=== PATIENT | female | born 1980 | race Caucasian/White ===

== ENCOUNTER 2022-03-22 01:00 | Emergency (ER) | payer MEDICARE, MEDICAID, SELFPAY ==
--- NOTE | ~2022-03-22 | CT_ITS ---
EXAMINATION: CT ABDOMEN AND PELVIS WITH CONTRAST CLINICAL INFORMATION: Abdominal pain. History of pancreatitis. COMPARISON: None TECHNIQUE: Multidetector volumetric images were obtained from the superior aspect of the liver through the pubic symphysis following administration 100 mL of Omnipaque 350 intravenous contrast. Sagittal and coronal reformatted images were obtained on the technologist's workstation. Oral contrast: No This CT examination was performed using dose optimization techniques as appropriate, variously including the following: *Automated exposure control *Adjustment of mA and/or kV according to patient size (this includes techniques or standardized protocols for targeted exams where dose is matched to indication/reason for exam; i.e. extremities or head) *Use of iterative reconstruction technique DLP: 959 mGy-cm FINDINGS: LUNG BASES: The visualized lung bases are unremarkable. LIVER, GALLBLADDER, AND BILIARY TREE: The liver is normal in size, shape, and contour. Hepatic steatosis. No focal hepatic lesion or biliary ductal dilatation is present. Gallbladder unremarkable. PANCREAS: Unremarkable. SPLEEN: Unremarkable. ADRENAL GLANDS: Unremarkable. KIDNEYS AND URETERS: The kidneys are normal in size, shape, and attenuation. No hydronephrosis, hydroureter, or calculi seen. No perinephric stranding. BLADDER: Unremarkable. GASTROINTESTINAL TRACT: The small and large bowel are unremarkable. The appendix is unremarkable. ABDOMINAL WALL: No significant hernia is appreciated. LYMPH NODES: Normal. VASCULAR: Unremarkable. PELVIC VISCERA: Uterus and adnexa are unremarkable. OSSEOUS STRUCTURES: Unremarkable. CT/CT abdomen pelvis w IV con IMPRESSION: * Normal CT imaging appearance of the pancreas. * Hepatic steatosis.
[2022-03-22 01:25] VITALS: BP 142/79; PULSE 80; RESP 19; TEMP 36.9; O2SAT 96; BMI 41.1
[2022-03-22 01:38] LABS: Basophils Percent Auto 0.3 % (0-2); Eosinophils Absolute Auto 0.2 X10*3/uL (0.0-0.4); Eosinophils Percent Auto 1.5 % (0-4); Hematocrit 42.5 % (37.0-47.0); Imm Gran Abs Auto 0.06 X10*3/uL (0.00-0.03); Imm Gran Pct Auto 0.4 % (0.0-0.4); Lymphocytes Absolute Auto 2.7 X10*3/uL (1.2-4.9); Lymphocytes Percent Auto 18.8 % (20-40); MANUAL DIFF FLAG NO; Mean Corpuscular HGB Conc 32.9 g/dl (31.0-35.0); Mean Corpuscular Hemoglobin 28.6 pg (27.0-33.0); Mean Corpuscular Volume 86.9 fL (80.0-98.0); Mean Platelet Volume 10.7 fL (9.4-12.3); Monocytes Absolute Auto 0.9 X10*3/uL (0.1-1.2); Monocytes Percent Auto 6.5 % (2-11); Neutrophils Absolute Auto 10.2 x10*3/uL (2.0-8.3); Neutrophils Percent Auto 72.5 % (45-73); Platelet Count 232 X10*3/uL (160-400); Red Blood Count 4.89 X10*6/uL (4.20-5.50); Red Cell Distribution Width 15.2 % (11.0-16.0); White Blood Count 14.1 X10*3/uL (4.8-10.8)
[2022-03-22 01:59] LABS: Alanine Aminotransferase 36 U/L (0-31); Albumin Level 4.2 g/dL (3.5-5.0); Alkaline Phosphatase 38 U/L (39-117); Anion Gap 16 (12-20); Aspartate Amino Transferase 21 U/L (5-31); Bilirubin Total 0.3 mg/dL (0.0-1.0); Blood Urea Nitrogen 12 mg/dL (9-16); Calcium 9.1 mg/dL (8.4-10.2); Carbon Dioxide 24 mmol/L (22-29); Chloride 98 mmol/L (96-108); Creatinine Clr Calc Pharmacy 130.6; Estimated Glomerular Filt Rate > 60; Glucose Random 176 mg/dL (60-115); Lipase 183 U/L (8-78); Sodium 134 mmol/L (135-145); Total Protein 7.1 g/dL (6.5-8.0)
[2022-03-22 02:13] LABS: Appearance Urine Clear; Color Urine Yellow; Glucose Urine UA >=1000 mg/dL (Negative); Leukocyte Esterase Urine Negative (Negative); Nitrite Urine Negative (Negative); Specific Gravity - Urine 1.015 (1.005-1.025); UMIC TRIGGER UACC YES; Urine Blood Negative (Negative); Urine Ketones Negative (Negative); Urine Protein Negative (Neg-Trace)
[2022-03-22 02:18] LABS: Bacteria Urine None Seen (None Seen); Hyaline Casts Urine 0-2 /LPF (0-2); RBC Urine 0-2 /HPF (0-2); WBC Urine 0-5 /HPF (0-5)
[2022-03-22 03:45] VITALS: BP 141/68; PULSE 76; RESP 18; TEMP 36.4; O2SAT 95
--- NOTE | 2022-03-22 03:49 | ED_ITS ---
HPI - Abdominal Pain General Chief Complaint: Abdominal Pain Stated Complaint: pain in side, dr said possible pancreatitis Time Seen by Provider: 03/22/22 03:48 Source: patient Mode of arrival: ambulatory Limitations: no limitations History of Present Illness HPI narrative: Patient's history of hypertriglyceridemia, pancreatitis comes here for diffuse mid abdominal pain for last 2 days associated with nausea pain in her right back got worse prior to arrival no alcohol use no history of gallstones Related Data Previous Rx's Medication Instructions Recorded ondansetron 4 mg disintegrating 4 mg PO Q6-8H PRN nausea and 03/22/22 tablet vomiting #7 tabs tramadol 50 mg tablet 50 mg PO Q6H PRN pain #20 tabs 03/22/22 Allergies Allergy/AdvReac Type Severity Reaction Status Date / Time Sulfa (Sulfonamide Allergy Unknown HIVES Verified 03/22/22 01:28 Antibiotics) [SULFA (SULFONAMIDE ANTIBIOTICS)] Review of Systems Review of Systems Yes all other systems are reviewed and are negative [facility] Social History Social History Alcohol intake: never Patient Tobacco Use Status: Current everyday Tobacco user Use of substances other than those prescribed or required for medical reasons: Yes Substance Use Type: Marijuana Substance Use Frequency: Monthly Advance Directives: No Advance Directives Information Provided: Yes Patient : No Physical Exam ED Vital Signs: Vital Signs - 24 hr 03/22/22 01:25 03/22/22 03:45 Temperature 98.5 F 97.6 F Pulse Rate 80 76 Respiratory Rate 19 18 Blood Pressure 142/79 H 141/68 H Pulse Oximetry 96 95 Oxygen Delivery Method Room Air Room Air BMI result Body Mass Index 41.1 Appearance: Alert. Oriented X3. No acute distress. Eyes: PERRLA, No Nystagmus ENT: Pharynx normal. Oral Mucosa moist Neck: Normal inspection. Neck supple. CVS: Normal heart rate and rhythm. Pulses normal. Respiratory: No respiratory distress. Equal air entry bilateral, no wheezing/rales/rhonchi Abdomen: Soft mid abdominal tenderness. Bowel sounds are present, no mass palpable, R CVA tenderness+ Skin: Skin warm and dry. Normal skin color. Normal skin turgor. Extremities: No lower extremity edema. No calf tenderness Neuro: Oriented X 3. No motor deficit. 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 Lab Data Attestation: I reviewed the patient's lab results. Result diagrams: 03/22/22:03/22/22:31 Labs: Lab Results 03/22/22 03/22/22 03/22/22 Range/Units : 01:31 01:41 WBC 14.1 H (4.8-10.8) X10*3/uL RBC 4.89 (4.20-5.50) X10*6/uL Hgb 14.0 (12.0-16.0) g/dl Hct 42.5 (37.0-47.0) % MCV 86.9 (80.0-98.0) fL MCH 28.6 (27.0-33.0) pg MCHC 32.9 (31.0-35.0) g/dl RDW 15.2 (11.0-16.0) % Plt Count 232 (160-400) X10*3/uL MPV 10.7 (9.4-12.3) fL Immature Gran % (Auto) 0.4 (0.0-0.4) % Neut % (Auto) 72.5 (45-73) % Lymph % (Auto) 18.8 L (20-40) % [place] % (Auto) 6.5 (2-11) % Eos % (Auto) 1.5 (0-4) % Baso % (Auto) 0.3 (0-2) % Lymph # (Auto) 2.7 (1.2-4.9) X10*3/uL [place] # (Auto) 0.9 (0.1-1.2) X10*3/uL Eos # (Auto) 0.2 (0.0-0.4) X10*3/uL Baso # (Auto) 0.0 (0.0-0.2) X10*3/uL Abs Immat Gran (auto) 0.06 H (0.00-0.03) X10*3/uL Absolute Neuts (auto) 10.2 H (2.0-8.3) x10*3/uL Absolute Nucleated RBC 0.000 (0.0-0.012) X10*3/uL Nucleated RBC % (auto) 0.0 (0.0-0.2) /100WBC Sodium 134 L (135-145) mmol/L Potassium 4.0 (3.3-5.1) mmol/L Chloride 98 (96-108) mmol/L Carbon Dioxide 24 (22-29) mmol/L Anion Gap 16 (12-20) BUN 12 (9-16) mg/dL Creatinine 0.69 (0.5-1.4) mg/dL Estim Creat Clear Calc 130.6 Estimated GFR > 60 Random Glucose 176 H (60-115) mg/dL Calcium 9.1 (8.4-10.2) mg/dL Total Bilirubin 0.3 (0.0-1.0) mg/dL AST 21 (5-31) U/L ALT 36 H (0-31) U/L Alkaline Phosphatase 38 L (39-117) U/L Total Protein 7.1 (6.5-8.0) g/dL Albumin 4.2 (3.5-5.0) g/dL Triglycerides 415 mg/dL Cholesterol 168 mg/dL LDL Cholesterol, Calc TNP HDL Cholesterol 35 mg/dL Lipase 183 H (8-78) U/L Urine Color Yellow Urine Appearance Clear Urine pH 6.0 (5.0-9.0) Ur Specific [place] 1.015 (1.005-1.025) Urine Protein Negative (Neg-Trace) mg/dL Urine Glucose (UA) >=1000 H (Negative) mg/dL Urine Ketones Negative (Negative) mg/dL Urine Blood Negative (Negative) Urine Nitrite Negative (Negative) Ur Leukocyte Esterase Negative (Negative) Urine RBC 0-2 (0-2) /HPF Urine WBC 0-5 (0-5) /HPF Ur Squamous Epith Cells 3-5 (0-2) /HPF Urine Bacteria None Seen (None Seen) Hyaline Casts 0-2 (0-2) /LPF Discharge Plan Discharge Clinical Impression: Pancreatitis Patient Disposition: Home, Self-Care Instructions: Pancreatitis (ED) Additional Instructions: You have slightly elevated lipase but CT scan is negative for any acute inflammation of the pancreas Drink plenty of fluids advanced slowly as tolerated Avoid fried foods Report to the ER/PCP if worsening of the pain/vomiting. 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
--- OUTSIDE RECORDS SUMMARY | 2022-03-22 03:55 | XMS_ITS | Encounter Summary ---
:1980 Author Reason for Visit Tooth Pain patient is here for broken tooth and randall n at the site on the bottom left side has been going on since yesterday tooth has been broken for years Assessment and Plan Assessment Note Take ibuprofen and Tylenol as needed an d directed Take penicillin as prescribed Follow-up with your dentist appointment on Monday Salt water rinses as we discussed 1. Infection of tooth ? penicillin V potassium 500 mg tablet Discussion Note: None recorded.Patient educational handouts: No information available. Plan of Care Reminders Provider Appointments None recorded. ? ? Lab None recorded. ? ? Referral None recorded. ? ? Procedures None recorded. ? ? Surgeries None recorded. ? ? Imaging None recorded. ? ? Medications Name Start Date ? ? acyclovir 400 mg tablet ? TAKE 1 TABLET BY MOUTH EVERY 12 HOURS albuterol sulfate HFA 90 mcg/actuation aerosol inhaler ? INHALE 2 PUFFS BY MOUTH EVERY 4 TO 6 HOURS NEEDED amitriptyline 25 mg tablet ? TAKE 1 TABLET BY MOUTH EVERY DAY AT BEDTIME baclofen 10 mg tablet ? TAKE 1 TABLET BY MOUTH TWICE DAILY NEEDED buprenorphine 8 mg-naloxone 2 mg sublingual film ? TAKE 3 FILMS SULINGUALLY EVERY DAY buprenorphine 8 mg-naloxone 2 mg sublingual tablet ? DISSOLVE 3 TABLETS UNDER THE TONGUE EVERY DAY duloxetine 60 mg capsule,delayed release ? TAKE 1 CAPSULE BY MOUTH EVERY DAY FeroSul 325 mg (65 mg iron) tablet ? TAKE 1 TABLET BY MOUTH EVERY OTHER DAY Flovent HFA 110 mcg/actuation aerosol inhaler ? INHALE 2 PUFFS BY MOUTH TWICE DAILY hydroxyzine HCl 25 mg tablet ? TAKE 1 TO 2 TABLETS BY MOUTH THREE TIMES DAILY NEE DED ibuprofen 600 mg tablet ? ipratropium bromide 42 mcg (0.06 %) nasal spray ? USE 2 SPRAYS IN EACH NOSTRIL TWICE DAILY FOR 7 DAYS Januvia 25 mg tablet ? TAKE 1 TABLET BY MOUTH EVERY DAY FOR DIABETES Jardiance 25 mg tablet ? TAKE 1 TABLET BY MOUTH EVERY MORNING lisinopril 20 mg-hydrochlorothiazide 12.5 mg tablet ? TAKE 1 TABLET BY MOUTH EVERY DAY metformin 850 mg tablet ? TAKE 1 TABLET BY MOUTH TWICE DAILY WITH THE MORNING A ND EVENING MEAL nicotine (polacrilex) 4 mg buccal lozenge ? [place] 3 ? omega-3 300 mg-dha 120 mg-epa 180 mg-fish oil 1,000 mg capsule ? TAKE 1 CAPSULE BY MOUTH THREE TIMES DAILY omega-3 fatty acids-fish oil 300 mg-1,000 mg capsule ? TAKE 1 CAPSULE BY MOUTH THREE TIMES DAILY omeprazole 40 mg capsule,delayed release ? TAKE 1 CAPSULE BY MOUTH TWICE DAILY penicillin V potassium 500 mg tablet ? TAKE 1 TABLET BY MOUTH EVERY 8 HOURS FOR 10 DAYS D IRECTED pramipexole 0.5 mg tablet ? TAKE 1 TABLET BY MOUTH EVERY NIGHT AT BEDTIME pravastatin ? pravastatin 20 mg tablet ? TAKE 1 TABLET BY MOUTH EVERY DAY AT BEDTIME prazosin 5 mg capsule ? TAKE 1 CAPSULE BY MOUTH TWICE DAILY pregabalin 200 mg capsule ? TAKE 1 CAPSULE BY MOUTH TWICE DAILY pregabalin 225 mg capsule ? TAKE 1 CAPSULE BY MOUTH TWICE DAILY sumatriptan 100 mg tablet ? TAKE 1 TABLET BY MOUTH AT ONSET OF MIGR NING. MAY REPEAT AFTER 2 HOURS IF HEADACHE RETURNS. NOT TO EXCEED 200 MG IN 24 HOURS Medications Administered None recorded. Vitals Blood Pressure 119/73 mm[Hg] Results Lab Results None recorded. Allergies Code Code System Name Reaction Severity Onset Sulfa (Sulfonamide Antibiotics) ? ? ? Problems None recorded. Procedures None recorded. Vaccine List Notes: no covid vaccine Social History Tobacco Smoking Status Heavy Tobacco Smoker (1/2 pack per da y) What is your level of alcohol consumption? Occasional Do you use any illicit or recreational N drugs? Functional Status Unknown. Past Encounters 02/15/2022 Infection of Tooth Marily Kong HOMA Georges: [address] [place] [address], Ph. History of Present Illness Note: <div>Patient is a 41-year-old female presents to urgent care today with complaints of left-sided lower tooth pain. States that she has a history of fractured teeth from an injury in 2011. Patient states that she has been under a lot of stress lately and with COVID has not seen a dentist in a while. Has a known broken tooth in the area where the pain is. States the pain started yesterday. Has an appointment with her dentist next Monday. Taking Tylenol and 600 mg ibuprofen with relief of the pain. Able to eat and drink otherwise. No other complaints at this time.</div>Review of Systems: ROS as noted in the HPI Review of Systems ? Comprehensive Adult Problem ROS Reported By: Patient Constitutional: Constitutional: fever Eyes: Eyes: eye pain ENMT: ENMT: ear pain, sinus pressu re, facial swelling Respiratory: Respiratory: no cough, no wh eezing, no chest tightness Allergic/Immunologic: Allergy/Immunologic: no snee zing, no runny nose Physical Exam ? Notes: <div>General: Alert and orie nted x3 in no apparent distress

Skin: Mullen warm and dry. No lesions or masses appreciated throughout. Mild edema to the left side of the face

Mouth: Multiple fractured teeth throughout. No abscess seen. No tongue elev ation/cellulitis to floor of mouth.

Lungs: No resp distress

Musc uloskeletal: Full range of motion of upper and lower extremities bilaterall y.

Lymph: No cervical lymphadenopathy appreciated</div>
--- OUTSIDE RECORDS SUMMARY | 2022-03-22 03:55 | XMS_ITS ---
:1980 Author Care Team Providers Name Role Phone Sean Matias Primary Care Provider Unavailable Allergies Code Code System Name Reaction Severity Status Onset Sulfa (Sulfonamide Antibiotics) ? ? Active ? Medications Name Status Start Date Stop Date ? ? acyclovir 400 mg tablet Active ? Not avai lable albuterol sulfate HFA 90 mcg/actuation aerosol inhaler Active ? Not available INHALE 2 PUFFS BY MOUTH EVERY 4 TO 6 HOURS NEEDED Alcohol Prep Pads Completed ? 11/04/2021 USE 1 PAD FOR TESTING amitriptyline 25 mg tablet Active ? Not a vailable TAKE 1 TABLET BY MOUTH EVERY DAY AT BEDTIME amitriptyline 50 mg tablet Completed ? 11/04 TAKE 2 TABLETS BY MOUTH AT BEDTIME amoxicillin 500 mg capsule Completed ? 11/04 baclofen 10 mg tablet Active ? Not availa ble blood pressure test kit-large cuff Completed ? 11/04/2021 USE TO CHECK BLOOD PRESSURE ONCE DAILY AND RECORD READING buprenorphine 8 mg-naloxone 2 mg sublingual film Active ? Not available TAKE 3 FILMS SULINGUALLY EVERY DAY buprenorphine 8 mg-naloxone 2 mg sublingual tablet Active ? Not available DISSOLVE 3 TABLETS UNDER THE TONGUE EVERY DAY chlorhexidine gluconate 0.12 % mouthwash Completed ? 11/04/[address] PL[address] 15ML BY MUCOUS MEMBRANE TWICE ANN LY AFTER MEALS SWISH FOR 30 SECONDS THEN SPIT OUT clotrimazole 10 mg randall Completed ? 2021 DISSOLVE 1 LOZENGE SLOWLY IN THE MOUTH FIVE TIMES DAILY duloxetine 60 mg capsule,delayed release Active ? Not available TAKE 1 CAPSULE BY MOUTH EVERY DAY FeroSul 325 mg (65 mg iron) tablet Active ? Not available TAKE 1 TABLET BY MOUTH EVERY OTHER DAY Flovent HFA 110 mcg/actuation aerosol inhaler Active ? Not available INHALE 2 PUFFS BY MOUTH TWICE DAILY gabapentin 800 mg tablet Completed ? 022 TAKE 1 TABLET BY MOUTH THREE TIMES DAILY FOR FIBROMYALGIA hydrochlorothiazide 25 mg tablet Completed ? 11/04/2021 hydroxyzine HCl 25 mg tablet Active ? Not available TAKE 1 TO 2 TABLETS BY MOUTH THREE TIMES DAILY NEEDED ibuprofen 600 mg tablet Active ? Not avai lable ibuprofen 800 mg tablet Completed ? 11/05/19 22 TAKE 1 TABLET BY MOUTH THREE TIMES DAILY WITH FOOD ipratropium bromide 42 mcg (0.06 %) nasal spray Active ? Not available USE 2 SPRAYS IN EACH NOSTRIL TWICE DAILY FOR 7 DAYS Januvia 25 mg tablet Active ? Not availab le TAKE 1 TABLET BY MOUTH EVERY DAY FOR DIABETES Jardiance 10 mg tablet Completed ? 2 TAKE 1 TABLET BY MOUTH EVERY DAY IN THE MORNING Jardiance 25 mg tablet Active ? Not avail able TAKE 1 TABLET BY MOUTH EVERY MORNING lisinopril 20 mg-hydrochlorothiazide 12.5 mg tablet Active ? Not available TAKE 1 TABLET BY MOUTH EVERY DAY metformin 850 mg tablet Active ? Not avai lable nicotine (polacrilex) 4 mg buccal lozenge Active ? Not available nicotine 21 mg/24 hr daily transdermal patch Completed ? 11/04/2021 APPLY 1 PATCH TO THE SKIN EVERY DAY AND WEAR FOR 16 TO 24 HOURS [place] 3 Active ? Not available omega-3 300 mg-dha 120 mg-epa 180 mg-fish oil 1,000 mg capsule A ctive ? Not available TAKE 1 CAPSULE BY MOUTH THREE TIMES DAILY omega-3 fatty acids-fish oil 300 mg-1,000 mg capsule Active ? Not available TAKE 1 CAPSULE BY MOUTH THREE TIMES DAILY omeprazole 40 mg capsule,delayed release Active ? Not available TAKE 1 CAPSULE BY MOUTH TWICE DAILY penicillin V potassium 500 mg tablet Active ? Not available TAKE 1 TABLET BY MOUTH EVERY 8 HOURS FOR 10 DAYS DIRECTED pramipexole 0.5 mg tablet Active ? Not av ailable TAKE 1 TABLET BY MOUTH EVERY NIGHT AT BEDTIME pravastatin Active ? Not available pravastatin 20 mg tablet Active ? Not romain ilable TAKE 1 TABLET BY MOUTH EVERY DAY AT BEDTIME prazosin 5 mg capsule Active ? Not availa ble TAKE 1 CAPSULE BY MOUTH TWICE DAILY pregabalin 200 mg capsule Active ? Not av ailable TAKE 1 CAPSULE BY MOUTH TWICE DAILY pregabalin 225 mg capsule Active ? Not av ailable TAKE 1 CAPSULE BY MOUTH TWICE DAILY sumatriptan 100 mg tablet Active ? Not av ailable Problems None recorded. Procedures None recorded. Results Lab Results Date Name Specimen Result Interpretation Description Value Range Status Address ? 11/04/2021 SARS CoV 2 RNA ? Result negative ? ? [place] [facility] [place]: [address] operator-PCR, [facility] , Respiratory [facility] ield Specimen 06/21/2020 SARS CoV 2 RNA ? Covid-19, ? (neg) F inal [facility] (COVID-19), , (RT)-PCR Reference b operator-PCR, Tim macario: Respiratory [address] Specimen [place], [place] Past Encounters 02/15/2022 Infection of Tooth Kornelia Moysis [place], PA: [address] [place] [address], Ph. 11/04/2021 Suspected COVID-19; Congestion of Nasal Sinus Emely Presley PA: [address] [place] [address], Ph. Social History Tobacco Smoking Status Heavy Tobacco Smoker (1/2 pack per da y) Vaccine List Notes: no covid vaccine Plan of Care Reminders Provider Appointments None recorded. ? ? Lab None recorded. ? ? Referral None recorded. ? ? Procedures None recorded. ? ? Surgeries None recorded. ? ? Imaging None recorded. ? ? Vitals 02/15/2022 03:21PM Established Patient Blood Pressure 119/73 mm[Hg] 11/04/2021 01:45PM Established Patient Blood Pressure 111/59 mm[Hg]
[2022-03-22 04:11] LABS: Cholesterol 168 mg/dL; HDL Cholesterol 35 mg/dL; Triglycerides 415 mg/dL
[2022-03-22] MEDS: 0.9 % Sodium Chloride 1,000 ML 999 ML IV (04:20)
--- NOTE | 2022-03-22 04:22 | PC.NURSE ---
Pt. declines Morphine at this time d/t hx. of opiate abuse. MD Wenceslao aware. This RN awaiting order for a different pain medication at this time.
[2022-03-22] MEDS: Ketorolac Tromethamine 30 MG/ML VIAL IVPUSH (04:24)
[2022-03-22] MEDS: ondansetron HCL 4 MG/2 ML VIAL IVPUSH (04:24)
[2022-03-22] MEDS: iohexoL 350 MG/ML 100 ML INFUS..BTL IV (04:42)
== END 2022-03-22 05:58 | disposition home or self-care (01) ==
PROVIDERS: Emergency Provider Internal Medicine
DX: K85.90 Acute pancreatitis without necrosis or infection, unspecified (principal); Z79.899 Other long term (current) drug therapy
CPT/HCPCS: 36415; 74177; 80053; 80061; 81001; 83690; 85025; 96374; 96375; 99284; 99285; J1885; J2405; Q9967

== ENCOUNTER 2022-05-03 08:13 | Outpatient (RCR) | payer MEDICARE, MEDICAID, SELFPAY | END 2022-07-05 13:55 | disposition home or self-care (01) | LOC: HO.WCC 08:13 | PROVIDERS: Visit Provider Physician Assistant | DX: Z09 Encounter for follow-up examination after completed treatment for conditions other than malignant neoplasm (principal); E11.40 Type 2 diabetes mellitus with diabetic neuropathy, unspecified; E78.01 Familial hypercholesterolemia; I10 Essential (primary) hypertension; F17.210 Nicotine dependence, cigarettes, uncomplicated; Z86.31 Personal history of diabetic foot ulcer | CPT/HCPCS: 11042; 99213 ==

== ENCOUNTER 2022-08-30 10:39 | Outpatient (RCR) | payer MEDICARE, OTHER, MEDICAID, SELFPAY | END 2023-03-15 14:36 | disposition home or self-care (01) | LOC: HO.WCC 10:39 | PROVIDERS: Visit Provider Physician Assistant | DX: E11.621 Type 2 diabetes mellitus with foot ulcer (principal); L97.512 Non-pressure chronic ulcer of other part of right foot with fat layer exposed; L97.522 Non-pressure chronic ulcer of other part of left foot with fat layer exposed; L03.116 Cellulitis of left lower limb; R78.81 Bacteremia; E11.40 Type 2 diabetes mellitus with diabetic neuropathy, unspecified; I10 Essential (primary) hypertension; F17.210 Nicotine dependence, cigarettes, uncomplicated; Z79.2 Long term (current) use of antibiotics | CPT/HCPCS: 10140; 11042; 97597 ==

== ENCOUNTER 2022-09-25 23:21 | Inpatient (IN) | payer MEDICARE, MEDICAID, SELFPAY ==
--- NOTE | ~2022-09-25 | XR_ITS ---
EXAMINATION: XR FOOT, LEFT CLINICAL INFORMATION: Low suspicion osteomyelitis fourth toe COMPARISON: None available. TECHNIQUE: AP, lateral, and oblique views of the left foot. FINDINGS: Osseous alignment is anatomic. No acute fracture is seen. No convincing changes of osteomyelitis in the fourth digit, though there may be some soft tissue swelling in this region. Mild degenerative changes in the proximal foot. XR/XR foot LT 2V IMPRESSION: No convincing changes of osteomyelitis in the fourth digit, though there may be some soft tissue swelling.
--- NOTE | ~2022-09-25 | XR_ITS ---
EXAMINATION: XR FOOT, RIGHT CLINICAL INFORMATION: Low suspicion osteomyelitis great toe COMPARISON: None available. TECHNIQUE: AP, lateral, and oblique views of the right foot. FINDINGS: Osseous alignment is anatomic. No convincing findings of osteomyelitis in the great toe, though there is suggestion of soft tissue swelling. No acute fracture is seen. Mild degenerative changes in the proximal foot. XR/XR foot RT 2V IMPRESSION: Suggestion of soft tissue swelling of the great toe. No convincing findings of osteomyelitis.
[2022-09-25 23:26] VITALS: BP 143/81; PULSE 97; RESP 20; TEMP 37.1; O2SAT 96; BMI 42.9
[2022-09-25 23:54] LABS: MANUAL DIFF FLAG NO
[2022-09-25 23:56] LABS: Basophils Percent Auto 0.3 % (0-2); Eosinophils Absolute Auto 0.1 X10*3/uL (0.0-0.4); Eosinophils Percent Auto 1.3 % (0-4); Hematocrit 45.1 % (37.0-47.0); Hemoglobin 15.2 g/dl (12.0-16.0); Imm Gran Abs Auto 0.03 X10*3/uL (0.00-0.03); Imm Gran Pct Auto 0.3 % (0.0-0.4); Lymphocytes Absolute Auto 2.1 X10*3/uL (1.2-4.9); Lymphocytes Percent Auto 18.9 % (20-40); Mean Corpuscular HGB Conc 33.7 g/dl (31.0-35.0); Mean Corpuscular Hemoglobin 29.4 pg (27.0-33.0); Mean Corpuscular Volume 87.2 fL (80.0-98.0); Mean Platelet Volume 11.4 fL (9.4-12.3); Monocytes Percent Auto 8.9 % (2-11); Neutrophils Absolute Auto 7.8 x10*3/uL (2.0-8.3); Neutrophils Percent Auto 70.3 % (45-73); Platelet Count 240 X10*3/uL (160-400); Red Blood Count 5.17 X10*6/uL (4.20-5.50); Red Cell Distribution Width 13.6 % (11.0-16.0); White Blood Count 11.1 X10*3/uL (4.8-10.8)
[2022-09-26 00:12] LABS: Alanine Aminotransferase 51 U/L (0-31); Albumin Level 4.5 g/dL (3.5-5.0); Alkaline Phosphatase 33 U/L (39-117); Anion Gap 11 (12-20); Aspartate Amino Transferase 28 U/L (5-31); Bilirubin Total 0.4 mg/dL (0.0-1.0); Blood Urea Nitrogen 12 mg/dL (9-16); Calcium 9.8 mg/dL (8.4-10.2); Carbon Dioxide 32 mmol/L (22-29); Chloride 97 mmol/L (96-108); Estimated Glomerular Filt Rate > 60; Glucose Random 249 mg/dL (60-115); Potassium 4.6 mmol/L (3.3-5.1); Sodium 135 mmol/L (135-145); Total Protein 7.4 g/dL (6.5-8.0)
--- NOTE | 2022-09-26 01:11 | ED.GENADULT ---
HPI - General Adult General Chief complaint: General Medical Stated complaint: possible cellulitis, septic? Time Seen by Provider: 09/26/22 00:56 Source: patient Mode of arrival: ambulatory Limitations: no limitations History of Present Illness HPI narrative: Patient comes to the emergency room complaining of lower extremity cellulitis in the right side. Patient states she noticed her legs getting red yesterday. There was an has found nonhealing wound on the greater toe, which is being taking care of at the wound clinic. Patient also noticed a new ulcer in her left foot on the 4th toe. Patient states that she had a fever of 101 at home. Has been taking Tylenol and ibuprofen. Patient also complaining of a rash on her right breast. Related Data Previous Rx's Medication Instructions Recorded ondansetron 4 mg disintegrating 4 mg PO Q6-8H PRN nausea and 03/22/22 tablet vomiting #7 tabs tramadol 50 mg tablet 50 mg PO Q6H PRN pain #20 tabs 03/22/22 Allergies Allergy/AdvReac Type Severity Reaction Status Date / Time Sulfa (Sulfonamide Allergy Unknown HIVES Verified 09/25/22 23:30 Antibiotics) [SULFA (SULFONAMIDE ANTIBIOTICS)] Review of Systems Review of Systems: Constitutional : No Weight loss, No Fever, No Chills, No Night Sweats, No Fatigue, No Malaise ENT/Mouth : No Hearing loss, No Ear Pain, No Nasal Congestion, No Sinus Pain, No Hoarseness, No sore throat, No Rhinorrhea, No Swallowing Difficulty Eyes: No Eye Pain, No Swelling, No Redness, No Foreign Body, No Discharge, No Vision Changes Cardiovascular : No Chest Pain, No SOB, No Dyspnea on Exertion, No Orthopnea, No Edema, No Palpitations Respiratory : No Cough, No Sputum, No Wheezing, No Smoke Exposure, No Dyspnea Gastrointestinal : No Nausea, No Vomiting, No Diarrhea, No Constipation, No abdominal Pain, No Hematochezia, No Melena Genitourinary : no irregular bleeding, No Dysuria, No Urinary Frequency, No Hematuria, No Urinary Incontinence, No Urgency, No Flank Pain, No Urinary Flow Changes, No Hesitancy Musculoskeletal : No joint pain, No Myalgias, No Joint Swelling Skin : Complaining rash under the right breast. Complaining of cellulitis in her right lower extremity and a new diabetic ulcer on the 4th toe of the left foot Neuro : No Weakness, No Numbness, No Paresthesias, No Loss of Consciousness, No Dizziness, No Headache Psych : No Anxiety/Panic, No Depression, No SI/HI/AH/VH, No Social Issues, Heme/Lymph: No Bruising, No Bleeding,No Lymphadenopathy Endocrine : No Polyuria, No Polydipsia, No Temperature Intolerance [facility] Past Medical History Medical History Diabetes Social History Social History Alcohol intake: never Patient Tobacco Use Status: Current everyday Tobacco user Substance Use Type: Marijuana Advance Directives: No Advance Directives Information Provided: Yes Physical Exam ED Vital Signs: Vital Signs - 24 hr 09/25/22 23:26 09/26/22 01:41 Temperature 98.7 F 100.8 F H Pulse Rate 97 92 Respiratory Rate 20 20 Blood Pressure 143/81 H 123/58 L Pulse Oximetry 96 95 Oxygen Delivery Method Room Air Room Air BMI result Body Mass Index 42.9 Const Other: Appearance: Alert. Oriented X3. No acute distress. Eyes: Pupils equal, round and reactive to light. ENT: Pharynx normal. Neck: Normal inspection. Neck supple. No lymph nodes noted. No crepitus CVS: Normal heart rate and rhythm. Pulses normal. Normal S1 and S2 Respiratory: No respiratory distress. Breath sounds normal. No Wheezing. No rales Abdomen: Soft and nontender. No rigidity. No distention. Skin: Skin warm and dry. Normal skin color. Normal skin turgor. Extremities: No lower extremity edema. There is cellulitis in the frontal aspect of the right lower extremity, a nonhealing laceration at the tip of the great toe, there is a new ulcer on the 4th toe on the left Neuro: Oriented X 3. No motor deficit. No sensory deficit. Moving all extremities. No slurred speech. CN 2 through 12 grossly intact Psych: calm, cooperative, normal affect Medications Administered Discontinued Medications Generic Name Dose Route Start Last Admin Trade Name Freq PRN Reason Stop Dose Admin Acetaminophen 975 mg 09/26/22 02:17 09/26/22 02:21 Acetaminophen 325 Mg Tablet PO 09/26/22 02:18 975 mg ONCE ONE Administration Piperacillin Sod/Tazobactam 50 mls @ 100 mls/hr 09/26/22 01:52 09/26/22 02:20 Sod 3.375 gm/ Sodium Chloride IV 09/26/22 02:21 100 mls/hr ONCE ONE Administration Medical Decision Making Medical Decision Making [facility] Narrative: Patient's white blood cell count is within normal limits. However, patient has been spiking fever. Patient has been medicated with IV vancomycin and Zosyn. -chest x-ray of both feet are not suspicious for osteomyelitis. -patient continues spiking fever this provides antipyretics Differential Diagnosis Differential Diagnoses: The differential diagnosis associated with the presentation includes (Cellulitis, osteomyelitis) Admission/Observation Consideration of admission/observation: Escalation of care including admission/observation considered Consult Healthcare Provider Management of the patient was discussed with: Hospitalist Lab Data [facility] Lab Attestation statement: I reviewed the patient's lab results. 09/25/22 23:50 09/25/22 23:50 Labs: Lab Results 09/25/22 09/25/22 09/25/22 Range/Units 23:50 23:50 23:50 WBC 11.1 H (4.8-10.8) X10*3/uL RBC 5.17 (4.20-5.50) X10*6/uL Hgb 15.2 (12.0-16.0) g/dl Hct 45.1 (37.0-47.0) % MCV 87.2 (80.0-98.0) fL MCH 29.4 (27.0-33.0) pg MCHC 33.7 (31.0-35.0) g/dl RDW 13.6 (11.0-16.0) % Plt Count 240 (160-400) X10*3/uL MPV 11.4 (9.4-12.3) fL Immature Gran % (Auto) 0.3 (0.0-0.4) % Neut % (Auto) 70.3 (45-73) % Lymph % (Auto) 18.9 L (20-40) % [place] % (Auto) 8.9 (2-11) % Eos % (Auto) 1.3 (0-4) % Baso % (Auto) 0.3 (0-2) % Lymph # (Auto) 2.1 (1.2-4.9) X10*3/uL [place] # (Auto) 1.0 (0.1-1.2) X10*3/uL Eos # (Auto) 0.1 (0.0-0.4) X10*3/uL Baso # (Auto) 0.0 (0.0-0.2) X10*3/uL Abs Immat Gran (auto) 0.03 (0.00-0.03) X10*3/uL Absolute Neuts (auto) 7.8 (2.0-8.3) x10*3/uL Absolute Nucleated RBC 0.000 (0.0-0.012) X10*3/uL Nucleated RBC % (auto) 0.0 (0.0-0.2) /100WBC ESR 9 (0-20) MM/HR Sodium 135 (135-145) mmol/L Potassium 4.6 (3.3-5.1) mmol/L Chloride 97 (96-108) mmol/L Carbon Dioxide 32 H (22-29) mmol/L Anion Gap 11 L (12-20) BUN 12 (9-16) mg/dL Creatinine 0.87 (0.5-1.4) mg/dL Estim Creat Clear Calc 105.0 Estimated GFR > 60 Random Glucose 249 H (60-115) mg/dL Lactic Acid (0.5-2.0) mmol/L Calcium 9.8 D (8.4-10.2) mg/dL Total Bilirubin 0.4 (0.0-1.0) mg/dL AST 28 (5-31) U/L ALT 51 H (0-31) U/L Alkaline Phosphatase 33 L (39-117) U/L C-Reactive Protein 5.98 H (< or = 0.50) mg/dL Total Protein 7.4 (6.5-8.0) g/dL Albumin 4.5 (3.5-5.0) g/dL 09/26/22 Range/Units 01:52 WBC (4.8-10.8) X10*3/uL RBC (4.20-5.50) X10*6/uL Hgb (12.0-16.0) g/dl Hct (37.0-47.0) % MCV (80.0-98.0) fL MCH (27.0-33.0) pg MCHC (31.0-35.0) g/dl RDW (11.0-16.0) % Plt Count (160-400) X10*3/uL MPV (9.4-12.3) fL Immature Gran % (Auto) (0.0-0.4) % Neut % (Auto) (45-73) % Lymph % (Auto) (20-40) % [place] % (Auto) (2-11) % Eos % (Auto) (0-4) % Baso % (Auto) (0-2) % Lymph # (Auto) (1.2-4.9) X10*3/uL [place] # (Auto) (0.1-1.2) X10*3/uL Eos # (Auto) (0.0-0.4) X10*3/uL Baso # (Auto) (0.0-0.2) X10*3/uL Abs Immat Gran (auto) (0.00-0.03) X10*3/uL Absolute Neuts (auto) (2.0-8.3) x10*3/uL Absolute Nucleated RBC (0.0-0.012) X10*3/uL Nucleated RBC % (auto) (0.0-0.2) /100WBC ESR (0-20) MM/HR Sodium (135-145) mmol/L Potassium (3.3-5.1) mmol/L Chloride (96-108) mmol/L Carbon Dioxide (22-29) mmol/L Anion Gap (12-20) BUN (9-16) mg/dL Creatinine (0.5-1.4) mg/dL Estim Creat Clear Calc Estimated GFR Random Glucose (60-115) mg/dL Lactic Acid 1.2 (0.5-2.0) mmol/L Calcium (8.4-10.2) mg/dL Total Bilirubin (0.0-1.0) mg/dL AST (5-31) U/L ALT (0-31) U/L Alkaline Phosphatase (39-117) U/L C-Reactive Protein (< or = 0.50) mg/dL Total Protein (6.5-8.0) g/dL Albumin (3.5-5.0) g/dL Radiology Impression Discussion of test interpretation with radiology: I have reviewed the radiologist's reading. Radiologist Impression: Osseous alignment is anatomic. No convincing findings of osteomyelitis in the great toe, though there is suggestion of soft tissue swelling. No acute fracture is seen. Mild degenerative changes in the proximal foot.? XR/XR foot RT 2V IMPRESSION: Suggestion of soft tissue swelling of the great toe. No convincing findings of osteomyelitis. ? Critical Care Time Critical Care Time Critical Care Time: Yes Total Critical Care Time: 45 Attestation: I have personally provided critical care time. Time includes review of lab data, radiology results, discussion with consultants, and monitoring for potential decompensation. Intervention performed as documented. Discharge Plan Discharge Clinical Impression: Cellulitis of anterior lower leg Patient Disposition: Admitted As Inpatient Prescriptions: No Action tramadol 50 mg tablet 50 mg PO Q6H PRN (Reason: pain) Qty: 20 0RF ondansetron 4 mg tablet,disintegrating 4 mg PO Q6-8H PRN (Reason: nausea and vomiting) Qty: 7 0RF
[2022-09-26 01:41] VITALS: BP 123/58; PULSE 92; RESP 20; TEMP 38.2; O2SAT 95
[2022-09-26 01:44] LABS: C Reactive Protein 5.98 mg/dL (< or = 0.50)
[2022-09-26 02:06] LABS: Erythrocyte Sedimentation Rate 9 MM/HR (0-20)
[2022-09-26 02:11] LABS: Lactic Acid 1.2 mmol/L (0.5-2.0)
[2022-09-26] MEDS: Piperacillin Sodium/Tazobactam 3.375 GM in 0.9 % Sodium Chloride 50 ML IV (02:20)
[2022-09-26] MEDS: Acetaminophen 325 MG TABLET 975 MG PO (02:21)
--- NOTE | 2022-09-26 03:11 | P.HPHOSP_ITS ---
History of Present Illness Date of Service: 09/26/22 Chief Complaint: RLE pain and erythema 42F PMH DM, morbid obesity, ?familial hypertriglyceridemia, hepatic steatosis, opiate dependence, depression, fibromyalgia presented with RLE erythema and pain. Patient states that her dog's tooth brushed her right 1st toe about 1 month prior to presentation, she has been [facility]. Appears to be slowly healing. About 2 days prior to presentation patient started to feel ill, fatigued. On day of presentation right lower extremity erythema and pain. Had fever at home. In ED found to have low-grade fever of 100.8. Review of Systems Review of Systems: Yes all other systems are reviewed and are negative [facility] Medical History Diabetes Social History Alcohol intake: never Patient Tobacco Use Status: Current everyday Tobacco user Substance Use Type: Marijuana Advance Directives: No Advance Directives Information Provided: Yes Meds Allergies Allergy/AdvReac Type Severity Reaction Status Date / Time Sulfa (Sulfonamide Allergy Unknown HIVES Verified 09/25/22 23:30 Antibiotics) [SULFA (SULFONAMIDE ANTIBIOTICS)] Active Medications: Current Medications Glucose (Glucose Gel 15 Gm Gel..Gram.) 15 gm PO Q15M PRN; Protocol PRN Reason: per Hypoglycemia Standing Ord. Vancomycin HCl (Vancomycin/Ns) 2,000 mg in 500 mls @ 250 mls/hr IV ONCE ONE Stop: 09/26/22 03:51 Dextrose (D10) 250 mls @ 750 mls/hr IV Q15M PRN; Protocol PRN Reason: per Hypoglycemia Standing Ord. Insulin Glargine (Insulin Glargine,Hum.Rec.Anlog 100 Unit/Ml 10 Ml Vial) 15 unit SUBCUT DAILY [facility] Insulin Human Lispro (Insulin Lispro 100 Unit/Ml 3 Ml Vial) 0 unit SUBCUT QIDACHS [facility]; Protocol Nicotine (Nicotine 21 Mg Patch.Td24) 21 mg TRANSDERMA DAILY [facility] Nystatin (Nystatin Cream 15 Gm Tube) 1 appl TOPICAL ONCE ONE; Protocol Stop: 09/26/22 03:10 Pharmacy Consult (Consult Rx Vancomycin Dosing) 1 each MISCELLANE DAILY PRN PRN Reason: Consult order Physical Exam Vital Signs and Narrative: Vital Signs: Last Vital Signs Temp 100.8 F H 09/26/22 01:41 Pulse 92 09/26/22 01:41 Resp 20 09/26/22 01:41 BP 123/58 L 09/26/22 01:41 Pulse Ox 95 09/26/22 01:41 O2 Del Method Room Air 09/26/22 01:41 BMI result Body Mass Index 42.9 General: AO X 3, in discomfort Resp: CTA bilateral, no accessory muscles used CVS: S1,S2,RRR GI: soft, non tender, non distended Neuro: motor grossly intact, alert Psych: appropriate affect, appropriate insight RLE: erythema, tenderness, warmth, right first toe erythematous with hdry appearing lesion. Results Labs 09/25/22 23:50 09/25/22 23:50 Labs: Laboratory Results - last 24 hr 09/25/22 09/25/22 09/25/22 23:50 23:50 23:50 MCV 87.2 MCH 29.4 MCHC 33.7 RDW 13.6 Plt Count 240 MPV 11.4 Immature Gran % (Auto) 0.3 Neut % (Auto) 70.3 Lymph % (Auto) 18.9 L [place] % (Auto) 8.9 Eos % (Auto) 1.3 Baso % (Auto) 0.3 Lymph # (Auto) 2.1 [place] # (Auto) 1.0 Eos # (Auto) 0.1 Baso # (Auto) 0.0 Abs Immat Gran (auto) 0.03 Absolute Neuts (auto) 7.8 Absolute Nucleated RBC 0.000 Nucleated RBC % (auto) 0.0 ESR 9 Anion Gap 11 L Estim Creat Clear Calc 105.0 Estimated GFR > 60 Random Glucose 249 H Lactic Acid Calcium 9.8 D Total Bilirubin 0.4 AST 28 ALT 51 H Alkaline Phosphatase 33 L C-Reactive Protein 5.98 H Total Protein 7.4 Albumin 4.5 09/26/22 01:52 MCV MCH MCHC RDW Plt Count MPV Immature Gran % (Auto) Neut % (Auto) Lymph % (Auto) [place] % (Auto) Eos % (Auto) Baso % (Auto) Lymph # (Auto) [place] # (Auto) Eos # (Auto) Baso # (Auto) Abs Immat Gran (auto) Absolute Neuts (auto) Absolute Nucleated RBC Nucleated RBC % (auto) ESR Anion Gap Estim Creat Clear Calc Estimated GFR Random Glucose Lactic Acid 1.2 Calcium Total Bilirubin AST ALT Alkaline Phosphatase C-Reactive Protein Total Protein Albumin Imaging Radiologist's Impressions: Impressions Foot X-Ray 09/26/22 01:27 IMPRESSION: No convincing changes of osteomyelitis in the fourth digit, though there may be some soft tissue swelling. Foot X-Ray 09/26/22 01:27 IMPRESSION: Suggestion of soft tissue swelling of the great toe. No convincing findings of osteomyelitis. Assessment and Plan (1) Cellulitis of anterior lower leg: Status: Acute Plan 42F PMH DM, morbid obesity, ?familial hypertriglyceridemia, hepatic steatosis, opiate dependence, depression, fibromyalgia presented with RLE erythema and pain RLE cellulitis due to DM and suspected entry wound of dog tooth scratch lesion vanc cultures DM with hyperglycemia basal bolus insulin morbid obesity weight loss recommended opiate dependence on suboxone hepatic steatosis weight loss breast candidiasis nystatin nicotine dependence nicoderm depression, fibromyalgia, diabetic neuropathy continue amitryptylline, lyrica ?familial hyperTG tricor, check lipids dvt prophylaxis - lovenox full code patient with cellulitis covering 50% of RLE, at risk for decompensation to sepsis due to DM, obesity, therefore expected to require atleast 2 midnights inpatient Time Spent With Patient Time: Total time managing care of this patient today ____ minutes. Quality Stroke Does the patient have a stroke diagnosis?: No VTE Prior VTE?: No VTE Risk Level:: Medical - moderate - high VTE Device Contraindication: Treatment Not Indicated VTE Drug Contraindication: N/A - Med Ordered
[2022-09-26] MEDS: vancomycin/NS 2,000 MG/500 ML PLAST..BAG 250 MG IV (03:12)
--- OUTSIDE RECORDS SUMMARY | 2022-09-26 04:14 | XMS_ITS | Continuity of Care Document ---
Author Name Unknown Organization [facility] Address [address] [place] [id number]- Care Team Providers Care Retort Load Expediter Name Role Phone Not on Staff, PCP Primary Care Physician Unavail able [place]counter [facility] [place] [facility] [place](s): 05/24/22 - 06/23/22 [facility] [address] [place] [id number]- [place] Attending Physician: Tamiko Lambert Admitting Physician: Tamiko Lambert Referring Physician: Tamiko Lambert Allergies, Adverse Reactions, Alerts Substance Reaction Severity Status sulfADIAZINE Active Medications acyclovir 400 mg oral tablet TAKE 1 TABLET BY MOUTH EVERY 12 HOURS Start Date: 03/11/22 Status: Ordered amitriptyline 25 mg oral tablet TAKE 1 TABLET BY MOUTH EVERY DAY AT BEDTIME Start Date: 03/11/22 Status: Ordered baclofen 10 mg oral tablet 10 mg, 1, tablet, By Mouth, 2 times a day, Refills 0, Maintenance, 10/26/18 17:29:44 EDT Start Date: 10/26/18 Status: Ordered Cymbalta 60 mg oral enteric coated capsule 1 capsule = 60 mg, By Mouth, Daily in AM, # 30 capsule, 0 Refills, Maintenance, 08/31/20 0:02:00 EDT, EC Capsule, Partial fill upon patient request if the prescription is for a schedule II opioid drug. Start Date: 08/31/20 Status: Ordered FeroSul 325 mg oral tablet TAKE 1 TABLET BY MOUTH EVERY OTHER DAY Start Date: 03/11/22 Status: Ordered FISH OIL 1000MG CAPSULES TAKE 1 CAPSULE BY MOUTH THREE TIMES DAILY Start Date: 03/11/22 Status: Ordered hydrochlorothiazide-lisinopril 12.5 mg-20 mg oral tablet TAKE 1 TABLET BY MOUTH EVERY DAY Start Date: 03/11/22 Status: Ordered hydrOXYzine hydrochloride 25 mg oral tablet TAKE 1 TO 2 TABLETS BY MOUTH THREE TIMES DAILY NEEDED Start Date: 03/11/22 Status: Ordered ibuprofen 600 mg oral tablet 1 tablet = 600 mg, By Mouth, Every 8 hours, # 20 tablet, 0 Refills, Maintenance, Tablet Start Date: 11/05/11 Status: Ordered Januvia 25 mg oral tablet TAKE 1 TABLET BY MOUTH EVERY DAY FOR DIABETES Start Date: 03/11/22 Status: Ordered metFORMIN 850 mg oral tablet 1 tablet = 850 mg, By Mouth, 2 times a day, # 180 tablet, 0 Refills, Maintenance, 08/31/20 0:03:00 EDT, Tablet, Partial fill upon patient request if the prescription is for a schedule II opioid drug. Start Date: 08/31/20 Status: Ordered Mirapex 0.25 mg oral tablet = 0.5 mg, By Mouth, Daily at bedtime, 0 Refills, Maintenance, 10/26/18 17:32:21 EDT Start Date: 10/26/18 Status: Ordered pravastatin 20 mg oral tablet TAKE 1 TABLET BY MOUTH EVERY DAY AT BEDTIME Start Date: 03/11/22 Status: Ordered pregabalin 225 mg oral capsule TAKE 1 CAPSULE BY MOUTH TWICE DAILY Start Date: 03/11/22 Status: Ordered Suboxone 8 mg-2 mg Sublingual Film TAKE 3 FILMS SUBLINGUALLY EVERY DAY Start Date: 03/11/22 Status: Ordered SUMAtriptan 100 mg oral tablet TAKE 1 TABLET BY MOUTH AT ONSET OF MIGRAINE. MAY REPEAT AFTER 2 HOURS. IF HEADACHE RETURNS. NOT TO EXCEED 200 MG IN 24 HOURS Start Date: 03/11/22 Status: Ordered Problem List Condition Confirmation Course Effective Dates Status [facility] Aseptic meningitis Confirmed Active Asthma Confirmed Active Depression Confirmed Active Diabetes mellitus Confirmed Active Fibromyalgia Confirmed Active Fibromyalgia Confirmed Active HSV - Anogenital herpes simplex virus infection Confirmed Active Migraine Confirmed Active Opioid dependence Confirmed Active Severe obesity Confirmed Active Social History Social History Type Response Smoking Status 5-9 cigarettes (betw een 1/4 to 1/2 pack)/day in last 30 days entered on: 10/26/18 Sex Patient Care team information Care Team Personnel Name: Not on Staff, PCP Position: S Physician (General Medicine) Member Role: PCP Care Team Related Persons Name: DANIELLE YADAV Address: home [address] [address] Name: RAINE BRODERICK Address: [address] [place] [address]
--- OUTSIDE RECORDS SUMMARY | 2022-09-26 04:14 | XMS_ITS | Continuity of Care Document ---
Author Name Unknown Organization [facility] Address [address] [place] [id number]- Care Team Providers Care Makeup Sales Advisor Name Role Phone Not on Staff, PCP Primary Care Physician Unavail able [place] [facility] [place] [facility] [id number] Date(s): 03/29/22 - 06/23/22 [facility] [address] [place] [id number]- Attending Physician: Pablo Uriarte MD Admitting Physician: Pablo Uriarte MD Referring Physician: Not on Staff, Referring MD Allergies, Adverse Reactions, Alerts Substance Reaction Severity [...] List Condition Confirmation Course Effective Dates Status [facility] Aseptic meningitis Confirmed Active Asthma [...] Persons Name: DANIELLE YADAV Address: home [address] [address] Name: RAINE BRODERICK Address: [address] [address]
[2022-09-26] MEDS: Nicotine 21 MG PATCH.TD24 TRANSDERMA (04:51)
[2022-09-26] MEDS: Ibuprofen 600 MG TABLET PO (04:51)
[2022-09-26 04:56] VITALS: BP 112/48; PULSE 79; RESP 20; TEMP 36.8; O2SAT 94
[2022-09-26] MEDS: Omeprazole 40 MG CAPSULE.DR PO ×2 (06:08→16:18)
[2022-09-26 06:44] VITALS: TEMP 36.8
[2022-09-26 06:53] LABS: Cholesterol 152 mg/dL; HDL Cholesterol 31 mg/dL; LDL Cholesterol Calculated 86 mg/dl; Triglycerides 179 mg/dL
[2022-09-26 07:16] LABS: Glucose, Whole Blood 163 mg/dL (60-115)
--- NOTE | 2022-09-26 07:25 | PC.NURSE ---
pt complaining of feeling warm and flushed with joint pain. call placed to pharmacy - pt aware that these sx started after she came to the hospital but unsure an exact time frame. ? adverse reaction to vanco dose. will continue to monitor.
[2022-09-26] MEDS: Insulin Lispro 100 UNIT/ML 3 ML VIAL SUBCUT ×4 (07:36→20:58)
[2022-09-26] MEDS: Baclofen 10 MG TABLET PO ×2 (08:17→20:59)
[2022-09-26] MEDS: Buprenorphine/Naloxone 8/2 mg TAB.SUBL 3 TAB SUBLINGUAL (08:17)
[2022-09-26] MEDS: Pregabalin 150 MG CAPSULE 300 MG PO ×2 (08:18→20:59)
[2022-09-26] MEDS: Acyclovir 200 MG CAPSULE 400 MG PO ×2 (08:18→20:59)
[2022-09-26] MEDS: Pravastatin Sodium 20 MG TABLET PO (08:18)
[2022-09-26] MEDS: lisinopriL 20 MG TABLET PO (08:18)
[2022-09-26] MEDS: Enoxaparin Sodium 40 MG/0.4 ML SYRINGE SUBCUT (08:18)
[2022-09-26] MEDS: Fenofibrate 160 MG TABLET PO (08:18)
[2022-09-26] MEDS: Insulin Glargine,Hum.rec.anlog 100 UNIT/ML 10 ML VIAL 15 UNIT SUBCUT (08:19)
[2022-09-26] MEDS: 0.9 % Sodium Chloride Flush 3 ML SYRINGE IVFLUSH ×2 (08:19→15:25)
--- NOTE | 2022-09-26 08:39 | PHA.MEDREC ---
Pharmacy Consult ? Medication Reconciliation Pharmacy has completed the medication reconciliation.
[2022-09-26 08:53] LABS: Creatinine Clr Calc Pharmacy 103.8; Estimated Glomerular Filt Rate > 60
--- NOTE | 2022-09-26 09:08 | PHA.PROG ---
Admission Date/Time: September 26, 2022 04:08 Indication: Cellulitis Weight in k.398 kg Adjusted body weight in K.1 kg [place] body weight in K.7 kg Obesity Dosing Indication % IBW: 206% Serum Creatinine - Last 168 Hours 09/25/22 09/26/22 23:50 05:54 Creatinine 0.87 0.88 Estimated CrCl and GFR - Last 168 Hours 09/25/22 09/26/22 23:50 05:54 Estim Creat Clear Calc 105.0 103.8 Estimated GFR > 60 > 60 Vancomycin Loading Dose: 2000 mg Current Vancomycin Dosing Regimen: 1000 mg Q12H Date and Time for next Vancomycin Level to be drawn: 09/27 @ 1300 Pharmacist Comments on Vancomycin Plan: patient is morbidly obese, therefore carefuly monitor is required due to vancomycin's high volume of distribution Patient received an adequate load dose in the ER 09/26 @ 0312. Maintenance dose vancomycin 1000 mg Q12H is scheduled to start 09/26 @ 1500. Expected AUC 512 with a trough of 14.9. Level is scheduled for prior to 4th dose Pharmacy will monitor renal function daily Lashae Cunha, Jairo Vancomycin dosing will take advantage of [employer] as a clinical decision support tool that uses Bayesian modeling to calculate individual patient's pharmacokinetic parameters and forecast the patient's drug concentration time course with the target goal AUC 24 range of 400 - 600 mg/L/hr.
--- NOTE | 2022-09-26 12:07 | PM.EVENT ---
Event Note Date of Service: 09/26/22 Event Note: Patient seen and examined earlier for the hospitalist team. Patient still has right leg pain and erythema This patient is seen and examined again. Physical exam and assessment and plan coordinated in APCs note, Agree with the plan in addition: erythema /pain similar to h&p continue current antibiotics regimen,follow up cultures. ID eval Time Spent With Patient Time: Total time managing care of this patient today ____ minutes.
[2022-09-26 12:09] VITALS: BP 107/59; PULSE 64; RESP 16; TEMP 36; O2SAT 94
[2022-09-26 12:09] LABS: Glucose, Whole Blood 177 mg/dL (60-115)
[2022-09-26] MEDS: Ferrous Sulfate 324 MG TABLET.DR PO (12:23)
--- NOTE | 2022-09-26 12:51 | MHC.CM.PN ---
pty is recently , her mom ,22 yrold bruce and 14 yr old son live w/her [place] [facility] 2 [facility] and [facility] dc plan resume [facility] and [facility]
--- NOTE | 2022-09-26 13:26 | P.CDIM_ITS ---
PROVIDER RESPONSE TEXT: To clarify, the appropriate diagnosis supported by the clinical indicators: Unable to determine QUERY TEXT: PHYSICIAN'S DOCUMENTATION REQUEST Date of Query: 09/26/2022 12:54 PM EDT Patient Name: Mague Cruz Admit Date: 09/26/2022 Dear Charli Fernandez, A review of the medical record indicates additional documentation may be needed. Please review below and update the documentation accordingly. Clinical Indicators: H&P 09/26 - Assessment/plan: diabetic neuropathy, continue amitryptylline, lyrica. Please clarify the following regarding the specifics to neuropathy documented: Diabetic neuropathy peripheral, autonomic, polyneuropathy, mononeuropathy or other Unable to determine Other (explain) Clinically unable to determine (explain) Thank you, Margaret Panchal, CCS, CDIS Use of terms such as suspected, likely, concern for, or probable (associated with a specific diagnosi s that is being evaluated, monitored, or treated as if it exists) are acceptable and can be coded in the inpatient se tting, when documented at the time of discharge. Please use your independent medical judgment in providing your response. THIS QUERY IS PART OF THE PERMANENT MEDICAL RECORD
[2022-09-26] MEDS: vancomycin HCL 1,000 MG in 0.9 % Sodium Chloride 250 ML 270 MG IV (15:15)
[2022-09-26 15:29] VITALS: BMI 42.8
[2022-09-26 15:52] VITALS: BP 120/53; PULSE 61; RESP 20; TEMP 36.1; O2SAT 95
[2022-09-26 16:02] LABS: Glucose, Whole Blood 210 mg/dL (60-115)
[2022-09-26] MEDS: Acetaminophen 325 MG TABLET 650 MG PO (17:46)
--- NOTE | 2022-09-26 18:03 | PC.NURSE ---
after vanco pt feels warm but not much like before in ED, provide cold face cloth, feels better. closely monitor.
[2022-09-26 20:00] VITALS: BP 100/60; PULSE 64; RESP 18; TEMP 36.6; O2SAT 95
[2022-09-26 20:43] LABS: Glucose, Whole Blood 177 mg/dL (60-115)
[2022-09-26] MEDS: Nicotine Polacrilex 2 MG GUM BUCCAL (20:59)
[2022-09-26] MEDS: Amitriptyline HCl 25 MG TABLET PO (21:00)
[2022-09-26] MEDS: Pramipexole Di-HCL 0.25 MG TABLET 0.5 MG PO (21:00)
[2022-09-27] MEDS: Acetaminophen 325 MG TABLET 650 MG PO ×3 (02:33→21:59)
[2022-09-27] MEDS: 0.9 % Sodium Chloride Flush 3 ML SYRINGE IVFLUSH ×4 (02:33→22:07)
[2022-09-27] MEDS: Nicotine Polacrilex 2 MG GUM BUCCAL (02:38)
[2022-09-27] MEDS: vancomycin HCL 1,000 MG in 0.9 % Sodium Chloride 250 ML 270 MG IV (03:33)
[2022-09-27 03:59] VITALS: BP 116/56; PULSE 63; RESP 18; TEMP 36.1; O2SAT 95
[2022-09-27] MEDS: Omeprazole 40 MG CAPSULE.DR PO ×2 (05:58→17:27)
[2022-09-27 06:35] LABS: Hematocrit 45.2 % (37.0-47.0); Hemoglobin 14.9 g/dl (12.0-16.0); Mean Corpuscular Hemoglobin 29.5 pg (27.0-33.0); Mean Corpuscular Volume 89.5 fL (80.0-98.0); Mean Platelet Volume 11.9 fL (9.4-12.3); Platelet Count 232 X10*3/uL (160-400); Red Blood Count 5.05 X10*6/uL (4.20-5.50)
[2022-09-27 06:57] LABS: Anion Gap 15 (12-20); Blood Urea Nitrogen 17 mg/dL (9-16); Calcium 9.3 mg/dL (8.4-10.2); Carbon Dioxide 27 mmol/L (22-29); Chloride 105 mmol/L (96-108); Creatinine Clr Calc Pharmacy 104.9; Estimated Glomerular Filt Rate > 60; Glucose Fasting 154 mg/dL (60-99); Potassium 4.7 mmol/L (3.3-5.1); Sodium 142 mmol/L (135-145)
[2022-09-27 07:21] VITALS: BP 109/54; PULSE 50; RESP 18; TEMP 36.1; O2SAT 92
[2022-09-27 07:26] LABS: Glucose, Whole Blood 162 mg/dL (60-115)
[2022-09-27] MEDS: Insulin Glargine,Hum.rec.anlog 100 UNIT/ML 10 ML VIAL 15 UNIT SUBCUT (08:29)
[2022-09-27] MEDS: Insulin Lispro 100 UNIT/ML 3 ML VIAL SUBCUT ×4 (08:29→21:55)
[2022-09-27] MEDS: Baclofen 10 MG TABLET PO ×2 (08:30→21:59)
[2022-09-27] MEDS: Pregabalin 150 MG CAPSULE 300 MG PO ×2 (08:30→21:58)
[2022-09-27] MEDS: lisinopriL 20 MG TABLET PO (08:30)
[2022-09-27] MEDS: Enoxaparin Sodium 40 MG/0.4 ML SYRINGE SUBCUT (08:30)
[2022-09-27] MEDS: Pravastatin Sodium 20 MG TABLET PO (08:30)
[2022-09-27] MEDS: Buprenorphine/Naloxone 8/2 mg TAB.SUBL 3 TAB SUBLINGUAL (08:30)
[2022-09-27] MEDS: Fenofibrate 160 MG TABLET PO (08:30)
[2022-09-27] MEDS: Acyclovir 200 MG CAPSULE 400 MG PO ×2 (08:30→21:58)
[2022-09-27] MEDS: Nicotine 21 MG PATCH.TD24 TRANSDERMA (08:31)
--- NOTE | 2022-09-27 09:54 | P.PNIM_ITS ---
Subjective Subjective Date of Service: 09/27/22 Interval History: f/u cellulitis of the right leg internal history: redness of the leg is better Physical Exam Vital Signs: Vital Signs: Last Vital Signs Temp 96.9 F 09/27/22 07:21 Pulse 50 09/27/22 07:21 Resp 18 09/27/22 07:21 BP 109/54 L 09/27/22 07:21 Pulse Ox 92 09/27/22 07:21 O2 Del Method Room Air 09/27/22 07:21 BMI result Body Mass Index 42.8 Const: Other: General: AO X 3, no acute distress Resp: CTA bilateral CVS: S1,S2,RRR GI: +BS, NT, no distention Skin: Neuro: motor grossly intact Psych: appropriate affect Objective Data Active Medications Acetaminophen (Acetaminophen 325 Mg Tablet) 650 mg PO Q6H PRN PRN Reason: Pain, Mild (Pain Scale 1-3) Last Admin: 09/27/22 02:33 Dose: 650 mg Documented By: SANYA Acyclovir (Acyclovir 200 Mg Capsule) 400 mg PO BID [facility] Last Admin: 09/27/22 08:30 Dose: 400 mg Documented By: MEREDITH Amitriptyline HCl (Amitriptyline Hcl 25 Mg Tablet) 25 mg PO BEDTIME [facility] Last Admin: 09/26/22 21:00 Dose: 25 mg Documented By: GERTRUDIS Baclofen (Baclofen 10 Mg Tablet) 10 mg PO BID [facility] Last Admin: 09/27/22 08:30 Dose: 10 mg Documented By: MEREDITH Buprenorphine/Naloxone (Buprenorphine/Naloxone 8/2 Mg Tab.Subl) 3 tab SUBLINGUAL DAILY [facility] Last Admin: 09/27/22 08:30 Dose: 3 tab Documented By: MEREDITH Enoxaparin Sodium (Enoxaparin Sodium 40 Mg/0.4 Ml Syringe) 40 mg SUBCUT Q24H [facility] Last Admin: 09/27/22 08:30 Dose: 40 mg Documented By: MEREDITH Fenofibrate (Fenofibrate 160 Mg Tablet) 160 mg PO DAILY [facility] Last Admin: 09/27/22 08:30 Dose: 160 mg Documented By: MEREDITH Ferrous Sulfate (Ferrous Sulfate 324 Mg Tablet.) 324 mg PO Q2D [facility] Last Admin: 09/26/22 12:23 Dose: 324 mg Documented By: DUC Glucose (Glucose Gel 15 Gm Gel..Gram.) 15 gm PO Q15M PRN; Protocol PRN Reason: per Hypoglycemia Standing Ord. Hydroxyzine HCl (Hydroxyzine Hcl 25 Mg Tablet) 25 - 50 mg PO TID PRN PRN Reason: ptsd Dextrose (D10) 250 mls @ 750 mls/hr IV Q15M PRN; Protocol PRN Reason: per Hypoglycemia Standing Ord. Vancomycin HCl 1,000 mg/ (Sodium Chloride) 270 mls @ 270 mls/hr IV Q12H [facility] Last Infusion: 09/27/22 04:35 Dose: 0 mls/hr Documented By: SANYA Insulin Glargine (Insulin Glargine,Hum.Rec.Anlog 100 Unit/Ml 10 Ml Vial) 15 unit SUBCUT DAILY [facility] Last Admin: 09/27/22 08:29 Dose: 15 unit Documented By: MEREDITH Insulin Human Lispro (Insulin Lispro 100 Unit/Ml 3 Ml Vial) 0 unit SUBCUT QIDACHS [facility]; Protocol Last Admin: 09/27/22 08:29 Dose: 2 unit Documented By: MEREDITH Lisinopril (Lisinopril 20 Mg Tablet) 20 mg PO DAILY [facility] Last Admin: 09/27/22 08:30 Dose: 20 mg Documented By: MEREDITH Nicotine (Nicotine 21 Mg Patch.Td24) 21 mg TRANSDERMA DAILY [facility] Last Admin: 09/27/22 08:31 Dose: 21 mg Documented By: MEREDITH Nicotine Polacrilex (Nicotine Polacrilex 2 Mg Gum) 2 mg BUCCAL Q2H PRN PRN Reason: Nicotine Cravings Last Admin: 09/27/22 02:38 Dose: 2 mg Documented By: SANYA Omeprazole (Omeprazole 40 Mg Capsule.) 40 mg PO BID@0630,1630 [facility] Last Admin: 09/27/22 05:58 Dose: 40 mg Documented By: SANYA Pharmacy Consult (Consult Rx Vancomycin Dosing) 1 each MISCELLANE DAILY PRN PRN Reason: Consult order Pramipexole Dihydrochloride (Pramipexole Di-Hcl 0.25 Mg Tablet) 0.5 mg PO BEDTIME [facility] Last Admin: 09/26/22 21:00 Dose: 0.5 mg Documented By: GERTRUDIS Pravastatin Sodium (Pravastatin Sodium 20 Mg Tablet) 20 mg PO DAILY [facility] Last Admin: 09/27/22 08:30 Dose: 20 mg Documented By: MEREDITH Pregabalin (Pregabalin 150 Mg Capsule) 300 mg PO BID [facility] Last Admin: 09/27/22 08:30 Dose: 300 mg Documented By: MEREDITH Sodium Chloride (0.9 % Sodium Chloride Flush 3 Ml Syringe) 3 ml IVFLUSH QSHIFT [facility] Last Admin: 09/27/22 08:31 Dose: 3 ml Documented By: MEREDITH Labs 09/27/22 05:52 09/27/22 05:52 Labs: Laboratory Results - last 24 hr 09/26/22 09/26/22 09/26/22 12:02 15:59 20:38 MCV MCH MCHC RDW Plt Count MPV Absolute Nucleated RBC Nucleated RBC % (auto) Anion Gap Estim Creat Clear Calc Estimated GFR POC Glucose 177 H 210 H 177 H Fasting Glucose Calcium 09/27/22 09/27/22 09/27/22 05:52 05:52 07:19 MCV 89.5 MCH 29.5 MCHC 33.0 RDW 14.0 Plt Count 232 MPV 11.9 Absolute Nucleated RBC 0.000 Nucleated RBC % (auto) 0.0 Anion Gap 15 Estim Creat Clear Calc 104.9 Estimated GFR > 60 POC Glucose 162 H Fasting Glucose 154 H Calcium 9.3 Microbiology Microbiology Results: Microbiology 09/26/22 02:25 Blood Culture - Preliminary Blood - Venous No growth after 24 hours. 09/26/22 01:53 Blood Culture - Preliminary Blood - Venous No growth after 24 hours. Assessment and Plan (1) Cellulitis of anterior lower leg: Status: Acute Plan 42F PMH DM, morbid obesity, ?familial hypertriglyceridemia, hepatic steatosis, opiate dependence, depression, fibromyalgia presented with RLE erythema and pain RLE cellulitis due to DM and suspected entry wound of dog tooth scratch lesion vanc for 1 more day and if better, Augmentin or Doxy tomorrow for discharge cultures DM with hyperglycemia basal bolus insulin morbid obesity weight loss recommended opiate dependence on suboxone hepatic steatosis weight loss breast candidiasis nystatin nicotine dependence nicoderm depression, fibromyalgia, diabetic neuropathy continue amitryptylline, lyrica ?familial hyperTG tricor, check lipids dvt prophylaxis - lovenox full code Need for inpatient cellulitis covering 50% of RLE, at risk for decompensation to sepsis due to DM, obesity, therefore needs iv abx Time Spent With Patient Time: Total time managing care of this patient today ____ minutes. Quality Stroke Does the patient have a stroke diagnosis?: No VTE Prior VTE?: No VTE Risk Level:: Medical - moderate - high VTE Device Contraindication: Treatment Not Indicated VTE Drug Contraindication: N/A - Med Ordered
[2022-09-27 11:21] LABS: Glucose, Whole Blood 197 mg/dL (60-115)
[2022-09-27 13:51] LABS: Vancomycin Trough 7.9 mcg/mL (10.0-20.0)
--- NOTE | 2022-09-27 14:12 | HE.PHANOTE ---
Vancomycin Dosing Addendum Patients level came back at 7.9. Patients renal function has remained the same. Changing dose to 1250 mg Q12H. Predicted AUC 421 mg/L/hr. Level due 09/28 @1300
[2022-09-27] MEDS: vancomycin HCL 1,250 MG in 0.9 % Sodium Chloride 250 ML 166.67 MG IV (15:41)
[2022-09-27 16:42] VITALS: BP 114/59; PULSE 50; RESP 18; TEMP 37; O2SAT 94
[2022-09-27 16:43] LABS: Glucose, Whole Blood 189 mg/dL (60-115)
--- NOTE | 2022-09-27 19:20 | PC.NURSE ---
Pt lethargic/somnolent most of the day after morning meds/
[2022-09-27 20:00] VITALS: BP 118/56; PULSE 61; RESP 16; TEMP 36.6; O2SAT 96
[2022-09-27 21:01] LABS: Glucose, Whole Blood 195 mg/dL (60-115)
[2022-09-27] MEDS: hydrOXYzine HCL 25 MG TABLET PO (21:56)
[2022-09-27] MEDS: Pramipexole Di-HCL 0.25 MG TABLET 0.5 MG PO (21:58)
[2022-09-27] MEDS: Amitriptyline HCl 25 MG TABLET PO (21:58)
[2022-09-28] MEDS: vancomycin HCL 1,250 MG in 0.9 % Sodium Chloride 250 ML 166.67 MG IV (02:46)
[2022-09-28 04:00] VITALS: BP 109/58; PULSE 52; RESP 16; TEMP 36.2; O2SAT 95
[2022-09-28] MEDS: Omeprazole 40 MG CAPSULE.DR PO (05:41)
[2022-09-28 07:22] VITALS: BP 113/56; PULSE 55; RESP 20; TEMP 36.1; O2SAT 95
[2022-09-28 07:22] LABS: Creatinine Clr Calc Pharmacy 114.2; Estimated Glomerular Filt Rate > 60
[2022-09-28] MEDS: Nicotine 21 MG PATCH.TD24 TRANSDERMA (07:41)
[2022-09-28] MEDS: Enoxaparin Sodium 40 MG/0.4 ML SYRINGE SUBCUT (07:42)
[2022-09-28] MEDS: Pregabalin 150 MG CAPSULE 300 MG PO (07:43)
[2022-09-28 07:44] LABS: Glucose, Whole Blood 158 mg/dL (60-115)
[2022-09-28] MEDS: Pravastatin Sodium 20 MG TABLET PO (07:44)
[2022-09-28] MEDS: Acyclovir 200 MG CAPSULE 400 MG PO (07:44)
[2022-09-28] MEDS: lisinopriL 20 MG TABLET PO (07:44)
[2022-09-28] MEDS: Baclofen 10 MG TABLET PO (07:44)
[2022-09-28] MEDS: Fenofibrate 160 MG TABLET PO (07:44)
[2022-09-28] MEDS: Buprenorphine/Naloxone 8/2 mg TAB.SUBL 3 TAB SUBLINGUAL (07:45)
[2022-09-28] MEDS: Insulin Glargine,Hum.rec.anlog 100 UNIT/ML 10 ML VIAL 15 UNIT SUBCUT (07:49)
[2022-09-28] MEDS: Insulin Lispro 100 UNIT/ML 3 ML VIAL SUBCUT ×2 (07:50→11:56)
[2022-09-28] MEDS: 0.9 % Sodium Chloride Flush 3 ML SYRINGE IVFLUSH (09:26)
--- NOTE | 2022-09-28 11:21 | PM.DS ---
DS: Providers Provider Date of Service: 09/28/22 Date of admission: 09/26/22 04:08 Primary care physician: [facility] DS: Diagnosis Discharge Diagnosis (1) Cellulitis of anterior lower leg: Status: Acute DS: Summary Hospital Course Hospital Course: Chief Complaint: RLE pain and erythema 42F PMH DM, morbid obesity, ?familial hypertriglyceridemia, hepatic steatosis, opiate dependence, depression, fibromyalgia presented with RLE erythema and pain.? Patient states that her dog's tooth brushed her right 1st toe about 1 month prior to presentation, she [facility].? Appears to be slowly healing.? About 2 days prior to presentation patient started to feel ill, fatigued.? On day of presentation right lower extremity erythema and pain.? Had fever at home.? In ED found to have low-grade fever of 100.8. Hospital course: Patient presented with Celulitis of the right leg related to diabetes and treated with IV Vancomcycin with singifincant improvemen and will now be transitioned to oral Doxycyline for 5 more days. 09/28 09/27 to continue all other prior medications Time Spent with Patient Time attestation: Total time managing care of this patient today ____ minutes. Discharge coordination time: Greater than 30 minutes Quality: Safe Use of Opioids Does Pt have an Active Cancer Diagnosis on the Problem List?: No Quality: Stroke Does the patient have a stroke diagnosis?: No Physical Exam Vital Signs: Vital Signs: Last Vital Signs Temp 96.9 F 09/28/22 07:22 Pulse 55 09/28/22 07:22 Resp 20 09/28/22 07:22 BP 113/56 L 09/28/22 07:22 Pulse Ox 95 09/28/22 07:22 O2 Del Method Room Air 09/28/22 07:22 BMI result Body Mass Index 42.8 DS: Data Data Completed and Pending Labs on day of discharge: Laboratory Results - last 24 hr 09/27/22 09/27/22 09/27/22 11:17 13:18 16:31 Creatinine Estim Creat Clear Calc Estimated GFR POC Glucose 197 H 189 H Vancomycin Trough 7.9 L 09/27/22 09/28/22 09/28/22 20:01 06:30 07:20 Creatinine 0.80 Estim Creat Clear Calc 114.2 Estimated GFR > 60 POC Glucose 195 H 158 H Vancomycin Trough Preliminary micro results at discharge 09/26/22 02:25 Blood Culture - Preliminary Blood - Venous No growth after 48 hours. 09/26/22 01:53 Blood Culture - Preliminary Blood - Venous No growth after 48 hours. Discharge Plan Discharge Anticipated Discharge Date/Time: 09/28/22 11:18 Patient Disposition: Home, Self-Care Discharge Diagnosis: Right leg cellulitis Referrals: [place], [facility] [Primary Care Provider] - 1 Week Discharge Medications: New doxycycline hyclate 100 mg tablet 100 mg PO BID 5 Days Qty: 10 0RF Continued sumatriptan succinate 100 mg tablet PO metformin 850 mg tablet 850 mg PO BID acyclovir 400 mg tablet 400 mg PO BID omeprazole 40 mg capsule,delayed release(DR/EC) 40 mg PO BID prazosin 5 mg capsule 5 mg PO DAILY amitriptyline 25 mg tablet 25 mg PO BEDTIME baclofen 10 mg tablet 10 mg PO BID lisinopril-hydrochlorothiazide 20-25 mg tablet 1 tab PO QAM pravastatin 20 mg tablet 20 mg PO DAILY ibuprofen 600 mg tablet 600 mg PO BID PRN (Reason: Pain) buprenorphine-naloxone 8-2 mg tablet, sublingual 3 tab sublingual DAILY duloxetine 60 mg capsule,delayed release(DR/EC) 60 mg PO DAILY pregabalin 300 mg capsule 300 mg PO BID fenofibrate nanocrystallized 145 mg tablet 145 mg PO DAILY insulin glargine [Basaglar KwikPen U-100 Insulin] 100 unit/mL (3 mL) insulin pen 18 unit subcut QPM pramipexole 0.5 mg tablet 0.5 mg PO BEDTIME ferrous sulfate [FeroSul] 325 mg (65 mg iron) tablet 325 mg PO Q OTHER DAY hydroxyzine HCl 25 mg tablet 25 - 50 mg PO TID PRN (Reason: ptsd) glipizide 2.5 mg tablet extended release 24hr 2.5 mg PO DAILY Discharge Orders: Discharge Order (Routine); Ordered 09/28/22 Ordered By: Wagner Moya Diet: Advance to usual diet Activity on Discharge: As tolerated Stand Alone Forms: Patient Portal Discharge page Care Plan Goals: full recovery from cellulitis Health Concerns: Cellulitis of the right leg Plan of Treatment: Take Doxycycline as recommended and follow up with your Doctor in a week, call for appointment Assessment: as
--- NOTE | 2022-09-28 11:34 | MHC.CM.PN ---
HOME - SELF CARE RN AWARE
[2022-09-28 11:42] LABS: Glucose, Whole Blood 199 mg/dL (60-115)
[2022-09-28] MEDS: Ferrous Sulfate 324 MG TABLET.DR PO (11:56)
== END 2022-09-28 12:15 | disposition home or self-care (01) | DRG 638 ==
LOC: HO.ED 09-26 03:13 → HO.EDOVER 09-26 04:12 → HO.S3 09-26 11:03
PROVIDERS: Internal Medicine; Admitting Provider Internal Medicine; Emergency Provider Emergency Medicine; Visit Provider Internal Medicine
DX: E11.628 Type 2 diabetes mellitus with other skin complications (principal); F11.20 Opioid dependence, uncomplicated; L03.115 Cellulitis of right lower limb; Z68.41 Body mass index [BMI] 40.0-44.9, adult; E11.621 Type 2 diabetes mellitus with foot ulcer; E66.01 Morbid (severe) obesity due to excess calories; L97.529 Non-pressure chronic ulcer of other part of left foot with unspecified severity; E78.1 Pure hyperglyceridemia; M79.7 Fibromyalgia; E11.65 Type 2 diabetes mellitus with hyperglycemia; L97.519 Non-pressure chronic ulcer of other part of right foot with unspecified severity; F32.A Depression, unspecified; E11.40 Type 2 diabetes mellitus with diabetic neuropathy, unspecified; B37.2 Candidiasis of skin and nail; K76.0 Fatty (change of) liver, not elsewhere classified; F17.210 Nicotine dependence, cigarettes, uncomplicated; Z71.6 Tobacco abuse counseling; Z88.2 Allergy status to sulfonamides; Z79.4 Long term (current) use of insulin; Z79.84 Long term (current) use of oral hypoglycemic drugs; Z79.899 Other long term (current) drug therapy
CPT/HCPCS: 36415; 73620; 80048; 80053; 80061; 80202; 82565; 82947; 83605; 85025; 85027; 85652; 86140; 87040; 99285; J1650; J2543; J3370; J3371

== ENCOUNTER 2022-10-25 17:10 | Emergency (ER) | payer MEDICARE, MEDICAID, SELFPAY ==
--- NOTE | ~2022-10-25 | XR_ITS ---
EXAMINATION: XR FOOT, RIGHT CLINICAL INFORMATION: Great toe wound COMPARISON: Previous x-ray September 2022 TECHNIQUE: AP, lateral, and oblique views of the right foot. FINDINGS: No fracture or dislocation. No x-ray evidence of osteomyelitis. Mild degenerative changes of the midfoot. Small calcaneal spur. Soft tissue swelling over the great toe. XR/XR foot RT min 3V IMPRESSION: Soft tissue swelling over the great toe. No x-ray evidence of osteomyelitis.
[2022-10-25 17:10] VITALS: BP 138/66; PULSE 63; RESP 18; TEMP 36.5; O2SAT 97; BMI 42.9
--- NOTE | 2022-10-25 17:11 | ED.LOWEXIN ---
HPI - Extremity Injury (Lower) General Chief Complaint: General Medical Stated Complaint: infection on toe? Time Seen by Provider: 10/25/22 18:37 Source: patient Mode of arrival: ambulatory Limitations: other (poor historian ) History of Present Illness HPI Narrative: 42-year-old female hx obesity, hypertriglyceridemia, hepatic steatosis, opiate dependence, depression, fiibromyalgia presents for evaluation of right great toe pain, swelling and redness the past few days worsening status post jamming her foot into a glass scale. Patient tells me she is worried because she is a diabetic. She reports it is very painful particularly when her foot is in a shoe. Patient reports associated fevers max temp at home 102 degrees F. Also reports that her right lower extremity has redness and warmth again, was hospitalized here due to sepsis and cellulitis about a month ago. Patient is taking ibuprofen Tylenol with little to no relief. Denies numbness, tingling. Patient is followed by wound care Related Data Home Medications Medication Instructions Recorded Confirmed acyclovir 400 mg tablet 400 mg PO BID 09/26/22 09/26/22 amitriptyline 25 mg tablet 25 mg PO BEDTIME 09/26/22 09/26/22 baclofen 10 mg tablet 10 mg PO BID 09/26/22 09/26/22 buprenorphine 8 mg-naloxone 2 mg 3 tab sublingual DAILY 09/26/22 09/26/22 sublingual tablet duloxetine 60 mg capsule,delayed 60 mg PO DAILY 09/26/22 09/26/22 release fenofibrate nanocrystallized 145 145 mg PO DAILY 09/26/22 09/26/22 mg tablet ferrous sulfate 325 mg (65 mg 325 mg PO Q OTHER DAY 09/26/22 09/26/22 iron) tablet (FeroSul) glipizide 2.5 mg tablet, extended 2.5 mg PO DAILY 09/26/22 09/26/22 release 24 hr hydroxyzine HCl 25 mg tablet 25 - 50 mg PO TID PRN ptsd 09/26/22 09/26/22 ibuprofen 600 mg tablet 600 mg PO BID PRN Pain 09/26/22 09/26/22 insulin glargine 100 unit/mL (3 18 unit subcut QPM 09/26/22 09/26/22 mL) subcutaneous pen (Michaelar NyasiaPen U-100 Insulin) lisinopril 20 1 tab PO QAM 09/26/22 09/26/22 mg-hydrochlorothiazide 25 mg tablet metformin 850 mg tablet 850 mg PO BID 09/26/22 09/26/22 omeprazole 40 mg capsule,delayed 40 mg PO BID 09/26/22 09/26/22 release pramipexole 0.5 mg tablet 0.5 mg PO BEDTIME 09/26/22 09/26/22 pravastatin 20 mg tablet 20 mg PO DAILY 09/26/22 09/26/22 prazosin 5 mg capsule 5 mg PO DAILY 09/26/22 09/26/22 pregabalin 300 mg capsule 300 mg PO BID 09/26/22 09/26/22 sumatriptan succinate 100 mg tablet mg PO 09/26/22 Previous Rx's Medication Instructions Recorded doxycycline hyclate 100 mg tablet 100 mg PO BID 5 days #10 tabs 09/28/22 cephalexin 500 mg tablet 500 mg PO Q6H 10 days #40 tabs 10/25/22 doxycycline hyclate 100 mg capsule 100 mg PO BID 10 days #20 caps 10/25/22 Allergies Allergy/AdvReac Type Severity Reaction Status Date / Time Sulfa (Sulfonamide Allergy Unknown HIVES Verified 09/25/22 23:30 Antibiotics) [SULFA (SULFONAMIDE ANTIBIOTICS)] Review of Systems Review of Systems: Constitutional : No Weight loss, + Fever, + Chills, No Fatigue, No Malaise ENT/Mouth : No sore throat, No Rhinorrhea Eyes: No Eye Pain, No Swelling, No Redness Cardiovascular : No Chest Pain, No SOB, No Dyspnea on Exertion, No Orthopnea, No Edema, No Palpitations Respiratory : No Cough, No Sputum, No Wheezing Gastrointestinal : No Nausea, No Vomiting, No Diarrhea, No Constipation, No abdominal Pain, No Hematochezia, No Melena Genitourinary : No Dysuria, No Urinary Frequency, No Hematuria, Musculoskeletal : No joint pain, No Myalgias, + Joint Swelling Skin : No Skin Lesions, + rash Neuro : No Weakness, No Numbness, No Dizziness, No Headache Psych : No Anxiety/Panic, No Depression All other systems reviewed and are negative Yes all other systems are reviewed and are negative [facility] Past Medical History Attestation statement: The following information was validated with the patient. Source: old records reviewed and nursing notes reviewed Medical History Diabetes Social History Social History Household Members: Children Housing: Apartment Do you presently have visiting nurse or other home services: No Alcohol intake: never Patient Tobacco Use Status: Current everyday Tobacco user Tobacco use type: Cigarette Cigarettes Per Day: 20 Substance Use Type: Marijuana Advance Directives: No Advance Directives Information Provided: No service: No Physical Exam Vital Signs: Vital Signs: Last Vital Signs Temp 97.7 F 10/25/22 17:10 Pulse 63 10/25/22 17:10 Resp 18 10/25/22 17:10 BP 138/66 10/25/22 17:10 Pulse Ox 97 10/25/22 17:10 O2 Del Method Room Air 10/25/22 17:10 BMI result Body Mass Index 42.9 vss Appearance: Alert.? Oriented X3.? No acute distress.? Head: Normocephalic, atraumatic, no step-offs or deformities Eyes: Pupils equal, round and reactive to light.? Neck: Normal inspection.? Neck supple.? CVS: Normal heart rate and rhythm.? Pulses normal.? Respiratory: No respiratory distress.? Breath sounds normal.? Abdomen: Soft and nontender.? Skin: Skin warm and dry.? Normal skin color.? Normal skin turgor.?Right lower extremity with mild erythema and warmth.? Right great toe with erythema, open wound without surrounding erythema.? Tender to palpation.? No fluctuance/induration or drainage Extremities: No lower extremity edema.? No calf ttp, negative esther. 5/5 strength to bilateral upper and lower extremities Back: No midline tenderness, no C-spine tenderness, full range of motion, no CVA tenderness bilaterally Neuro: Oriented X 3.? No motor deficit.? No sensory deficit. CN 2-12 intact Course Course Course Narrative: RME: 42 yo F w/PMHx DM c/o fever T-max 102 degrees and persistent right great toe with suspected cellulitis. Reports increasing erythema and pain. Admits to taking Tylenol and ibuprofen [employer]. Right lower extremity with mild erythema and warmth. Right great toe with erythema, open wound without surrounding erythema. Tender to palpation. No fluctuance/induration or drainage Labs including lactic/blood cultures and x-ray ordered Full HPI, ROS and PE to be performed by primary ED provider. Reevaluation(s) Reevaluation #1: CBC unremarkable. Chemistry with no acute findings requiring intervention. Normal BNP. Time: 20:09 Reevaluation #2: This case is not require hospital admission, I did run this case by the hospitalist will look into patient's chart and patient responded well to doxycycline will discharge on Keflex and doxycycline with wound care management. When I went to go discussed plan with patient patient eloped from the department. I did however sent doxy and Keflex our pharmacy hopefully she will pick these up. Time: 20:10 Reevaluation #3: I was just informed patient returned, she is now aware that these antibiotics are at the pharmacy advised return with new or worsening symptoms. Will give 1st dose is here. Educated patient on diagnosis and treatment plan, answered all question, patient verbalizes understanding. At this time patient will be discharged home, advised to return with new or worsening symptoms. Educated on worrisome signs and symptoms and when to return. At this time I feel comfortable discharge home. Time: 20:14 Medical Decision Making Medical Decision Making [facility] Narrative: 1908 42-year-old female presents to the emergency department with right great toe infection progressively worsening over past few weeks. Patient worried that she is a diabetic. Physical exam significant for Skin warm and dry.? Normal skin color.? Normal skin turgor.?Right lower extremity with mild erythema and warmth.? Right great toe with erythema, open wound without surrounding erythema.? Tender to palpation.? No fluctuance/induration or drainage (images in chart) Concerns for possible paronychia vs callus vs cellulitis , no signs of abscess. No signs of osteomyelitis, threatened limb, septic joint. Right lower extremity is noted to have some erythema however patient was recently seen here for right lower extremity cellulitis, negative Esther on exam, no significant risk factors for DVT, PERC negative unlikely PE/DVT. No indication for further imaging. No signs of neurovascular compromise. No signs of necrotizing infection Plan labs, imaging Differential Diagnosis Differential Diagnoses: The differential diagnosis associated with the presentation includes Concerns for possible paronychia vs callus vs cellulitis , no signs of abscess. No signs of osteomyelitis, threatened limb, septic joint. Right lower extremity is noted to have some erythema however patient was recently seen here for right lower extremity cellulitis, negative Esther on exam, no significant risk factors for DVT, PERC negative unlikely PE/DVT. No indication for further imaging. No signs of neurovascular compromise. No signs of necrotizing infection Admission/Observation Consideration of admission/observation: Escalation of care including admission/observation considered Lab Data MDM Lab Attestation statement: I reviewed the patient's lab results. 10/25/22 17:58 10/25/22 17:58 Labs: Lab Results 10/25/22 10/25/22 10/25/22 Range/Units 17:58 17:58 17:58 WBC 10.1 (4.8-10.8) X10*3/uL RBC 4.81 (4.20-5.50) X10*6/uL Hgb 14.1 (12.0-16.0) g/dl Hct 41.7 (37.0-47.0) % MCV 86.7 (80.0-98.0) fL MCH 29.3 (27.0-33.0) pg MCHC 33.8 (31.0-35.0) g/dl RDW 13.8 (11.0-16.0) % Plt Count 227 (160-400) X10*3/uL MPV 11.2 (9.4-12.3) fL Immature Gran % (Auto) 0.4 (0.0-0.4) % Neut % (Auto) 65.6 (45-73) % Lymph % (Auto) 24.1 (20-40) % Rincon % (Auto) 6.8 (2-11) % Eos % (Auto) 2.8 (0-4) % Baso % (Auto) 0.3 (0-2) % Lymph # (Auto) 2.4 (1.2-4.9) X10*3/uL Rincon # (Auto) 0.7 (0.1-1.2) X10*3/uL Eos # (Auto) 0.3 (0.0-0.4) X10*3/uL Baso # (Auto) 0.0 (0.0-0.2) X10*3/uL Abs Immat Gran (auto) 0.04 H (0.00-0.03) X10*3/uL Absolute Neuts (auto) 6.7 (2.0-8.3) x10*3/uL Absolute Nucleated RBC 0.000 (0.0-0.012) X10*3/uL Nucleated RBC % (auto) 0.0 (0.0-0.2) /100WBC PT 10.6 (10.0-13.1) SEC INR 0.9 (0.9-1.1) Sodium 135 (135-145) mmol/L Potassium 4.4 (3.3-5.1) mmol/L Chloride 102 (96-108) mmol/L Carbon Dioxide 25 (22-29) mmol/L Anion Gap 12 (12-20) BUN 13 (9-16) mg/dL Creatinine 0.84 (0.5-1.4) mg/dL Estim Creat Clear Calc 108.7 Estimated GFR > 60 Random Glucose 132 H (60-115) mg/dL Lactic Acid (0.5-2.0) mmol/L Calcium 9.4 (8.4-10.2) mg/dL Total Bilirubin 0.3 (0.0-1.0) mg/dL Direct Bilirubin 0.1 (0.0-0.5) mg/dL AST 35 H (5-31) U/L ALT 43 H (0-31) U/L Alkaline Phosphatase 29 L (39-117) U/L B-Natriuretic Peptide (<100) pg/mL Total Protein 6.7 (6.5-8.0) g/dL Albumin 4.1 (3.5-5.0) g/dL 10/25/22 10/25/22 Range/Units 17:58 17:58 WBC (4.8-10.8) X10*3/uL RBC (4.20-5.50) X10*6/uL Hgb (12.0-16.0) g/dl Hct (37.0-47.0) % MCV (80.0-98.0) fL MCH (27.0-33.0) pg MCHC (31.0-35.0) g/dl RDW (11.0-16.0) % Plt Count (160-400) X10*3/uL MPV (9.4-12.3) fL Immature Gran % (Auto) (0.0-0.4) % Neut % (Auto) (45-73) % Lymph % (Auto) (20-40) % Rincon % (Auto) (2-11) % Eos % (Auto) (0-4) % Baso % (Auto) (0-2) % Lymph # (Auto) (1.2-4.9) X10*3/uL Rincon # (Auto) (0.1-1.2) X10*3/uL Eos # (Auto) (0.0-0.4) X10*3/uL Baso # (Auto) (0.0-0.2) X10*3/uL Abs Immat Gran (auto) (0.00-0.03) X10*3/uL Absolute Neuts (auto) (2.0-8.3) x10*3/uL Absolute Nucleated RBC (0.0-0.012) X10*3/uL Nucleated RBC % (auto) (0.0-0.2) /100WBC PT (10.0-13.1) SEC INR (0.9-1.1) Sodium (135-145) mmol/L Potassium (3.3-5.1) mmol/L Chloride (96-108) mmol/L Carbon Dioxide (22-29) mmol/L Anion Gap (12-20) BUN (9-16) mg/dL Creatinine (0.5-1.4) mg/dL Estim Creat Clear Calc Estimated GFR Random Glucose (60-115) mg/dL Lactic Acid 1.2 (0.5-2.0) mmol/L Calcium (8.4-10.2) mg/dL Total Bilirubin (0.0-1.0) mg/dL Direct Bilirubin (0.0-0.5) mg/dL AST (5-31) U/L ALT (0-31) U/L Alkaline Phosphatase (39-117) U/L B-Natriuretic Peptide 13 (<100) pg/mL Total Protein (6.5-8.0) g/dL Albumin (3.5-5.0) g/dL Independent Interpretation I performed an independent interpretation of an: Plain X-Ray (XR/XR foot RT min 3V IMPRESSION: Soft tissue swelling over the great toe. No x-ray evidence of osteomyelitis.) Radiology Impression Discussion of test interpretation with radiology: I have reviewed the radiologist's reading. Tests considered The following testing was considered but not selected: Negative Esther bilaterally low suspicion for DVT. No need for venous duplex. Core Measures AMI core measures followed: Yes Measure exclusions: not indicated Critical Care Time Critical Care Time Critical Care Time: No Discharge Plan Discharge Clinical Impression: Cellulitis of anterior lower leg, Cellulitis Patient Disposition: Home, Self-Care Instructions: Cellulitis (ED), Warm Compress or Soak (ED) Additional Instructions: Take your medications as prescribed. If you were prescribed antibiotics today, it is important that you take your medication to their entirety, do not skip any doses, do not finish them early. Follow-up with your primary care provider this week. Return to the emergency department with new or worsening symptoms. Such as fevers, chills, chest pain, shortness of breath, nausea, vomiting, dizziness, headache, vision changes, lethargy In case of emergency call 911 Prescriptions: New doxycycline hyclate 100 mg capsule 100 mg PO BID 10 Days Qty: 20 0RF cephalexin 500 mg tablet 500 mg PO Q6H 10 Days Qty: 40 0RF No Action sumatriptan succinate 100 mg tablet PO metformin 850 mg tablet 850 mg PO BID acyclovir 400 mg tablet 400 mg PO BID omeprazole 40 mg capsule,delayed release(DR/EC) 40 mg PO BID prazosin 5 mg capsule 5 mg PO DAILY amitriptyline 25 mg tablet 25 mg PO BEDTIME baclofen 10 mg tablet 10 mg PO BID lisinopril-hydrochlorothiazide 20-25 mg tablet 1 tab PO QAM pravastatin 20 mg tablet 20 mg PO DAILY ibuprofen 600 mg tablet 600 mg PO BID PRN (Reason: Pain) buprenorphine-naloxone 8-2 mg tablet, sublingual 3 tab sublingual DAILY duloxetine 60 mg capsule,delayed release(DR/EC) 60 mg PO DAILY pregabalin 300 mg capsule 300 mg PO BID fenofibrate nanocrystallized 145 mg tablet 145 mg PO DAILY insulin glargine [Basaglar KwikPen U-100 Insulin] 100 unit/mL (3 mL) insulin pen 18 unit subcut QPM pramipexole 0.5 mg tablet 0.5 mg PO BEDTIME ferrous sulfate [FeroSul] 325 mg (65 mg iron) tablet 325 mg PO Q OTHER DAY hydroxyzine HCl 25 mg tablet 25 - 50 mg PO TID PRN (Reason: ptsd) glipizide 2.5 mg tablet extended release 24hr 2.5 mg PO DAILY doxycycline hyclate 100 mg tablet 100 mg PO BID 5 Days Qty: 10 0RF Referrals: [facility] [Primary Care Provider] - 2 days Stand Alone Forms: Work/School Release
[2022-10-25 18:06] LABS: MANUAL DIFF FLAG NO
[2022-10-25 18:12] LABS: INTERNATIONAL NORM RATIO 0.9 (0.9-1.1); Prothrombin Time 10.6 SEC (10.0-13.1)
[2022-10-25 18:15] LABS: Basophils Percent Auto 0.3 % (0-2); Eosinophils Absolute Auto 0.3 X10*3/uL (0.0-0.4); Eosinophils Percent Auto 2.8 % (0-4); Hematocrit 41.7 % (37.0-47.0); Hemoglobin 14.1 g/dl (12.0-16.0); Imm Gran Abs Auto 0.04 X10*3/uL (0.00-0.03); Imm Gran Pct Auto 0.4 % (0.0-0.4); Lymphocytes Absolute Auto 2.4 X10*3/uL (1.2-4.9); Lymphocytes Percent Auto 24.1 % (20-40); Mean Corpuscular HGB Conc 33.8 g/dl (31.0-35.0); Mean Corpuscular Hemoglobin 29.3 pg (27.0-33.0); Mean Corpuscular Volume 86.7 fL (80.0-98.0); Mean Platelet Volume 11.2 fL (9.4-12.3); Monocytes Absolute Auto 0.7 X10*3/uL (0.1-1.2); Monocytes Percent Auto 6.8 % (2-11); Neutrophils Absolute Auto 6.7 x10*3/uL (2.0-8.3); Neutrophils Percent Auto 65.6 % (45-73); Platelet Count 227 X10*3/uL (160-400); Red Blood Count 4.81 X10*6/uL (4.20-5.50); Red Cell Distribution Width 13.8 % (11.0-16.0); White Blood Count 10.1 X10*3/uL (4.8-10.8)
[2022-10-25 18:19] LABS: Lactic Acid 1.2 mmol/L (0.5-2.0)
[2022-10-25 18:24] LABS: Alanine Aminotransferase 43 U/L (0-31); Albumin Level 4.1 g/dL (3.5-5.0); Alkaline Phosphatase 29 U/L (39-117); Anion Gap 12 (12-20); Aspartate Amino Transferase 35 U/L (5-31); Bilirubin Direct 0.1 mg/dL (0.0-0.5); Bilirubin Total 0.3 mg/dL (0.0-1.0); Blood Urea Nitrogen 13 mg/dL (9-16); Calcium 9.4 mg/dL (8.4-10.2); Carbon Dioxide 25 mmol/L (22-29); Chloride 102 mmol/L (96-108); Creatinine Clr Calc Pharmacy 108.7; Estimated Glomerular Filt Rate > 60; Glucose Random 132 mg/dL (60-115); Potassium 4.4 mmol/L (3.3-5.1); Sodium 135 mmol/L (135-145); Total Protein 6.7 g/dL (6.5-8.0)
[2022-10-25 18:30] LABS: B Type Natriuretic Peptide 13 pg/mL (<100)
--- NOTE | 2022-10-25 19:55 | PC.NURSE ---
assumed care of pt aox4 pt c/o pain in great toe of R foot, infected old lac that reopened when she stubbed toe on edge of scale at home, fever/chills/joint pain, was seeing wound clinic for old injury to great toe h/o cellulitis, DMII redness to R ortiz and great toe observed, hot to the touch
[2022-10-25] MEDS: Doxycycline Monohydrate 100 MG CAPSULE PO (20:19)
[2022-10-25] MEDS: cephALEXin 500 MG CAPSULE PO (20:19)
--- NOTE | 2022-10-25 20:25 | PC.NURSE ---
administered cephalexin and doxycycline PO per MAR
[2022-10-25 21:03] VITALS: BP 135/67; PULSE 65; RESP 18; TEMP 36.5; O2SAT 97
--- NOTE | 2022-10-25 21:45 | PC.NURSE ---
Discharge instructions given and explained to patient aox4 no apparent distress ambulates safely and independently
== END 2022-10-25 21:42 | disposition home or self-care (01) ==
PROVIDERS: Physician Assistant; Emergency Provider Internal Medicine
DX: L03.031 Cellulitis of right toe (principal); M79.674 Pain in right toe(s); E78.1 Pure hyperglyceridemia; E66.9 Obesity, unspecified; M79.7 Fibromyalgia; E11.8 Type 2 diabetes mellitus with unspecified complications; R50.9 Fever, unspecified; Z68.41 Body mass index [BMI] 40.0-44.9, adult
CPT/HCPCS: 36415; 73630; 80048; 80076; 83605; 83880; 85025; 85610; 87040; 99283; 99284

== ENCOUNTER 2022-11-21 16:32 | Emergency (ER) | payer MEDICARE, MEDICAID, SELFPAY ==
--- NOTE | ~2022-11-21 | XR_ITS ---
EXAMINATION: XR FOOT, RIGHT CLINICAL INFORMATION: Open wound. Concern for osteomyelitis. COMPARISON: None available. TECHNIQUE: AP, lateral, and oblique views of the right foot. FINDINGS: No focal bone lesion or bone destruction. No radiographic evidence for osteomyelitis. No radiopaque foreign body. Bone and joint are normal. XR/XR foot RT min 3V IMPRESSION: Normal right foot.
[2022-11-21 17:00] VITALS: BP 130/77; PULSE 76; RESP 22; TEMP 36.7; O2SAT 97; BMI 41.2
--- NOTE | 2022-11-21 17:04 | ED_ITS ---
HPI - General Adult General Chief complaint: General Medical Stated complaint: acute cellulitis / pain Time Seen by Provider: 11/21/22 17:52 Source: patient Mode of arrival: ambulatory Limitations: no limitations History of Present Illness HPI narrative: Patient is a 42-year-old female with past medical history of diabetes presents emergency department for persistent right great toe wound and suspected cellulitis with increasing erythema and pain in addition to left 3/4 digit wound. Patient underwent a routine outpatient MRI today for evaluation of osteomyelitis. She states she is being followed by the [facility], has not been on any antibiotics for the past month. She states as of yesterday she noticed worsening of the redness and pain also reporting some mild body aches, T-max 99.8 degrees earlier today. Denies headache, dizziness, generalized weakness, chest pain, shortness of breath, difficulty breathing, unilateral swelling to the lower extremities, history of DVT/PE. Related Data Home Medications Medication Instructions Recorded Confirmed acyclovir 400 mg tablet 400 mg PO BID 09/26/22 09/26/22 amitriptyline 25 mg tablet 25 mg PO BEDTIME 09/26/22 09/26/22 baclofen 10 mg tablet 10 mg PO BID 09/26/22 09/26/22 buprenorphine 8 mg-naloxone 2 mg 3 tab sublingual DAILY 09/26/22 09/26/22 sublingual tablet duloxetine 60 mg capsule,delayed 60 mg PO DAILY 09/26/22 09/26/22 release fenofibrate nanocrystallized 145 145 mg PO DAILY 09/26/22 09/26/22 mg tablet ferrous sulfate 325 mg (65 mg 325 mg PO Q OTHER DAY 09/26/22 09/26/22 iron) tablet (FeroSul) glipizide 2.5 mg tablet, extended 2.5 mg PO DAILY 09/26/22 09/26/22 release 24 hr hydroxyzine HCl 25 mg tablet 25 - 50 mg PO TID PRN ptsd 09/26/22 09/26/22 ibuprofen 600 mg tablet 600 mg PO BID PRN Pain 09/26/22 09/26/22 insulin glargine 100 unit/mL (3 18 unit subcut QPM 09/26/22 09/26/22 mL) subcutaneous pen (Basaglar KwikPen U-100 Insulin) lisinopril 20 1 tab PO QAM 09/26/22 09/26/22 mg-hydrochlorothiazide 25 mg tablet metformin 850 mg tablet 850 mg PO BID 09/26/22 09/26/22 omeprazole 40 mg capsule,delayed 40 mg PO BID 09/26/22 09/26/22 release pramipexole 0.5 mg tablet 0.5 mg PO BEDTIME 09/26/22 09/26/22 pravastatin 20 mg tablet 20 mg PO DAILY 09/26/22 09/26/22 prazosin 5 mg capsule 5 mg PO DAILY 09/26/22 09/26/22 pregabalin 300 mg capsule 300 mg PO BID 09/26/22 09/26/22 sumatriptan succinate 100 mg tablet mg PO 09/26/22 Previous Rx's Medication Instructions Recorded doxycycline hyclate 100 mg tablet 100 mg PO BID 5 days #10 tabs 09/28/22 cephalexin 500 mg tablet 500 mg PO Q6H 10 days #40 tabs 10/25/22 doxycycline hyclate 100 mg capsule 100 mg PO BID 10 days #20 caps 10/25/22 cephalexin 500 mg capsule 500 mg PO QID 10 days #40 caps 11/21/22 doxycycline hyclate 100 mg capsule 100 mg PO BID 10 days #20 caps 11/21/22 Allergies Allergy/AdvReac Type Severity Reaction Status Date / Time Sulfa (Sulfonamide Allergy Unknown HIVES Verified 09/25/22 23:30 Antibiotics) [SULFA (SULFONAMIDE ANTIBIOTICS)] glipizide Allergy Unknown Verified 11/21/22 17:07 Review of Systems Review of Systems: Yes all other systems are reviewed and are negative PMFSH Past Medical History Attestation statement: The following information was validated with the patient. Source: old records reviewed Medical History Diabetes Social History Social History Household Members: Children Housing: Apartment Do you presently have visiting nurse or other home services: No Alcohol intake: never Patient Tobacco Use Status: Current everyday Tobacco user Tobacco use type: Cigarette Cigarettes Per Day: 20 Smoked in Last 30 Days: Yes Use of substances other than those prescribed or required for medical reasons: No Substance Use Type: Marijuana Advance Directives: No Advance Directives Information Provided: Yes Patient : No service: No Physical Exam ED Vital Signs: Vital Signs - 24 hr 11/21/22 17:00 11/21/22 18:02 11/21/22 18:59 Temperature 98.0 F 98 F 98.4 F Pulse Rate 76 62 Respiratory Rate 22 H 18 16 Blood Pressure 130/77 110/54 L 107/41 L Pulse Oximetry 97 94 94 Oxygen Delivery Method Room Air Room Air 11/21/22 20:00 Temperature 98.2 F Pulse Rate 63 Respiratory Rate 16 Blood Pressure 119/65 Pulse Oximetry 95 Oxygen Delivery Method Room Air BMI result Body Mass Index 41.2 Appearance: Alert.?Oriented to person, place and time. No acute distress.?Normal affect. Eyes: Pupils equal, round and reactive to light.? ENT: Pharynx normal.?? Neck: Normal inspection.? Neck supple.?? CVS: Heart sounds normal. Normal heart rate and rhythm.? Pulses normal.?? Respiratory: No respiratory distress.? Lung sounds clear to auscultation bilaterally?? Abdomen: Soft and non-tender. Normoactive bowel sounds. Skin: Skin warm and dry.? Normal skin color.? Normal skin turgor.??Right lower extremity mild erythema and warmth. Right great toe erythema, wound with surrounding erythema, no fluctuance or drainage. Left 3/4 digit with mild erythema, no active drainage. Extremities: No lower extremity edema.? No calf ttp?. 2+ DP/PT pulse bilaterally Neuro: Moves all extremities spontaneously. Sensation intact bilaterally. CN II- XII intact. No focal neuro deficits. Ambulates with normal steady gait. Course Course Course Narrative: 42-year-old man with past medical history significant for diabetes presents for evaluation of ?acute cellulitis. ? Patient was sent here from wound care for wounds to the right foot with redness and swelling extending up the right lower extremity. She also has an open wound on left foot. She had an outpatient MRI of the right lower extremity earlier today in [place]. Plan for labs including blood cultures Reevaluation(s) Reevaluation #1: Mild leukocytosis of 12.9. ESR 6, CRP 0.35; WNL. BMP overall unremarkable, mild hyperglycemia 141. Mildly elevated ALT/alk-phos; 52/31 respectively, consistent with prior levels, lipase 116, no nausea, vomiting, right upper qu adrant tenderness upon palpation or abdominal pain, at this time do not suspect acute hepatic or biliary etiology. XR of the right foot reveals no acute abnormality, no radiographic evidence for osteomyelitis. At this time, I do not feel that this requires hospital admission, will trial course of outpatient antibiotics and follow-up with the wound care/primary care provider pending MRI results. Reviewed worrisome signs and symptoms that would warrant re-evaluation in the emergency department. All questions answered. Stable for discharge. ? Time: 19:58 Medications Administered Discontinued Medications Generic Name Dose Route Start Last Admin Trade Name Freq PRN Reason Stop Dose Admin Piperacillin Sod/Tazobactam 50 mls @ 100 mls/hr 11/21/22 18:36 11/21/22 20:36 Sod 3.375 gm/ Sodium Chloride IV 11/21/22 19:05 Infused ONCE ONE Infusion Medical Decision Making Medical Decision Making [facility] Narrative: Patient is a 42-year-old female with past medical history of diabetes presents emergency department for persistent right great toe wound, and new wound to left foot digits. Right lower extremity with mild erythema on the anterior lower leg and warmth, right great toe with open wound and surrounding erythema consistent with cellulitis, it is tender to palpation. There is however no fluctuance or induration no active drainage. Serum labs to be obtained; CBC, BMP, lactic acid, blood cultures in addition to x-ray. At this time, no evidence of abscess, lower suspicion for osteomyelitis, septic joint, negative Homans sign, no significant risk factors for DVT, Wells score 0, PERC negative, no evidence of neurovascular compromise or necrotizing infection. Differential Diagnosis Differential Diagnoses: The differential diagnosis associated with the presentation includes (Cellulitis, abscess, osteomyelitis, paronychia) Admission/Observation Consideration of admission/observation: Escalation of care including admission/observation considered Admission considered for persistent cellulitis, however no signs of systemic toxicity, do not feel that this requires IV antibiotic treatment at this time, no current evidence of osteomyelitis on x-ray. Lab Data [facility] Lab Attestation statement: I reviewed the patient's lab results. 11/21/22 17:26 11/21/22 17:26 Labs: Lab Results 11/21/22 11/21/22 11/21/22 Range/Units 17:26 17:26 17:26 WBC 12.9 H (4.8-10.8) X10*3/uL RBC 4.88 (4.20-5.50) X10*6/uL Hgb 14.1 (12.0-16.0) g/dl Hct 42.2 (37.0-47.0) % MCV 86.5 (80.0-98.0) fL MCH 28.9 (27.0-33.0) pg MCHC 33.4 (31.0-35.0) g/dl RDW 13.4 (11.0-16.0) % Plt Count 249 (160-400) X10*3/uL MPV 11.3 (9.4-12.3) fL Immature Gran % (Auto) 0.3 (0.0-0.4) % Neut % (Auto) 66.2 (45-73) % Lymph % (Auto) 22.7 (20-40) % Monona % (Auto) 8.0 (2-11) % Eos % (Auto) 2.5 (0-4) % Baso % (Auto) 0.3 (0-2) % Lymph # (Auto) 2.9 (1.2-4.9) X10*3/uL [place] # (Auto) 1.0 (0.1-1.2) X10*3/uL Eos # (Auto) 0.3 (0.0-0.4) X10*3/uL Baso # (Auto) 0.0 (0.0-0.2) X10*3/uL Abs Immat Gran (auto) 0.04 H (0.00-0.03) X10*3/uL Absolute Neuts (auto) 8.5 H (2.0-8.3) x10*3/uL Absolute Nucleated RBC 0.000 (0.0-0.012) X10*3/uL Nucleated RBC % (auto) 0.0 (0.0-0.2) /100WBC ESR 6 (0-20) MM/HR Sodium 135 (135-145) mmol/L Potassium 4.0 (3.3-5.1) mmol/L Chloride 99 (96-108) mmol/L Carbon Dioxide 25 (22-29) mmol/L Anion Gap 15 (12-20) BUN 16 (9-16) mg/dL Creatinine 0.86 (0.5-1.4) mg/dL Estim Creat Clear Calc 103.7 Estimated GFR > 60 Random Glucose 141 H (60-115) mg/dL Lactic Acid (0.5-2.0) mmol/L Calcium 9.8 (8.4-10.2) mg/dL Total Bilirubin 0.3 (0.0-1.0) mg/dL AST 29 (5-31) U/L ALT 52 H (0-31) U/L Alkaline Phosphatase 31 L (39-117) U/L C-Reactive Protein 0.35 (< or = 0.50) mg/dL Total Protein 7.3 (6.5-8.0) g/dL Albumin 4.1 (3.5-5.0) g/dL Lipase 116 H (8-78) U/L 11/21/22 Range/Units 17:26 WBC (4.8-10.8) X10*3/uL RBC (4.20-5.50) X10*6/uL Hgb (12.0-16.0) g/dl Hct (37.0-47.0) % MCV (80.0-98.0) fL MCH (27.0-33.0) pg MCHC (31.0-35.0) g/dl RDW (11.0-16.0) % Plt Count (160-400) X10*3/uL MPV (9.4-12.3) fL Immature Gran % (Auto) (0.0-0.4) % Neut % (Auto) (45-73) % Lymph % (Auto) (20-40) % Monona % (Auto) (2-11) % Eos % (Auto) (0-4) % Baso % (Auto) (0-2) % Lymph # (Auto) (1.2-4.9) X10*3/uL [place] # (Auto) (0.1-1.2) X10*3/uL Eos # (Auto) (0.0-0.4) X10*3/uL Baso # (Auto) (0.0-0.2) X10*3/uL Abs Immat Gran (auto) (0.00-0.03) X10*3/uL Absolute Neuts (auto) (2.0-8.3) x10*3/uL Absolute Nucleated RBC (0.0-0.012) X10*3/uL Nucleated RBC % (auto) (0.0-0.2) /100WBC ESR (0-20) MM/HR Sodium (135-145) mmol/L Potassium (3.3-5.1) mmol/L Chloride (96-108) mmol/L Carbon Dioxide (22-29) mmol/L Anion Gap (12-20) BUN (9-16) mg/dL Creatinine (0.5-1.4) mg/dL Estim Creat Clear Calc Estimated GFR Random Glucose (60-115) mg/dL Lactic Acid 0.8 (0.5-2.0) mmol/L Calcium (8.4-10.2) mg/dL Total Bilirubin (0.0-1.0) mg/dL AST (5-31) U/L ALT (0-31) U/L Alkaline Phosphatase (39-117) U/L C-Reactive Protein (< or = 0.50) mg/dL Total Protein (6.5-8.0) g/dL Albumin (3.5-5.0) g/dL Lipase (8-78) U/L Independent Interpretation I performed an independent interpretation of an: Plain X-Ray (I have personally interpreted x-ray of the right foot and agree with radiologist impression) Radiology Impression Discussion of test interpretation with radiology: I have reviewed the radiologist's reading. Radiologist Impression: FINDINGS: No focal bone lesion or bone destruction. No radiographic evidence for osteomyelitis. No radiopaque foreign body. Bone and joint are normal.? XR/XR foot RT min 3V IMPRESSION: Normal right foot. ? External Record Review External record reviewed: Outpatient record Tests considered The following testing was considered but not selected: Considered CT/MRI imaging for evaluation of osteomyelitis, patient had MRI outpatient obtained today, do not feel that this warrants immediate interpretation or re-evaluation at this time. Prescription Management I considered prescription management with: Antibiotic Discharge Plan Discharge Clinical Impression: Cellulitis of anterior lower leg Patient Disposition: Home, Self-Care Instructions: Cellulitis (ED) Additional Instructions: Please follow-up with the wound clinic/your primary care provider. I have sent a prescription for antibiotics; doxycycline and cephalexin to the pharmacy, please complete the entire course of antibiotics. You should return to the emergency department any new or worsening symptoms or concerns this includes but is not limited to fevers, chills, chest pain, shortness of breath, dizziness, headache, numbness or tingling to the lower leg, worsening redness. Prescriptions: New doxycycline hyclate 100 mg capsule 100 mg PO BID 10 Days Qty: 20 0RF cephalexin 500 mg capsule 500 mg PO QID 10 Days Qty: 40 0RF No Action doxycycline hyclate 100 mg capsule 100 mg PO BID 10 Days Qty: 20 0RF cephalexin 500 mg tablet 500 mg PO Q6H 10 Days Qty: 40 0RF sumatriptan succinate 100 mg tablet PO metformin 850 mg tablet 850 mg PO BID acyclovir 400 mg tablet 400 mg PO BID omeprazole 40 mg capsule,delayed release(DR/EC) 40 mg PO BID prazosin 5 mg capsule 5 mg PO DAILY amitriptyline 25 mg tablet 25 mg PO BEDTIME baclofen 10 mg tablet 10 mg PO BID lisinopril-hydrochlorothiazide 20-25 mg tablet 1 tab PO QAM pravastatin 20 mg tablet 20 mg PO DAILY ibuprofen 600 mg tablet 600 mg PO BID PRN (Reason: Pain) buprenorphine-naloxone 8-2 mg tablet, sublingual 3 tab sublingual DAILY duloxetine 60 mg capsule,delayed release(DR/EC) 60 mg PO DAILY pregabalin 300 mg capsule 300 mg PO BID fenofibrate nanocrystallized 145 mg tablet 145 mg PO DAILY insulin glargine [Basaglar KwikPen U-100 Insulin] 100 unit/mL (3 mL) insulin pen 18 unit subcut QPM pramipexole 0.5 mg tablet 0.5 mg PO BEDTIME ferrous sulfate [FeroSul] 325 mg (65 mg iron) tablet 325 mg PO Q OTHER DAY hydroxyzine HCl 25 mg tablet 25 - 50 mg PO TID PRN (Reason: ptsd) glipizide 2.5 mg tablet extended release 24hr 2.5 mg PO DAILY doxycycline hyclate 100 mg tablet 100 mg PO BID 5 Days Qty: 10 0RF Referrals: [facility] [Primary Care Provider] - Interventions: ED Discharge Assessment Last Done: 11/21/22 20:48 Discharge Date/Time: 11/21/22 20:51
[2022-11-21 17:32] LABS: MANUAL DIFF FLAG NO
[2022-11-21 17:35] LABS: Basophils Percent Auto 0.3 % (0-2); Eosinophils Absolute Auto 0.3 X10*3/uL (0.0-0.4); Eosinophils Percent Auto 2.5 % (0-4); Hematocrit 42.2 % (37.0-47.0); Hemoglobin 14.1 g/dl (12.0-16.0); Imm Gran Abs Auto 0.04 X10*3/uL (0.00-0.03); Imm Gran Pct Auto 0.3 % (0.0-0.4); Lymphocytes Absolute Auto 2.9 X10*3/uL (1.2-4.9); Lymphocytes Percent Auto 22.7 % (20-40); Mean Corpuscular HGB Conc 33.4 g/dl (31.0-35.0); Mean Corpuscular Hemoglobin 28.9 pg (27.0-33.0); Mean Corpuscular Volume 86.5 fL (80.0-98.0); Mean Platelet Volume 11.3 fL (9.4-12.3); Neutrophils Absolute Auto 8.5 x10*3/uL (2.0-8.3); Neutrophils Percent Auto 66.2 % (45-73); Platelet Count 249 X10*3/uL (160-400); Red Blood Count 4.88 X10*6/uL (4.20-5.50); Red Cell Distribution Width 13.4 % (11.0-16.0); White Blood Count 12.9 X10*3/uL (4.8-10.8)
--- NOTE | 2022-11-21 17:41 | PC.NURSE ---
Patient arrived from home for complaints of increased pain, redness, and swelling in her right great toe. States has had wound for months after a dog bite. States would had almost healed and then re opened it. States today feels achy, weak, and tired. States vertebrae and joints hurt. right great toe with open wound,redness, swelling, and pain upon palpation. Left third tow with open area. Area superficial with scant amount of drainage on dressing. Patient sates she changes the dressing every other day. estrella 98.7. but states just took tylenol and ibuprofen within the last few hours.
[2022-11-21 17:45] LABS: Lactic Acid 0.8 mmol/L (0.5-2.0)
[2022-11-21 17:50] LABS: Alanine Aminotransferase 52 U/L (0-31); Albumin Level 4.1 g/dL (3.5-5.0); Alkaline Phosphatase 31 U/L (39-117); Anion Gap 15 (12-20); Aspartate Amino Transferase 29 U/L (5-31); Bilirubin Total 0.3 mg/dL (0.0-1.0); Blood Urea Nitrogen 16 mg/dL (9-16); C Reactive Protein 0.35 mg/dL (< or = 0.50); Calcium 9.8 mg/dL (8.4-10.2); Carbon Dioxide 25 mmol/L (22-29); Chloride 99 mmol/L (96-108); Creatinine Clr Calc Pharmacy 103.7; Estimated Glomerular Filt Rate > 60; Glucose Random 141 mg/dL (60-115); Lipase 116 U/L (8-78); Sodium 135 mmol/L (135-145); Total Protein 7.3 g/dL (6.5-8.0)
[2022-11-21 18:02] VITALS: BP 110/54; RESP 18; TEMP 36.6; O2SAT 94
[2022-11-21 18:29] LABS: Erythrocyte Sedimentation Rate 6 MM/HR (0-20)
[2022-11-21 18:59] VITALS: BP 107/41; PULSE 62; RESP 16; TEMP 36.9; O2SAT 94
[2022-11-21] MEDS: Piperacillin Sodium/Tazobactam 3.375 GM in 0.9 % Sodium Chloride 50 ML IV (19:47)
[2022-11-21 20:00] VITALS: BP 119/65; PULSE 63; RESP 16; TEMP 36.8; O2SAT 95
== END 2022-11-21 20:51 | disposition home or self-care (01) ==
PROVIDERS: Physician Assistant; Emergency Provider Emergency Medicine
DX: L03.115 Cellulitis of right lower limb (principal); Z79.899 Other long term (current) drug therapy; F17.210 Nicotine dependence, cigarettes, uncomplicated; Z71.6 Tobacco abuse counseling
CPT/HCPCS: 36415; 73630; 80053; 83605; 83690; 85025; 85652; 86140; 87040; 96365; 99284; J2543

== ENCOUNTER 2023-01-07 23:57 | Emergency (ER) | payer OTHER, SELFPAY ==
--- NOTE | ~2023-01-07 | US_ITS ---
EXAMINATION: US PELVIS CLINICAL INFORMATION: Irregular vaginal bleeding. LMP 12/18/2022 COMPARISON: None available. TECHNIQUE: Ultrasound of the pelvis is performed using both transabdominal and transvaginal transducers along with Doppler. Transvaginal imaging is performed due to inadequate visualization transabdominally. FINDINGS: Uterus: The uterus is anteverted and measures 12.9 x 5.4 x 6.1 cm. The double wall endometrial thickness is 19 mm. The uterus is smooth in contour and has normal myometrial echogenicity. No visible fibroid. Adnexa: Both ovaries are visualized. There is normal color flow to the adnexa. There is no ovarian torsion. There is no pelvic ascites or fluid collection. Right ovary measures 3.2 x 1.9 x 1.3 cm. Left ovary measures 1.7 x 1.3 x 1.1 cm. US/US pelvic ovarian doppler IMPRESSION: * Endometrial thickness is at the upper limits of normal, measuring up to 19 mm. If the patient has persistent abnormal uterine bleeding, I would recommend a follow-up pelvic ultrasound in 1-2 months, preferably when she is not bleeding and a 5-7 of her cycle. * Exam otherwise unremarkable.
--- NOTE | ~2023-01-07 | US_ITS ---
EXAMINATION: US PELVIS CLINICAL INFORMATION: Irregular vaginal bleeding. LMP 12/18/2022 COMPARISON: None available. TECHNIQUE: Ultrasound of the pelvis is performed using both transabdominal and transvaginal transducers along with Doppler. Transvaginal imaging is performed due to inadequate visualization transabdominally. FINDINGS: Uterus: The uterus is anteverted and measures 12.9 x 5.4 x 6.1 cm. The double wall endometrial thickness is 19 mm. The uterus is smooth in contour and has normal myometrial echogenicity. No visible fibroid. Adnexa: Both ovaries are visualized. There is normal color flow to the adnexa. There is no ovarian torsion. There is no pelvic ascites or fluid collection. Right ovary measures 3.2 x 1.9 x 1.3 cm. Left ovary measures 1.7 x 1.3 x 1.1 cm. US/US pelvic and transvaginal IMPRESSION: * Endometrial thickness is at the upper limits of normal, measuring up to 19 mm. If the patient has persistent abnormal uterine bleeding, I would recommend a follow-up pelvic ultrasound in 1-2 months, preferably when she is not bleeding and a 5-7 of her cycle. * Exam otherwise unremarkable.
[2023-01-08 00:24] VITALS: BP 185/96; PULSE 94; RESP 18; TEMP 36.9; O2SAT 99; BMI 35.7
--- NOTE | 2023-01-08 00:25 | ECG_ITS ---
Test Reason : VAG BLEEDING Blood Pressure : / mmHG Vent. Rate : 071 BPM Atrial Rate : 071 BPM P-R Int : 182 ms QRS Dur : 094 ms QT Int : 412 ms P-R-T Axes : 044 008 040 degrees QTc Int : 447 ms Artifact in tracing Normal sinus rhythm Normal ECG No previous ECGs available Referred By: Joycelyn Rojas Electronically Signed By:TIFF TORRE
[2023-01-08 00:49] LABS: MANUAL DIFF FLAG NO
[2023-01-08 00:50] LABS: Basophils Percent Auto 0.3 % (0-2); Eosinophils Absolute Auto 0.4 X10*3/uL (0.0-0.4); Eosinophils Percent Auto 3.5 % (0-4); Hematocrit 40.8 % (37.0-47.0); Hemoglobin 13.4 g/dl (12.0-16.0); Imm Gran Abs Auto 0.07 X10*3/uL (0.00-0.03); Imm Gran Pct Auto 0.6 % (0.0-0.4); Lymphocytes Absolute Auto 2.9 X10*3/uL (1.2-4.9); Lymphocytes Percent Auto 26.3 % (20-40); Mean Corpuscular HGB Conc 32.8 g/dl (31.0-35.0); Mean Corpuscular Hemoglobin 28.5 pg (27.0-33.0); Mean Corpuscular Volume 86.6 fL (80.0-98.0); Mean Platelet Volume 11.5 fL (9.4-12.3); Monocytes Absolute Auto 0.9 X10*3/uL (0.1-1.2); Monocytes Percent Auto 7.7 % (2-11); Neutrophils Absolute Auto 6.9 x10*3/uL (2.0-8.3); Neutrophils Percent Auto 61.6 % (45-73); Platelet Count 263 X10*3/uL (160-400); Red Blood Count 4.71 X10*6/uL (4.20-5.50); Red Cell Distribution Width 13.9 % (11.0-16.0); White Blood Count 11.1 X10*3/uL (4.8-10.8)
[2023-01-08] MEDS: fentaNYL citrate/PF 100 MCG/2 ML VIAL IVPUSH (00:54)
[2023-01-08 00:56] LABS: INTERNATIONAL NORM RATIO 0.9 (0.9-1.1)
[2023-01-08] MEDS: 0.9 % Sodium Chloride 1,000 ML 999 ML IVCONT ×2 (00:56→00:57)
[2023-01-08 00:58] LABS: Partial Thromboplastin Time 28.7 SEC (26.0-36.4)
[2023-01-08 01:31] LABS: Alanine Aminotransferase 50 U/L (0-31); Albumin Level 4.1 g/dL (3.5-5.0); Alkaline Phosphatase 35 U/L (39-117); Anion Gap 15 (12-20); Aspartate Amino Transferase 32 U/L (5-31); Bilirubin Direct < 0.2 mg/dL (0.0-0.5); Bilirubin Total 0.2 mg/dL (0.0-1.0); Blood Urea Nitrogen 17 mg/dL (9-16); Calcium 9.1 mg/dL (8.4-10.2); Carbon Dioxide 26 mmol/L (22-29); Chloride 99 mmol/L (96-108); Creatinine Clr Calc Pharmacy 108.7; Estimated Glomerular Filt Rate > 60; Glucose Random 196 mg/dL (60-115); HCG Quantitative < 2 mIU/mL; Magnesium 1.9 mg/dL (1.6-2.6); Potassium 3.6 mmol/L (3.3-5.1); Sodium 136 mmol/L (135-145); Total Protein 7.2 g/dL (6.5-8.0)
--- NOTE | 2023-01-08 01:42 | ED.FEMALEGU ---
HPI - Female Genitourinary General Chief complaint: Vaginal Bleeding Stated complaint: vag bleeding/back pain Time Seen by Provider: 01/08/23 00:25 Source: patient Mode of arrival: wheelchair Limitations: no limitations History of Present Illness HPI Narrative: 42yoF with a PMHx of Diabetes, morbid, familial hypertriglyceridemia, hepatic steatosis, opiate dependence, depression, fibromyalgia who has had 2 prior C-sections in the past who is presenting to the ER with complaints of abnormal vaginal bleeding with clots that started at 09:00 this morning. Reports that she is 2 weeks early for her menstrual period. She reports that this is not normal for her she never bleeds this heavily. She has used a 24 pack of the super absorbent /large pads and she completely soaks them with clots. She reports she did fall 2-3 days ago and injured her back although she was not having back pain up until today. She reports she fell due to she sleeps walks. she admits to nausea, dizziness, headaches, generalized fatigue and malaise. she reports she has not been sexually active in 11 months. She denies being on any control at this time. She denies any fevers, chills, thoughts of , STD , chest pain or shortness of breath, abdominal pain, flank pain, dysuria, hematuria, diarrhea constipation, black or bloody stools, lower extremity edema or calf tenderness, rashes or any other symptoms complaints or concerns at this time. MD elicited complaint: vaginal bleeding Onset (ago): hour(s) (started at 9am) Location of symptoms: low back Severity: severe Quality of pain: aching Consistency: constant Vaginal discharge: none Vaginal bleeding: heavy, bright red and clots (24 pads since 9am today) Exacerbating factors: none Relieving factors: none Associated symptoms: headaches, weakness, nausea and back pain Treatment prior to arrival: none Sexual activity: No Patient : No Related Data Home Medications Medication Instructions Recorded Confirmed acyclovir 400 mg tablet 400 mg PO BID 09/26/22 09/26/22 amitriptyline 25 mg tablet 25 mg PO BEDTIME 09/26/22 09/26/22 baclofen 10 mg tablet 10 mg PO BID 09/26/22 09/26/22 buprenorphine 8 mg-naloxone 2 mg 3 tab sublingual DAILY 09/26/22 09/26/22 sublingual tablet duloxetine 60 mg capsule,delayed 60 mg PO DAILY 09/26/22 09/26/22 release fenofibrate nanocrystallized 145 145 mg PO DAILY 09/26/22 09/26/22 mg tablet ferrous sulfate 325 mg (65 mg 325 mg PO Q OTHER DAY 09/26/22 09/26/22 iron) tablet (FeroSul) glipizide 2.5 mg tablet, extended 2.5 mg PO DAILY 09/26/22 09/26/22 release 24 hr hydroxyzine HCl 25 mg tablet 25 - 50 mg PO TID PRN ptsd 09/26/22 09/26/22 ibuprofen 600 mg tablet 600 mg PO BID PRN Pain 09/26/22 09/26/22 insulin glargine 100 unit/mL (3 18 unit subcut QPM 09/26/22 09/26/22 mL) subcutaneous pen (Basaglar KwalfonzoPen U-100 Insulin) lisinopril 20 1 tab PO QAM 09/26/22 09/26/22 mg-hydrochlorothiazide 25 mg tablet metformin 850 mg tablet 850 mg PO BID 09/26/22 09/26/22 omeprazole 40 mg capsule,delayed 40 mg PO BID 09/26/22 09/26/22 release pramipexole 0.5 mg tablet 0.5 mg PO BEDTIME 09/26/22 09/26/22 pravastatin 20 mg tablet 20 mg PO DAILY 09/26/22 09/26/22 prazosin 5 mg capsule 5 mg PO DAILY 09/26/22 09/26/22 pregabalin 300 mg capsule 300 mg PO BID 09/26/22 09/26/22 sumatriptan succinate 100 mg tablet mg PO 09/26/22 Previous Rx's Medication Instructions Recorded doxycycline hyclate 100 mg tablet 100 mg PO BID 5 days #10 tabs 09/28/22 cephalexin 500 mg tablet 500 mg PO Q6H 10 days #40 tabs 10/25/22 doxycycline hyclate 100 mg capsule 100 mg PO BID 10 days #20 caps 10/25/22 cephalexin 500 mg capsule 500 mg PO QID 10 days #40 caps 11/21/22 doxycycline hyclate 100 mg capsule 100 mg PO BID 10 days #20 caps 11/21/22 medroxyprogesterone 10 mg tablet 10 mg PO DAILY Abnormal uterine 01/08/23 (Provera) bleeding 10 days #10 tabs Allergies Allergy/AdvReac Type Severity Reaction Status Date / Time Sulfa (Sulfonamide Allergy Unknown HIVES Verified 09/25/22 23:30 Antibiotics) [SULFA (SULFONAMIDE ANTIBIOTICS)] glipizide Allergy Unknown Verified 11/21/22 17:07 Review of Systems Review of Systems: Constitutional : No Fever, No Chills ENT/Mouth : No sore throat, No Rhinorrhea Eyes: No Eye Pain, No Redness Cardiovascular : No Chest Pain, No SOB Respiratory : No Cough, No Sputum, No Wheezing Gastrointestinal : No Nausea, No Vomiting, No Diarrhea, No abdominal pain, Genitourinary : + irregular bleeding, No Dysuria, No Urinary Frequency, + pelvic pain, No vaginal discharge, no hematuria Musculoskeletal : + back pain, No Myalgias Skin : No rash Neuro : + Weakness, + Headache, + Dizziness Psych : No Anxiety/Panic, No Depression Heme/Lymph: No bruising, No Lymphadenopathy Endocrine : No Polyuria, No Polydipsia Yes all other systems are reviewed and are negative [facility] Past Medical History Attestation statement: The following information was validated with the patient. Medical History Diabetes Social History Social History Household Members: Children Housing: Apartment Do you presently have visiting nurse or other home services: No Alcohol intake: never Patient Tobacco Use Status: Current everyday Tobacco user Tobacco use type: Cigarette Cigarettes Per Day: 20 Smoked in Last 30 Days: No Use of substances other than those prescribed or required for medical reasons: No Substance Use Type: Marijuana Advance Directives: No Advance Directives Information Provided: Yes Patient : No service: No Physical Exam Vital Signs: Vital Signs: Last Vital Signs Temp 98.4 F 01/08/23 00:24 Pulse 94 01/08/23 00:24 Resp 18 01/08/23 00:24 BP 185/96 H 01/08/23 00:24 Pulse Ox 99 01/08/23 00:24 O2 Del Method Room Air 01/08/23 00:24 BMI result Body Mass Index 35.7 vital signs have been reviewed as normal and appeared to be correct. Blood pressure 185/96. Heart rate normal. Respiration rate normal. Temperature normal. Oxygen saturation normal. Appearance: Alert. Oriented X3. No acute distress. Head: Normal external exam. Normocephalic. Atraumatic. No Loyd signs noted. No raccoon eyes noted Eyes: PERRLA. EOMI. Conjunctiva and sclera normal. Eyelids normal. ENT: EAC normal. TM's Normal. Pharynx normal. Uvula midline. Moist mucous membranes. No trismus noted. No drooling noted. No muffled voice noted. Neck: Normal inspection. Neck supple. FROM. No adenopathy. Thyroid Normal. No meningeal signs. No neck mass noted. CVS: Normal heart rate and rhythm. Heart sound normal. No murmurs noted. Pulses normal throughout. Respiratory: No respiratory distress. Painless inspiration. Breath sounds normal. No wheezes/rales/rhonchi noted. Chest nontender. No accessory muscle usage noted or decreased air movement noted. Abdomen: Soft and nontender. Bowel sounds normal in all 4 quadrants. No distention noted. No organomegaly noted. No visible injury noted. : Supervised by Dr. Ortiz and Mary PATHAK, Patient noted to have vaginal bleeding on external exam she even has blood that is dried on her legs and her feet. The rest of the external exam exam of the urethra is normal. No lesions/lacerations noted. Speculum exam normal appearance/palpation of vagina normal. No abnormal vaginal discharge noted. Otherwise no vaginal erythema. No foreign bodies noted. No vaginal laceration/lesions noted. Although she is noted to have some active bleeding no hemorrhaging at this time. It is coming from the cervical os. Cervical os is closed. No tissue present in vagina. No vaginal mass noted. No vaginal swelling noted. No vaginal tenderness noted. Normal appearance of cervix. Normal palpation of cervix. No cervical lesion/mass. No Bartholin cyst noted. No cervical motion tenderness noted. Negative chandelier sign. Normal bimanual exam. Uterine size normal. Bladder normal to palpation. Uterine consistency normal. Normal cervical palpation. Uterine mobility normal. Uterine shape normal. Normal adnexa. Normal rectovaginal exam. Back: No CVA tenderness. Full range of motion noted. Skin: Skin warm and dry. Normal skin color. Normal skin turgor. No rashes/lesions/lacerations noted. Extremities: No lower extremity edema. Extremities exhibit normal range of motion. Extremities nontender. Neuro: Oriented X 3. No motor deficit. No sensory deficit. Reflexes normal. Course Course Course Narrative: 00:25pm - Patient was brought directly from triage to the ER room due to she was noted to have blood going down her legs while in the wheelchair. This is a 42-year-old female presenting with abnormal vaginal bleeding where she has used approximately 24 pads since 09:00 where she is completely soaking them with clots. her last menstrual period was approximately 2 weeks ago. she has had 2 prior C-sections in the past otherwise no complications. She does not believe she is as she has not been sexually active in 11 months. She denies any thoughts of STDs. She denies any bleeding or clotting disorder that she is aware of or any family history of bleeding or clotting disorder. She denies any recent trauma other than a fall 2-3 days ago where she injured her back. She is not on any control. Based on History, Exam, and ED Workup patient?s presentation not consistent with ectopic , molar , life-threatening coagulopathy, trauma, serious bacterial infection, central process or other emergency. Most likely, patient?s bleeding is secondary to fibroids or other non-emergent cause of abnormal uterine bleeding. Plan: Labs, serum , UA, ovarian/transvaginal/ Doppler ultrasound ordered along with a type and screen will also consult with Dr. Shanice ORNELAS and re-evaluate. Reevaluation(s) Reevaluation #1: Labs reviewed patient leukocytosis of 11,000 it appears that patient has a chronic leukocytosis. Her BUN is 17. Random glucose 196. AST/ ALT / alkaline phosphate 32/50/35 which is similar in chronic when compared to prior. Serum quant less than 2 therefore patient negative for . Time: 01:55 Reevaluation #2: patient is a daily smoker I discussed this with Dr. Shanice Perera along with her labs her ultrasound is still pending although Dr. Shanice Perera reported that patient can be started on Provera 10 mg p.o. daily she can follow-up in the office for endometrial biopsy. Along with precautions to return for worsening vaginal bleeding. Plan: Sign out to Dr. Billy pending ultrasound if negative patient can be discharged with Provera 10 mg daily with outpatient follow-up for endometrial biopsy with return precautions of worsening vaginal bleeding or symptoms to return. Patient was noted to have elevated blood pressure although she is asymptomatic regarding her blood pressure therefore will refer this to her primary will not start on any anti hypertensive medications. Patient understands agrees with this plan. Time: 02:12 Medications Administered Discontinued Medications Generic Name Dose Route Start Last Admin Trade Name Taz PRN Reason Stop Dose Admin Fentanyl 100 mcg 01/08/23 00:36 01/08/23 00:54 Fentanyl Citrate/Pf 100 Mcg/2 Ml Vial IVPUSH 01/08/23 00:37 100 mcg ONCE ONE Administration Protocol Sodium Chloride 1,000 mls @ 999 mls/hr 01/08/23 00:30 01/08/23 02:01 Ns IVCONT 01/08/23 01:30 Infused .Q1H1M ISHAN Infusion Sodium Chloride 1,000 mls @ 999 mls/hr 01/08/23 00:45 01/08/23 02:01 Ns IVCONT 01/08/23 01:45 Infused .Q1H1M ISHAN Infusion Medical Decision Making Medical Decision Making MDM Narrative: see course Differential Diagnosis Differential Diagnoses: The differential diagnosis associated with the presentation includes see course Admission/Observation Consideration of admission/observation: Escalation of care including admission/observation considered Consult Healthcare Provider Management of the patient was discussed with: [employer] Cook (Dr Prasad) Lab Data MDM Lab Attestation statement: I reviewed the patient's lab results. 01/08/23 00:42 01/08/23 00:42 Labs: Lab Results 01/08/23 01/08/23 01/08/23 Range/Units 00:42 00:42 00:42 WBC 11.1 H (4.8-10.8) X10*3/uL RBC 4.71 (4.20-5.50) X10*6/uL Hgb 13.4 (12.0-16.0) g/dl Hct 40.8 (37.0-47.0) % MCV 86.6 (80.0-98.0) fL MCH 28.5 (27.0-33.0) pg MCHC 32.8 (31.0-35.0) g/dl RDW 13.9 (11.0-16.0) % Plt Count 263 (160-400) X10*3/uL MPV 11.5 (9.4-12.3) fL Immature Gran % (Auto) 0.6 H (0.0-0.4) % Neut % (Auto) 61.6 (45-73) % Lymph % (Auto) 26.3 (20-40) % [place] % (Auto) 7.7 (2-11) % Eos % (Auto) 3.5 (0-4) % Baso % (Auto) 0.3 (0-2) % Lymph # (Auto) 2.9 (1.2-4.9) X10*3/uL [place] # (Auto) 0.9 (0.1-1.2) X10*3/uL Eos # (Auto) 0.4 (0.0-0.4) X10*3/uL Baso # (Auto) 0.0 (0.0-0.2) X10*3/uL Abs Immat Gran (auto) 0.07 H (0.00-0.03) X10*3/uL Absolute Neuts (auto) 6.9 (2.0-8.3) x10*3/uL Absolute Nucleated RBC 0.000 (0.0-0.012) X10*3/uL Nucleated RBC % (auto) 0.0 (0.0-0.2) /100WBC PT 11.0 L (11.1-13.3) SEC INR 0.9 (0.9-1.1) APTT 28.7 (26.0-36.4) SEC Sodium 136 (135-145) mmol/L Potassium 3.6 (3.3-5.1) mmol/L Chloride 99 (96-108) mmol/L Carbon Dioxide 26 (22-29) mmol/L Anion Gap 15 (12-20) BUN 17 H (9-16) mg/dL Creatinine 0.87 (0.5-1.4) mg/dL Estim Creat Clear Calc 108.7 Estimated GFR > 60 Random Glucose 196 H (60-115) mg/dL Calcium 9.1 D (8.4-10.2) mg/dL Magnesium 1.9 (1.6-2.6) mg/dL Total Bilirubin 0.2 (0.0-1.0) mg/dL Direct Bilirubin < 0.2 (0.0-0.5) mg/dL AST 32 H (5-31) U/L ALT 50 H (0-31) U/L Alkaline Phosphatase 35 L (39-117) U/L Total Protein 7.2 (6.5-8.0) g/dL Albumin 4.1 (3.5-5.0) g/dL Beta HCG, Quant < 2 mIU/mL Blood Type Antibody Screen 01/08/23 Range/Units 00:47 WBC (4.8-10.8) X10*3/uL RBC (4.20-5.50) X10*6/uL Hgb (12.0-16.0) g/dl Hct (37.0-47.0) % MCV (80.0-98.0) fL MCH (27.0-33.0) pg MCHC (31.0-35.0) g/dl RDW (11.0-16.0) % Plt Count (160-400) X10*3/uL MPV (9.4-12.3) fL Immature Gran % (Auto) (0.0-0.4) % Neut % (Auto) (45-73) % Lymph % (Auto) (20-40) % [place] % (Auto) (2-11) % Eos % (Auto) (0-4) % Baso % (Auto) (0-2) % Lymph # (Auto) (1.2-4.9) X10*3/uL [place] # (Auto) (0.1-1.2) X10*3/uL Eos # (Auto) (0.0-0.4) X10*3/uL Baso # (Auto) (0.0-0.2) X10*3/uL Abs Immat Gran (auto) (0.00-0.03) X10*3/uL Absolute Neuts (auto) (2.0-8.3) x10*3/uL Absolute Nucleated RBC (0.0-0.012) X10*3/uL Nucleated RBC % (auto) (0.0-0.2) /100WBC PT (11.1-13.3) SEC INR (0.9-1.1) APTT (26.0-36.4) SEC Sodium (135-145) mmol/L Potassium (3.3-5.1) mmol/L Chloride (96-108) mmol/L Carbon Dioxide (22-29) mmol/L Anion Gap (12-20) BUN (9-16) mg/dL Creatinine (0.5-1.4) mg/dL Estim Creat Clear Calc Estimated GFR Random Glucose (60-115) mg/dL Calcium (8.4-10.2) mg/dL Magnesium (1.6-2.6) mg/dL Total Bilirubin (0.0-1.0) mg/dL Direct Bilirubin (0.0-0.5) mg/dL AST (5-31) U/L ALT (0-31) U/L Alkaline Phosphatase (39-117) U/L Total Protein (6.5-8.0) g/dL Albumin (3.5-5.0) g/dL Beta HCG, Quant mIU/mL Blood Type A Positive Antibody Screen NEGATIVE Independent Interpretation I performed an independent interpretation of an: Ultrasound Radiology Impression Discussion of test interpretation with radiology: I have reviewed the radiologist's reading. External Record Review External record reviewed: Inpatient record, Office record, Outpatient record, Prior outpatient labs, Prior outpatient radiology, Primary care record and Outside ED record all prior labs/imaging /EKG and notes that are accessible in our system reviewed by myself Prescription Management I considered prescription management with: Pain Medication Chronic Conditions Patient?s care impacted by: Diabetes Social Determinants Patient?s care significantly limited by Social Determinants of Health including: Low income, Unemployment and Other Social Determinant of Health Critical Care Time Critical Care Time Critical Care Time: Yes Total Critical Care Time: 60 Attestation: I personally attest to this time spent taking care of the patient Discharge Plan Discharge Clinical Impression: Vaginal bleeding, High blood pressure Patient Disposition: Home, Self-Care Instructions: Dysfunctional Uterine Bleeding (ED) Prescriptions: New medroxyprogesterone [Provera] 10 mg tablet 10 mg PO DAILY 10 Days Qty: 10 0RF No Action doxycycline hyclate 100 mg capsule 100 mg PO BID 10 Days Qty: 20 0RF cephalexin 500 mg tablet 500 mg PO Q6H 10 Days Qty: 40 0RF doxycycline hyclate 100 mg capsule 100 mg PO BID 10 Days Qty: 20 0RF cephalexin 500 mg capsule 500 mg PO QID 10 Days Qty: 40 0RF sumatriptan succinate 100 mg tablet PO metformin 850 mg tablet 850 mg PO BID acyclovir 400 mg tablet 400 mg PO BID omeprazole 40 mg capsule,delayed release(DR/EC) 40 mg PO BID prazosin 5 mg capsule 5 mg PO DAILY amitriptyline 25 mg tablet 25 mg PO BEDTIME baclofen 10 mg tablet 10 mg PO BID lisinopril-hydrochlorothiazide 20-25 mg tablet 1 tab PO QAM pravastatin 20 mg tablet 20 mg PO DAILY ibuprofen 600 mg tablet 600 mg PO BID PRN (Reason: Pain) buprenorphine-naloxone 8-2 mg tablet, sublingual 3 tab sublingual DAILY duloxetine 60 mg capsule,delayed release(DR/EC) 60 mg PO DAILY pregabalin 300 mg capsule 300 mg PO BID fenofibrate nanocrystallized 145 mg tablet 145 mg PO DAILY insulin glargine [Basaglar KwikPen U-100 Insulin] 100 unit/mL (3 mL) insulin pen 18 unit subcut QPM pramipexole 0.5 mg tablet 0.5 mg PO BEDTIME ferrous sulfate [FeroSul] 325 mg (65 mg iron) tablet 325 mg PO Q OTHER DAY hydroxyzine HCl 25 mg tablet 25 - 50 mg PO TID PRN (Reason: ptsd) glipizide 2.5 mg tablet extended release 24hr 2.5 mg PO DAILY doxycycline hyclate 100 mg tablet 100 mg PO BID 5 Days Qty: 10 0RF Referrals: [facility] [Primary Care Provider] - Srinivasa Prasad MD [Physician] - 01/09/23
--- NOTE | 2023-01-08 02:02 | P.CONOB_ITS ---
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 associated passage of blood clots and pelvic cramping cc:: CC: OB PMFSH Past Medical History Medical History Diabetes Social History Social History Household Members: Children Housing: Apartment Do you presently have visiting nurse or other home services: No Alcohol intake: never Patient Tobacco Use Status: Current everyday Tobacco user Tobacco use type: Cigarette Cigarettes Per Day: 20 Substance Use Type: Marijuana service: No Meds Allergies Allergy/AdvReac Type Severity Reaction Status Date / Time Sulfa (Sulfonamide Allergy Unknown HIVES Verified 09/25/22 23:30 Antibiotics) [SULFA (SULFONAMIDE ANTIBIOTICS)] glipizide Allergy Unknown Verified 11/21/22 17:07 Home Medications Medication Instructions Recorded Confirmed Last Taken Type acyclovir 400 mg tablet 400 mg PO BID 09/26/22 09/26/22 Unknown History amitriptyline 25 mg tablet 25 mg PO BEDTIME 09/26/22 09/26/22 Unknown History baclofen 10 mg tablet 10 mg PO BID 09/26/22 09/26/22 Unknown History buprenorphine 8 mg-naloxone 2 mg 3 tab sublingual DAILY 09/26/22 09/26/22 Unknown History sublingual tablet duloxetine 60 mg capsule,delayed 60 mg PO DAILY 09/26/22 09/26/22 Unknown History release fenofibrate nanocrystallized 145 145 mg PO DAILY 09/26/22 09/26/22 Unknown History mg tablet ferrous sulfate 325 mg (65 mg 325 mg PO Q OTHER DAY 09/26/22 09/26/22 Unknown History iron) tablet (FeroSul) glipizide 2.5 mg tablet, extended 2.5 mg PO DAILY 09/26/22 09/26/22 Unknown History release 24 hr hydroxyzine HCl 25 mg tablet 25 - 50 mg PO TID PRN ptsd 09/26/22 09/26/22 Unknown History ibuprofen 600 mg tablet 600 mg PO BID PRN Pain 09/26/22 09/26/22 Unknown History insulin glargine 100 unit/mL (3 18 unit subcut QPM 09/26/22 09/26/22 Unknown History mL) subcutaneous pen (Kvngaglar NyasiaPen U-100 Insulin) lisinopril 20 1 tab PO QAM 09/26/22 09/26/22 Unknown History mg-hydrochlorothiazide 25 mg tablet metformin 850 mg tablet 850 mg PO BID 09/26/22 09/26/22 Unknown History omeprazole 40 mg capsule,delayed 40 mg PO BID 09/26/22 09/26/22 Unknown History release pramipexole 0.5 mg tablet 0.5 mg PO BEDTIME 09/26/22 09/26/22 Unknown History pravastatin 20 mg tablet 20 mg PO DAILY 09/26/22 09/26/22 Unknown History prazosin 5 mg capsule 5 mg PO DAILY 09/26/22 09/26/22 Unknown History pregabalin 300 mg capsule 300 mg PO BID 09/26/22 09/26/22 Unknown History sumatriptan succinate 100 mg tablet mg PO 09/26/22 Unknown History 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 Physical Exam Vitals Vital signs: Temp Pulse Resp BP Pulse Ox O2 Del Method 98.4 F 94 18 185/96 H 99 Room Air 01/08/23 00:24 01/08/23 00:24 01/08/23 00:24 01/08/23 00:24 01/08/23 00:24 01/08/23 00:24 BMI result Body Mass Index 35.7 Additional Comments: Reported by HOMA Genao as the following: Abdomen soft nontender Pelvic exam blood per vagina, no cervical motion tenderness, uterine adnexal tenderness 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 - Results Labs 01/08/23 00:42 01/08/23 00:42 Labs: Short CBC 01/08/23 Range/Units 00:42 WBC 11.1 H (4.8-10.8) X10*3/uL Hgb 13.4 (12.0-16.0) g/dl Hct 40.8 (37.0-47.0) % Plt Count 263 (160-400) X10*3/uL BMP 01/08/23 00:42 Sodium 136 Potassium 3.6 Chloride 99 Carbon Dioxide 26 BUN 17 H Creatinine 0.87 Calcium 9.1 D Liver Function 01/08/23 Range/Units 00:42 Total Bilirubin 0.2 (0.0-1.0) mg/dL Direct Bilirubin < 0.2 (0.0-0.5) mg/dL AST 32 H (5-31) U/L ALT 50 H (0-31) U/L Alkaline Phosphatase 35 L (39-117) U/L Albumin 4.1 (3.5-5.0) g/dL Antibody Screen Antibody Screen NEGATIVE 01/08/23 00:47 Assessment and Plan (1) Abnormal uterine bleeding (AUB): Status: Acute Plan Recommended the following to HOMA Genao: -AUB: Provera 10 mg p.o. q.d. Close Follow-up in the office for endometrial biopsy to rule out endometrial pathology including endometrial hyperplasia and/or malignancy and consult regarding different options of treatment. Instructions to be given to patient to come back to emergency room because of persistent heavy vaginal bleeding. -Elevated blood pressure: Defer management of elevated blood pressure prior to discharge to the ER team. -Elevated liver function: Recommend referral to PCP as outpatient follow-up for further management I spent a total of 20 minutes reviewing the chart, communicating to the emergency room provider and documenting in the medical record Time Spent With Patient Time: Total time managing care of this patient today ____ minutes.
[2023-01-08 02:47] VITALS: BP 105/48; PULSE 75; RESP 16; O2SAT 90
--- NOTE | 2023-01-08 05:22 | PC.NURSE ---
pt reported no pain and moderate vaginal bleeding at d/c
== END 2023-01-08 05:23 | disposition home or self-care (01) ==
PROVIDERS: Physician Assistant Medical; Emergency Provider Emergency Medicine
DX: N93.9 Abnormal uterine and vaginal bleeding, unspecified (principal); M54.50 Low back pain, unspecified; R51.9 Headache, unspecified; I10 Essential (primary) hypertension; Z79.899 Other long term (current) drug therapy; F17.210 Nicotine dependence, cigarettes, uncomplicated; Z71.6 Tobacco abuse counseling
CPT/HCPCS: 36415; 76830; 76856; 80053; 82248; 83735; 84702; 85025; 85610; 85730; 86850; 86900; 86901; 93005; 93975; 96361; 96374; 96375; 99283; 99285; J3010

== ENCOUNTER → 2023-01-08 00:25 | Outpatient (BNV) | payer OTHER, SELFPAY | PROVIDERS: Emergency Provider Emergency Medicine; Visit Provider Internal Medicine | DX: N93.9 Abnormal uterine and vaginal bleeding, unspecified (principal) | CPT/HCPCS: 93010 ==

== ENCOUNTER → 2023-01-08 01:15 | Outpatient (BNV) | payer OTHER, SELFPAY | PROVIDERS: Emergency Provider Emergency Medicine; Visit Provider Obstetrics & Gynecology | DX: N93.9 Abnormal uterine and vaginal bleeding, unspecified (principal) | CPT/HCPCS: 99283 ==

== ENCOUNTER 2023-01-12 14:57 | Outpatient (REF) | payer OTHER, SELFPAY ==
[2023-01-13 05:21] LABS: CT PCR NOT DETECTED (Not Detect.); NG PCR NOT DETECTED (Not Detect.)
[2023-01-17 05:09] LABS: HPV mRNA E6/E7 rflx Not Detected (Not Detected)
== END 2023-01-12 14:58 | disposition home or self-care (01) ==
LOC: HO.LNP 14:57
PROVIDERS: Visit Provider Obstetrics & Gynecology
DX: Z12.4 Encounter for screening for malignant neoplasm of cervix (principal); Z11.51 Encounter for screening for human papillomavirus (HPV); N93.9 Abnormal uterine and vaginal bleeding, unspecified
CPT/HCPCS: 0353U; 87624; 88142; 99212

== ENCOUNTER 2023-01-12 14:57 | Outpatient (AMB) | payer OTHER, SELFPAY ==
--- NOTE | 2023-01-12 15:01 | A.OFFVIS_ITS ---
Intake Vital Signs 01/12/23 15:05 Height 5 ft 4 in Weight 255 lb BMI 43.8 BP 114/50 L Intake Visit Reasons: er follow up Strategic Account Director Required: No Information Interpreted: non-clinical & clinical Cloth Measurer Machine: Cloth Measurer Machine Present ([place]) Allergies Sulfa (Sulfonamide Antibiotics) [SULFA (SULFONAMIDE ANTIBIOTICS)] Allergy (Unknown, Verified 01/12/23 15:07) HIVES glipizide Allergy (Verified 01/12/23 15:07) Unknown Is last menstrual period known: Yes Last menstrual period: 12/12/22 Post menopausal: No HPI HPI Comments History of Present Illness Details Presenting for follow-up from the emergency room regarding abnormal uterine bleeding. The patient has been having heavy vaginal bleeding for the last few months associated passage of blood clots and pelvic cramping. In the emergency room the following workup was done H&H was 13.4/40.8, hCG was negative. Pelvic ultrasound was done and showed the following: Uterus: The uterus is anteverted and measures 12.9 x 5.4 x 6.1 cm. The double wall endometrial thickness is 19 mm.? The uterus is smooth in contour and has normal myometrial echogenicity. ? No visible fibroid. Adnexa: Both ovaries are visualized. There is normal color flow to the adnexa. There is no ovarian torsion.? There is no pelvic ascites or fluid collection. Right ovary measures 3.2 x 1.9 x 1.3 cm. Left ovary measures 1.7 x 1.3 x 1.1 cm. [facility] Medical History Diabetes Social History Household Members: Children Housing: Apartment Do you presently have visiting nurse or other home services: No Alcohol intake: never Patient Tobacco Use Status: Current everyday Tobacco user Tobacco use type: Cigarette Cigarettes Per Day: 8 Substance Use Type: Marijuana service: No Female Reproductive History Menstrual Age of Menarche: 14 Duration of menses: 6-7 days Date of last menstrual period: 12/12/22 control method: none Total pregnancies: 2 Full term: 2 Number of Living Children: 2 Review of Systems Const All systems reviewed & are unremarkable except as noted in HPI and below Card Reports as per HPI Resp Reports as per HPI GI Reports as per HPI and Reports no additional complaints Reports as per HPI Physical Exam Const General: cooperative, healthy appearing and comfortable Chest Chest palpation & inspection: normal inspection of the chest and normal palpation of entire chest wall Breast/axilla inspection: normal inspection of the breasts and normal inspection of the axillae Breast/axilla palpation: normal palpation of the breasts, normal palpation of the axillae and no axillary lymphadenopathy Resp Effort & Inspection: normal respiratory effort Auscultation: clear to auscultation bilaterally Percussion: percussion normal Cardio Palpation: normal PMI Rate: regular rate Rhythm: regular rhythm Heart sounds: no murmurs and no rubs Peripheral pulses: Peripheral pulses 2+ throughout GI Inspection: Yes normal to inspection Palpation (GI): Soft to palpation, nontender, no guarding, not rigid and No hepatosplenomegaly present Percussion: Yes normal to percussion Auscultation: normal bowel sounds Rectal Exam - Female: deferred General: Yes bladder normal to palpation External Female Exam: No lesion Speculum Exam - Vagina: normal appearance of the vagina, normal palpation, normal vaginal discharge and not erythematous Speculum Exam - Cervix: normal appearance of the cervix and normal palpation Bimanual exam- vagina & uterus: normal bimanual exam, normal palpation, uterine size normal, bladder normal to palpation, consistency normal and normal palpation Bimanual Exam- Adnexa, other: normal adnexae, no masses and no tenderness Assessment & Plan Assessment & Plan (1) Abnormal uterine bleeding (AUB): Code(s): N93.9 - Abnormal uterine and vaginal bleeding, unspecified Plan: Co testing done, GC and chlamydia taken CBC, TSH, HCG and mammogram ordered Discussed with the patient the different causes of abnormal bleeding including thyroid disorders, uterine and ovarian pathology, endometrial hyperplasia, carcinoma and other potential causes. Discussed with the patient the work up including CBC (to r/o anemia), TSH, pelvic Ultrasound, endometrial biopsy to r/o endometrial pathology. All questions answered and the patient verbalized understanding. Instructed the patient to schedule an appointment for an endometrial biopsy in 2 weeks. Orders: Orders HCG Quantitative Today N93.9 - Abnormal uterine and vaginal bleeding, unspecified Prolactin Today N93.9 - Abnormal uterine and vaginal bleeding, unspecified TSH reflex Free T4 Today N93.9 - Abnormal uterine and vaginal bleeding, unspecified Complete Blood Count no Diff Today N93.9 - Abnormal uterine and vaginal bl eeding, unspecified MM screening mammo BI Today Z12.31 - Encounter for screening mammogram for malignant neoplasm of breast Coding Level of Care Code New Pt Level 3 (90670) Diagnoses Abnormal uterine bleeding (AUB) N93.9
[2023-01-12 15:05] VITALS: BP 114/50; BMI 43.8
== END 2023-01-12 15:33 | disposition home or self-care (01) ==
LOC: HO.HWS 14:57
PROVIDERS: Visit Provider Obstetrics & Gynecology
DX: N93.9 Abnormal uterine and vaginal bleeding, unspecified (principal)
CPT/HCPCS: 99213

== ENCOUNTER 2023-01-13 20:42 | Inpatient (IN) | payer OTHER, SELFPAY ==
[2023-01-13] VITALS (8 sets, daily range): BP systolic 93–111; BP diastolic 37–49; PULSE 85–99; RESP 16–30; TEMP 36.1–37.1; O2SAT 88–98; BMI 42.9
--- NOTE | ~2023-01-13 | XR_ITS ---
EXAMINATION: XR SHOULDER, RIGHT CLINICAL INFORMATION: Pain COMPARISON: None available. TECHNIQUE: Three views of the right shoulder. FINDINGS: Bone alignment is normal. No fracture or dislocation. Joint spaces are normal. There is question of small sclerotic nonspecific densities in the humeral head and proximal shaft largest measuring 5 mm. On the Y view there is question of soft tissue calcification or ossification adjacent to the humeral head posteriorly. It is possible some of the densities seen on the other 2 views projecting over the humeral head are in the soft tissues. XR/XR shoulder RT min 2V IMPRESSION: No fracture or dislocation. Question soft tissue calcification or ossification posterior to the humeral head on the Y view. Question small sclerotic densities in the proximal humerus
--- NOTE | ~2023-01-13 | XR_ITS ---
EXAMINATION: XR CHEST CLINICAL INFORMATION: Dyspnea. COMPARISON: Chest radiograph 10/19/2018. TECHNIQUE: Frontal view of the chest was obtained. FINDINGS: Normal appearance of the cardiomediastinal silhouette. Diffuse interstitial thickening. More focal airspace opacities in the medial right lower lung. No pleural effusion or pneumothorax. No acute osseous findings. The visualized upper abdomen is within normal limits. XR/XR chest 1V IMPRESSION: Findings are most suggestive of an atypical/viral infection with early infiltrates in the right lower lung. Follow-up imaging after treatment is recommended to ensure appropriate resolution.
[2023-01-13 20:57] LABS: Glucose, Whole Blood 271 mg/dL (60-115)
--- NOTE | 2023-01-13 21:05 | ECG_ITS ---
Test Reason : chest pain Blood Pressure : / mmHG Vent. Rate : 095 BPM Atrial Rate : 095 BPM P-R Int : 156 ms QRS Dur : 090 ms QT Int : 376 ms P-R-T Axes : 058 004 047 degrees QTc Int : 472 ms Normal sinus rhythm Normal ECG When compared with ECG of 08-JAN-2023 02:21, No significant change was found Referred By: Generic ED Physician Electronically Signed By:Chente Pope
--- NOTE | 2023-01-13 21:18 | PC.NURSE ---
THIS RN ASSUMED CARE OF PT @ 2109. PT PLACED ON MANAGER SERVICING . FAMILY AT BEDSIDE. THIS RN MADE DR ABEL AWARE OF LOW BP AND MAP
[2023-01-13] MEDS: 0.9 % Sodium Chloride 1,000 ML 999 ML IV ×3 (21:42→23:43)
[2023-01-13] MEDS: cefTRIAXone sodium 2 GM in 0.9 % Sodium Chloride 50 ML IV (21:43)
[2023-01-13 21:47] LABS: MANUAL DIFF FLAG NO
[2023-01-13 21:49] LABS: Basophils Percent Auto 0.3 % (0-2); Eosinophils Absolute Auto 0.2 X10*3/uL (0.0-0.4); Eosinophils Percent Auto 1.6 % (0-4); Hemoglobin 12.4 g/dl (12.0-16.0); Imm Gran Abs Auto 0.11 X10*3/uL (0.00-0.03); Imm Gran Pct Auto 0.7 % (0.0-0.4); Lymphocytes Percent Auto 19.4 % (20-40); Mean Corpuscular HGB Conc 33.5 g/dl (31.0-35.0); Mean Corpuscular Hemoglobin 28.7 pg (27.0-33.0); Mean Corpuscular Volume 85.6 fL (80.0-98.0); Mean Platelet Volume 11.3 fL (9.4-12.3); Monocytes Absolute Auto 1.2 X10*3/uL (0.1-1.2); Monocytes Percent Auto 7.5 % (2-11); Neutrophils Absolute Auto 10.9 x10*3/uL (2.0-8.3); Neutrophils Percent Auto 70.5 % (45-73); Platelet Count 289 X10*3/uL (160-400); Red Blood Count 4.32 X10*6/uL (4.20-5.50); Red Cell Distribution Width 14.3 % (11.0-16.0); White Blood Count 15.4 X10*3/uL (4.8-10.8)
--- NOTE | 2023-01-13 21:59 | ED_ITS ---
HPI - Dizziness General Chief Complaint: Dizziness Stated Complaint: low blood pressure Time Seen by Provider: 01/13/23 21:18 Source: patient, family and old records reviewed Mode of arrival: ambulatory Limitations: no limitations History of Present Illness HPI Narrative: 42 yo female with hx of DUB, opiate use disorder, DM, smoker who notes recent start of Provera for vaginal bleeding though just having spotting now exposed to viral illness and having cough, chest pain that goes into back chills, sputum production, feeling dizzy and off that she thought was due to running out of her lyrica though she was able to take some - no travel or procedures, no known priot blood clots. MD elicited complaint: dizziness and other (cough, chest pain, trouble breathing) Onset (ago): day(s) (Monday ) Timing: gradual onset Severity: moderate Description: lightheadedness Context: recent illness History of similar symptoms: No Exacerbating factors: movement/ambulation and change in body position Relieving factors: nothing Associated symptoms: nausea, chest pain, shortness of breath, weakness and chills Related Data Home Medications Medication Instructions Recorded Confirmed acyclovir 400 mg tablet 400 mg PO BID 09/26/22 09/26/22 amitriptyline 25 mg tablet 25 mg PO BEDTIME 09/26/22 09/26/22 baclofen 10 mg tablet 10 mg PO BID 09/26/22 09/26/22 buprenorphine 8 mg-naloxone 2 mg 3 tab sublingual DAILY 09/26/22 09/26/22 sublingual tablet duloxetine 60 mg capsule,delayed 60 mg PO DAILY 09/26/22 09/26/22 release fenofibrate nanocrystallized 145 145 mg PO DAILY 09/26/22 09/26/22 mg tablet ferrous sulfate 325 mg (65 mg 325 mg PO Q OTHER DAY 09/26/22 09/26/22 iron) tablet (FeroSul) hydroxyzine HCl 25 mg tablet 25 - 50 mg PO TID PRN ptsd 09/26/22 09/26/22 ibuprofen 600 mg tablet 600 mg PO BID PRN Pain 09/26/22 09/26/22 insulin glargine 100 unit/mL (3 18 unit subcut QPM 09/26/22 09/26/22 mL) subcutaneous pen ([employer] U-100 Insulin) lisinopril 20 1 tab PO QAM 09/26/22 09/26/22 mg-hydrochlorothiazide 25 mg tablet metformin 850 mg tablet 850 mg PO BID 09/26/22 09/26/22 omeprazole 40 mg capsule,delayed 40 mg PO BID 09/26/22 09/26/22 release pramipexole 0.5 mg tablet 0.5 mg PO BEDTIME 09/26/22 09/26/22 pravastatin 20 mg tablet 20 mg PO DAILY 09/26/22 09/26/22 prazosin 5 mg capsule 5 mg PO DAILY 09/26/22 09/26/22 pregabalin 300 mg capsule 300 mg PO BID 09/26/22 09/26/22 sumatriptan succinate 100 mg tablet mg PO 09/26/22 albuterol sulfate 90 mcg/actuation inhalation 01/12/23 aerosol inhaler (Ventolin HFA) ziprasidone HCl 20 mg capsule 20 mg PO BID 01/12/23 ziprasidone HCl 40 mg capsule 40 mg PO BID 01/12/23 Previous Rx's Medication Instructions Recorded medroxyprogesterone 10 mg tablet 10 mg PO DAILY 10 days #10 tabs 01/08/23 medroxyprogesterone 10 mg tablet 10 mg PO DAILY Abnormal uterine 01/08/23 (Provera) bleeding 10 days #10 tabs Allergies Allergy/AdvReac Type Severity Reaction Status Date / Time Sulfa (Sulfonamide Allergy Unknown HIVES Verified 01/12/23 15:07 Antibiotics) [SULFA (SULFONAMIDE ANTIBIOTICS)] glipizide Allergy Unknown Verified 01/12/23 15:07 Review of Systems Review of Systems: Constitutional : No Fever, pos Chills, pos Fatigue ENT/Mouth : No sore throat, No Rhinorrhea Eyes: No Eye Pain, No Swelling, No Redness Cardiovascular : pos Chest Pain, pos SOB, No Dyspnea on Exertion Respiratory : pos Cough, pos Sputum Gastrointestinal : pos Nausea, No Vomiting, No Diarrhea, No abdominal Pain Genitourinary : No Dysuria, No Urinary Frequency, No Hematuria, Musculoskeletal : No joint pain, No Myalgias, No Joint Swelling Skin : No Skin Lesions, No rash Neuro : No Weakness, No Numbness, No Dizziness, positive Headache Psych : pos Anxiety/Panic, No Depression Heme/Lymph: No Bruising, No Bleeding,No Lymphadenopathy Endocrine : No Polyuria, No Polydipsia All other systems reviewed and are negative PMFSH Past Medical History Attestation statement: The following information was validated with the patient. Medical History Diabetes Social History Social History Household Members: Children Housing: Apartment Do you presently have visiting nurse or other home services: No Alcohol intake: never Patient Tobacco Use Status: Current everyday Tobacco user Tobacco use type: Cigarette Cigarettes Per Day: 8 Substance Use Type: Marijuana Advance Directives: No Advance Directives Information Provided: No service: No Physical Exam Vital Signs: Vital Signs: Last Vital Signs Temp 98.1 F 01/13/23 23:25 Pulse 91 01/13/23 23:25 Resp 16 01/13/23 23:25 BP 108/40 L 01/13/23 23:25 Pulse Ox 96 01/13/23 23:25 O2 Del Method Room Air 01/13/23 23:25 O2 Flow Rate 2 01/13/23 23:25 BMI result Body Mass Index 42.9 Appearance: Alert. Oriented X3. appears unwell mild acute distress. Eyes: Pupils equal, round and reactive to light. ENT: Pharynx dry MM Neck: Normal inspection. Neck supple. CVS: tachycardic heart rate and rhythm. Pulses normal. Respiratory: No respiratory distress. Breath sounds diminished in both bases initial O2 sat upper 80s Abdomen: Soft and nontender. Skin: Skin warm and dry. Normal skin color. Normal skin turgor. Extremities: No lower extremity edema. No calf ttp dry calloused feet Neuro: Oriented X 3. No motor deficit. No sensory deficit. Course Course Course Narrative: ddimer negative will hold off CTA Reevaluation(s) Reevaluation #1: BP is improving Reevaluation #2: focused exam for sepsis performed 0030 01/14/23 Medications Administered Generic Name Dose Route Start Last Admin Trade Name Freq PRN Reason Stop Dose Admin Azithromycin 500 mg/ Sodium 250 mls @ 125 mls/hr 01/13/23 22:28 01/13/23 22:43 Chloride IV 01/14/23 00:27 125 mls/hr ONCE ONE Administration Sodium Chloride 1,000 mls @ 999 mls/hr 01/13/23 23:30 01/13/23 23:43 Ns IV 01/14/23 00:30 999 mls/hr .Q1H1M ISHAN Administration Discontinued Medications Generic Name Dose Route Start Last Admin Trade Name Taz PRN Reason Stop Dose Admin Acetaminophen 650 mg 01/13/23 23:26 01/13/23 23:41 Acetaminophen 325 Mg Tablet PO 01/13/23 23:27 650 mg ONCE ONE Administration Sodium Chloride 1,000 mls @ 999 mls/hr 01/13/23 21:30 01/13/23 23:40 Ns IV 01/13/23 22:30 Infused .Q1H1M ISHAN Infusion Sodium Chloride 1,000 mls @ 999 mls/hr 01/13/23 21:30 01/13/23 23:41 Ns IV 01/13/23 22:30 Infused .Q1H1M ISHAN Infusion Ceftriaxone Sodium 2 gm/ 50 mls @ 100 mls/hr 01/13/23 21:28 01/13/23 22:23 Sodium Chloride IV 01/13/23 21:57 Infused ONCE ONE Infusion Medical Decision Making Medical Decision Making MDM Narrative: 42 yo female hx of diabetes with chronic foot wounds - sees wound care center, opiate use disorder on suboxone, just seen here on Monday for abnormal uterine bleeding - sent home on Provera which she has been taking. After that noted issues after withdrawal from not taking her cymbalta felt dizzy and weak but then she notes her daughter gave her a cold and she feels short of breath with cough and mucous production feels weak and having chest pain that goes into her back. She has never had a blood clot before and is not vaccinated against COVID. at this time labs, cultures lactic acid and empiric antibiotics. I have ordered fluids according to IBW. I have ordered type and screen given recent vaginal bleeding though she states it has stopped and I have ordered ddimer as well for possible PE. PATIENT IS OBESE IBW IS 55kg x 30cc = 1650 given 2,000mL Differential Diagnosis Differential Diagnoses: The differential diagnosis associated with the presentation includes pneumonia, COVID, PE, atypical AC though less likely, distal pulses intact doubt dissection Admission/Observation Consideration of admission/observation: Escalation of care including admission/observation considered admission given hypoxia Consult Healthcare Provider Management of the patient was discussed with: Hospitalist will admit for pneumonia Lab Data MDM Lab Attestation statement: I reviewed the patient's lab results. 01/13/23 21:31 01/13/23 21:31 Labs: Lab Results 01/13/23 01/13/23 01/13/23 Range/Units 20:52 21:31 21:31 WBC 15.4 H (4.8-10.8) X10*3/uL RBC 4.32 (4.20-5.50) X10*6/uL Hgb 12.4 (12.0-16.0) g/dl Hct 37.0 (37.0-47.0) % MCV 85.6 (80.0-98.0) fL MCH 28.7 (27.0-33.0) pg MCHC 33.5 (31.0-35.0) g/dl RDW 14.3 (11.0-16.0) % Plt Count 289 (160-400) X10*3/uL MPV 11.3 (9.4-12.3) fL Immature Gran % (Auto) 0.7 H (0.0-0.4) % Neut % (Auto) 70.5 (45-73) % Lymph % (Auto) 19.4 L (20-40) % [place] % (Auto) 7.5 (2-11) % Eos % (Auto) 1.6 (0-4) % Baso % (Auto) 0.3 (0-2) % Lymph # (Auto) 3.0 (1.2-4.9) X10*3/uL [place] # (Auto) 1.2 (0.1-1.2) X10*3/uL Eos # (Auto) 0.2 (0.0-0.4) X10*3/uL Baso # (Auto) 0.0 (0.0-0.2) X10*3/uL Abs Immat Gran (auto) 0.11 H (0.00-0.03) X10*3/uL Absolute Neuts (auto) 10.9 H (2.0-8.3) x10*3/uL Absolute Nucleated RBC 0.000 (0.0-0.012) X10*3/uL Nucleated RBC % (auto) 0.0 (0.0-0.2) /100WBC D-Dimer High Sensitivty NG/ML Hold Blue Top Sodium 135 (135-145) mmol/L Potassium 3.5 (3.3-5.1) mmol/L Chloride 98 (96-108) mmol/L Carbon Dioxide 25 (22-29) mmol/L Anion Gap 16 (12-20) BUN 20 H (9-16) mg/dL Creatinine 1.68 H (0.5-1.4) mg/dL Estim Creat Clear Calc 54.3 Estimated GFR 34 POC Glucose 271 H (60-115) mg/dL Random Glucose 261 H (60-115) mg/dL Lactic Acid (0.5-2.0) mmol/L Calcium 9.9 D (8.4-10.2) mg/dL Troponin I High Sens (<3.5-17.0) ng/L B-Natriuretic Peptide (<100) pg/mL COVID-19 ([facility]) (Negative) COVID-19 Clin Com Blood Type Antibody Screen 01/13/23 01/13/23 01/13/23 Range/Units 21:31 21:31 21:32 WBC (4.8-10.8) X10*3/uL RBC (4.20-5.50) X10*6/uL Hgb (12.0-16.0) g/dl Hct (37.0-47.0) % MCV (80.0-98.0) fL MCH (27.0-33.0) pg MCHC (31.0-35.0) g/dl RDW (11.0-16.0) % Plt Count (160-400) X10*3/uL MPV (9.4-12.3) fL Immature Gran % (Auto) (0.0-0.4) % Neut % (Auto) (45-73) % Lymph % (Auto) (20-40) % [place] % (Auto) (2-11) % Eos % (Auto) (0-4) % Baso % (Auto) (0-2) % Lymph # (Auto) (1.2-4.9) X10*3/uL [place] # (Auto) (0.1-1.2) X10*3/uL Eos # (Auto) (0.0-0.4) X10*3/uL Baso # (Auto) (0.0-0.2) X10*3/uL Abs Immat Gran (auto) (0.00-0.03) X10*3/uL Absolute Neuts (auto) (2.0-8.3) x10*3/uL Absolute Nucleated RBC (0.0-0.012) X10*3/uL Nucleated RBC % (auto) (0.0-0.2) /100WBC D-Dimer High Sensitivty NG/ML Hold Blue Top Sodium (135-145) mmol/L Potassium (3.3-5.1) mmol/L Chloride (96-108) mmol/L Carbon Dioxide (22-29) mmol/L Anion Gap (12-20) BUN (9-16) mg/dL Creatinine (0.5-1.4) mg/dL Estim Creat Clear Calc Estimated GFR POC Glucose (60-115) mg/dL Random Glucose (60-115) mg/dL Lactic Acid (0.5-2.0) mmol/L Calcium (8.4-10.2) mg/dL Troponin I High Sens 3.5 (<3.5-17.0) ng/L B-Natriuretic Peptide < 10 (<100) pg/mL COVID-19 ([facility]) (Negative) COVID-19 Clin Com Blood Type A Positive Antibody Screen NEGATIVE 01/13/23 01/13/23 01/13/23 Range/Units 21:39 21:40 21:44 WBC (4.8-10.8) X10*3/uL RBC (4.20-5.50) X10*6/uL Hgb (12.0-16.0) g/dl Hct (37.0-47.0) % MCV (80.0-98.0) fL MCH (27.0-33.0) pg MCHC (31.0-35.0) g/dl RDW (11.0-16.0) % Plt Count (160-400) X10*3/uL MPV (9.4-12.3) fL Immature Gran % (Auto) (0.0-0.4) % Neut % (Auto) (45-73) % Lymph % (Auto) (20-40) % [place] % (Auto) (2-11) % Eos % (Auto) (0-4) % Baso % (Auto) (0-2) % Lymph # (Auto) (1.2-4.9) X10*3/uL [place] # (Auto) (0.1-1.2) X10*3/uL Eos # (Auto) (0.0-0.4) X10*3/uL Baso # (Auto) (0.0-0.2) X10*3/uL Abs Immat Gran (auto) (0.00-0.03) X10*3/uL Absolute Neuts (auto) (2.0-8.3) x10*3/uL Absolute Nucleated RBC (0.0-0.012) X10*3/uL Nucleated RBC % (auto) (0.0-0.2) /100WBC D-Dimer High Sensitivty NG/ML Hold Blue Top SEE NOTE Sodium (135-145) mmol/L Potassium (3.3-5.1) mmol/L Chloride (96-108) mmol/L Carbon Dioxide (22-29) mmol/L Anion Gap (12-20) BUN (9-16) mg/dL Creatinine (0.5-1.4) mg/dL Estim Creat Clear Calc Estimated GFR POC Glucose (60-115) mg/dL Random Glucose (60-115) mg/dL Lactic Acid 3.5 H* (0.5-2.0) mmol/L Calcium (8.4-10.2) mg/dL Troponin I High Sens (<3.5-17.0) ng/L B-Natriuretic Peptide (<100) pg/mL COVID-19 ([facility]) Negative (Negative) COVID-19 Clin Com See Note Blood Type Antibody Screen 01/13/23 Range/Units 22:44 WBC (4.8-10.8) X10*3/uL RBC (4.20-5.50) X10*6/uL Hgb (12.0-16.0) g/dl Hct (37.0-47.0) % MCV (80.0-98.0) fL MCH (27.0-33.0) pg MCHC (31.0-35.0) g/dl RDW (11.0-16.0) % Plt Count (160-400) X10*3/uL MPV (9.4-12.3) fL Immature Gran % (Auto) (0.0-0.4) % Neut % (Auto) (45-73) % Lymph % (Auto) (20-40) % [place] % (Auto) (2-11) % Eos % (Auto) (0-4) % Baso % (Auto) (0-2) % Lymph # (Auto) (1.2-4.9) X10*3/uL [place] # (Auto) (0.1-1.2) X10*3/uL Eos # (Auto) (0.0-0.4) X10*3/uL Baso # (Auto) (0.0-0.2) X10*3/uL Abs Immat Gran (auto) (0.00-0.03) X10*3/uL Absolute Neuts (auto) (2.0-8.3) x10*3/uL Absolute Nucleated RBC (0.0-0.012) X10*3/uL Nucleated RBC % (auto) (0.0-0.2) /100WBC D-Dimer High Sensitivty < 150 NG/ML Hold Blue Top Sodium (135-145) mmol/L Potassium (3.3-5.1) mmol/L Chloride (96-108) mmol/L Carbon Dioxide (22-29) mmol/L Anion Gap (12-20) BUN (9-16) mg/dL Creatinine (0.5-1.4) mg/dL Estim Creat Clear Calc Estimated GFR POC Glucose (60-115) mg/dL Random Glucose (60-115) mg/dL Lactic Acid (0.5-2.0) mmol/L Calcium (8.4-10.2) mg/dL Troponin I High Sens (<3.5-17.0) ng/L B-Natriuretic Peptide (<100) pg/mL COVID-19 ([facility]) (Negative) COVID-19 Clin Com Blood Type Antibody Screen Independent Interpretation I performed an independent interpretation of an: Plain X-Ray (pneumonia noted) Radiology Impression Discussion of test interpretation with radiology: I have reviewed the radiologist's reading. Independent Historian Clinical information obtained from an independent historian. History obtained from or confirmed by: Other (daughter) External Record Review External record reviewed: Inpatient record Critical Care Time Critical Care Time Critical Care Time: Yes Total Critical Care Time: 60 Attestation: IVF 30cc/kg bolus, sepsis protocol resuscitation Discharge Plan Discharge Clinical Impression: Acidosis, lactic, TESSY (acute kidney injury) Pneumonia Qualifiers: Pneumonia type: due to unspecified organism Laterality: bilateral Lung location: unspecified part of lung Qualified Code(s): J18.9 - Pneumonia, unspecified organism Leukocytosis Qualifiers: Leukocytosis type: unspecified Qualified Code(s): D72.829 - Elevated white blood cell count, unspecified Patient Disposition: Admitted As Inpatient
[2023-01-13 22:05] LABS: Anion Gap 16 (12-20); Blood Urea Nitrogen 20 mg/dL (9-16); Calcium 9.9 mg/dL (8.4-10.2); Carbon Dioxide 25 mmol/L (22-29); Chloride 98 mmol/L (96-108); Creatinine Clr Calc Pharmacy 54.3; Estimated Glomerular Filt Rate 34; Glucose Random 261 mg/dL (60-115); Potassium 3.5 mmol/L (3.3-5.1); Sodium 135 mmol/L (135-145)
[2023-01-13 22:09] LABS: B Type Natriuretic Peptide < 10 pg/mL (<100)
[2023-01-13 22:10] LABS: Lactic Acid 3.5 mmol/L (0.5-2.0)
--- NOTE | 2023-01-13 22:10 | PC.NURSE ---
2127 SEPSIS ALERT CALLED. PT MEDICATED ACCORDING TO MAR BLOOD WORK OBTAINED AND SENT DOWN TO LAB
[2023-01-13 22:14] LABS: Troponin-I High Sensitivity 3.5 ng/L (<3.5-17.0)
[2023-01-13] MEDS: Azithromycin 500 MG in 0.9 % Sodium Chloride 250 ML 125 MG IV (22:43)
[2023-01-13 23:10] LABS: D Dimer High Sensitivity < 150 NG/ML
[2023-01-13 23:24] LABS: COVID-19 Test Negative (Negative); IDNOW Serial# 08D9AD1C
--- NOTE | 2023-01-13 23:27 | MHC.EDTECH ---
THIS PCT JUST ASSUMED CARE OF PT ,VITALS SIGN TAKEN ,PT RESTING QUIETLY IN BED.
[2023-01-13] MEDS: Acetaminophen 325 MG TABLET 650 MG PO (23:41)
[2023-01-13 23:44] LABS: Reflex Lactate? Lactic Acid Added
[2023-01-14] VITALS (13 sets, daily range): BP systolic 101–127; BP diastolic 43–65; PULSE 65–90; RESP 16–21; TEMP 36.2–37.2; O2SAT 92–97; BMI 45.3
--- NOTE | 2023-01-14 00:08 | MHC.EDTECH ---
PATIENT LACTIC ACID DRAWN AND SENT TO LAB,AND BELONGINGS LIST DONE ,VITALS SIGN TAKEN .
[2023-01-14 00:09] LABS: ~Lactic Acid-LAB USE ONLY 1.9 mmol/L (0.5-2.0)
--- NOTE | 2023-01-14 00:21 | P.HPHOSP_ITS ---
History of Present Illness Date of Service: 01/14/23 Chief Complaint: sob, cough 42-year-old female with past medical history of diabetes, depression anxiety, hyperlipidemia, migraine headaches, comes into the hospital with complaints of shortness of breath, cough, and feeling lousy for the past 1 week. Her symptoms started on Monday, and have progressively worsened, she is not short of breath, has a productive cough, fever chills, no chest pain, no palpitations, no abdominal pain nausea vomiting, no diarrhea constipation, no urinary symptoms and no lower extremity edema, Reports that her daughter was recently ill with a viral illness that pass it to her. On arrival to the ED patient was found to be hypoxic satting 88% on room air Labs are significant for WBC count of 15, creatinine of 1.68 with a baseline of around 0.8, lactic acid of 3.5, Chest x-ray showed pneumonia COVID-19 negative patient started on IV antibiotics and will be admitted for further management Review of Systems Review of Systems: Yes all other systems are reviewed and are negative [facility] Medical History Depression with anxiety Diabetes History of migraine headaches Hyperlipidemia Social History Household Members: Children Housing: Apartment Do you presently have visiting nurse or other home services: No Alcohol intake: never Patient Tobacco Use Status: Current everyday Tobacco user Tobacco use type: Cigarette Cigarettes Per Day: 8 Substance Use Type: Marijuana Advance Directives: No Advance Directives Information Provided: No service: No Meds Allergies Allergy/AdvReac Type Severity Reaction Status Date / Time Sulfa (Sulfonamide Allergy Unknown HIVES Verified 01/12/23 15:07 Antibiotics) [SULFA (SULFONAMIDE ANTIBIOTICS)] glipizide Allergy Unknown Verified 01/12/23 15:07 Active Medications: Current Medications Azithromycin 500 mg/ Sodium (Chloride) 250 mls @ 125 mls/hr IV ONCE ONE Stop: 01/14/23 00:27 Last Admin: 01/13/23 22:43 Dose: 125 mls/hr Sodium Chloride (Ns) 1,000 mls @ 999 mls/hr IV .Q1H1M ISHAN Stop: 01/14/23 00:30 Last Admin: 01/13/23 23:43 Dose: 999 mls/hr Home Medications Medication Instructions Recorded Confirmed Last Taken Type acyclovir 400 mg tablet 400 mg PO BID 09/26/22 09/26/22 Unknown History amitriptyline 25 mg tablet 25 mg PO BEDTIME 09/26/22 09/26/22 Unknown History baclofen 10 mg tablet 10 mg PO BID 09/26/22 09/26/22 Unknown History buprenorphine 8 mg-naloxone 2 mg 3 tab sublingual DAILY 09/26/22 09/26/22 Unknown History sublingual tablet duloxetine 60 mg capsule,delayed 60 mg PO DAILY 09/26/22 09/26/22 Unknown History release fenofibrate nanocrystallized 145 145 mg PO DAILY 09/26/22 09/26/22 Unknown History mg tablet ferrous sulfate 325 mg (65 mg 325 mg PO Q OTHER DAY 09/26/22 09/26/22 Unknown History iron) tablet (FeroSul) hydroxyzine HCl 25 mg tablet 25 - 50 mg PO TID PRN ptsd 09/26/22 09/26/22 Unknown History ibuprofen 600 mg tablet 600 mg PO BID PRN Pain 09/26/22 09/26/22 Unknown History insulin glargine 100 unit/mL (3 18 unit subcut QPM 09/26/22 09/26/22 Unknown History mL) subcutaneous pen ([employer] U-100 Insulin) lisinopril 20 1 tab PO QAM 09/26/22 09/26/22 Unknown History mg-hydrochlorothiazide 25 mg tablet metformin 850 mg tablet 850 mg PO BID 09/26/22 09/26/22 Unknown History omeprazole 40 mg capsule,delayed 40 mg PO BID 09/26/22 09/26/22 Unknown History release pramipexole 0.5 mg tablet 0.5 mg PO BEDTIME 09/26/22 09/26/22 Unknown History pravastatin 20 mg tablet 20 mg PO DAILY 09/26/22 09/26/22 Unknown History prazosin 5 mg capsule 5 mg PO DAILY 09/26/22 09/26/22 Unknown History pregabalin 300 mg capsule 300 mg PO BID 09/26/22 09/26/22 Unknown History sumatriptan succinate 100 mg tablet mg PO 09/26/22 Unknown History albuterol sulfate 90 mcg/actuation inhalation 01/12/23 Unknown History aerosol inhaler (Ventolin HFA) ziprasidone HCl 20 mg capsule 20 mg PO BID 01/12/23 Unknown History ziprasidone HCl 40 mg capsule 40 mg PO BID 01/12/23 Unknown History Physical Exam Vital Signs and Narrative: Vital Signs: Last Vital Signs Temp 98.6 F 01/13/23 23:53 Pulse 92 01/13/23 23:53 Resp 16 01/13/23 23:53 BP 109/41 L 01/13/23 23:53 Pulse Ox 97 01/13/23 23:53 O2 Del Method Nasal Cannula 01/13/23 23:53 O2 Flow Rate 2 01/13/23 23:53 BMI result Body Mass Index 42.9 Const: General: cooperative and no acute distress Orientation/consciousne ss: patient oriented x3 Eyes: General: appearance normal, both eyes and all related structures Resp: Other: Right lower lung crackles Effort & Inspection: normal respiratory effort Cardio: Rate: regular rate Rhythm: regular rhythm GI: Palpation (GI): Soft to palpation Auscultation: normal bowel sounds Skin: General skin exam: no rashes or lesions noted Neuro: General: patient oriented x3 Cognition (Neuro): normal cognition Extrem: General: Yes normal to inspection and Yes no pedal edema Results Labs 01/13/23 21:31 01/13/23 21:31 Labs: Laboratory Results - last 24 hr 01/13/23 01/13/23 01/13/23 20:52 21:31 21:31 MCV 85.6 MCH 28.7 MCHC 33.5 RDW 14.3 Plt Count 289 MPV 11.3 Immature Gran % (Auto) 0.7 H Neut % (Auto) 70.5 Lymph % (Auto) 19.4 L [place] % (Auto) 7.5 Eos % (Auto) 1.6 Baso % (Auto) 0.3 Lymph # (Auto) 3.0 [place] # (Auto) 1.2 Eos # (Auto) 0.2 Baso # (Auto) 0.0 Abs Immat Gran (auto) 0.11 H Absolute Neuts (auto) 10.9 H Absolute Nucleated RBC 0.000 Nucleated RBC % (auto) 0.0 D-Dimer High Sensitivty Hold Blue Top Anion Gap 16 Estim Creat Clear Calc 54.3 Estimated GFR 34 POC Glucose 271 H Random Glucose 261 H Lactic Acid Lactic Acid F/U @ 2Hr Calcium 9.9 D B-Natriuretic Peptide COVID-19 ([place]) COVID-[place] Com Blood Type Antibody Screen 01/13/23 01/13/23 01/13/23 21:31 21:32 21:39 MCV MCH MCHC RDW Plt Count MPV Immature Gran % (Auto) Neut % (Auto) Lymph % (Auto) [place] % (Auto) Eos % (Auto) Baso % (Auto) Lymph # (Auto) [place] # (Auto) Eos # (Auto) Baso # (Auto) Abs Immat Gran (auto) Absolute Neuts (auto) Absolute Nucleated RBC Nucleated RBC % (auto) D-Dimer High Sensitivty Hold Blue Top Anion Gap Estim Creat Clear Calc Estimated GFR POC Glucose Random Glucose Lactic Acid Lactic Acid F/U @ 2Hr Calcium B-Natriuretic Peptide < 10 COVID-19 ([place]) Negative [employer] See Note Blood Type A Positive Antibody Screen NEGATIVE 01/13/23 01/13/23 01/13/23 21:40 21:44 22:44 MCV MCH MCHC RDW Plt Count MPV Immature Gran % (Auto) Neut % (Auto) Lymph % (Auto) [place] % (Auto) Eos % (Auto) Baso % (Auto) Lymph # (Auto) [place] # (Auto) Eos # (Auto) Baso # (Auto) Abs Immat Gran (auto) Absolute Neuts (auto) Absolute Nucleated RBC Nucleated RBC % (auto) D-Dimer High Sensitivty < 150 Hold Blue Top SEE NOTE Anion Gap Estim Creat Clear Calc Estimated GFR POC Glucose Random Glucose Lactic Acid 3.5 H* Lactic Acid F/U @ 2Hr Calcium B-Natriuretic Peptide COVID-19 ([place]) COVID-[place] Com Blood Type Antibody Screen 01/13/23 23:52 MCV MCH MCHC RDW Plt Count MPV Immature Gran % (Auto) Neut % (Auto) Lymph % (Auto) [place] % (Auto) Eos % (Auto) Baso % (Auto) Lymph # (Auto) [place] # (Auto) Eos # (Auto) Baso # (Auto) Abs Immat Gran (auto) Absolute Neuts (auto) Absolute Nucleated RBC Nucleated RBC % (auto) D-Dimer High Sensitivty Hold Blue Top Anion Gap Estim Creat Clear Calc Estimated GFR POC Glucose Random Glucose Lactic Acid Lactic Acid F/U @ 2Hr 1.9 Calcium B-Natriuretic Peptide COVID-19 ([place]) COVID-19 Clin Com Blood Type Antibody Screen Imaging Radiologist's Impressions: Impressions Chest X-Ray 01/13/23 22:15 IMPRESSION: Findings are most suggestive of an atypical/viral infection with early infiltrates in the right lower lung. Follow-up imaging after treatment is recommended to ensure appropriate resolution. Assessment and Plan (1) Community acquired bacterial pneumonia: Status: Acute (2) Acidosis, lactic: Status: Acute (3) TESSY (acute kidney injury): Status: Acute (4) Leukocytosis: Qualifiers: Leukocytosis type: unspecified Qualified Code(s): D72.829 - Elevated white blood cell count, unspecified Status: Acute (5) Acute respiratory failure with hypoxia: Status: Acute Plan 42-year-old female with past medical history of diabetes comes into the hospital with complaints of cough, shortness of breath found to have acute pneumonia # acute hypoxic respiratory failure - secondary to pneumonia - will treat with IV antibiotics - oxygen oxygen as required - titrate oxygen of as tolerated # acute community-acquired pneumonia - x-ray showing infiltrate - treat with IV antibiotics - follow cultures # TESSY - likely secondary to dehydration - IV fluid - follow BMP # leukocytosis - secondary to pneumonia - follow CBC # tobacco use disorder - would like nicotine patch # diabetes - continue home insulin - add low-dose sliding scale insulin - diabetic diet # anxiety and depression - continue mood stabilizers DVT prophylaxis: Lovenox Given patient's hypoxia, need for IV antibiotics patient require minimum 2 nights inpatient hospital stay for further management and monitoring Time Spent With Patient Time: Total time managing care of this patient today ____ minutes. Quality Stroke Does the patient have a stroke diagnosis?: No VTE Prior VTE?: No VTE Risk Level:: Medical - low VTE Device Contraindication: N/A - Device Ordered VTE Drug Contraindication: Treatment Not Indicated
--- NOTE | 2023-01-14 04:05 | MHC.EDTECH ---
0400 ROUNDING DONE ,VITALS SIGN TAKEN ,PT IS SLEEPING COMFORTABLE IN BED .
--- NOTE | 2023-01-14 04:43 | MHC.EDTECH ---
PATIENT RANG ICE CHIP GIVEN .
[2023-01-14 06:36] LABS: MANUAL DIFF FLAG NO
[2023-01-14 06:40] LABS: Basophils Percent Auto 0.3 % (0-2); Eosinophils Absolute Auto 0.3 X10*3/uL (0.0-0.4); Eosinophils Percent Auto 2.1 % (0-4); Hematocrit 36.6 % (37.0-47.0); Imm Gran Abs Auto 0.06 X10*3/uL (0.00-0.03); Imm Gran Pct Auto 0.5 % (0.0-0.4); Lymphocytes Absolute Auto 2.6 X10*3/uL (1.2-4.9); Lymphocytes Percent Auto 21.7 % (20-40); Mean Corpuscular HGB Conc 32.8 g/dl (31.0-35.0); Mean Corpuscular Hemoglobin 28.6 pg (27.0-33.0); Mean Corpuscular Volume 87.1 fL (80.0-98.0); Monocytes Absolute Auto 1.1 X10*3/uL (0.1-1.2); Monocytes Percent Auto 9.5 % (2-11); Neutrophils Absolute Auto 7.9 x10*3/uL (2.0-8.3); Neutrophils Percent Auto 65.9 % (45-73); Platelet Count 249 X10*3/uL (160-400); Red Cell Distribution Width 14.6 % (11.0-16.0); White Blood Count 11.9 X10*3/uL (4.8-10.8)
[2023-01-14 06:50] LABS: Anion Gap 11 (12-20); Blood Urea Nitrogen 17 mg/dL (9-16); Calcium 9.2 mg/dL (8.4-10.2); Carbon Dioxide 25 mmol/L (22-29); Chloride 107 mmol/L (96-108); Creatinine Clr Calc Pharmacy 91.3; Estimated Glomerular Filt Rate > 60; Glucose Random 167 mg/dL (60-115); Potassium 4.3 mmol/L (3.3-5.1); Sodium 139 mmol/L (135-145)
--- NOTE | 2023-01-14 06:53 | MHC.EDTECH ---
PATIENT BLOOD SUGAR CHECK ,ZO JACKSON AWARE OF RESULT .
[2023-01-14 06:59] LABS: Glucose, Whole Blood 177 mg/dL (60-115)
[2023-01-14] MEDS: Insulin Lispro 100 UNIT/ML 3 ML VIAL SUBCUT ×3 (07:01→21:27)
[2023-01-14] MEDS: Acetaminophen 325 MG TABLET 650 MG PO ×2 (07:07→18:56)
--- NOTE | 2023-01-14 07:10 | PC.NURSE ---
pt a&ox3. respirations even and unlabored. pt up eating breakfast, reports a 5/10 headache. pt medicated per AUG.
[2023-01-14] MEDS: Enoxaparin Sodium 40 MG/0.4 ML SYRINGE SUBCUT (07:21)
[2023-01-14] MEDS: 0.9 % Sodium Chloride Flush 3 ML SYRINGE IVFLUSH ×2 (07:22→21:37)
--- NOTE | 2023-01-14 08:18 | PHA.MEDREC ---
Pharmacy Consult ? Medication Reconciliation Pharmacy has completed the medication reconciliation. Spoke to patient to confirm meds.
[2023-01-14] MEDS: Nicotine 21 MG PATCH.TD24 TRANSDERMA (08:52)
[2023-01-14 10:46] LABS: Adenovirus PCR Not Detected (Not Detect.); Bordetella parapertussis PCR Not Detected (Not Detect.); Bordetella pertussis PCR Not Detected (Not Detect.); Chlamydia pneumoniae PCR Not Detected (Not Detect.); Coronavirus 229E PCR Not Detected (Not Detect.); Coronavirus HKU1 PCR Not Detected (Not Detect.); Coronavirus NL63 PCR Not Detected (Not Detect.); Coronavirus OC43 PCR Not Detected (Not Detect.); Human metapneumovirus PCR Not Detected (Not Detect.); Influenza A PCR Not Detected (Not Detect.); Influenza B PCR Not Detected (Not Detect.); Mycoplasma pneumoniae PCR Not Detected (Not Detect.); Parainfluenza 1 PCR Not Detected (Not Detect.); Parainfluenza 2 PCR Not Detected (Not Detect.); Parainfluenza 3 PCR Not Detected (Not Detect.); Parainfluenza 4 PCR Not Detected (Not Detect.); RSV PCR Not Detected (Not Detect.); Rhino/Enterovirus PCR Not Detected (Not Detect.); SARS-CoV-2 PCR Not Detected (Not Detect.)
[2023-01-14 11:38] LABS: Glucose, Whole Blood 159 mg/dL (60-115)
[2023-01-14 13:13] LABS: Glucose, Whole Blood 174 mg/dL (60-115)
--- NOTE | 2023-01-14 13:28 | PM.EVENT ---
Event Note Date of Service: 01/14/23 Event Note: This patient is seen and examined already by hospitalist team this morning, seen and examined again. patient came ''sob, cough, generally weak no nausea/vomitin Physical exam and assessment and plan coordinated in H&P note Agree with the plan in addition: acute hypoxic respiratory failure sec to pneumonia continue iv ceftriaxone/azithro day2. philipp -s/p ivf bmp pending morbid obesity weight loss recommended opiate dependence on suboxone Time Spent With Patient Time: Total time managing care of this patient today ____ minutes.
[2023-01-14] MEDS: Loratadine 10 MG TABLET PO (14:28)
[2023-01-14] MEDS: Buprenorphine/Naloxone 8/2 mg TAB.SUBL 3 TAB SUBLINGUAL (14:28)
[2023-01-14] MEDS: Acyclovir 200 MG CAPSULE 400 MG PO ×2 (14:28→21:28)
--- NOTE | 2023-01-14 14:56 | PC.NURSE ---
report given to [facility] nurse.
[2023-01-14 16:37] LABS: Glucose, Whole Blood 133 mg/dL (60-115)
[2023-01-14] MEDS: Ziprasidone 40 MG CAPSULE PO (17:51)
[2023-01-14] MEDS: Omeprazole 40 MG CAPSULE.DR PO (17:51)
[2023-01-14 20:35] LABS: Glucose, Whole Blood 155 mg/dL (60-115)
[2023-01-14] MEDS: Pramipexole Di-HCL 0.25 MG TABLET 0.5 MG PO (21:27)
[2023-01-14] MEDS: cefTRIAXone sodium 1 GM in 0.9 % Sodium Chloride 50 ML IV (21:27)
[2023-01-14] MEDS: Insulin Glargine,Hum.rec.anlog 100 UNIT/ML 10 ML VIAL 26 UNIT SUBCUT (21:27)
[2023-01-14] MEDS: Prazosin HCL 5 MG CAPSULE PO (21:27)
[2023-01-14] MEDS: DULoxetine HCl 60 MG CAPSULE.DR PO (21:28)
[2023-01-14] MEDS: Amitriptyline HCl 25 MG TABLET PO (21:28)
[2023-01-14] MEDS: Pravastatin Sodium 20 MG TABLET PO (21:28)
[2023-01-14] MEDS: Baclofen 10 MG TABLET PO (21:28)
[2023-01-14] MEDS: Pregabalin 150 MG CAPSULE 300 MG PO (21:28)
[2023-01-14] MEDS: Azithromycin 500 MG in 0.9 % Sodium Chloride 250 ML 125 MG IV (22:28)
[2023-01-15 03:42] VITALS: BP 109/53; PULSE 67; RESP 18; TEMP 36.4; O2SAT 93
[2023-01-15] MEDS: Omeprazole 40 MG CAPSULE.DR PO ×2 (05:26→16:51)
[2023-01-15 07:36] VITALS: BP 122/59; PULSE 70; RESP 20; TEMP 36.6; O2SAT 94
[2023-01-15 07:44] LABS: Glucose, Whole Blood 173 mg/dL (60-115)
--- NOTE | 2023-01-15 08:44 | MHC.CM.PN ---
CM met with Patient at bedside. Patient lives in a 2 family house with her 23 year old Daughter and her 15 year old Son and she is functionally independent. Home/resume Suboxone from [facility] in [place] is the goal and CM has initiated and will follow for dc planning. PCP is from [facility].
[2023-01-15] MEDS: DULoxetine HCl 60 MG CAPSULE.DR PO ×2 (08:56→21:46)
[2023-01-15] MEDS: Acetaminophen 325 MG TABLET 650 MG PO ×2 (08:56→21:46)
[2023-01-15] MEDS: Ferrous Sulfate 324 MG TABLET.DR PO (08:56)
[2023-01-15] MEDS: medroxyPROGESTERone Acetate 5 MG TABLET 10 MG PO (08:56)
[2023-01-15] MEDS: Fenofibrate 160 MG TABLET PO (08:57)
[2023-01-15] MEDS: Prazosin HCL 5 MG CAPSULE PO ×2 (08:57→21:42)
[2023-01-15] MEDS: Loratadine 10 MG TABLET PO (08:57)
[2023-01-15] MEDS: Ziprasidone 40 MG CAPSULE PO ×2 (08:57→16:50)
[2023-01-15] MEDS: Pregabalin 150 MG CAPSULE 300 MG PO ×2 (08:57→21:43)
[2023-01-15] MEDS: Baclofen 10 MG TABLET PO ×2 (08:57→21:46)
[2023-01-15] MEDS: Acyclovir 200 MG CAPSULE 400 MG PO ×2 (08:57→21:42)
[2023-01-15] MEDS: Buprenorphine/Naloxone 8/2 mg TAB.SUBL 3 TAB SUBLINGUAL (08:57)
[2023-01-15] MEDS: 0.9 % Sodium Chloride Flush 3 ML SYRINGE IVFLUSH ×3 (08:58→21:48)
[2023-01-15] MEDS: Insulin Lispro 100 UNIT/ML 3 ML VIAL SUBCUT ×4 (08:58→21:44)
[2023-01-15] MEDS: Enoxaparin Sodium 40 MG/0.4 ML SYRINGE SUBCUT (08:59)
[2023-01-15] MEDS: Nicotine 21 MG PATCH.TD24 TRANSDERMA (08:59)
[2023-01-15 11:31] VITALS: BP 114/63; PULSE 82; RESP 20; TEMP 36.5; O2SAT 96
[2023-01-15 11:44] LABS: Glucose, Whole Blood 176 mg/dL (60-115)
[2023-01-15] MEDS: Lidocaine 4 % Patch ADH..PATCH 1 PATCH TRANSDERMA (12:10)
[2023-01-15] MEDS: Celecoxib 200 MG CAPSULE PO ×2 (12:10→21:45)
--- NOTE | 2023-01-15 12:49 | HO.PM.IMPN ---
Subjective Subjective Date of Service: 01/15/23 Interval History: pneumonia ,right shoulder pain Review of Systems sob seems improving has right shoulder pain -she says it starting after she woke up . Physical Exam Vital Signs: Vital Signs: Last Vital Signs Temp 97.7 F 01/15/23 11:31 Pulse 82 01/15/23 11:31 Resp 20 01/15/23 11:31 BP 114/63 01/15/23 11:31 Pulse Ox 96 01/15/23 11:31 O2 Del Method Room Air 01/15/23 11:31 O2 Flow Rate 3 01/14/23 23:46 BMI result Body Mass Index 45.3 Appearance: Alert.? Oriented X3.? not in distress.? cvs: rrr, [id number]. res: clear to auscultation ,no rhonchii or wheezing abd: no rebound or guarding ,nt, bs present. ext pulses present , no cyanosis . neuro: axo3 , nonfocal. Objective Data Active Medications Acetaminophen (Acetaminophen 325 Mg Tablet) 650 mg PO Q6H PRN PRN Reason: Pain, Mild (Pain Scale 1-3) Last Admin: 01/15/23 08:56 Dose: 650 mg Documented By: EUGENE Acyclovir (Acyclovir 200 Mg Capsule) 400 mg PO BID [facility] Last Admin: 01/15/23 08:57 Dose: 400 mg Documented By: EUGENE Albuterol Sulfate (Albuterol Sulfate 90 Mcg 8 Gm Inhaler) 2 puff INHALE Q6H PRN PRN Reason: Shortness Of Breath Or Wheezing Amitriptyline HCl (Amitriptyline Hcl 25 Mg Tablet) 25 mg PO BEDTIME [facility] Last Admin: 01/14/23 21:28 Dose: 25 mg Documented By: ONIEL Baclofen (Baclofen 10 Mg Tablet) 10 mg PO BID [facility] Last Admin: 01/15/23 08:57 Dose: 10 mg Documented By: EUGENE Buprenorphine/Naloxone (Buprenorphine/Naloxone 8/2 Mg Tab.Subl) 3 tab SUBLINGUAL DAILY [facility] Last Admin: 01/15/23 08:57 Dose: 3 tab Documented By: EUGENE Celecoxib (Celecoxib 200 Mg Capsule) 200 mg PO BID [facility] Last Admin: 01/15/23 12:10 Dose: 200 mg Documented By: EUGENE Dextrose (Dextrose 50 % 25 Gm/50 Ml Syringe) 25 gm IVPUSH Q15M PRN; Protocol PRN Reason: per Hypoglycemia Standing Ord. Docusate Sodium (Docusate Sodium 100 Mg Capsule) 100 mg PO DAILY PRN PRN Reason: Constipation Duloxetine HCl (Duloxetine Hcl 60 Mg Capsule.) 60 mg PO BID [facility] Last Admin: 01/15/23 08:56 Dose: 60 mg Documented By: EUGENE Enoxaparin Sodium (Enoxaparin Sodium 40 Mg/0.4 Ml Syringe) 40 mg SUBCUT Q24H [facility] Last Admin: 01/15/23 08:59 Dose: 40 mg Documented By: EUGENE Fenofibrate (Fenofibrate 160 Mg Tablet) 160 mg PO DAILY [facility] Last Admin: 01/15/23 08:57 Dose: 160 mg Documented By: EUGENE Ferrous Sulfate (Ferrous Sulfate 324 Mg Tablet.) 324 mg PO Q48H [facility] Last Admin: 01/15/23 08:56 Dose: 324 mg Documented By: EUGENE Glucose (Glucose Gel 15 Gm Gel..Gram.) 15 gm PO Q15M PRN; Protocol PRN Reason: per Hypoglycemia Standing Ord. Hydroxyzine HCl (Hydroxyzine Hcl 25 Mg Tablet) 25 mg PO TID PRN PRN Reason: ptsd Ceftriaxone Sodium 1 gm/ (Sodium Chloride) 50 mls @ 100 mls/hr IV Q24H [facility] Last Infusion: 01/14/23 22:23 Dose: 0 mls/hr Documented By: ONIEL Azithromycin 500 mg/ Sodium (Chloride) 250 mls @ 125 mls/hr IV Q24H [facility] Last Infusion: 01/15/23 00:57 Dose: 0 mls/hr Documented By: ONIEL Insulin Glargine (Insulin Glargine,Hum.Rec.Anlog 100 Unit/Ml 10 Ml Vial) 26 unit SUBCUT BEDTIME [facility] Last Admin: 01/14/23 21:27 Dose: 26 unit Documented By: ONIEL Insulin Human Lispro (Insulin Lispro 100 Unit/Ml 3 Ml Vial) 0 unit SUBCUT QIDACHS [facility]; Protocol Last Admin: 01/15/23 12:09 Dose: 2 unit Documented By: EUGENE Lidocaine (Lidocaine 4 % Patch Adh..Patch) 1 patch TRANSDERMA DAILY [facility]; Protocol Last Admin: 01/15/23 12:10 Dose: 1 patch Documented By: EUGENE Lidocaine HCl (Lidocaine Hcl Viscous 2 % 15 Ml Solution) 15 ml MUCOUS MEM Q3H PRN PRN Reason: tooth ache Loratadine (Loratadine 10 Mg Tablet) 10 mg PO DAILY [facility] Last Admin: 01/15/23 08:57 Dose: 10 mg Documented By: EUGENE Medroxyprogesterone Acetate (Medroxyprogesterone Acetate 5 Mg Tablet) 10 mg PO DAILY [facility] Last Admin: 01/15/23 08:56 Dose: 10 mg Documented By: EUGENE Nicotine (Nicotine 21 Mg Patch.Td24) 21 mg TRANSDERMA DAILY [facility] Last Admin: 01/15/23 08:59 Dose: 21 mg Documented By: EUGENE Omeprazole (Omeprazole 40 Mg Capsule.Dr) 40 mg PO BID@0630,1630 [facility] Last Admin: 01/15/23 05:26 Dose: 40 mg Documented By: ONIEL Ondansetron HCl (Ondansetron Hcl 4 Mg/2 Ml Vial) 4 mg IVPUSH Q8H PRN PRN Reason: Nausea and Vomiting Pharmacy Consult (Consult Rx Perform Med Rec) 1 each MISCELLANE ONCE PRN PRN Reason: Consult order Pramipexole Dihydrochloride (Pramipexole Di-Hcl 0.25 Mg Tablet) 0.5 mg PO BEDTIME [facility] Last Admin: 01/14/23 21:27 Dose: 0.5 mg Documented By: ONIEL Pravastatin Sodium (Pravastatin Sodium 20 Mg Tablet) 20 mg PO BEDTIME [facility] Last Admin: 01/14/23 21:28 Dose: 20 mg Documented By: ONIEL Prazosin HCl (Prazosin Hcl 5 Mg Capsule) 5 mg PO BID [facility]; Protocol Last Admin: 01/15/23 08:57 Dose: 5 mg Documented By: EUGENE Pregabalin (Pregabalin 150 Mg Capsule) 300 mg PO BID [facility] Last Admin: 01/15/23 08:57 Dose: 300 mg Documented By: EUGENE Sodium Chloride (0.9 % Sodium Chloride Flush 3 Ml Syringe) 3 ml IVFLUSH QSHIFT [facility] Last Admin: 01/15/23 08:58 Dose: 3 ml Documented By: EUGENE Sumatriptan Succinate (Sumatriptan Succinate 100 Mg Tablet) 100 mg PO Q2H PRN PRN Reason: Migraine Headache Ziprasidone (Ziprasidone 40 Mg Capsule) 40 mg PO BIDWM ISHAN Last Admin: 01/15/23 08:57 Dose: 40 mg Documented By: EUGENE Labs 01/14/23 06:28 01/14/23 06:28 Labs: Laboratory Results - last 24 hr 01/14/23 01/14/23 01/14/23 13:09 16:31 20:30 POC Glucose 174 H 133 H 155 H 01/15/23 01/15/23 07:37 11:30 POC Glucose 173 H 176 H Microbiology Microbiology Results: Microbiology 01/13/23 21:34 Blood Culture - Preliminary Blood - Venous No growth after 24 hours. 01/13/23 21:39 Blood Culture - Preliminary Blood - Venous No growth after 24 hours. Assessment and Plan (1) Acute respiratory failure with hypoxia: Status: Acute (2) Pneumonia: Status: Acute Plan 42-year-old female with past medical history of diabetes comes into the hospital with complaints of cough, shortness of breath found to have acute pneumonia acute hypoxic respiratory failure- secondary to pneumonia - will treat with IV antibiotics,blood cultures neg@24hrs - oxygen taper TESSY - likely secondary to dehydration - IV fluid - follow BMP leukocytosis - secondary to pneumonia - follow CBC tobacco use disorder - would like nicotine patch diabetes - continue home insulin - add low-dose sliding scale insulin - diabetic diet anxiety and depression - continue mood stabilizers DVT prophylaxis:? Lovenox inpatient need : hypoxia, need for IV antibiotics for pneumonia ,blood cultures pending(need to be neg @48hrs) Time Spent With Patient Time: Total time managing care of this patient today ____ minutes. Quality Stroke Does the patient have a stroke diagnosis?: No VTE Prior VTE?: No VTE Risk Level:: Medical - low VTE Device Contraindication: N/A - Device Ordered VTE Drug Contraindication: Treatment Not Indicated
[2023-01-15 16:00] VITALS: BP 107/51; PULSE 65; RESP 20; TEMP 36.5; O2SAT 93
[2023-01-15 16:31] LABS: Glucose, Whole Blood 170 mg/dL (60-115)
[2023-01-15] MEDS: predniSONE 20 MG TABLET 40 MG PO (16:50)
[2023-01-15 19:21] VITALS: BP 133/65; PULSE 75; RESP 18; TEMP 36.1; O2SAT 98
[2023-01-15 19:40] LABS: Glucose, Whole Blood 231 mg/dL (60-115)
[2023-01-15] MEDS: cefTRIAXone sodium 1 GM in 0.9 % Sodium Chloride 50 ML IV (21:28)
[2023-01-15] MEDS: Pramipexole Di-HCL 0.25 MG TABLET 0.5 MG PO (21:41)
[2023-01-15] MEDS: hydrOXYzine HCL 25 MG TABLET PO (21:42)
[2023-01-15] MEDS: Insulin Glargine,Hum.rec.anlog 100 UNIT/ML 10 ML VIAL 26 UNIT SUBCUT (21:43)
[2023-01-15] MEDS: Amitriptyline HCl 25 MG TABLET PO (21:45)
[2023-01-15] MEDS: Pravastatin Sodium 20 MG TABLET PO (21:46)
[2023-01-15] MEDS: Docusate Sodium 100 MG CAPSULE PO (22:04)
[2023-01-15] MEDS: Azithromycin 500 MG in 0.9 % Sodium Chloride 250 ML 125 MG IV (22:30)
[2023-01-15 23:40] VITALS: BP 122/60; PULSE 66; RESP 20; TEMP 36.1; O2SAT 94
[2023-01-16 03:01] VITALS: BP 120/59; PULSE 58; RESP 20; TEMP 36.1; O2SAT 93
[2023-01-16] MEDS: Omeprazole 40 MG CAPSULE.DR PO (07:00)
[2023-01-16 07:23] VITALS: BP 117/62; PULSE 67; RESP 20; TEMP 36.4; O2SAT 94
[2023-01-16 07:25] LABS: Glucose, Whole Blood 145 mg/dL (60-115)
[2023-01-16] MEDS: Ziprasidone 40 MG CAPSULE PO (09:15)
[2023-01-16] MEDS: DULoxetine HCl 60 MG CAPSULE.DR PO (09:15)
[2023-01-16] MEDS: Prazosin HCL 5 MG CAPSULE PO (09:15)
[2023-01-16] MEDS: medroxyPROGESTERone Acetate 5 MG TABLET 10 MG PO (09:15)
[2023-01-16] MEDS: Baclofen 10 MG TABLET PO (09:15)
[2023-01-16] MEDS: Buprenorphine/Naloxone 8/2 mg TAB.SUBL 3 TAB SUBLINGUAL (09:16)
[2023-01-16] MEDS: Celecoxib 200 MG CAPSULE PO (09:16)
[2023-01-16] MEDS: Nicotine Polacrilex 2 MG GUM BUCCAL (09:16)
[2023-01-16] MEDS: Pregabalin 150 MG CAPSULE 300 MG PO (09:16)
[2023-01-16] MEDS: Nicotine 21 MG PATCH.TD24 TRANSDERMA (09:17)
[2023-01-16] MEDS: Acyclovir 200 MG CAPSULE 400 MG PO (09:17)
[2023-01-16] MEDS: Loratadine 10 MG TABLET PO (09:17)
[2023-01-16] MEDS: Fenofibrate 160 MG TABLET PO (09:17)
[2023-01-16] MEDS: 0.9 % Sodium Chloride Flush 3 ML SYRINGE IVFLUSH (09:17)
[2023-01-16] MEDS: Lidocaine 4 % Patch ADH..PATCH 1 PATCH TRANSDERMA (09:18)
--- NOTE | 2023-01-16 10:26 | MHC.CM.PN ---
Pt medically cleared for D/C home self-care and resumption of [facility] outpatient services for suboxone. Pts car is in the lot and will transport her self home.
--- NOTE | 2023-01-18 13:24 | P.DS_ITS ---
DS: Providers Provider Date of Service: 01/16/23 Date of admission: 01/14/23 00:19 Date of discharge: 01/16/23 Primary care physician: AYO Duncan Attending physician on discharge: Charli Fernandez Discharging clinician: Charli Fernandez DS: Diagnosis Discharge Diagnosis (1) Acute respiratory failure with hypoxia: Status: Acute (2) Pneumonia: Status: Acute DS: Summary Hospital Course Hospital Course: Date of service and discharge: 01/16/23. 42-year-old female with past medical history of diabetes, depression anxiety, hyperlipidemia, migraine headaches, comes into the hospital with complaints of shortness of breath, cough, and feeling lousy for the past 1 week.? Her symptoms started on Monday, and have progressively worsened, she is not short of breath, has a productive cough, fever chills, no chest pain, no palpitations, no abdominal pain nausea vomiting, no diarrhea constipation, no urinary symptoms and no lower extremity edema, Reports that her daughter was recently ill with a viral illness that pass it to her. On arrival to the ED patient was found to be hypoxic satting 88% on room air Labs are significant for WBC count of 15, creatinine of 1.68 with a baseline of around 0.8, lactic acid of 3.5, Chest x-ray showed pneumonia COVID-19 negative patient started on IV antibiotics and will be admitted for further management. Hospital course: Patient was admitted due to acute hypoxemic respiratory failure secondary to pneumonia: Started on IV antibiotics, oxygen support, blood cultures sent. With above supportive care patient improved significantly currently not on oxygen and her symptoms are improved. Blood culture negative at 48 hours. Patient will be going home with p.o. antibiotics-please complete the course for antibiotics for 7 days. Repeat chest imaging in 3-4 weeks time to see resolution of pneumonia outpatient. Patient was strongly advised to quit smoking: She is willing to do that. Also ordered nicotine gum for her. Patient has shoulder pain-x-ray shows some calcific changes-? Question possible calcific tendinitis-given p.o. prednisone, patient will get evaluated with PCP and further management out patiently consider outpatient PT. plan: complete the course for antibiotics for 7 days. Repeat chest imaging in 3-4 weeks time to see resolution of pneumonia outpatient. shoulder pain-x-ray shows some calcific changes-? Question possible calcific tendinitis-given p.o. prednisone, patient will get evaluated with PCP and further management out patiently consider outpatient PT. Above management discussed with the patient in detail length she understand and in agreement with the above plan, time spent 50 minutes and 50% time spent on counseling. Time Spent with Patient Time attestation: Total time managing care of this patient today ____ minutes. Discharge coordination time: Greater than 30 minutes Quality: Safe Use of Opioids Does Pt have an Active Cancer Diagnosis on the Problem List?: No Quality: Stroke Does the patient have a stroke diagnosis?: No Physical Exam Vital Signs: Vital Signs: Last Vital Signs Temp 97.6 F 01/16/23 07:23 Pulse 67 01/16/23 07:23 Resp 20 01/16/23 07:23 BP 117/62 01/16/23 07:23 Pulse Ox 94 01/16/23 07:23 O2 Del Method Nasal Cannula 01/16/23 07:23 O2 Flow Rate 2 01/16/23 07:23 BMI result Body Mass Index 45.3 Appearance: Alert.? Oriented X3.? not in distress.? cvs: rrr, [id number]. res: clear to auscultation ,no rhonchii or wheezing abd: no rebound or guarding ,nt, bs present. ext pulses present , no cyanosis . MS: rght shoulder mild pain, rom -intact. neuro: axo3 , nonfocal. DS: Data Data Completed and Pending Labs on day of discharge: Preliminary micro results at discharge 01/13/23 21:34 Blood Culture - Preliminary Blood - Venous No growth after 48 hours. 01/13/23 21:39 Blood Culture - Preliminary Blood - Venous No growth after 48 hours. Imaging Chest x-ray: Radiologist's impression: ITS Impressions Chest X-Ray 01/13/23 22:15 IMPRESSION: Findings are most suggestive of an atypical/viral infection with early infiltrates in the right lower lung. Follow-up imaging after treatment is recommended to ensure appropriate resolution. Shoulder X-Ray 01/15/23 11:57 IMPRESSION: No fracture or dislocation. Question soft tissue calcification or ossification posterior to the humeral head on the Y view. Question small sclerotic densities in the proximal humerus Discharge Plan Discharge Anticipated Discharge Date/Time: 01/16/23 09:29 Patient Disposition: Home, Self-Care Discharge Diagnosis: Pneumonia Referrals: Center,[facility] [Physician] - 1 Week Discharge Medications: New cefuroxime axetil 500 mg tablet 500 mg PO BID Qty: 14 0RF azithromycin 500 mg tablet 500 mg PO DAILY 6 Days Qty: 6 0RF lidocaine 4 % adhesive patch,medicated 1 patch topical DAILY PRN (Reason: pain) Qty: 7 0RF prednisone 20 mg tablet 20 mg PO DAILY Qty: 4 0RF nicotine (polacrilex) 2 mg Gum 2 mg buccal Q2H PRN (Reason: smoker) Qty: 20 0RF Continued medroxyprogesterone [Provera] 10 mg tablet 10 mg PO DAILY 10 Days Qty: 10 0RF Rx Instructions: END DATE: 01/18/23 insulin glargine [Lantus Solostar U-100 Insulin] 100 unit/mL (3 mL) insulin pen 26 unit subcut BEDTIME sumatriptan succinate 100 mg tablet 100 mg PO Q2H PRN (Reason: Migraine Headache) Rx Instructions: NO MORE THAN 2 TABS IN 24 HOURS metformin 850 mg tablet 850 mg PO BID acyclovir 400 mg tablet 400 mg PO BID omeprazole 40 mg capsule,delayed release(DR/EC) 40 mg PO BID prazosin 5 mg capsule 5 mg PO BID amitriptyline 25 mg tablet 25 mg PO BEDTIME baclofen 10 mg tablet 10 mg PO BID pravastatin 20 mg tablet 20 mg PO BEDTIME buprenorphine-naloxone 8-2 mg tablet, sublingual 3 tab sublingual DAILY duloxetine 60 mg capsule,delayed release(DR/EC) 60 mg PO BID pregabalin 300 mg capsule 300 mg PO BID fenofibrate nanocrystallized 145 mg tablet 145 mg PO DAILY pramipexole 0.5 mg tablet 0.5 mg PO BEDTIME ferrous sulfate [FeroSul] 325 mg (65 mg iron) tablet 325 mg PO Q OTHER DAY hydroxyzine HCl 25 mg tablet 25 mg PO TID PRN (Reason: ptsd) albuterol sulfate [Ventolin HFA] 90 mcg/actuation HFA aerosol inhaler 2 puff inhalation Q6H PRN (Reason: Shortness Of Breath Or Wheezing) ziprasidone HCl 40 mg capsule 40 mg PO BIDWM Held lisinopril-hydrochlorothiazide 20-25 mg tablet 1 tab PO DAILY Hold Instructions: Resume on 01/23/23. Discontinued ibuprofen 600 mg tablet 600 mg PO BID PRN (Reason: Pain) Discharge Orders: Discharge Order (Routine); Ordered 01/16/23 Ordered By: Charli Fernandez Diet: Advance to usual diet Activity on Discharge: As tolerated Stand Alone Forms: Patient Portal Discharge page Care Plan Goals: Patient was admitted due to acute hypoxemic respiratory failure secondary to pneumonia: Started on IV antibiotics, oxygen support, blood cultures sent. With above supportive care patient improved significantly currently not on oxygen and her symptoms are improved. Blood culture negative at 48 hours. Patient will be going home with p.o. antibiotics-please complete the course for antibiotics for 7 days. Repeat chest imaging in 3-4 weeks time to see resolution of pneumonia outpatient. Patient was strongly advised to quit smoking: She is willing to do that. Also ordered nicotine gum for her. Patient has shoulder pain-x-ray shows some calcific changes-? Question possible calcific tendinitis-given p.o. prednisone, patient will get evaluated with PCP and further management out patiently consider outpatient PT. Health Concerns: As above. Plan of Treatment: As above. Assessment: As above. Discharge Date/Time: 01/16/23 10:30
== END 2023-01-16 10:30 | disposition home or self-care (01) | DRG 139 ==
LOC: HO.ED 23:32 → HO.EDOVER 01-14 00:29 → HO.IMC 01-14 13:58
PROVIDERS: Admitting Provider Internal Medicine; Emergency Provider Emergency Medicine; PCP Registered Nurse; Visit Provider Internal Medicine
DX: J18.9 Pneumonia, unspecified organism (principal); J96.01 Acute respiratory failure with hypoxia; N17.9 Acute kidney failure, unspecified; E87.20 Acidosis, unspecified; E11.9 Type 2 diabetes mellitus without complications; F41.8 Other specified anxiety disorders; E78.5 Hyperlipidemia, unspecified; F17.210 Nicotine dependence, cigarettes, uncomplicated; F11.20 Opioid dependence, uncomplicated; E66.01 Morbid (severe) obesity due to excess calories; Z68.42 Body mass index [BMI] 45.0-49.9, adult; Z20.822 Contact with and (suspected) exposure to COVID-19; Z71.6 Tobacco abuse counseling; Z79.4 Long term (current) use of insulin; Z79.84 Long term (current) use of oral hypoglycemic drugs; Z79.899 Other long term (current) drug therapy
CPT/HCPCS: 36415; 71045; 73030; 80048; 82947; 83605; 83880; 84484; 85025; 85379; 86850; 86900; 86901; 87040; 87633; 87635; 93005; 99285; J0456; J0696; J1650

== ENCOUNTER → 2023-01-13 21:05 | Outpatient (BNV) | payer OTHER, SELFPAY | PROVIDERS: Admitting Provider Internal Medicine; Emergency Provider Emergency Medicine; Visit Provider Internal Medicine Cardiovascular Disease | DX: R07.9 Chest pain, unspecified (principal) | CPT/HCPCS: 93010 ==

== ENCOUNTER → 2023-01-14 00:19 | Outpatient (BNV) | payer OTHER, SELFPAY | PROVIDERS: Admitting Provider Internal Medicine; Emergency Provider Emergency Medicine; Visit Provider Internal Medicine | DX: J96.01 Acute respiratory failure with hypoxia (principal); J18.9 Pneumonia, unspecified organism | CPT/HCPCS: 99223; 99231; 99239; 99499 ==

== ENCOUNTER 2023-02-06 12:10 | Inpatient (IN) | payer OTHER, SELFPAY ==
[2023-02-06] VITALS (7 sets, daily range): BP systolic 110–132; BP diastolic 51–70; PULSE 88–200; RESP 18; TEMP 37.1–37.9; O2SAT 94–97; BMI 46.5; BMI 49.6
--- NOTE | ~2023-02-06 | CT_ITS ---
EXAMINATION: CT CHEST WITHOUT CONTRAST CLINICAL INFORMATION: Rule out pneumonia COMPARISON: Chest x-ray from the same day TECHNIQUE: Multidetector volumetric CT imaging of the chest was done. Axial MIP volume rendering provided. Sagittal and coronal reformatted images were obtained. This CT examination was performed using dose optimization techniques as appropriate, variously including the following: *Automated exposure control *Adjustment of mA and/or kV according to patient size (this includes techniques or standardized protocols for targeted exams where dose is matched to indication/reason for exam; i.e. extremities or head) *Use of iterative reconstruction technique DLP: 451 mGy-cm FINDINGS: LUNGS: There are extensive, mid to upper lung zone predominant predominantly groundglass opacity nodules which mostly measure less than 1 cm in size. Several nodules demonstrate more solid components. Overall, many of these are favored to be centrilobular in location, though some also adjacent to pleural surfaces. There is suboptimal assessment of the lung bases due to respiratory motion artifact. MEDIASTINUM: The visualized thyroid gland is unremarkable. There are subcentimeter mediastinal lymph nodes within the range of normal variation. Cardiac size is within normal limits; no pericardial effusion. CORONARY ARTERY CALCIFICATION: None visualized on this study. PLEURA: No pneumothorax or pleural effusion. AXILLA: No lymphadenopathy. UPPER ABDOMEN: There is hypoattenuation of the visualized liver suspicious for steatosis. OSSEOUS STRUCTURES: Degenerative changes are noted in the spine. CT/CT chest wo IV con IMPRESSION: 1. Extensive, mid to upper lung zone predominantly groundglass opacity nodules, mostly measuring less than 1 cm in size. Many of these are favored to be centrilobular in location. In the proper clinical setting, this appearance can be seen with respiratory bronchiolitis/respiratory bronchiolitis interstitial lung disease, hypersensitivity pneumonitis, infection with endobronchial spread (including tuberculous or nontuberculous mycobacterial infection), or follicular bronchiolitis. Malignancy is considered less likely with this appearance. In the absence of prior studies for comparison, follow-up CT in 3 months is advised. 2. Hepatic steatosis.
--- NOTE | ~2023-02-06 | XR_ITS ---
EXAMINATION: XR CHEST CLINICAL INFORMATION: Fever COMPARISON: Previous chest x-ray 01/13/2023 TECHNIQUE: Frontal view of the chest was obtained. FINDINGS: The cardiac and mediastinal contours are stable. There is central bronchial wall thickening. There are more peripheral nodular opacities, particularly in the right upper lobe questionable for bronchial wall thickening as well. No lobar consolidation. No pleural effusion or pneumothorax. Bony structures are unremarkable. XR/XR chest 1V IMPRESSION: Central bronchial wall thickening. More peripheral nodular opacities, question related to bronchial thickening as well. Bronchitis and atypical viral infection should be considered.
--- NOTE | 2023-02-06 12:21 | PC.NURSE ---
Zahira reports wakig up this morning with sudden on set headache, neck pain, back and hip pain. States fever and chills and sob. Top of right great top with healing ulcer, wound and bilat feet dirty. Patient reports hx of cellulitis and meningitis. States was here a few weeks ago with sepsis caused by pn.
[2023-02-06] MEDS: Acetaminophen 325 MG TABLET 650 MG PO ×2 (12:58→22:32)
--- NOTE | 2023-02-06 13:17 | ED_ITS ---
HPI - General Adult General Chief complaint: General Medical Stated complaint: FEVERS CHILLS CHOPRA NECK PAIN NAUSEA FEVER Time Seen by Provider: 02/06/23 13:03 Source: patient Mode of arrival: ambulatory Limitations: no limitations History of Present Illness HPI narrative: Patient comes to the emergency room complaining of fever, headache, hip pain, back pain that started a few hours ago this morning. Patient states she took ibuprofen approximately 3 hours ago. Patient denies nausea vomiting diarrhea. No UTI symptoms. Patient was discharged from this hospital 2 and half weeks ago for pneumonia. Related Data Home Medications Medication Instructions Recorded Confirmed acyclovir 400 mg tablet 400 mg PO BID 09/26/22 01/14/23 amitriptyline 25 mg tablet 25 mg PO BEDTIME 09/26/22 01/14/23 baclofen 10 mg tablet 10 mg PO BID 09/26/22 01/14/23 buprenorphine 8 mg-naloxone 2 mg 3 tab sublingual DAILY 09/26/22 01/14/23 sublingual tablet duloxetine 60 mg capsule,delayed 60 mg PO BID 09/26/22 01/14/23 release fenofibrate nanocrystallized 145 145 mg PO DAILY 09/26/22 01/14/23 mg tablet ferrous sulfate 325 mg (65 mg 325 mg PO Q OTHER DAY 09/26/22 01/14/23 iron) tablet (FeroSul) hydroxyzine HCl 25 mg tablet 25 mg PO TID PRN ptsd 09/26/22 01/14/23 lisinopril 20 1 tab PO DAILY 09/26/22 01/14/23 mg-hydrochlorothiazide 25 mg tablet metformin 850 mg tablet 850 mg PO BID 09/26/22 01/14/23 omeprazole 40 mg capsule,delayed 40 mg PO BID 09/26/22 01/14/23 release pramipexole 0.5 mg tablet 0.5 mg PO BEDTIME 09/26/22 01/14/23 pravastatin 20 mg tablet 20 mg PO BEDTIME 09/26/22 01/14/23 prazosin 5 mg capsule 5 mg PO BID 09/26/22 01/14/23 pregabalin 300 mg capsule 300 mg PO BID 09/26/22 01/14/23 sumatriptan succinate 100 mg tablet 100 mg PO Q2H PRN Migraine Headache 09/26/22 01/14/23 albuterol sulfate 90 mcg/actuation 2 puff inhalation Q6H PRN 01/12/23 01/14/23 aerosol inhaler (Ventolin HFA) Shortness Of Breath Or Wheezing ziprasidone HCl 40 mg capsule 40 mg PO BIDWM 01/12/23 01/14/23 insulin glargine 100 unit/mL (3 26 unit subcut BEDTIME 01/14/23 01/14/23 mL) subcutaneous pen (Lantus Solostar U-100 Insulin) Previous Rx's Medication Instructions Recorded medroxyprogesterone 10 mg tablet 10 mg PO DAILY Abnormal uterine 01/08/23 (Provera) bleeding 10 days #10 tabs azithromycin 500 mg tablet 500 mg PO DAILY 6 days #6 tabs 01/16/23 cefuroxime axetil 500 mg tablet 500 mg PO BID #14 tabs 01/16/23 lidocaine 4 % topical patch 1 patch topical DAILY PRN pain #7 01/16/23 ea nicotine (polacrilex) 2 mg gum 2 mg buccal Q2H PRN smoker #20 ea 01/16/23 prednisone 20 mg tablet 20 mg PO DAILY #4 tabs 01/16/23 Allergies Allergy/AdvReac Type Severity Reaction Status Date / Time Sulfa (Sulfonamide Allergy Unknown HIVES Verified 01/12/23 15:07 Antibiotics) [SULFA (SULFONAMIDE ANTIBIOTICS)] glipizide Allergy Unknown Verified 01/12/23 15:07 Review of Systems Review of Systems: Constitutional : No Weight loss, bleeding of fever chills, fatigue and generalized malaise ENT/Mouth : No Hearing loss, No Ear Pain, No Nasal Congestion, No Sinus Pain, No Hoarseness, No sore throat, No Rhinorrhea, No Swallowing Difficulty Eyes: No Eye Pain, No Swelling, No Redness, No Foreign Body, No Discharge, No Vision Changes Cardiovascular : No Chest Pain, No SOB, No Dyspnea on Exertion, No Orthopnea, No Edema, No Palpitations Respiratory : No Cough, No Sputum, No Wheezing, No Smoke Exposure, No Dyspnea Gastrointestinal : No Nausea, No Vomiting, No Diarrhea, No Constipation, No abdominal Pain, No Hematochezia, No Melena Genitourinary : no irregular bleeding, No Dysuria, No Urinary Frequency, No Hematuria, No Urinary Incontinence, No Urgency, No Flank Pain, No Urinary Flow Changes, No Hesitancy Musculoskeletal : Complaining of diffuse body aches Skin : No Skin Lesions, No rash Neuro : No Weakness, No Numbness, No Paresthesias, No Loss of Consciousness, No Dizziness, No Headache Psych : No Anxiety/Panic, No Depression, No SI/HI/AH/VH, No Social Issues, Heme/Lymph: No Bruising, No Bleeding,No Lymphadenopathy Endocrine : No Polyuria, No Polydipsia, No Temperature Intolerance PMF Past Medical History Medical History Depression with anxiety Diabetes History of migraine headaches Hyperlipidemia Social History Social History Household Members: Children Housing: House Do you presently have visiting nurse or other home services: No Alcohol intake: never Patient Tobacco Use Status: Current everyday Tobacco user Tobacco use type: Cigarette Cigarettes Per Day: 6 Smoked in Last 30 Days: Yes e-Cigarette/Vaping Use: Former Use Use of substances other than those prescribed or required for medical reasons: Yes Substance Use Type: Marijuana Advance Directives: No Advance Directives Information Provided: Yes service: No Physical Exam ED Vital Signs: Vital Signs - 24 hr 02/06/23 12:28 02/06/23 13:41 02/06/23 15:54 Temperature 100.3 F 99.2 F 98.7 F Pulse Rate 98 90 Respiratory Rate 18 18 Blood Pressure 131/51 L 110/56 L Pulse Oximetry 94 97 Oxygen Delivery Method Room Air Room Air BMI result Body Mass Index 46.5 Const Other: Appearance: Alert. Oriented X3. No acute distress. Eyes: Pupils equal, round and reactive to light. ENT: Pharynx normal. Neck: Normal inspection. Neck supple. No lymph nodes noted. No crepitus CVS: Normal heart rate and rhythm. Pulses normal. Normal S1 and S2 Respiratory: No respiratory distress. Breath sounds normal. No Wheezing. No rales Abdomen: Soft and nontender. No rigidity. No distention. Skin: Skin warm and dry. Normal skin color. Normal skin turgor. Extremities: No lower extremity edema. No Lacerations. No Rash Neuro: Oriented X 3. No motor deficit. No sensory deficit. Moving all extremities. No slurred speech. CN 2 through 12 grossly intact Psych: calm, cooperative, anxious Course Course Course Narrative: -all of patient's labs and imaging pending -patient receiving IV fluids based on ideal weight of 50 kg, patient is significantly overweight. At this time, 13:21, patient's vitals are stable, blood pressure 131/51, sepsis is not suspected Medications Administered Discontinued Medications Generic Name Dose Route Start Last Admin Trade Name Taz PRN Reason Stop Dose Admin Acetaminophen 650 mg 02/06/23 12:54 02/06/23 12:58 Acetaminophen 325 Mg Tablet PO 02/06/23 12:55 650 mg ONCE ONE Administration Acetaminophen 975 mg 02/06/23 13:16 02/06/23 13:52 Acetaminophen 325 Mg Tablet PO 02/06/23 13:17 325 mg ONCE ONE Administration Sodium Chloride 2,000 mls @ 999 mls/hr 02/06/23 13:14 02/06/23 15:28 Ns IVCONT 02/06/23 15:14 Infused .Q2H1M ONE Infusion Ceftriaxone Sodium 1 gm/ 50 mls @ 100 mls/hr 02/06/23 14:49 02/06/23 16:13 Sodium Chloride IV 02/06/23 15:18 Infused ONCE ONE Infusion Azithromycin 500 mg/ Sodium 250 mls @ 125 mls/hr 02/06/23 14:49 02/06/23 16:09 Chloride IV 02/06/23 16:48 125 mls/hr ONCE ONE Administration Metoclopramide HCl 10 mg 02/06/23 14:43 02/06/23 15:30 Metoclopramide Hcl 10 Mg/2 Ml Vial IVPUSH 02/06/23 14:44 10 mg ONCE ONE Administration Morphine Sulfate 2 mg 02/06/23 14:43 02/06/23 15:25 Morphine Sulfate 2 Mg/Ml Cartridge IVPUSH 02/06/23 14:44 2 mg ONCE ONE Administration Protocol Medical Decision Making Medical Decision Making [facility] Narrative: --my interpretation of CT scan: Suspicious for interstitial disease, fungal infection -patient was given a dose of azithromycin ceftriaxone, fluids based on ideal weight of 50 kg -respiratory panel and T spot test pending -discussed the patient with Dr. Alvarez, pt being admitted Differential Diagnosis Differential Diagnoses: The differential diagnosis associated with the presentation includes (Pneumonia, influenza, COVID, interstitial lung disease, bronchiolitis) Admission/Observation Consideration of admission/observation: Escalation of care including admission/observation considered Consult Healthcare Provider Management of the patient was discussed with: Hospitalist Lab Data MDM Lab Attestation statement: I reviewed the patient's lab results. 02/06/23 13:39 02/06/23 13:40 Labs: Lab Results 02/06/23 02/06/23 02/06/23 Range/Units 13:39 13:39 13:40 WBC 20.9 H (4.8-10.8) X10*3/uL RBC 4.33 (4.20-5.50) X10*6/uL Hgb 12.3 (12.0-16.0) g/dl Hct 37.4 (37.0-47.0) % MCV 86.4 (80.0-98.0) fL MCH 28.4 (27.0-33.0) pg MCHC 32.9 (31.0-35.0) g/dl RDW 13.8 (11.0-16.0) % Plt Count 241 (160-400) X10*3/uL MPV 11.1 (9.4-12.3) fL Immature Gran % (Auto) 0.6 H (0.0-0.4) % Neut % (Auto) 89.5 H (45-73) % Lymph % (Auto) 4.5 L (20-40) % [place] % (Auto) 4.7 (2-11) % Eos % (Auto) 0.5 (0-4) % Baso % (Auto) 0.2 (0-2) % Lymph # (Auto) 0.9 L (1.2-4.9) X10*3/uL [place] # (Auto) 1.0 (0.1-1.2) X10*3/uL Eos # (Auto) 0.1 (0.0-0.4) X10*3/uL Baso # (Auto) 0.0 (0.0-0.2) X10*3/uL Abs Immat Gran (auto) 0.13 H (0.00-0.03) X10*3/uL Absolute Neuts (auto) 18.7 H (2.0-8.3) x10*3/uL Absolute Nucleated RBC 0.000 (0.0-0.012) X10*3/uL Nucleated RBC % (auto) 0.0 (0.0-0.2) /100WBC PT 12.4 (11.1-13.3) SEC INR 1.0 (0.9-1.1) Sodium 135 (135-145) mmol/L Potassium 4.7 (3.3-5.1) mmol/L Chloride 100 (96-108) mmol/L Carbon Dioxide 28 (22-29) mmol/L Anion Gap 12 (12-20) BUN 21 H (9-16) mg/dL Creatinine 0.93 (0.5-1.4) mg/dL Estim Creat Clear Calc 103.0 Estimated GFR > 60 Random Glucose 170 H (60-115) mg/dL Lactic Acid (0.5-2.0) mmol/L Calcium 8.7 (8.4-10.2) mg/dL Total Bilirubin 0.4 (0.0-1.0) mg/dL Direct Bilirubin 0.1 (0.0-0.5) mg/dL AST 20 (5-31) U/L ALT 35 H (0-31) U/L Alkaline Phosphatase 32 L (39-117) U/L Total Protein 7.1 (6.5-8.0) g/dL Albumin 4.1 (3.5-5.0) g/dL Urine Color Urine Appearance Urine pH (5.0-9.0) Ur Specific [place] (1.005-1.025) Urine Protein (Neg-Trace) mg/dL Urine Glucose (UA) (Negative) mg/dL Urine Ketones (Negative) mg/dL Urine Blood (Negative) Urine Nitrite (Negative) Ur Leukocyte Esterase (Negative) COVID-19 ([facility]ENIA) (Negative) COVID-19 Clin Com Influenza Type A (STACIA) (Negative) Influenza Type B (STACIA) (Negative) Influenza A & B Note 02/06/23 02/06/23 02/06/23 Range/Units 13:40 13:40 13:40 WBC (4.8-10.8) X10*3/uL RBC (4.20-5.50) X10*6/uL Hgb (12.0-16.0) g/dl Hct (37.0-47.0) % MCV (80.0-98.0) fL MCH (27.0-33.0) pg MCHC (31.0-35.0) g/dl RDW (11.0-16.0) % Plt Count (160-400) X10*3/uL MPV (9.4-12.3) fL Immature Gran % (Auto) (0.0-0.4) % Neut % (Auto) (45-73) % Lymph % (Auto) (20-40) % [place] % (Auto) (2-11) % Eos % (Auto) (0-4) % Baso % (Auto) (0-2) % Lymph # (Auto) (1.2-4.9) X10*3/uL [place] # (Auto) (0.1-1.2) X10*3/uL Eos # (Auto) (0.0-0.4) X10*3/uL Baso # (Auto) (0.0-0.2) X10*3/uL Abs Immat Gran (auto) (0.00-0.03) X10*3/uL Absolute Neuts (auto) (2.0-8.3) x10*3/uL Absolute Nucleated RBC (0.0-0.012) X10*3/uL Nucleated RBC % (auto) (0.0-0.2) /100WBC PT (11.1-13.3) SEC INR (0.9-1.1) Sodium (135-145) mmol/L Potassium (3.3-5.1) mmol/L Chloride (96-108) mmol/L Carbon Dioxide (22-29) mmol/L Anion Gap (12-20) BUN (9-16) mg/dL Creatinine (0.5-1.4) mg/dL Estim Creat Clear Calc Estimated GFR Random Glucose (60-115) mg/dL Lactic Acid 1.6 (0.5-2.0) mmol/L Calcium (8.4-10.2) mg/dL Total Bilirubin (0.0-1.0) mg/dL Direct Bilirubin (0.0-0.5) mg/dL AST (5-31) U/L ALT (0-31) U/L Alkaline Phosphatase (39-117) U/L Total Protein (6.5-8.0) g/dL Albumin (3.5-5.0) g/dL Urine Color Urine Appearance Urine pH (5.0-9.0) Ur Specific [place] (1.005-1.025) Urine Protein (Neg-Trace) mg/dL Urine Glucose (UA) (Negative) mg/dL Urine Ketones (Negative) mg/dL Urine Blood (Negative) Urine Nitrite (Negative) Ur Leukocyte Esterase (Negative) COVID-19 ([facility]ENIA) Negative (Negative) COVID-19 Clin Com See Note Influenza Type A (STACIA) Negative (Negative) Influenza Type B (STACIA) Negative (Negative) Influenza A & B Note See Note 02/06/23 Range/Units 15:54 WBC (4.8-10.8) X10*3/uL RBC (4.20-5.50) X10*6/uL Hgb (12.0-16.0) g/dl Hct (37.0-47.0) % MCV (80.0-98.0) fL MCH (27.0-33.0) pg MCHC (31.0-35.0) g/dl RDW (11.0-16.0) % Plt Count (160-400) X10*3/uL MPV (9.4-12.3) fL Immature Gran % (Auto) (0.0-0.4) % Neut % (Auto) (45-73) % Lymph % (Auto) (20-40) % [place] % (Auto) (2-11) % Eos % (Auto) (0-4) % Baso % (Auto) (0-2) % Lymph # (Auto) (1.2-4.9) X10*3/uL [place] # (Auto) (0.1-1.2) X10*3/uL Eos # (Auto) (0.0-0.4) X10*3/uL Baso # (Auto) (0.0-0.2) X10*3/uL Abs Immat Gran (auto) (0.00-0.03) X10*3/uL Absolute Neuts (auto) (2.0-8.3) x10*3/uL Absolute Nucleated RBC (0.0-0.012) X10*3/uL Nucleated RBC % (auto) (0.0-0.2) /100WBC PT (11.1-13.3) SEC INR (0.9-1.1) Sodium (135-145) mmol/L Potassium (3.3-5.1) mmol/L Chloride (96-108) mmol/L Carbon Dioxide (22-29) mmol/L Anion Gap (12-20) BUN (9-16) mg/dL Creatinine (0.5-1.4) mg/dL Estim Creat Clear Calc Estimated GFR Random Glucose (60-115) mg/dL Lactic Acid (0.5-2.0) mmol/L Calcium (8.4-10.2) mg/dL Total Bilirubin (0.0-1.0) mg/dL Direct Bilirubin (0.0-0.5) mg/dL AST (5-31) U/L ALT (0-31) U/L Alkaline Phosphatase (39-117) U/L Total Protein (6.5-8.0) g/dL Albumin (3.5-5.0) g/dL Urine Color Dark Yellow Urine Appearance Clear Urine pH 6.5 (5.0-9.0) Ur Specific [place] 1.025 (1.005-1.025) Urine Protein Negative (Neg-Trace) mg/dL Urine Glucose (UA) 500 H (Negative) mg/dL Urine Ketones Trace (Negative) mg/dL Urine Blood Negative (Negative) Urine Nitrite Negative (Negative) Ur Leukocyte Esterase Negative (Negative) COVID-19 ([facility]) (Negative) COVID-19 Clin Com Influenza Type A (STACIA) (Negative) Influenza Type B (STACIA) (Negative) Influenza A & B Note Independent Interpretation I performed an independent interpretation of an: CT Scan Radiology Impression Discussion of test interpretation with radiology: I have reviewed the radiologist's reading. Radiologist Impression: FINDINGS: LUNGS: There are extensive, mid to upper lung zone predominant predominantly groundglass opacity nodules which mostly measure less than 1 cm in size. Several nodules demonstrate more solid components. Overall, many of these are favored to be centrilobular in location, though some also adjacent to pleural surfaces. There is suboptimal assessment of the lung bases due to respiratory motion artifact. MEDIASTINUM: The visualized thyroid gland is unremarkable. There are subcentimeter mediastinal lymph nodes within the range of normal variation. Cardiac size is within normal limits; no pericardial effusion.? CORONARY ARTERY CALCIFICATION: None visualized on this study. PLEURA: No pneumothorax or pleural effusion.? AXILLA: No lymphadenopathy.? UPPER ABDOMEN: There is hypoattenuation of the visualized liver suspicious for steatosis.? OSSEOUS STRUCTURES: Degenerative changes are noted in the spine.? CT/CT chest wo IV con IMPRESSION: 1.? Extensive, mid to upper lung zone predominantly groundglass opacity nodules, mostly measuring less than 1 cm in size. Many of these are favored to be centrilobular in location. In the proper clinical setting, this appearance can be seen with respiratory bronchiolitis/respiratory bronchiolitis interstitial lung disease, hypersensitivity pneumonitis, infection with endobronchial spread (including tuberculous or nontuberculous mycobacterial infection), or follicular bronchiolitis. Malignancy is considered less likely with this appearance. In the absence of prior studies for comparison, follow-up CT in 3 months is advised. 2.? Hepatic steatosis. ? Critical Care Time Critical Care Time Critical Care Time: Yes Total Critical Care Time: 60 Attestation: I have personally provided critical care time. Time includes review of lab data, radiology results, discussion with consultants, and monitoring for potential decompensation. Intervention performed as documented. Discharge Plan Discharge Clinical Impression: Pulmonary infection Patient Disposition: Admitted As Inpatient Prescriptions: No Action medroxyprogesterone [Provera] 10 mg tablet 10 mg PO DAILY 10 Days Qty: 10 0RF Rx Instructions: END DATE: 01/18/23 insulin glargine [Lantus Solostar U-100 Insulin] 100 unit/mL (3 mL) insulin pen 26 unit subcut BEDTIME cefuroxime axetil 500 mg tablet 500 mg PO BID Qty: 14 0RF azithromycin 500 mg tablet 500 mg PO DAILY 6 Days Qty: 6 0RF lidocaine 4 % adhesive patch,medicated 1 patch topical DAILY PRN (Reason: pain) Qty: 7 0RF prednisone 20 mg tablet 20 mg PO DAILY Qty: 4 0RF nicotine (polacrilex) 2 mg Gum 2 mg buccal Q2H PRN (Reason: smoker) Qty: 20 0RF sumatriptan succinate 100 mg tablet 100 mg PO Q2H PRN (Reason: Migraine Headache) Rx Instructions: NO MORE THAN 2 TABS IN 24 HOURS metformin 850 mg tablet 850 mg PO BID acyclovir 400 mg tablet 400 mg PO BID omeprazole 40 mg capsule,delayed release(DR/EC) 40 mg PO BID prazosin 5 mg capsule 5 mg PO BID amitriptyline 25 mg tablet 25 mg PO BEDTIME baclofen 10 mg tablet 10 mg PO BID lisinopril-hydrochlorothiazide 20-25 mg tablet 1 tab PO DAILY Hold Instructions: Resume on 01/23/23. pravastatin 20 mg tablet 20 mg PO BEDTIME buprenorphine-naloxone 8-2 mg tablet, sublingual 3 tab sublingual DAILY duloxetine 60 mg capsule,delayed release(DR/EC) 60 mg PO BID pregabalin 300 mg capsule 300 mg PO BID fenofibrate nanocrystallized 145 mg tablet 145 mg PO DAILY pramipexole 0.5 mg tablet 0.5 mg PO BEDTIME ferrous sulfate [FeroSul] 325 mg (65 mg iron) tablet 325 mg PO Q OTHER DAY hydroxyzine HCl 25 mg tablet 25 mg PO TID PRN (Reason: ptsd) albuterol sulfate [Ventolin HFA] 90 mcg/actuation HFA aerosol inhaler 2 puff inhalation Q6H PRN (Reason: Shortness Of Breath Or Wheezing) ziprasidone HCl 40 mg capsule 40 mg PO BIDWM
[2023-02-06] MEDS: 0.9 % Sodium Chloride 2,000 ML 999 ML IVCONT (13:41)
[2023-02-06 13:46] LABS: MANUAL DIFF FLAG NO
[2023-02-06 13:47] LABS: Basophils Percent Auto 0.2 % (0-2); Eosinophils Absolute Auto 0.1 X10*3/uL (0.0-0.4); Eosinophils Percent Auto 0.5 % (0-4); Hematocrit 37.4 % (37.0-47.0); Hemoglobin 12.3 g/dl (12.0-16.0); Imm Gran Abs Auto 0.13 X10*3/uL (0.00-0.03); Imm Gran Pct Auto 0.6 % (0.0-0.4); Lymphocytes Absolute Auto 0.9 X10*3/uL (1.2-4.9); Lymphocytes Percent Auto 4.5 % (20-40); Mean Corpuscular HGB Conc 32.9 g/dl (31.0-35.0); Mean Corpuscular Hemoglobin 28.4 pg (27.0-33.0); Mean Corpuscular Volume 86.4 fL (80.0-98.0); Mean Platelet Volume 11.1 fL (9.4-12.3); Monocytes Percent Auto 4.7 % (2-11); Neutrophils Absolute Auto 18.7 x10*3/uL (2.0-8.3); Neutrophils Percent Auto 89.5 % (45-73); Platelet Count 241 X10*3/uL (160-400); Red Blood Count 4.33 X10*6/uL (4.20-5.50); Red Cell Distribution Width 13.8 % (11.0-16.0); White Blood Count 20.9 X10*3/uL (4.8-10.8)
[2023-02-06 13:52] LABS: Prothrombin Time 12.4 SEC (11.1-13.3)
[2023-02-06] MEDS: Acetaminophen 325 MG TABLET 975 MG PO (13:52)
[2023-02-06 14:09] LABS: COVID-19 Test Negative (Negative); IDNOW Serial# 08D9AD1C; IDNOW Serial# 55D5AD1C; Influenza A Negative (Negative); Influenza B2 Negative (Negative)
[2023-02-06 14:34] LABS: Lactic Acid 1.6 mmol/L (0.5-2.0)
[2023-02-06 14:38] LABS: Alanine Aminotransferase 35 U/L (0-31); Albumin Level 4.1 g/dL (3.5-5.0); Alkaline Phosphatase 32 U/L (39-117); Anion Gap 12 (12-20); Aspartate Amino Transferase 20 U/L (5-31); Bilirubin Direct 0.1 mg/dL (0.0-0.5); Bilirubin Total 0.4 mg/dL (0.0-1.0); Blood Urea Nitrogen 21 mg/dL (9-16); Calcium 8.7 mg/dL (8.4-10.2); Carbon Dioxide 28 mmol/L (22-29); Chloride 100 mmol/L (96-108); Estimated Glomerular Filt Rate > 60; Glucose Random 170 mg/dL (60-115); Potassium 4.7 mmol/L (3.3-5.1); Sodium 135 mmol/L (135-145); Total Protein 7.1 g/dL (6.5-8.0)
[2023-02-06] MEDS: Morphine Sulfate 2 MG/ML CARTRIDGE IVPUSH ×2 (15:25→22:30)
[2023-02-06] MEDS: Metoclopramide HCl 10 MG/2 ML VIAL IVPUSH (15:30)
[2023-02-06] MEDS: cefTRIAXone sodium 1 GM in 0.9 % Sodium Chloride 50 ML IV (15:53)
[2023-02-06] MEDS: Azithromycin 500 MG in 0.9 % Sodium Chloride 250 ML 125 MG IV (16:09)
[2023-02-06 16:21] LABS: Appearance Urine Clear; Color Urine Dark Yellow; Glucose Urine UA 500 mg/dL (Negative); Leukocyte Esterase Urine Negative (Negative); Nitrite Urine Negative (Negative); PH 6.5 (5.0-9.0); Specific Gravity - Urine 1.025 (1.005-1.025); Urine Blood Negative (Negative); Urine Ketones Trace mg/dL (Negative); Urine Protein Negative (Neg-Trace)
--- NOTE | 2023-02-06 17:57 | P.HPHOSP_ITS ---
History of Present Illness Date of Service: 02/06/23 Chief Complaint: fever, arthralgias 42F PMH DM, morbid obesity, ?familial hypertriglyceridemia, hepatic steatosis, opiate dependence, depression, fibromyalgia, genital herpes, PTSD presented with fevers, arthralgias. Patient was admitted 01/14/2023 with atypical pneumonia. Patient completed course of antibiotics. Reports never really improving all that much. Was then put on a course of prednisone with minimal improvement. On day of presentation started to feel much worse, subjective fevers, diffuse arthralgia. Denies shortness of breath or cough. In ED CT chest showed extensive bilateral ground-glass opacity less than 1 cm in size. Differential broad including hypersensitivity pneumonitis, atypical infection, interstitial lung disease, TB. Patient denies weight loss or night sweats. Denies IV drug use or sexual activity. FOR[facility]LY [facility], [facility] Medical History Depression with anxiety Diabetes History of migraine headaches Hyperlipidemia Social History Household Members: Children Housing: House Do you presently have visiting nurse or other home services: No Alcohol intake: never Patient Tobacco Use Status: Current everyday Tobacco user Tobacco use type: Cigarette Cigarettes Per Day: 6 Smoked in Last 30 Days: Yes e-Cigarette/Vaping Use: Former Use Use of substances other than those prescribed or required for medical reasons: Yes Substance Use Type: Marijuana Advance Directives: No Advance Directives Information Provided: Yes service: No Meds Allergies Allergy/AdvReac Type Severity Reaction Status Date / Time Sulfa (Sulfonamide Allergy Unknown HIVES Verified 01/12/23 15:07 Antibiotics) [SULFA (SULFONAMIDE ANTIBIOTICS)] glipizide Allergy Unknown Verified 01/12/23 15:07 Home Medications Medication Instructions Recorded Confirmed Last Taken Type acyclovir 400 mg tablet 400 mg PO BID 09/26/22 02/06/23 01/13/23 History amitriptyline 25 mg tablet 25 mg PO BEDTIME 09/26/22 02/06/23 01/13/23 History baclofen 10 mg tablet 10 mg PO BID 09/26/22 02/06/23 01/13/23 History buprenorphine 8 mg-naloxone 2 mg 3 tab sublingual DAILY 09/26/22 02/06/23 01/13/23 History sublingual tablet duloxetine 60 mg capsule,delayed 60 mg PO BID 09/26/22 02/06/23 01/13/23 History release fenofibrate nanocrystallized 145 145 mg PO DAILY 09/26/22 02/06/23 01/13/23 History mg tablet hydroxyzine HCl 25 mg tablet 25 mg PO TID PRN ptsd 09/26/22 02/06/23 Unknown History lisinopril 20 1 tab PO DAILY 09/26/22 02/06/23 01/13/23 History mg-hydrochlorothiazide 25 mg tablet metformin 850 mg tablet 850 mg PO BID 09/26/22 02/06/23 01/13/23 History omeprazole 40 mg capsule,delayed 40 mg PO BID 09/26/22 02/06/23 01/13/23 History release pramipexole 0.5 mg tablet 0.5 mg PO BEDTIME 09/26/22 02/06/23 01/13/23 History pravastatin 20 mg tablet 20 mg PO BEDTIME 09/26/22 02/06/23 01/13/23 History prazosin 5 mg capsule 5 mg PO BID 09/26/22 02/06/23 01/13/23 History pregabalin 300 mg capsule 300 mg PO BID 09/26/22 02/06/23 01/13/23 History sumatriptan succinate 100 mg tablet 100 mg PO Q2H PRN Migraine Headache 09/26/22 02/06/23 Unknown History albuterol sulfate 90 mcg/actuation 2 puff inhalation Q6H PRN 01/12/23 02/06/23 Unknown History aerosol inhaler (Ventolin HFA) Shortness Of Breath Or Wheezing ziprasidone HCl 40 mg capsule 40 mg PO BIDWM 01/12/23 02/06/23 01/13/23 History insulin glargine 100 unit/mL (3 26 unit subcut BEDTIME 01/14/23 02/06/23 3 History mL) subcutaneous pen (Lantus Solostar U-100 Insulin) Physical Exam Vital Signs and Narrative: Vital Signs: Last Vital Signs Temp 98.7 F 02/06/23 15:54 Pulse 90 02/06/23 15:54 Resp 18 02/06/23 15:54 BP 110/56 L 02/06/23 15:54 Pulse Ox 97 02/06/23 15:54 O2 Del Method Room Air 02/06/23 15:54 BMI result Body Mass Index 46.5 General: AO X 3 Resp: CTA bilateral, no accessory muscles used CVS: S1,S2,RRR GI: soft, non tender, non distended Neuro: motor grossly intact, alert Psych: appropriate affect, appropriate insight Results Labs 02/06/23 13:39 02/06/23 13:40 Labs: Laboratory Results - last 24 hr 02/06/23 02/06/23 02/06/23 13:39 13:39 13:40 MCV 86.4 MCH 28.4 MCHC 32.9 RDW 13.8 Plt Count 241 MPV 11.1 Immature Gran % (Auto) 0.6 H Neut % (Auto) 89.5 H Lymph % (Auto) 4.5 L [place] % (Auto) 4.7 Eos % (Auto) 0.5 Baso % (Auto) 0.2 Lymph # (Auto) 0.9 L [place] # (Auto) 1.0 Eos # (Auto) 0.1 Baso # (Auto) 0.0 Abs Immat Gran (auto) 0.13 H Absolute Neuts (auto) 18.7 H Absolute Nucleated RBC 0.000 Nucleated RBC % (auto) 0.0 PT 12.4 INR 1.0 Anion Gap 12 Estim Creat Clear Calc 103.0 Estimated GFR > 60 Random Glucose 170 H Lactic Acid Calcium 8.7 Total Bilirubin 0.4 Direct Bilirubin 0.1 AST 20 ALT 35 H Alkaline Phosphatase 32 L Total Protein 7.1 Albumin 4.1 Urine Color Urine Appearance Urine pH Ur Specific [place] Urine Protein Urine Glucose (UA) Urine Ketones Urine Blood Urine Nitrite Ur Leukocyte Esterase COVID-19 ([facility]) COVID-19 Clin Com Influenza Type A ([facility]) Influenza Type B ([facility]) Influenza A & B Note 02/06/23 02/06/23 02/06/23 13:40 13:40 13:40 MCV MCH MCHC RDW Plt Count MPV Immature Gran % (Auto) Neut % (Auto) Lymph % (Auto) Swift % (Auto) Eos % (Auto) Baso % (Auto) Lymph # (Auto) Swift # (Auto) Eos # (Auto) Baso # (Auto) Abs Immat Gran (auto) Absolute Neuts (auto) Absolute Nucleated RBC Nucleated RBC % (auto) PT INR Anion Gap Estim Creat Clear Calc Estimated GFR Random Glucose Lactic Acid 1.6 Calcium Total Bilirubin Direct Bilirubin AST ALT Alkaline Phosphatase Total Protein Albumin Urine Color Urine Appearance Urine pH Ur Specific [place] Urine Protein Urine Glucose (UA) Urine Ketones Urine Blood Urine Nitrite Ur Leukocyte Esterase COVID-19 ([facility]) Negative COVID-19 Clin Com See Note Influenza Type A ([facility]) Negative Influenza Type B ([facility]) Negative Influenza A & B Note See Note 02/06/23 15:54 MCV MCH MCHC RDW Plt Count MPV Immature Gran % (Auto) Neut % (Auto) Lymph % (Auto) Swift % (Auto) Eos % (Auto) Baso % (Auto) Lymph # (Auto) Swift # (Auto) Eos # (Auto) Baso # (Auto) Abs Immat Gran (auto) Absolute Neuts (auto) Absolute Nucleated RBC Nucleated RBC % (auto) PT INR Anion Gap Estim Creat Clear Calc Estimated GFR Random Glucose Lactic Acid Calcium Total Bilirubin Direct Bilirubin AST ALT Alkaline Phosphatase Total Protein Albumin Urine Color Dark Yellow Urine Appearance Clear Urine pH 6.5 Ur Specific [place] 1.025 Urine Protein Negative Urine Glucose (UA) 500 H Urine Ketones Trace Urine Blood Negative Urine Nitrite Negative Ur Leukocyte Esterase Negative COVID-19 ([facility]) COVID-19 Clin Com Influenza Type A ([facility]) Influenza Type B ([facility]) Influenza A & B Note Imaging Radiologist's Impressions: Impressions Chest X-Ray 02/06/23 13:59 IMPRESSION: Central bronchial wall thickening. More peripheral nodular opacities, question related to bronchial thickening as well. Bronchitis and atypical viral infection should be considered. Chest CT 02/06/23 15:42 IMPRESSION: 1. Extensive, mid to upper lung zone predominantly groundglass opacity nodules, mostly measuring less than 1 cm in size. Many of these are favored to be centrilobular in location. In the proper clinical setting, this appearance can be seen with respiratory bronchiolitis/respiratory bronchiolitis interstitial lung disease, hypersensitivity pneumonitis, infection with endobronchial spread (including tuberculous or nontuberculous mycobacterial infection), or follicular bronchiolitis. Malignancy is considered less likely with this appearance. In the absence of prior studies for comparison, follow-up CT in 3 months is advised. 2. Hepatic steatosis. Assessment and Plan (1) Pulmonary infection: Status: Acute Plan 42F PMH DM, morbid obesity, ?familial hypertriglyceridemia, hepatic steatosis, opiate dependence, depression, fibromyalgia, ptsd, genital herpes presented with arthralgias Sepsis vs sirs due to possible pneumonia Empiric ceftriaxone azithromycin Follow-up respiratory viral panel cultures Differential diagnosis is broad including TB Id eval, airborne precautions for now Morbid obesity Weight loss recommended Diabetes Basal bolus insulin Opiate dependence Opiate replacement therapy DVT prophylaxis with Lovenox Full code Patient with fevers unclear etiology and significant CT scan findings that will require intensive inpatient workup likely to require at least 2 midnights inpatient Time Spent With Patient Time: Total time managing care of this patient today ____ minutes. Quality Stroke Does the patient have a stroke diagnosis?: No VTE Prior VTE?: No VTE Risk Level:: Medical - moderate - high VTE Device Contraindication: Treatment Not Indicated VTE Drug Contraindication: N/A - Med Ordered
[2023-02-06] MEDS: Morphine Sulfate 2 MG/ML CARTRIDGE 4 MG IVPUSH (18:26)
[2023-02-06] MEDS: Enoxaparin Sodium 40 MG/0.4 ML SYRINGE SUBCUT (18:27)
--- NOTE | 2023-02-06 18:36 | PHA.MEDREC ---
Pharmacy Consult ? Medication Reconciliation Pharmacy has completed the medication reconciliation. Patient recently discharged on 01/16/23. utilize discharge summary and claim history to complete med rec. Patricio LaresD
[2023-02-06] MEDS: Amitriptyline HCl 25 MG TABLET PO (21:04)
[2023-02-06] MEDS: Pregabalin 150 MG CAPSULE 300 MG PO (21:04)
[2023-02-06] MEDS: DULoxetine HCl 60 MG CAPSULE.DR PO (21:04)
[2023-02-06] MEDS: Baclofen 10 MG TABLET PO (21:04)
[2023-02-06] MEDS: Pravastatin Sodium 20 MG TABLET PO (21:04)
--- NOTE | 2023-02-06 21:22 | PC.NURSE ---
Nurse to Nurse report given to accepting unit.
[2023-02-06 21:56] LABS: Glucose, Whole Blood 158 mg/dL (60-115)
[2023-02-06] MEDS: Acyclovir 200 MG CAPSULE 400 MG PO (22:31)
[2023-02-06] MEDS: Prazosin HCL 5 MG CAPSULE PO (22:31)
[2023-02-06] MEDS: Insulin Glargine,Hum.rec.anlog 100 UNIT/ML 10 ML VIAL 25 UNIT SUBCUT (22:32)
[2023-02-06] MEDS: hydrOXYzine HCL 25 MG TABLET PO (22:32)
[2023-02-06] MEDS: Insulin Lispro 100 UNIT/ML 3 ML VIAL SUBCUT (22:32)
[2023-02-06] MEDS: Pramipexole Di-HCL 0.25 MG TABLET 0.5 MG PO (22:36)
[2023-02-07] VITALS (7 sets, daily range): BP systolic 88–131; BP diastolic 52–69; PULSE 68–87; RESP 16–20; TEMP 36.1–39.2; O2SAT 91–96
--- NOTE | 2023-02-07 01:10 | PM.EVENT ---
Event Note Date of Service: 02/07/23 Event Note: +ve blood cultures, start Vancomycin. To repeat blood cultures tomorrow Time Spent With Patient Time: Total time managing care of this patient today ____ minutes.
[2023-02-07] MEDS: SUMAtriptan succinate 100 MG TABLET PO ×2 (01:12→08:50)
[2023-02-07] MEDS: Morphine Sulfate 2 MG/ML CARTRIDGE IVPUSH ×3 (01:12→12:12)
--- NOTE | 2023-02-07 01:28 | MHC.PIE ---
p; pt c/o pain 12/12. note; prn morphine q64 given at 2230. critical lab blood cx + gram + cocci in chains i; dr weeks notified; give morphine early dose now. vanco 2g now e; vanco dose only available in ed, nursing sup notified, early dose morphine given. will cont to monitor
[2023-02-07] MEDS: vancomycin/NS 2,000 MG/500 ML PLAST..BAG 250 MG IV (01:44)
[2023-02-07] MEDS: Acetaminophen 325 MG TABLET 650 MG PO ×2 (04:11→15:56)
--- NOTE | 2023-02-07 04:19 | MHC.PIE ---
p; blood cx #2 + gpc in chain. pt fever 102.6 oral i; dr weeks notified. prn tylenol and ice packs given e; will cont to monitor
[2023-02-07] MEDS: Omeprazole 40 MG CAPSULE.DR PO ×2 (05:37→15:56)
--- NOTE | 2023-02-07 05:48 | MHC.PIE ---
p; pt asking for nicotine patch i; dr weeks notified;new order nicoitne patch 7mg now e; will cont to monitor
[2023-02-07 05:58] LABS: Hematocrit 37.8 % (37.0-47.0); Hemoglobin 12.2 g/dl (12.0-16.0); Mean Corpuscular HGB Conc 32.3 g/dl (31.0-35.0); Mean Corpuscular Hemoglobin 28.1 pg (27.0-33.0); Mean Corpuscular Volume 87.1 fL (80.0-98.0); Mean Platelet Volume 11.6 fL (9.4-12.3); Platelet Count 240 X10*3/uL (160-400); Red Blood Count 4.34 X10*6/uL (4.20-5.50); Red Cell Distribution Width 14.1 % (11.0-16.0); White Blood Count 20.8 X10*3/uL (4.8-10.8)
[2023-02-07 06:19] LABS: Anion Gap 13 (12-20); Blood Urea Nitrogen 13 mg/dL (9-16); C Reactive Protein 19.83 mg/dL (< or = 0.50); Calcium 9.1 mg/dL (8.4-10.2); Carbon Dioxide 23 mmol/L (22-29); Chloride 102 mmol/L (96-108); Creatinine Clr Calc Pharmacy 102.7; Estimated Glomerular Filt Rate > 60; Glucose Fasting 152 mg/dL (60-99); Potassium 3.7 mmol/L (3.3-5.1); Sodium 134 mmol/L (135-145)
[2023-02-07] MEDS: Nicotine 7 MG PATCH.TD24 TRANSDERMA (06:26)
[2023-02-07 06:32] LABS: HIV AB/AG Nonreactive (Nonreactive); HIV Num 1 0.05 S/CO (0.00-0.99)
[2023-02-07 07:47] LABS: Glucose, Whole Blood 160 mg/dL (60-115)
--- NOTE | 2023-02-07 07:58 | PHA.PROG ---
Admission Date/Time: February 06, 2023 17:56 Indication: Bacteremia Weight in k kg Adjusted body weight in K.22 [place] body weight in K.7 Obesity Dosing Indication % IBW: OBESE Serum Creatinine - Last 168 Hours 02/06/23 02/07/23 13:40 05:33 Creatinine 0.93 0.97 Estimated CrCl and GFR - Last 168 Hours 02/06/23 02/07/23 13:40 05:33 Estim Creat Clear Calc 103.0 102.7 Estimated GFR > 60 > 60 Vancomycin Loading Dose: 2000 mg Current Vancomycin Dosing Regimen: 1250 mg Q12H Vancomycin Monitoring using AUC goal of 400 - 600 range with trough as surrogate marker: 457 Date and Time for next Vancomycin Level to be drawn: 02/08 @1200 Pharmacist Comments on Vancomycin Plan: Vancomycin dosing will take advantage of [employer] as a clinical decision support tool that uses Bayesian modeling to calculate individual patient's pharmacokinetic parameters and forecast the patient's drug concentration time course with the target goal AUC 24 range of 400 - 600 mg/L/hr.
[2023-02-07] MEDS: lisinopriL 20 MG TABLET PO (08:49)
[2023-02-07] MEDS: Ziprasidone 40 MG CAPSULE PO ×2 (08:49→15:56)
[2023-02-07] MEDS: Buprenorphine/Naloxone 8/2 mg TAB.SUBL 3 TAB SUBLINGUAL (08:49)
[2023-02-07] MEDS: DULoxetine HCl 60 MG CAPSULE.DR PO ×2 (08:49→21:12)
[2023-02-07] MEDS: Baclofen 10 MG TABLET PO ×2 (08:49→21:08)
[2023-02-07] MEDS: hydrOXYzine HCL 25 MG TABLET PO (08:49)
[2023-02-07] MEDS: Prazosin HCL 5 MG CAPSULE PO ×2 (08:49→21:08)
[2023-02-07] MEDS: Acyclovir 200 MG CAPSULE 400 MG PO ×2 (08:50→21:09)
[2023-02-07] MEDS: Pregabalin 150 MG CAPSULE 300 MG PO ×2 (08:50→21:09)
[2023-02-07] MEDS: Insulin Lispro 100 UNIT/ML 3 ML VIAL SUBCUT ×4 (08:50→21:06)
[2023-02-07] MEDS: Fenofibrate 160 MG TABLET PO (08:50)
[2023-02-07] MEDS: hydroCHLOROthiazide 25 MG TABLET PO (08:50)
--- NOTE | 2023-02-07 08:55 | P.PNIM_ITS ---
Subjective Subjective Date of Service: 02/07/23 Interval History: fever and lle ertyhema developing overnight Physical Exam Vital Signs: Vital Signs: Last Vital Signs Temp 98.8 F 02/07/23 07:38 Pulse 71 02/07/23 07:38 Resp 20 02/07/23 07:38 BP 105/52 L 02/07/23 07:38 Pulse Ox 94 02/07/23 07:38 O2 Del Method Nasal Cannula 02/07/23 07:38 O2 Flow Rate 2 02/07/23 07:38 BMI result Body Mass Index 49.6 General: AO X 3, no acute distress Resp: CTA bilateral, no accessory muscles used CVS: S1,S2,RRR GI: soft, non tender, non distended Neuro: motor grossly intact, alert Psych: appropriate affect, appropriate insight Objective Data Active Medications Acetaminophen (Acetaminophen 325 Mg Tablet) 650 mg PO Q6H PRN PRN Reason: Fever Last Admin: 02/07/23 04:11 Dose: 650 mg Documented By: ELSY Acyclovir (Acyclovir 200 Mg Capsule) 400 mg PO BID COUNT INCLUDES THE [facility] Last Admin: 02/07/23 08:50 Dose: 400 mg Documented By: LUPIS Albuterol Sulfate (Albuterol Sulfate 90 Mcg 8 Gm Inhaler) 2 puff INHALE Q6H PRN PRN Reason: Shortness Of Breath Or Wheezing Amitriptyline HCl (Amitriptyline Hcl 25 Mg Tablet) 25 mg PO BEDTIME COUNT INCLUDES THE [facility] Last Admin: 02/06/23 21:04 Dose: 25 mg Documented By: BLESSING Azithromycin (Azithromycin 500 Mg Tablet) 500 mg PO Q24H COUNT INCLUDES THE [facility] Baclofen (Baclofen 10 Mg Tablet) 10 mg PO BID COUNT INCLUDES THE [facility] Last Admin: 02/07/23 08:49 Dose: 10 mg Documented By: LUPIS Buprenorphine/Naloxone (Buprenorphine/Naloxone 8/2 Mg Tab.Subl) 3 tab SUBLINGUAL DAILY COUNT INCLUDES THE [facility] Last Admin: 02/07/23 08:49 Dose: 3 tab Documented By: GABYEMA Dextrose (Dextrose 50 % 25 Gm/50 Ml Syringe) 25 gm IVPUSH Q15M PRN; Protocol PRN Reason: per Hypoglycemia Standing Ord. Duloxetine HCl (Duloxetine Hcl 60 Mg Capsule.Dr) 60 mg PO BID COUNT INCLUDES THE [facility] Last Admin: 02/07/23 08:49 Dose: 60 mg Documented By: LUPIS Enoxaparin Sodium (Enoxaparin Sodium 40 Mg/0.4 Ml Syringe) 40 mg SUBCUT Q24H COUNT INCLUDES THE [facility] Last Admin: 02/06/23 18:27 Dose: 40 mg Documented By: MICHELLE Fenofibrate (Fenofibrate 160 Mg Tablet) 160 mg PO DAILY COUNT INCLUDES THE [facility] Last Admin: 02/07/23 08:50 Dose: 160 mg Documented By: LPUIS Glucose (Glucose Gel 15 Gm Gel..Gram.) 15 gm PO Q15M PRN; Protocol PRN Reason: per Hypoglycemia Standing Ord. Hydrochlorothiazide (Hydrochlorothiazide 25 Mg Tablet) 25 mg PO DAILY COUNT INCLUDES [facility] Last Admin: 02/07/23 08:50 Dose: 25 mg Documented By: LUPIS Hydroxyzine HCl (Hydroxyzine Hcl 25 Mg Tablet) 25 mg PO TID PRN PRN Reason: ptsd Last Admin: 02/07/23 08:49 Dose: 25 mg Documented By: LUPIS Ceftriaxone Sodium 1 gm/ (Sodium Chloride) 50 mls @ 100 mls/hr IV Q24H COUNT INCLUDES THE [facility] Vancomycin HCl 1,250 mg/ (Sodium Chloride) 250 mls @ 166.667 mls/hr IV Q12H COUNT INCLUDES THE [facility] Insulin Glargine (Insulin Glargine,Hum.Rec.Anlog 100 Unit/Ml 10 Ml Vial) 25 unit SUBCUT BEDTIME COUNT INCLUDES THE [facility] Last Admin: 02/06/23 22:32 Dose: 25 unit Documented By: ELSY Insulin Human Lispro (Insulin Lispro 100 Unit/Ml 3 Ml Vial) 0 unit SUBCUT QIDACHS COUNT INCLUDES THE [facility]; Protocol Last Admin: 02/07/23 08:50 Dose: 2 unit Documented By: LUPIS Lisinopril (Lisinopril 20 Mg Tablet) 20 mg PO DAILY COUNT INCLUDES THE [facility] Last Admin: 02/07/23 08:49 Dose: 20 mg Documented By: LUPIS Morphine Sulfate (Morphine Sulfate 2 Mg/Ml Cartridge) 2 mg IVPUSH Q4H PRN; Protocol PRN Reason: Pain, Severe (Pain Scale 7-10) Last Admin: 02/07/23 05:38 Dose: 2 mg Documented By: ELSY Omeprazole (Omeprazole 40 Mg Yeimy.) 40 mg PO BID@0630,1630 COUNT INCLUDES THE [facility] Last Admin: 02/07/23 05:37 Dose: 40 mg Documented By: ELSY Pharmacy Consult (Consult Rx Vancomycin Dosing) 1 each MISCELLANE DAILY PRN PRN Reason: Consult order Pramipexole Dihydrochloride (Pramipexole Di-Hcl 0.25 Mg Tablet) 0.5 mg PO BEDTIME COUNT INCLUDES [facility] Last Admin: 02/06/23 22:36 Dose: 0.5 mg Documented By: ELSY Pravastatin Sodium (Pravastatin Sodium 20 Mg Tablet) 20 mg PO BEDTIME COUNT INCLUDES THE [facility] Last Admin: 02/06/23 21:04 Dose: 20 mg Documented By: BLESSING Prazosin HCl (Prazosin Hcl 5 Mg Capsule) 5 mg PO BID COUNT INCLUDES THE [facility]; Protocol Last Admin: 02/07/23 08:49 Dose: 5 mg Documented By: LUPIS Pregabalin (Pregabalin 150 Mg Capsule) 300 mg PO BID COUNT INCLUDES THE [facility] Last Admin: 02/07/23 08:50 Dose: 300 mg Documented By: LUPIS Sumatriptan Succinate (Sumatriptan Succinate 100 Mg Tablet) 100 mg PO Q2H PRN PRN Reason: Migraine Headache Last Admin: 02/07/23 08:50 Dose: 100 mg Documented By: LUPIS Ziprasidone (Ziprasidone 40 Mg Capsule) 40 mg PO BIDWM COUNT INCLUDES THE [facility] Last Admin: 02/07/23 08:49 Dose: 40 mg Documented By: LUPIS Labs 02/07/23 05:33 02/07/23 05:33 Labs: Laboratory Results - last 24 hr 02/06/23 02/06/23 02/06/23 13:39 13:39 13:40 MCV 86.4 MCH 28.4 MCHC 32.9 RDW 13.8 Plt Count 241 MPV 11.1 Immature Gran % (Auto) 0.6 H Neut % (Auto) 89.5 H Lymph % (Auto) 4.5 L Trigg % (Auto) 4.7 Eos % (Auto) 0.5 Baso % (Auto) 0.2 Lymph # (Auto) 0.9 L Trigg # (Auto) 1.0 Eos # (Auto) 0.1 Baso # (Auto) 0.0 Abs Immat Gran (auto) 0.13 H Absolute Neuts (auto) 18.7 H Absolute Nucleated RBC 0.000 Nucleated RBC % (auto) 0.0 PT 12.4 INR 1.0 Anion Gap 12 Estim Creat Clear Calc 103.0 Estimated GFR > 60 POC Glucose Random Glucose 170 H Fasting Glucose Lactic Acid Calcium 8.7 Total Bilirubin 0.4 Direct Bilirubin 0.1 AST 20 ALT 35 H Alkaline Phosphatase 32 L C-Reactive Protein Total Protein 7.1 Albumin 4.1 Urine Color Urine Appearance Urine pH Ur Specific [place] Urine Protein Urine Glucose (UA) Urine Ketones Urine Blood Urine Nitrite Ur Leukocyte Esterase COVID-19 ([facility]) COVID-19 Clin Com HIV 1&2 Ab/P24 Ag 4thGn Influenza Type A ([facility]) Influenza Type B ([facility]) Influenza A & B Note 02/06/23 02/06/23 02/06/23 13:40 13:40 13:40 MCV MCH MCHC RDW Plt Count MPV Immature Gran % (Auto) Neut % (Auto) Lymph % (Auto) Trigg % (Auto) Eos % (Auto) Baso % (Auto) Lymph # (Auto) Trigg # (Auto) Eos # (Auto) Baso # (Auto) Abs Immat Gran (auto) Absolute Neuts (auto) Absolute Nucleated RBC Nucleated RBC % (auto) PT INR Anion Gap Estim Creat Clear Calc Estimated GFR POC Glucose Random Glucose Fasting Glucose Lactic Acid 1.6 Calcium Total Bilirubin Direct Bilirubin AST ALT Alkaline Phosphatase C-Reactive Protein Total Protein Albumin Urine Color Urine Appearance Urine pH Ur Specific [place] Urine Protein Urine Glucose (UA) Urine Ketones Urine Blood Urine Nitrite Ur Leukocyte Esterase COVID-19 ([facility]) Negative COVID-19 Clin Com See Note HIV 1&2 Ab/P24 Ag 4thGn Influenza Type A ([facility]) Negative Influenza Type B ([facility]) Negative Influenza A & B Note See Note 02/06/23 02/06/23 02/07/23 15:54 21:50 05:33 MCV 87.1 MCH 28.1 MCHC 32.3 RDW 14.1 Plt Count 240 MPV 11.6 Immature Gran % (Auto) Neut % (Auto) Lymph % (Auto) Trigg % (Auto) Eos % (Auto) Baso % (Auto) Lymph # (Auto) Trigg # (Auto) Eos # (Auto) Baso # (Auto) Abs Immat Gran (auto) Absolute Neuts (auto) Absolute Nucleated RBC 0.000 Nucleated RBC % (auto) 0.0 PT INR Anion Gap Estim Creat Clear Calc Estimated GFR POC Glucose 158 H Random Glucose Fasting Glucose Lactic Acid Calcium Total Bilirubin Direct Bilirubin AST ALT Alkaline Phosphatase C-Reactive Protein Total Protein Albumin Urine Color Dark Yellow Urine Appearance Clear Urine pH 6.5 Ur Specific [place] 1.025 Urine Protein Negative Urine Glucose (UA) 500 H Urine Ketones Trace Urine Blood Negative Urine Nitrite Negative Ur Leukocyte Esterase Negative COVID-19 ([facility]) COVID-19 Clin Com HIV 1&2 Ab/P24 Ag 4thGn Influenza Type A ([facility]) Influenza Type B ([facility]) Influenza A & B Note 02/07/23 02/07/23 02/07/23 05:33 05:33 07:33 MCV MCH MCHC RDW Plt Count MPV Immature Gran % (Auto) Neut % (Auto) Lymph % (Auto) Trigg % (Auto) Eos % (Auto) Baso % (Auto) Lymph # (Auto) Trigg # (Auto) Eos # (Auto) Baso # (Auto) Abs Immat Gran (auto) Absolute Neuts (auto) Absolute Nucleated RBC Nucleated RBC % (auto) PT INR Anion Gap 13 Estim Creat Clear Calc 102.7 Estimated GFR > 60 POC Glucose 160 H Random Glucose Fasting Glucose 152 H Lactic Acid Calcium 9.1 Total Bilirubin Direct Bilirubin AST ALT Alkaline Phosphatase C-Reactive Protein 19.83 H Total Protein Albumin Urine Color Urine Appearance Urine pH Ur Specific [place] Urine Protein Urine Glucose (UA) Urine Ketones Urine Blood Urine Nitrite Ur Leukocyte Esterase COVID-19 ([facility]) COVID-19 Clin Com HIV 1&2 Ab/P24 Ag 4thGn Nonreactive Influenza Type A ([facility]) Influenza Type B ([facility]) Influenza A & B Note Microbiology Microbiology Results: Microbiology 02/06/23 15:54 Blood Culture - Preliminary Blood - Arterial Prelim: GPC Gram Stain only 02/06/23 13:39 Blood Culture - Preliminary Blood - Arterial Prelim: GPC Gram Stain only Assessment and Plan (1) Cellulitis of anterior lower leg: Status: Acute Plan 42F PMH DM, morbid obesity, ?familial hypertriglyceridemia, hepatic steatosis, opiate dependence, depression, fibromyalgia, ptsd, genital herpes presented with arthralgias Sepsis due to LLE cellulitis copmlicated by GPC bacteremia added vancomycin, follow up repeat cultures, echo, ID bilateral ground glass opacities on CT Differential diagnosis is broad including, hypersensitivity pneumonitis, atypical pna, TB Empiric ceftriaxone azithromycin Follow-up respiratory viral panel cultures Id eval, airborne precautions for now Morbid obesity Weight loss recommended Diabetes Basal bolus insulin Opiate dependence Opiate replacement therapy DVT prophylaxis with Lovenox Full code reason for continued hospitalization:awaiting cultures, still septic Time Spent With Patient Time: Total time managing care of this patient today ____ minutes. Quality Stroke Does the patient have a stroke diagnosis?: No VTE Prior VTE?: No VTE Risk Level:: Medical - moderate - high VTE Device Contraindication: Treatment Not Indicated VTE Drug Contraindication: N/A - Med Ordered
[2023-02-07 10:12] LABS: Adenovirus PCR Not Detected (Not Detect.); Bordetella parapertussis PCR Not Detected (Not Detect.); Bordetella pertussis PCR Not Detected (Not Detect.); Chlamydia pneumoniae PCR Not Detected (Not Detect.); Coronavirus 229E PCR Not Detected (Not Detect.); Coronavirus HKU1 PCR Not Detected (Not Detect.); Coronavirus NL63 PCR Not Detected (Not Detect.); Coronavirus OC43 PCR Not Detected (Not Detect.); Human metapneumovirus PCR Not Detected (Not Detect.); Influenza A PCR Not Detected (Not Detect.); Influenza B PCR Not Detected (Not Detect.); Mycoplasma pneumoniae PCR Not Detected (Not Detect.); Parainfluenza 1 PCR Not Detected (Not Detect.); Parainfluenza 2 PCR Not Detected (Not Detect.); Parainfluenza 3 PCR Not Detected (Not Detect.); Parainfluenza 4 PCR Not Detected (Not Detect.); RSV PCR Not Detected (Not Detect.); Rhino/Enterovirus PCR Not Detected (Not Detect.); SARS-CoV-2 PCR Not Detected (Not Detect.)
[2023-02-07 11:10] LABS: Glucose, Whole Blood 181 mg/dL (60-115)
--- NOTE | 2023-02-07 14:15 | P.CDIM_ITS ---
PROVIDER RESPONSE TEXT: To clarify, the appropriate diagnosis supported by the clinical indicators: Yes, Cellulitis is related to / associated with / due to Diabetes Mellitus QUERY TEXT: PHYSICIAN'S DOCUMENTATION REQUEST Date of Query: 02/07/2023 02:06 PM EDT Patient Name: Mague Cruz Admit Date: 02/06/2023 Dear Florentino Verde, A review of the medical record indicates additional documentation may be needed. Please review below and update the documentation accordingly. Documentation includes the conditions of LLE Cellulitis and DM . Clinical Indicators: Please clarify the relationship between these conditions: Yes, Cellulitis is related to / associated with / due to Diabetes Mellitus No, Cellulitis is not related to / associated with / due to Diabetes Mellitus Other (explain)Clinically unable to determine (explain)Thank you, Sharon Dolan RN Use of terms such as suspected, likely, concern for, or probable (associated with a specific diagnosi s that is being evaluated, monitored, or treated as if it exists) are acceptable and can be coded in the inpatient se tting, when documented at the time of discharge. Please use your independent medical judgment in providing your response. THIS QUERY IS PART OF THE PERMANENT MEDICAL RECORD
[2023-02-07] MEDS: Nystatin Powder 15 GM BOTTLE 1 APPL TOPICAL ×2 (14:45→21:12)
[2023-02-07] MEDS: vancomycin HCL 1,250 MG in 0.9 % Sodium Chloride 250 ML 166.67 MG IV (14:46)
[2023-02-07] MEDS: Azithromycin 500 MG TABLET PO (15:56)
[2023-02-07] MEDS: 0.9 % Sodium Chloride 1,000 ML 999 ML IV (16:05)
[2023-02-07 16:19] LABS: Glucose, Whole Blood 170 mg/dL (60-115)
[2023-02-07] MEDS: cefTRIAXone sodium 1 GM in 0.9 % Sodium Chloride 50 ML IV (16:31)
[2023-02-07] MEDS: Enoxaparin Sodium 40 MG/0.4 ML SYRINGE SUBCUT (16:33)
[2023-02-07 20:42] LABS: Glucose, Whole Blood 164 mg/dL (60-115)
[2023-02-07] MEDS: Insulin Glargine,Hum.rec.anlog 100 UNIT/ML 10 ML VIAL 25 UNIT SUBCUT (21:07)
[2023-02-07] MEDS: Pravastatin Sodium 20 MG TABLET PO (21:09)
[2023-02-07] MEDS: Pramipexole Di-HCL 0.25 MG TABLET 0.5 MG PO (21:09)
[2023-02-07] MEDS: Amitriptyline HCl 25 MG TABLET PO (21:10)
--- NOTE | 2023-02-07 23:39 | P.CNID_ITS ---
History of Present Illness Data of Consult Service Date: 02/07/23 Requesting physician: Florentino Verde Primary Care Provider: AYO Duncan HPI Reason for consult: bacteremia,interstitial lung disease She presents with headache,temperature and felt ill last two days. She has some nodular pattern in CT scan. She has bacteremia. She is HIV negative. She was in hospital and treated for pneumonia 01/14-01/18 and discharged on Cefuroxime and Zithromax. She denies any heart valves or port lines Review of Systems Review of Systems: Yes unobtainable due to endotracheal tube PMFSH Past Medical History Medical History (Updated 02/07/23 @ 23:45 by Kimberly Jimenez MD) Bacteremia Depression with anxiety Diabetes History of migraine headaches Hyperlipidemia Family History Family history: reviewed and not pertinent Social History Social History Household Members: Family Household Members Other:: CHILDREN Housing: House Do you presently have visiting nurse or other home services: No Alcohol intake: never Patient Tobacco Use Status: Current everyday Tobacco user Tobacco use type: Cigarette Cigarettes Per Day: 2 e-Cigarette/Vaping Use: Former Use Second Hand Smoke Exposure: No Substance Use Type: Marijuana service: No Meds Allergies Allergy/AdvReac Type Severity Reaction Status Date / Time Sulfa (Sulfonamide Allergy Unknown HIVES Verified 02/06/23 22:31 Antibiotics) [SULFA (SULFONAMIDE ANTIBIOTICS)] glipizide Allergy Unknown Verified 02/06/23 22:31 Active Medications: Current Medications Acetaminophen (Acetaminophen 325 Mg Tablet) 650 mg PO Q6H PRN PRN Reason: Fever Last Admin: 02/07/23 15:56 Dose: 650 mg Acyclovir (Acyclovir 200 Mg Capsule) 400 mg PO BID [facility] Last Admin: 02/07/23 21:09 Dose: 400 mg Albuterol Sulfate (Albuterol Sulfate 90 Mcg 8 Gm Inhaler) 2 puff INHALE Q6H PRN PRN Reason: Shortness Of Breath Or Wheezing Amitriptyline HCl (Amitriptyline Hcl 25 Mg Tablet) 25 mg PO BEDTIME [facility] Last Admin: 02/07/23 21:10 Dose: 25 mg Baclofen (Baclofen 10 Mg Tablet) 10 mg PO BID [facility] Last Admin: 02/07/23 21:08 Dose: 10 mg Buprenorphine/Naloxone (Buprenorphine/Naloxone 8/2 Mg Tab.Subl) 3 tab SUBLINGUAL DAILY [facility] Last Admin: 02/07/23 08:49 Dose: 3 tab Dextrose (Dextrose 50 % 25 Gm/50 Ml Syringe) 25 gm IVPUSH Q15M PRN; Protocol PRN Reason: per Hypoglycemia Standing Ord. Duloxetine HCl (Duloxetine Hcl 60 Mg Capsule.) 60 mg PO BID [facility] Last Admin: 02/07/23 21:12 Dose: 60 mg Enoxaparin Sodium (Enoxaparin Sodium 40 Mg/0.4 Ml Syringe) 40 mg SUBCUT Q24H [facility] Last Admin: 02/07/23 16:33 Dose: 40 mg Fenofibrate (Fenofibrate 160 Mg Tablet) 160 mg PO DAILY [facility] Last Admin: 02/07/23 08:50 Dose: 160 mg Glucose (Glucose Gel 15 Gm Gel..Gram.) 15 gm PO Q15M PRN; Protocol PRN Reason: per Hypoglycemia Standing Ord. Hydrochlorothiazide (Hydrochlorothiazide 25 Mg Tablet) 25 mg PO DAILY [facility] Last Admin: 02/07/23 08:50 Dose: 25 mg Hydroxyzine HCl (Hydroxyzine Hcl 25 Mg Tablet) 25 mg PO TID PRN PRN Reason: ptsd Last Admin: 02/07/23 08:49 Dose: 25 mg Vancomycin HCl 1,250 mg/ (Sodium Chloride) 250 mls @ 166.667 mls/hr IV Q12H [facility] Last Infusion: 02/07/23 16:35 Dose: Infused Insulin Glargine (Insulin Glargine,Hum.Rec.Anlog 100 Unit/Ml 10 Ml Vial) 25 unit SUBCUT BEDTIME [facility] Last Admin: 02/07/23 21:07 Dose: 25 unit Insulin Human Lispro (Insulin Lispro 100 Unit/Ml 3 Ml Vial) 0 unit SUBCUT QIDACHS [facility]; Protocol Last Admin: 02/07/23 21:06 Dose: 2 unit Lisinopril (Lisinopril 20 Mg Tablet) 20 mg PO DAILY [facility] Last Admin: 02/07/23 08:49 Dose: 20 mg Nystatin (Nystatin Powder 15 Gm Bottle) 1 appl TOPICAL TID [facility]; Protocol Last Admin: 02/07/23 21:12 Dose: 1 appl Omeprazole (Omeprazole 40 Mg Capsule.) 40 mg PO BID@0630,1630 [facility] Last Admin: 02/07/23 15:56 Dose: 40 mg Pharmacy Consult (Consult Rx Vancomycin Dosing) 1 each MISCELLANE DAILY PRN PRN Reason: Consult order Pramipexole Dihydrochloride (Pramipexole Di-Hcl 0.25 Mg Tablet) 0.5 mg PO BEDTIME [facility] Last Admin: 02/07/23 21:09 Dose: 0.5 mg Pravastatin Sodium (Pravastatin Sodium 20 Mg Tablet) 20 mg PO BEDTIME [facility] Last Admin: 02/07/23 21:09 Dose: 20 mg Prazosin HCl (Prazosin Hcl 5 Mg Capsule) 5 mg PO BID [facility]; Protocol Last Admin: 02/07/23 21:08 Dose: 5 mg Pregabalin (Pregabalin 150 Mg Capsule) 300 mg PO BID [facility] Last Admin: 02/07/23 21:09 Dose: 300 mg Sumatriptan Succinate (Sumatriptan Succinate 100 Mg Tablet) 100 mg PO Q2H PRN PRN Reason: Migraine Headache Last Admin: 02/07/23 08:50 Dose: 100 mg Ziprasidone (Ziprasidone 40 Mg Capsule) 40 mg PO BIDWM [facility] Last Admin: 02/07/23 15:56 Dose: 40 mg Home Medications Medication Instructions Recorded Confirmed Last Taken Type acyclovir 400 mg tablet 400 mg PO BID 09/26/22 02/06/23 01/13/23 History amitriptyline 25 mg tablet 25 mg PO BEDTIME 09/26/22 02/06/23 01/13/23 History baclofen 10 mg tablet 10 mg PO BID 09/26/22 02/06/23 01/13/23 History buprenorphine 8 mg-naloxone 2 mg 3 tab sublingual DAILY 09/26/22 02/06/23 01/13/23 History sublingual tablet duloxetine 60 mg capsule,delayed 60 mg PO BID 09/26/22 02/06/23 01/13/23 History release fenofibrate nanocrystallized 145 145 mg PO DAILY 09/26/22 02/06/23 01/13/23 History mg tablet hydroxyzine HCl 25 mg tablet 25 mg PO TID PRN ptsd 09/26/22 02/06/23 Unknown History lisinopril 20 1 tab PO DAILY 09/26/22 02/06/23 01/13/23 History mg-hydrochlorothiazide 25 mg tablet metformin 850 mg tablet 850 mg PO BID 09/26/22 02/06/23 01/13/23 History omeprazole 40 mg capsule,delayed 40 mg PO BID 09/26/22 02/06/23 01/13/23 History release pramipexole 0.5 mg tablet 0.5 mg PO BEDTIME 09/26/22 02/06/23 01/13/23 History pravastatin 20 mg tablet 20 mg PO BEDTIME 09/26/22 02/06/23 01/13/23 History prazosin 5 mg capsule 5 mg PO BID 09/26/22 02/06/23 01/13/23 History pregabalin 300 mg capsule 300 mg PO BID 09/26/22 02/06/23 01/13/23 History sumatriptan succinate 100 mg tablet 100 mg PO Q2H PRN Migraine Headache 09/26/22 02/06/23 Unknown History albuterol sulfate 90 mcg/actuation 2 puff inhalation Q6H PRN 01/12/23 02/06/23 Unknown History aerosol inhaler (Ventolin HFA) Shortness Of Breath Or Wheezing ziprasidone HCl 40 mg capsule 40 mg PO BIDWM 01/12/23 02/06/23 01/13/23 History insulin glargine 100 unit/mL (3 26 unit subcut BEDTIME 01/14/23 02/06/23 01/13/23 History mL) subcutaneous pen (Lantus Solostar U-100 Insulin) Physical Exam Vital Signs: Vital Signs: Last Vital Signs Temp 97.0 F 02/07/23 20:00 Pulse 68 02/07/23 20:00 Resp 16 02/07/23 20:00 BP 131/69 02/07/23 20:00 Pulse Ox 96 02/07/23 20:00 O2 Del Method Room Air 02/07/23 20:00 O2 Flow Rate 2 02/07/23 17:13 BMI result Body Mass Index 49.6 Const: General: cooperative HEENT: Head: Yes normal to inspection Face and sinus: Yes normal facial ex am Mouth: Normal oral and palatal mucosa present Teeth and gingiva: dentition normal Eyes: General: appearance normal, both eyes and all related structures Pupils: Equal, round and reactive pupils present Resp: Effort & Inspection: normal respiratory effort Cardio: Rate: regular rate Rhythm: regular rhythm GI: Palpation (GI): Soft to palpation and nontender : General: Yes no CVA tenderness Back/Spine/Pelvis: Back: no CVA tenderness Skin: General skin exam: no rashes or lesions noted Neuro: General: moves all extremities Cranial nerves: Yes Equal, round and reactive pupils present Extrem: General: Yes normal to inspection Psych: Appearance: grossly normal Results Labs 02/07/23 05:33 02/07/23 05:33 Labs: Short CBC 02/07/23 Range/Units 05:33 WBC 20.8 H (4.8-10.8) X10*3/uL Hgb 12.2 (12.0-16.0) g/dl Hct 37.8 (37.0-47.0) % Plt Count 240 (160-400) X10*3/uL BMP 02/07/23 05:33 Sodium 134 L Potassium 3.7 D Chloride 102 Carbon Dioxide 23 BUN 13 Creatinine 0.97 Calcium 9.1 Microbiology Microbiology Results: Microbiology 02/06/23 15:54 Blood - Arterial Blood Culture - Preliminary Prelim: GPC Gram Stain only 02/06/23 13:39 Blood - Arterial Blood Culture - Preliminary Prelim: GPC Gram Stain only Assessment and Plan (1) Bacteremia: Status: Acute She has bacteremia and there is concern over gram positive cocci such as staph. She has possible septic pulmonary emboli. I dont think this represents tuberculosis. Plan Would continue Vancomycin only cover gram positive bacteremia. Check echo evaluate endocarditis as no other other source. Would not use respiratory precautions for tuberculosis as doubtful. Time Spent With Patient Time: Total time managing care of this patient today ____ minutes.
[2023-02-08] MEDS: vancomycin HCL 1,250 MG in 0.9 % Sodium Chloride 250 ML 166.67 MG IV (02:05)
[2023-02-08] MEDS: Acetaminophen 325 MG TABLET 650 MG PO ×3 (02:09→16:55)
[2023-02-08 04:00] VITALS: BP 102/60; PULSE 68; RESP 16; TEMP 37.4; O2SAT 92
[2023-02-08] MEDS: Ketorolac Tromethamine 15 MG/ML VIAL IVPUSH ×2 (04:27→18:05)
--- NOTE | 2023-02-08 04:49 | PC.NURSE ---
pt in room 383 has taken her PRN tylenol med at 02:09. Pt asked for stronger pain med stating that tylenol was not effective.Dr Olivo was notified, Dr Blankenship ordered tralodol
[2023-02-08] MEDS: Omeprazole 40 MG CAPSULE.DR PO ×2 (05:53→16:51)
[2023-02-08 06:31] LABS: Hematocrit 32.4 % (37.0-47.0); Hemoglobin 10.4 g/dl (12.0-16.0); Mean Corpuscular HGB Conc 32.1 g/dl (31.0-35.0); Mean Corpuscular Hemoglobin 27.8 pg (27.0-33.0); Mean Corpuscular Volume 86.6 fL (80.0-98.0); Mean Platelet Volume 11.4 fL (9.4-12.3); Platelet Count 225 X10*3/uL (160-400); Red Blood Count 3.74 X10*6/uL (4.20-5.50); Red Cell Distribution Width 14.2 % (11.0-16.0); White Blood Count 10.8 X10*3/uL (4.8-10.8)
[2023-02-08 06:41] LABS: Anion Gap 13 (12-20); Blood Urea Nitrogen 16 mg/dL (9-16); Calcium 8.7 mg/dL (8.4-10.2); Carbon Dioxide 22 mmol/L (22-29); Chloride 104 mmol/L (96-108); Creatinine Clr Calc Pharmacy 109.4; Estimated Glomerular Filt Rate > 60; Glucose Fasting 137 mg/dL (60-99); Potassium 3.5 mmol/L (3.3-5.1); Sodium 135 mmol/L (135-145)
[2023-02-08 07:30] VITALS: BP 113/59; PULSE 69; RESP 18; TEMP 36.7; O2SAT 93
[2023-02-08 07:39] LABS: Glucose, Whole Blood 131 mg/dL (60-115)
[2023-02-08] MEDS: Pregabalin 150 MG CAPSULE 300 MG PO ×2 (09:13→20:52)
[2023-02-08] MEDS: hydroCHLOROthiazide 25 MG TABLET PO (09:13)
[2023-02-08] MEDS: Buprenorphine/Naloxone 8/2 mg TAB.SUBL 3 TAB SUBLINGUAL (09:13)
[2023-02-08] MEDS: Acyclovir 200 MG CAPSULE 400 MG PO ×2 (09:13→20:52)
[2023-02-08] MEDS: Baclofen 10 MG TABLET PO ×2 (09:13→20:52)
[2023-02-08] MEDS: Prazosin HCL 5 MG CAPSULE PO ×2 (09:14→20:52)
[2023-02-08] MEDS: DULoxetine HCl 60 MG CAPSULE.DR PO ×2 (09:14→20:52)
[2023-02-08] MEDS: Fenofibrate 160 MG TABLET PO (09:14)
[2023-02-08] MEDS: Ziprasidone 40 MG CAPSULE PO ×2 (09:14→16:51)
[2023-02-08] MEDS: lisinopriL 20 MG TABLET PO (09:14)
[2023-02-08] MEDS: Nystatin Powder 15 GM BOTTLE 1 APPL TOPICAL ×3 (09:17→20:54)
[2023-02-08 11:07] LABS: Glucose, Whole Blood 186 mg/dL (60-115)
[2023-02-08] MEDS: Insulin Lispro 100 UNIT/ML 3 ML VIAL SUBCUT ×3 (11:54→20:53)
[2023-02-08] MEDS: Nicotine 7 MG PATCH.TD24 TRANSDERMA (12:08)
--- NOTE | 2023-02-08 12:32 | HO.PM.IMPN ---
Subjective Subjective Date of Service: 02/08/23 Interval History: Seen and evaluated this morning Feels better overall Erythema improving Off O2 Pending final cultures amd Echo Review of Systems Review of Systems: Yes all other systems are reviewed and are negative Physical Exam Vital Signs: Vital Signs: Last Vital Signs Temp 98.1 F 02/08/23 07:30 Pulse 69 02/08/23 07:30 Resp 18 02/08/23 07:30 BP 113/59 L 02/08/23 07:30 Pulse Ox 93 02/08/23 07:30 O2 Del Method Room Air 02/08/23 07:30 O2 Flow Rate 2 02/07/23 17:13 BMI result Body Mass Index 49.6 Const: Other: Constitutional : Awake, interactive, not in distress Neck : Normal inspection, Supple Cardiovascular : RRR, no JVP, no lower extremity edema Respiratory : good bilateral air entry, basal fine crackles, No wheezes Gastrointestinal: soft, lax, Normal bowel sounds, Non tender Skin : Warm, Dry, LLE shaft erythema and tenderness Neurological : Alert & oriented x3, No focal deficit Objective Data Active Medications Acetaminophen (Acetaminophen 325 Mg Tablet) 650 mg PO Q6H PRN PRN Reason: Fever Last Admin: 02/08/23 11:05 Dose: 650 mg Documented By: DYAN Acyclovir (Acyclovir 200 Mg Capsule) 400 mg PO BID [facility] Last Admin: 02/08/23 09:13 Dose: 400 mg Documented By: DYAN Albuterol Sulfate (Albuterol Sulfate 90 Mcg 8 Gm Inhaler) 2 puff INHALE Q6H PRN PRN Reason: Shortness Of Breath Or Wheezing Amitriptyline HCl (Amitriptyline Hcl 25 Mg Tablet) 25 mg PO BEDTIME [facility] Last Admin: 02/07/23 21:10 Dose: 25 mg Documented By: PEPE Baclofen (Baclofen 10 Mg Tablet) 10 mg PO BID [facility] Last Admin: 02/08/23 09:13 Dose: 10 mg Documented By: DYAN Buprenorphine/Naloxone (Buprenorphine/Naloxone 8/2 Mg Tab.Subl) 3 tab SUBLINGUAL DAILY [facility] Last Admin: 02/08/23 09:13 Dose: 3 tab Documented By: DYAN Dextrose (Dextrose 50 % 25 Gm/50 Ml Syringe) 25 gm IVPUSH Q15M PRN; Protocol PRN Reason: per Hypoglycemia Standing Ord. Duloxetine HCl (Duloxetine Hcl 60 Mg Capsule.Dr) 60 mg PO BID [facility] Last Admin: 02/08/23 09:14 Dose: 60 mg Documented By: DYAN Enoxaparin Sodium (Enoxaparin Sodium 40 Mg/0.4 Ml Syringe) 40 mg SUBCUT Q24H [facility] Last Admin: 02/07/23 16:33 Dose: 40 mg Documented By: LUPIS Fenofibrate (Fenofibrate 160 Mg Tablet) 160 mg PO DAILY [facility] Last Admin: 02/08/23 09:14 Dose: 160 mg Documented By: DYAN Glucose (Glucose Gel 15 Gm Gel..Gram.) 15 gm PO Q15M PRN; Protocol PRN Reason: per Hypoglycemia Standing Ord. Hydrochlorothiazide (Hydrochlorothiazide 25 Mg Tablet) 25 mg PO DAILY [facility] Last Admin: 02/08/23 09:13 Dose: 25 mg Documented By: DYAN Hydroxyzine HCl (Hydroxyzine Hcl 25 Mg Tablet) 25 mg PO TID PRN PRN Reason: ptsd Last Admin: 02/07/23 08:49 Dose: 25 mg Documented By: LUPIS Vancomycin HCl 1,250 mg/ (Sodium Chloride) 250 mls @ 166.667 mls/hr IV Q12H [facility] Last Infusion: 02/08/23 03:59 Dose: 0 mls/hr Documented By: PEPE Insulin Glargine (Insulin Glargine,Hum.Rec.Anlog 100 Unit/Ml 10 Ml Vial) 25 unit SUBCUT BEDTIME [facility] Last Admin: 02/07/23 21:07 Dose: 25 unit Documented By: PEPE Insulin Human Lispro (Insulin Lispro 100 Unit/Ml 3 Ml Vial) 0 unit SUBCUT QIDACHS [facility]; Protocol Last Admin: 02/08/23 11:54 Dose: 2 unit Documented By: DYAN Ketorolac Tromethamine (Ketorolac Tromethamine 15 Mg/Ml Vial) 15 mg IVPUSH Q6H PRN PRN Reason: Pain, Severe (Pain Scale 7-10) Last Admin: 02/08/23 04:27 Dose: 15 mg Documented By: PEPE Lisinopril (Lisinopril 20 Mg Tablet) 20 mg PO DAILY [facility] Last Admin: 02/08/23 09:14 Dose: 20 mg Documented By: DYAN Nicotine (Nicotine 7 Mg Patch.Td24) 7 mg TRANSDERMA DAILY [facility] Nystatin (Nystatin Powder 15 Gm Bottle) 1 appl TOPICAL TID [facility]; Protocol Last Admin: 02/08/23 09:17 Dose: 1 appl Documented By: DYAN Omeprazole (Omeprazole 40 Mg Capsule.Dr) 40 mg PO BID@0630,1630 [facility] Last Admin: 02/08/23 05:53 Dose: 40 mg Documented By: PEPE Pharmacy Consult (Consult Rx Vancomycin Dosing) 1 each MISCELLANE DAILY PRN PRN Reason: Consult order Pramipexole Dihydrochloride (Pramipexole Di-Hcl 0.25 Mg Tablet) 0.5 mg PO BEDTIME [facility] Last Admin: 02/07/23 21:09 Dose: 0.5 mg Documented By: PEPE Pravastatin Sodium (Pravastatin Sodium 20 Mg Tablet) 20 mg PO BEDTIME [facility] Last Admin: 02/07/23 21:09 Dose: 20 mg Documented By: PEPE Prazosin HCl (Prazosin Hcl 5 Mg Capsule) 5 mg PO BID [facility]; Protocol Last Admin: 02/08/23 09:14 Dose: 5 mg Documented By: DYAN Pregabalin (Pregabalin 150 Mg Capsule) 300 mg PO BID [facility] Last Admin: 02/08/23 09:13 Dose: 300 mg Documented By: DYAN Sumatriptan Succinate (Sumatriptan Succinate 100 Mg Tablet) 100 mg PO Q2H PRN PRN Reason: Migraine Headache Last Admin: 02/07/23 08:50 Dose: 100 mg Documented By: COTEMA Ziprasidone (Ziprasidone 40 Mg Capsule) 40 mg PO BIDWM [facility] Last Admin: 02/08/23 09:14 Dose: 40 mg Documented By: DYAN Labs 02/08/23 06:14 02/08/23 06:14 Labs: Laboratory Results - last 24 hr 02/07/23 02/07/23 02/08/23 16:12 20:36 06:14 MCV MCH MCHC RDW Plt Count MPV Absolute Nucleated RBC Nucleated RBC % (auto) Anion Gap 13 Estim Creat Clear Calc 109.4 Estimated GFR > 60 POC Glucose 170 H 164 H Fasting Glucose 137 H Calcium 8.7 02/08/23 02/08/23 02/08/23 06:14 07:33 10:59 MCV 86.6 MCH 27.8 MCHC 32.1 RDW 14.2 Plt Count 225 MPV 11.4 Absolute Nucleated RBC 0.000 Nucleated RBC % (auto) 0.0 Anion Gap Estim Creat Clear Calc Estimated GFR POC Glucose 131 H 186 H Fasting Glucose Calcium Microbiology Microbiology Results: Microbiology 02/06/23 13:39 Blood Culture - Preliminary Blood - Arterial Prelim: GPC Gram Stain only Assessment and Plan (1) Bacteremia: Status: Acute (2) Pulmonary infection: Status: Acute (3) Cellulitis of anterior lower leg: Status: Acute Plan 42F PMH DM, morbid obesity, ?familial hypertriglyceridemia, hepatic steatosis, opiate dependence, depression, fibromyalgia, ptsd, genital herpes presented with arthralgias Sepsis due to LLE cellulitis complicated by GPC bacteremia Continue vancomycin follow up repeat cultures Pending echo Follow Vanco trough bilateral ground glass opacities on CT broad differential ; hypersensitivity pneumonitis, atypical pna, TB on Vancomycin -ve respiratory viral panel Id eval,no need for resp precautions Morbid obesity Weight loss recommended Diabetes Basal bolus insulin Opiate dependence Opiate replacement therapy DVT prophylaxis with Lovenox Full code reason for continued hospitalization:awaiting cultures, still septic Time Spent With Patient Time: Total time managing care of this patient today ____ minutes. Quality Stroke Does the patient have a stroke diagnosis?: No VTE Prior VTE?: No VTE Risk Level:: Medical - moderate - high VTE Device Contraindication: Treatment Not Indicated VTE Drug Contraindication: N/A - Med Ordered
[2023-02-08 12:51] LABS: Vancomycin Random 12.1 mcg/mL (15-20)
--- NOTE | 2023-02-08 13:00 | HE.PHANOTE ---
RE: vanco Trough on 02/08 came back at 12.1 mg/L. Increased dose to 1000mg Q8H with predicted AUC of 590 mg/L, trough of 17 mg/L. Getting another level on 02/09 @1200. Will adjust accordingly
--- NOTE | 2023-02-08 13:27 | MHC.CM.PN ---
EMR REVIEWED, PT READMITTED W/PNA, CM MET W/PT WHO REPORTS SHE LIVES W/HER 2 DTRS, PT IS INDEP W/ALL CARE AND HAS DIABETIC SUPPLIES FOR DME, PT REPORTS SHE USED TO HAVE A NEBULIZER BUT NO LONGER DOES. 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 PT VERIFIES PCP ON FILE IS CORRECT, DENIES RECEIVING ANY VACCINES FOR COVID19 AND HAS BEEN EDUCATED ON AND DECLINES TO COMPLETE A HCP AT THIS TIME. THRIVE ASSESSMENT NEGATIVE, PT DOES REPORTS SHE DOES RECEIVE FOOD STAMPS AND A TRIPP BENEFIT HOWEVER PT DID REQUEST [employer]ES/RESOURCE GUIDE WHICH HAVE BEEN DELIVERED TO BEDSIDE.
--- NOTE | 2023-02-08 13:34 | MHC.CM.PN ---
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
[2023-02-08] MEDS: vancomycin HCL 1,000 MG in 0.9 % Sodium Chloride 250 ML 270 MG IV ×2 (13:36→22:33)
[2023-02-08 15:18] VITALS: BP 112/63; PULSE 55; RESP 17; TEMP 37; O2SAT 92
[2023-02-08 16:36] LABS: Glucose, Whole Blood 196 mg/dL (60-115)
[2023-02-08] MEDS: Enoxaparin Sodium 40 MG/0.4 ML SYRINGE SUBCUT (16:51)
[2023-02-08 19:35] VITALS: BP 117/57; PULSE 57; RESP 18; TEMP 37.1; O2SAT 93
[2023-02-08 20:47] LABS: Glucose, Whole Blood 166 mg/dL (60-115)
[2023-02-08] MEDS: Pravastatin Sodium 20 MG TABLET PO (20:52)
[2023-02-08] MEDS: hydrOXYzine HCL 25 MG TABLET PO (20:52)
[2023-02-08] MEDS: Amitriptyline HCl 25 MG TABLET PO (20:52)
[2023-02-08] MEDS: Pramipexole Di-HCL 0.25 MG TABLET 0.5 MG PO (20:52)
[2023-02-08] MEDS: Insulin Glargine,Hum.rec.anlog 100 UNIT/ML 10 ML VIAL 25 UNIT SUBCUT (20:53)
--- NOTE | 2023-02-08 23:40 | PM.IDPN ---
Subjective Subjective Date of Service: 02/08/23 Critical Care Time (minutes): 15 Comment: She has Group B strep bacteremia Objective Data Labs 02/08/23 06:14 02/08/23 06:14 Labs: Laboratory Results - last 24 hr 02/08/23 02/08/23 02/08/23 06:14 06:14 07:33 WBC 10.8 RBC 3.74 L Hgb 10.4 L Hct 32.4 L MCV 86.6 MCH 27.8 MCHC 32.1 RDW 14.2 Plt Count 225 MPV 11.4 Absolute Nucleated RBC 0.000 Nucleated RBC % (auto) 0.0 Sodium 135 Potassium 3.5 Chloride 104 Carbon Dioxide 22 Anion Gap 13 BUN 16 Creatinine 0.91 Estim Creat Clear Calc 109.4 Estimated GFR > 60 POC Glucose 131 H Fasting Glucose 137 H Calcium 8.7 Random Vancomycin 02/08/23 02/08/23 02/08/23 10:59 11:48 16:15 WBC RBC Hgb Hct MCV MCH MCHC RDW Plt Count MPV Absolute Nucleated RBC Nucleated RBC % (auto) Sodium Potassium Chloride Carbon Dioxide Anion Gap BUN Creatinine Estim Creat Clear Calc Estimated GFR POC Glucose 186 H 196 H Fasting Glucose Calcium Random Vancomycin 12.1 L 02/08/23 20:22 WBC RBC Hgb Hct MCV MCH MCHC RDW Plt Count MPV Absolute Nucleated RBC Nucleated RBC % (auto) Sodium Potassium Chloride Carbon Dioxide Anion Gap BUN Creatinine Estim Creat Clear Calc Estimated GFR POC Glucose 166 H Fasting Glucose Calcium Random Vancomycin Microbiology Microbiology Results: Microbiology 02/07/23 13:25 Blood - Venous Blood Culture - Preliminary No growth after 24 hours. 02/07/23 13:25 Blood - Venous Blood Culture - Preliminary No growth after 24 hours. 02/06/23 15:54 Blood - Arterial Blood Culture - Final Strep agalactiae (Grp B) 02/06/23 13:39 Blood - Arterial Blood Culture - Final Strep agalactiae (Grp B) Physical Exam Vital Signs: Vital Signs: Last Vital Signs Temp 98.7 F 02/08/23 19:35 Pulse 57 02/08/23 19:35 Resp 18 02/08/23 19:35 BP 117/57 L 02/08/23 19:35 Pulse Ox 93 02/08/23 19:35 O2 Del Method Room Air 02/08/23 19:35 O2 Flow Rate 2 02/07/23 17:13 BMI result Body Mass Index 49.6 Const: General: cooperative Eyes: General: appearance normal, both eyes and all related structures Pupils: Equal, round and reactive pupils present Resp: Effort & Inspection: normal respiratory effort Cardio: Rate: regular rate Rhythm: regular rhythm GI: Inspection: Yes normal to inspection Neuro: Cranial nerves: Yes Equal, round and reactive pupils present Extrem: Other: improved LLE redness Assessment and Plan Assessment and plan (1) Bacteremia: Status: Acute Plan Group B strep bacteremia She is feeling better Switch from Vancomycin to Ceftriaxone. Make sure echo negative and then po cephalosporin on discharge when better for total 14 days. Time Spent With Patient Time: Total time managing care of this patient today ____ minutes.
[2023-02-09] MEDS: cefTRIAXone sodium 2 GM in 0.9 % Sodium Chloride 50 ML IV (00:28)
[2023-02-09 03:38] VITALS: BP 109/58; PULSE 52; RESP 18; TEMP 36.2; O2SAT 96
[2023-02-09] MEDS: Omeprazole 40 MG CAPSULE.DR PO ×2 (05:49→15:49)
--- NOTE | 2023-02-09 07:00 | CA_ITS ---
Transthoracic Echocardiogram Patient (Last, First, Middle): Mague Cruz L Gender: Female Date of : 1980 Age: 42 Procedure Date: 02/09/2023 Procedure Type: Transthoracic Echocardiogram Location: S3E Height: 162.56 cm Weight: 130.64 kg BSA: 2.28 m2 Heart Rate: 65 bpm BP: 105 / 52 mmHg Stock Checker: SB Referring MD: Florentino Verde MD Cafeteria Helper: Enrico Gallego MD Symptoms: bacteremia Study Quality: Fair ECG Rhythm: Sinus Conclusions: - 1. This study is not diagnostic to rule out vegetations, clinical correlation suggested 2. Normal LV ejection fraction 55-60% 3. Normal cardiac valvular Dopplers 4. Normal RV systolic pressure Findings Procedure Information Contrast agent, definity, is being given per protocol without apparent complications. Left Ventricle Normal left ventricular size, thickness, and systolic function. The visually estimated ejection fraction is between 55-60%. Spectral Doppler is indicative of a normal filling pattern. Right Ventricle Normal right ventricular cavity size. Atria The left atrium is normal in size. Interatrial shunt cannot be excluded. The right atrium was not well visualized. Aortic Valve The aortic valve was not well visualized. There is no aortic valve stenosis. There is no aortic valve regurgitation. Mitral Valve Normal mitral valve structure and function. There is trace mitral valve regurgitation. There is no mitral valve stenosis. Pulmonic Valve The pulmonic valve was not well visualized. Tricuspid Valve Likely normal tricuspid valve structure and function. There is trace tricuspid valve regurgitation. The right ventricular systolic pressure is normal. The right ventricular systolic pressure is 26 mmHg. Normal right atrial pressure. There is no evidence of pulmonary hypertension. Great Vessels The aorta was not well visualized. The pulmonary artery was not well visualized. Venous The inferior vena cava is normal in size and collapses greater than 50% with inspiration. Pericardium/Pleural The pericardium was not well visualized. Prior Study Comparison No prior study available for comparison. Recommendations, Care & Conclusions Consider a JEANE if clinically appropriate. Measurements 2D Linear Measurements IVSd: 1.14 0.6-0.9/0.6-1.0 cm LVIDd: 5.31 3.9-5.3/4.2-5.9 cm LVIDd Index: 2.33 2.4-3.2/2.2-3.1 cm/m2 LVIDs: 3.48 2.0-3.6 cm LVPWd: 0.93 0.7-1.1 cm LA Diam: 3.60 2.7-3.8/3.0-4.0 cm LAIDs Index: 1.58 1.5-2.3 cm/m2 LV Mass: 261.64 67-162/88-224 g LV Mass Index: 114.75 43-95/49-115 g/m2 LVOT Diam: 2.20 3.0+(-)1.3 cm 2D Systolic Function EF 4C: 56.50 >55% EF 2C: 53.10 >55% EF BiP: 55.80 >55% Mitral Valve MV Pk E: 1.14 MV PK A: 0.63 MV Decel Time: 172.00 E/A: 1.80 E'Lateral: 14.70 E'Medial: 10.60 E/E' Med: 10.80 E/E' Lat: 7.80 PHT: 50.00 MVA PHT: 4.40 Decel [place]: 6.64 Aortic Valve AoV Pk Phillip: 1.45 AoV Pk Grad: 8.00 SILAS: 3.10 LVOT LVOT Pk Phillip: 1.15 LVOT Mn Phillip: 0.78 LVOT VTI: 0.25 LVOT Pk Grad: 5.00 LVOT Mn Grad: 3.00 LVOT Diam: 2.20 LVOT Area: 3.80 Diastolic Function MV Pk E: 1.14 MV Pk A: 0.63 E/A: 1.80 E'Medial: 10.60 E/E' Med: 10.80 E' Laterial: 14.70 E/E' Lat: 7.80 Right Ventricle TAPSE (mm): 29.30 TVS' Phillip: 13.60 Tricuspid Valve TR Pk Phillip: 2.41 TR Pk Grad: 23.00 RA Press: 3.00 RVSP: 26.00 Great Vessels Aorta Sinus of Valsalva: 2.50 2.0-3.5 cm Ao Asc: 3.00 2.1-3.4 cm Pulmonary Valve PV Pk Phillip: 1.01 Peak PV Grad: 4.00 Updated in Other Vendor System with Status of Final Enrico Gallego MD electronically signed on 02/09/2023 12:41:55 PM with status of Final
[2023-02-09 07:27] VITALS: BP 138/68; PULSE 59; RESP 18; TEMP 36.6; O2SAT 95
[2023-02-09 07:43] LABS: Creatinine Clr Calc Pharmacy 118.5; Estimated Glomerular Filt Rate > 60
[2023-02-09 07:55] LABS: Glucose, Whole Blood 146 mg/dL (60-115)
[2023-02-09] MEDS: Buprenorphine/Naloxone 8/2 mg TAB.SUBL 3 TAB SUBLINGUAL (08:54)
[2023-02-09] MEDS: Acyclovir 200 MG CAPSULE 400 MG PO (08:55)
[2023-02-09] MEDS: Prazosin HCL 5 MG CAPSULE PO (08:55)
[2023-02-09] MEDS: Baclofen 10 MG TABLET PO (08:55)
[2023-02-09] MEDS: hydroCHLOROthiazide 25 MG TABLET PO (08:55)
[2023-02-09] MEDS: Pregabalin 150 MG CAPSULE 300 MG PO (08:55)
[2023-02-09] MEDS: lisinopriL 20 MG TABLET PO (08:55)
[2023-02-09] MEDS: Fenofibrate 160 MG TABLET PO (08:56)
[2023-02-09] MEDS: Nicotine 7 MG PATCH.TD24 TRANSDERMA (08:56)
[2023-02-09] MEDS: Ziprasidone 40 MG CAPSULE PO (08:56)
[2023-02-09] MEDS: DULoxetine HCl 60 MG CAPSULE.DR PO (08:56)
[2023-02-09] MEDS: Nystatin Powder 15 GM BOTTLE 1 APPL TOPICAL ×2 (08:57→15:49)
--- NOTE | 2023-02-09 11:24 | MHC.CM.PN ---
EMR REVIEWED, PER HOSPITALIST PT TO HAVE ECCHO, IF NEGATIVE PT WILL BE ABLE TO D/C ON ORAL ABX, CM WILL CONT TO FOLLOW D/C NEEDS.
[2023-02-09 11:38] LABS: Glucose, Whole Blood 145 mg/dL (60-115)
[2023-02-09] MEDS: Acetaminophen 325 MG TABLET 650 MG PO (15:48)
[2023-02-09 15:49] VITALS: BP 111/56; PULSE 70; RESP 18; TEMP 36.2; O2SAT 96
--- NOTE | 2023-02-09 16:04 | PM.DS ---
DS: Providers Provider Date of Service: 02/09/23 Date of admission: 02/06/23 17:56 Primary care physician: AYO Duncan Consults: 02/06/23 17:53 Consult to Infectious Diseases Routine Consulting Provider[place] [facility] Reason for consultation: fever, abnormal CT DS: Diagnosis Discharge Diagnosis (1) Bacteremia: Status: Acute (2) Acute respiratory failure with hypoxia: Status: Acute (3) Community acquired bacterial pneumonia: Status: Acute (4) Cellulitis of anterior lower leg: Status: Acute DS: Summary Hospital Course Hospital Course: Admission note HPI 42F PMH DM, morbid obesity, ?familial hypertriglyceridemia, hepatic steatosis, opiate dependence, depression, fibromyalgia, genital herpes, PTSD presented with fevers, arthralgias. Patient was admitted 01/14/2023 with atypical pneumonia. Patient completed course of antibiotics. Reports never really improving all that much. Was then put on a course of prednisone with minimal improvement. On day of presentation started to feel much worse, subjective fevers, diffuse arthralgia. Denies shortness of breath or cough. In ED CT chest showed extensive bilateral ground-glass opacity less than 1 cm in size. Differential broad including hypersensitivity pneumonitis, atypical infection, interstitial lung disease, TB. Patient denies weight loss or night sweats. Denies IV drug use or sexual activity. Hospital course Admitted for Sepsis due to LLE cellulitis and CAP complicated by Streptococcus bacteremia that was treated with IV Vancomycin then changed to Ceftriaxone. Repeated cultures negative after 48 hours. Echo negative for vegetations. Evaluated by ID who recommended 2 weeks of cephalosporins. Noted to have bilateral ground glass opacities on CT with broad differential ; hypersensitivity pneumonitis, atypical pna, TB. she was placed on droplet precautions which were taken off by ID. Spot test still pending. negative respiratory viral panel . Will need outpatient follow up w PCP for reimaging of chest CT in 3 months. Continue Ceftin for 2 weeks Come back to the hospital for recurrent fever, worsening erythema or fatigue To follow up with PCP to repeat Chest images in few weeks to check for resolution of findings Time Spent with Patient Time attestation: Total time managing care of this patient today ____ minutes. Discharge coordination time: Greater than 30 minutes Quality: Safe Use of Opioids Does Pt have an Active Cancer Diagnosis on the Problem List?: No Quality: Stroke Does the patient have a stroke diagnosis?: No Physical Exam Vital Signs: Vital Signs: Last Vital Signs Temp 97.2 F 02/09/23 15:49 Pulse 70 02/09/23 15:49 Resp 18 02/09/23 15:49 BP 111/56 L 02/09/23 15:49 Pulse Ox 96 02/09/23 15:49 O2 Del Method Room Air 02/09/23 15:49 O2 Flow Rate 2 02/07/23 17:13 BMI result Body Mass Index 49.6 Const: Other: Constitutional : Awake, interactive, not in distress Neck : Normal inspection, Supple Cardiovascular : RRR, no JVP, no lower extremity edema Respiratory : good bilateral air entry, basal fine crackles, No wheezes Gastrointestinal: soft, lax, Normal bowel sounds, Non tender Skin : Warm, Dry, LLE shaft resolving erythema with no significant Neurological : Alert & oriented x3, No focal deficit DS: Data Data Completed and Pending Labs on day of discharge: Laboratory Results - last 24 hr 02/08/23 02/08/23 02/09/23 16:15 20:22 07:05 Creatinine 0.84 Estim Creat Clear Calc 118.5 Estimated GFR > 60 POC Glucose 196 H 166 H Vancomycin Trough 02/09/23 02/09/23 02/09/23 07:49 11:33 12:07 Creatinine Estim Creat Clear Calc Estimated GFR POC Glucose 146 H 145 H Vancomycin Trough 11.0 Preliminary micro results at discharge 02/07/23 13:25 Blood Culture - Preliminary Blood - Venous No growth after 48 hours. 02/07/23 13:25 Blood Culture - Preliminary Blood - Venous No growth after 48 hours. 02/08/23 06:14 Blood Culture - Preliminary Blood - Venous No growth after 24 hours. 02/08/23 06:14 Blood Culture - Preliminary Blood - Venous No growth after 24 hours. Imaging Chest x-ray: Radiologist's impression: ITS Impressions Chest X-Ray 02/06/23 13:59 IMPRESSION: Central bronchial wall thickening. More peripheral nodular opacities, question related to bronchial thickening as well. Bronchitis and atypical viral infection should be considered. Chest CT 02/06/23 15:42 IMPRESSION: 1. Extensive, mid to upper lung zone predominantly groundglass opacity nodules, mostly measuring less than 1 cm in size. Many of these are favored to be centrilobular in location. In the proper clinical setting, this appearance can be seen with respiratory bronchiolitis/respiratory bronchiolitis interstitial lung disease, hypersensitivity pneumonitis, infection with endobronchial spread (including tuberculous or nontuberculous mycobacterial infection), or follicular bronchiolitis. Malignancy is considered less likely with this appearance. In the absence of prior studies for comparison, follow-up CT in 3 months is advised. 2. Hepatic steatosis. Discharge Plan Discharge Anticipated Discharge Date/Time: 02/09/23 15:50 Patient Disposition: Home, Self-Care Discharge Diagnosis: Streptococcus bacteremia Cellulitis Referrals: Margarita Doty, AYO [Primary Care Provider] - 1 Week Discharge Medications: New nystatin 100,000 unit/gram Powder 1 appl topical TID 7 Days Qty: 30 0RF Protocol: Apply to: Apply to: fungal rash cefuroxime axetil 500 mg tablet 500 mg PO BID Qty: 28 0RF Continued insulin glargine [Lantus Solostar U-100 Insulin] 100 unit/mL (3 mL) insulin pen 26 unit subcut BEDTIME lidocaine 4 % adhesive patch,medicated 1 patch topical DAILY PRN (Reason: pain) Qty: 7 0RF nicotine (polacrilex) 2 mg Gum 2 mg buccal Q2H PRN (Reason: smoker) Qty: 20 0RF sumatriptan succinate 100 mg tablet 100 mg PO Q2H PRN (Reason: Migraine Headache) Rx Instructions: NO MORE THAN 2 TABS IN 24 HOURS metformin 850 mg tablet 850 mg PO BID acyclovir 400 mg tablet 400 mg PO BID omeprazole 40 mg capsule,delayed release(DR/EC) 40 mg PO BID prazosin 5 mg capsule 5 mg PO BID amitriptyline 25 mg tablet 25 mg PO BEDTIME baclofen 10 mg tablet 10 mg PO BID lisinopril-hydrochlorothiazide 20-25 mg tablet 1 tab PO DAILY Hold Instructions: Resume on 01/23/23. pravastatin 20 mg tablet 20 mg PO BEDTIME buprenorphine-naloxone 8-2 mg tablet, sublingual 3 tab sublingual DAILY duloxetine 60 mg capsule,delayed release(DR/EC) 60 mg PO BID pregabalin 300 mg capsule 300 mg PO BID fenofibrate nanocrystallized 145 mg tablet 145 mg PO DAILY pramipexole 0.5 mg tablet 0.5 mg PO BEDTIME hydroxyzine HCl 25 mg tablet 25 mg PO TID PRN (Reason: ptsd) albuterol sulfate [Ventolin HFA] 90 mcg/actuation HFA aerosol inhaler 2 puff inhalation Q6H PRN (Reason: Shortness Of Breath Or Wheezing) ziprasidone HCl 40 mg capsule 40 mg PO BIDWM Discharge Orders: Discharge Order (Routine); Ordered 02/09/23 Ordered By: Emilie Robledo Diet: Advance to usual diet Activity on Discharge: As tolerated Stand Alone Forms: Patient Portal Discharge page Care Plan Goals: Read below Health Concerns: Read below Plan of Treatment: Read below Assessment: You were admitted for treatment of left leg skin infection which was treated with IV antibiotics. blood cultures grew a bacteria called Streptococcus treated with IV antibiotics as you were evaluated by infectious disease specialist who recommended 2 weeks of oral antibiotics. Continue Ceftin for 2 weeks Come back to the hospital for recurrent fever, worsening erythema or fatigue To follow up with PCP to repeat Chest images in few weeks to check for resolution of findings
--- NOTE | 2023-02-09 16:08 | MHC.CM.PN ---
pt medically cleared for d/c home self care, pt will call family for transport
[2023-02-09 16:24] LABS: Glucose, Whole Blood 203 mg/dL (60-115)
[2023-02-10 09:08] LABS: TS Negative Control Passed; TS Panel A 0; TS Panel B 0; TS Positive Control Passed; TSpotTB Negative (Negative)
== END 2023-02-09 17:38 | disposition home or self-care (01) | DRG 720 ==
LOC: HO.ED 17:25 → HO.EDOVER 18:05 → HO.S3 18:41
PROVIDERS: Admitting Provider Internal Medicine; Emergency Provider Emergency Medicine; PCP Registered Nurse; Visit Provider Student in an Organized Health Care Education/Training Program
DX: A41.9 Sepsis, unspecified organism (principal); J15.9 Unspecified bacterial pneumonia; E11.628 Type 2 diabetes mellitus with other skin complications; E66.01 Morbid (severe) obesity due to excess calories; Z68.42 Body mass index [BMI] 45.0-49.9, adult; L03.116 Cellulitis of left lower limb; F11.20 Opioid dependence, uncomplicated; F41.8 Other specified anxiety disorders; F17.210 Nicotine dependence, cigarettes, uncomplicated; B95.5 Unspecified streptococcus as the cause of diseases classified elsewhere; E78.1 Pure hyperglyceridemia; F43.10 Post-traumatic stress disorder, unspecified; M79.7 Fibromyalgia; Z20.822 Contact with and (suspected) exposure to COVID-19; Z71.6 Tobacco abuse counseling; Z79.4 Long term (current) use of insulin; Z79.84 Long term (current) use of oral hypoglycemic drugs; Z79.899 Other long term (current) drug therapy
CPT/HCPCS: 36415; 71045; 71250; 80048; 80076; 80202; 81003; 82565; 82947; 83605; 85025; 85027; 85610; 86140; 86481; 87040; 87147; 87205; 87389; 87502; 87633; 87635; 93306; 99285; J0456; J0696; J1650; J1885; J2270; J2765; J3370; J3371; Q9957

== ENCOUNTER 2023-02-06 17:56 | Outpatient (BNV) | payer OTHER, SELFPAY | END 2023-02-09 07:00 | PROVIDERS: Admitting Provider Internal Medicine; Emergency Provider Emergency Medicine; PCP Registered Nurse; Visit Provider Internal Medicine Cardiovascular Disease | DX: R78.81 Bacteremia (principal) | CPT/HCPCS: 93306 ==

== ENCOUNTER → 2023-02-06 17:56 | Outpatient (BNV) | payer OTHER, SELFPAY | PROVIDERS: Admitting Provider Internal Medicine; Emergency Provider Emergency Medicine; PCP Registered Nurse; Visit Provider Internal Medicine | DX: R78.81 Bacteremia (principal) | CPT/HCPCS: 99222; 99232 ==

== ENCOUNTER → 2023-02-06 17:56 | Outpatient (BNV) | payer OTHER, SELFPAY | PROVIDERS: Admitting Provider Internal Medicine; Emergency Provider Emergency Medicine; PCP Registered Nurse; Visit Provider Internal Medicine | DX: R78.81 Bacteremia (principal); J96.01 Acute respiratory failure with hypoxia; J15.9 Unspecified bacterial pneumonia; L03.116 Cellulitis of left lower limb | CPT/HCPCS: 99223; 99233; 99239; 99499 ==

== ENCOUNTER 2023-02-10 14:45 | Outpatient (REF) | payer OTHER, SELFPAY ==
--- NOTE | ~2023-02-10 | MM_ITS ---
EXAMINATION: MM SCREENING DIGITAL BREAST TOMOSYNTHESIS, BILATERAL CLINICAL INFORMATION: Screening. Asymptomatic. COMPARISON: Mammography: This is a baseline mammogram. TECHNIQUE: Digital breast tomosynthesis is performed in both the craniocaudal and mediolateral oblique views along with computer-aided detection (CAD). Synthesized 2D images are generated from the tomosynthesis. FINDINGS: The breasts are almost entirely fatty (ACR BI-RADS breast composition Category a). There are no significant masses, abnormal calcifications, or other abnormalities. MM/MM tomosynthesis screening BI IMPRESSION: No mammographic evidence of malignancy. ASSESSMENT: BI-RADS BI-RADS 1 - Negative RECOMMENDATION: Routine annual mammography screening. 1 year F/U This examination should not preclude the clinical evaluation of a suspicious palpable abnormality. This patient's information was entered into a reminder system with a target due date for their next mammogram.
== END 2023-02-10 14:46 | disposition home or self-care (01) ==
LOC: HO.MAMMO 14:45
PROVIDERS: PCP Registered Nurse; Visit Provider Obstetrics & Gynecology
DX: Z12.31 Encounter for screening mammogram for malignant neoplasm of breast (principal)
CPT/HCPCS: 77063; 77067

== ENCOUNTER → 2023-02-10 14:45 | Outpatient (BNV) | payer OTHER, SELFPAY | PROVIDERS: PCP Registered Nurse; Visit Provider Radiology Diagnostic Radiology | DX: Z12.31 Encounter for screening mammogram for malignant neoplasm of breast (principal) | CPT/HCPCS: 77063; 77067 ==

== ENCOUNTER 2023-02-15 13:06 | Outpatient (AMB) | payer MEDICARE, MEDICAID, SELFPAY ==
[2023-02-15 13:08] VITALS: BP 130/70; PULSE 83; O2SAT 95; BMI 44.0
--- NOTE | 2023-02-15 13:08 | MHC.OFFVIS ---
Intake Vital Signs 02/15/23 13:08 Height 5 ft 4 in Weight 256 lb 6 oz BMI 44.0 BP 130/70 Blood Pressure Location Lt brachial Position Sitting Pulse 83 Pulse Source Pulse Oximeter Pulse Oximetry (%) 95 Oxygen Delivery Method Room Air Intake Visit Reasons: NPV- Sleep Walking disorder-LVM Intake Note: Pt presents as a NPV for sleep walking disorder. Platform Supervisor Required: No Allergies Sulfa (Sulfonamide Antibiotics) [SULFA (SULFONAMIDE ANTIBIOTICS)] Allergy (Unknown, Verified 03/02/23 10:29) HIVES glipizide Allergy (Verified 03/02/23 10:29) Unknown HPI HPI Comments History of Present Illness Details 42 y/o female patient with T2DM and asthma presents for new in-person visit for sleep consultation. Pt reports she was hospitalized two weeks ago due to recurrent pneumonia and cellulitis. She was told that she has apnea and hypoxemia and used supplement O2 during the hospitalization and recommended to have sleep study. Pt reports snoring and REM behavior. Pt reports sleep walking and sleep eating, it started in 2011 after she had a traumatic event. She states that nightmare triggers sleep walking and eating. She can remember sometimes wondering her bathroom, kitchen and porch, painting her table with green pain. She had multiple injury related to REM behavior. She hit her head few times. Pt reports she vapes and also smokes 10 cigarets a day. She also reports that she uses nicotine patch at night, and help feel not to urge to smoking. 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 She gained about 70-80 lb over the last couple of years. She eats ice cream, dog food and candle in her sleep. Sleep questionnaire: Have you ever been diagnosed with a sleep disorder? REM behavior, restless legs syndrome. Have you ever had a sleep study in the past? Once many years ago, Have you ever been treated for a sleep disorder? Do you take medications for a sleep disorder? Prazosin, promipexole Do you snore? Yes. Do you wake up gasping at night? No. Do you have episodes of apneas? Yes. If yes, are they witnessed? Yes, while she was hospitalized. Do you have episodes of nocturnal chest pain or dyspnea? No. Do you have difficulty initiating sleep? Yes. Do you have difficulty maintaining sleep? Yes, very restless. Do you wake up tired? Yes. Do you have headaches upon awakening? Yes, sometimes. Do you wake up with dry mouth or throat? Yes/ Do you have GERD? Yes. Do you have nocturia? Do you have nocturnal leg cramps? Yes, occaionally. Do you have symptoms of restless legs? Yes. Do you act out your dreams? Yes. Sleep hygiene questionnaire: What is your usual sleep routine? Usual bedtime is at 9 pm; Usual wake up time is at 5 am. Do you take naps? No. Is your sleep environment cool, dark, and quiet? Yes/ Do you exercise? Walk dog every day. Do you take caffeine or other stimulants? GingerAle but no caffeine, and one cup of coffee in the morning. Do you use electronics in bed? No. What is your work schedule? N/A. Hypersomnolence questionnaire: Do you have daytime tiredness or fatigue? Yes. Do you easily fall asleep when inactive? Yes. Have you ever had episodes of sudden weakness? No. Have you ever had episodes of sudden weakness associated with strong emotions? No. PFSH Medical History Pulmonary nodules Tobacco dependence Pneumonitis Bacteremia History of migraine headaches Hyperlipidemia Depression with anxiety Diabetes Family History Father Depression Bipolar disorder Social History Household Members: Family Household Members Other:: CHILDREN Housing: House Do you presently have visiting nurse or other home services: No Alcohol intake: never Patient Tobacco Use Status: Former Tobacco user Tobacco use type: Cigarette Cigarette Packs Per Day: 0.5 Cigarettes Per Day: 10.0 Smoked in Last 30 Days: Yes e-Cigarette/Vaping Use: Former Use Second Hand Smoke Exposure: No Use of substances other than those prescribed or required for medical reasons: No Substance Use Type: Marijuana Advance Directives: No service: No Female Reproductive History Menstrual Age of Menarche: 14 Review of Systems Const All systems reviewed & are unremarkable except as noted in HPI and below ENT Reports Normal hearing present Neuro Reports Normal hearing present Physical Exam Vital Signs: Last Vital Signs Pulse 83 02/15/23 13:08 BP 130/70 02/15/23 13:08 Pulse Ox 95 02/15/23 13:08 Oxygen Delivery Method Room Air 02/15/23 13:08 BMI result Body Mass Index 44.0 Const General: cooperative and tired appearing Nutritional Appearance: obese Orientation/consciousness: patient oriented x3 Neck Neck: Yes full ROM and Yes supple Resp Effort & Inspection: normal respiratory effort and able to speak in complete sentences Neuro General: patient oriented x3, gait normal and moves all extremities Cranial nerves: Yes Bilaterally intact EOM present, Yes Midline tongue present, Yes Symmetric palate elevation present, Yes Normal hearing present, Yes Ability to bilaterally rotate head present and Yes Ability to bilaterally elevate shoulders present Cognition (Neuro): normal cognition Gait exam (Neuro): Normal gait present Psych Appearance: grossly normal Mental Status: mental status grossly normal Speech and movement: Normal speech and movement present Affect: Sad affect present Attitude: cooperative Assessment & Plan Assessment & Plan (1) REM behavioral disorder: Code(s): G47.52 - REM sleep behavior disorder (2) Obesity, Class III, BMI 40-49.9 (morbid obesity): Code(s): E66.01 - Morbid (severe) obesity due to excess calories (3) Daytime sleepiness: Code(s): R40.0 - Somnolence (4) Tobacco dependence: Code(s): F17.200 - Nicotine dependence, unspecified, uncomplicated Plan Pt is advised to undergo in lab sleep study to assess for sleep apnea, and REM behavior. Will f/u with pt after study to discuss results and appropriate treatment options. Advised patient to reduce vaping and smoking. Increase physical activities during daytime and wt reduction advised. Pt to call with any worsening concerns or questions. Coding Level of Care Code New Pt Level 4 (77132) Diagnoses REM behavioral disorder G47.52 Obesity, Class III, BMI 40-49.9 (morbid obesity) E66.01 Daytime sleepiness R40.0 Tobacco dependence F17.200
== END 2023-02-15 13:57 | disposition home or self-care (01) ==
PROVIDERS: Visit Provider Nurse Practitioner Family
DX: G47.52 REM sleep behavior disorder (principal); E66.01 Morbid (severe) obesity due to excess calories; R40.0 Somnolence; F17.200 Nicotine dependence, unspecified, uncomplicated
CPT/HCPCS: 99204

== ENCOUNTER → 2023-02-15 13:06 | Outpatient (BNVA) | payer MEDICARE, MEDICAID, SELFPAY | PROVIDERS: Visit Provider Nurse Practitioner Family ==

== ENCOUNTER 2023-02-22 15:48 | Observation (INO) | payer OTHER, SELFPAY ==
--- NOTE | ~2023-02-22 | CT_ITS ---
EXAMINATION: CT CHEST WITH CONTRAST CLINICAL INFORMATION: COVID-19 positive with increased chest pain SOB COMPARISON: 02/06/2023 TECHNIQUE: Multidetector volumetric CT imaging of the chest was obtained after the administration of 85 mL of Omnipaque 350 intravenous contrast without immediate adverse reactions. Axial MIP volume rendering provided. Sagittal and coronal reformatted images were obtained. This CT examination was performed using dose optimization techniques as appropriate, variously including the following: *Automated exposure control *Adjustment of mA and/or kV according to patient size (this includes techniques or standardized protocols for targeted exams where dose is matched to indication/reason for exam; i.e. extremities or head) *Use of iterative reconstruction technique DLP: 519 mGy-cm FINDINGS: LUNGS: There is redemonstration of extensive, mid to upper lung zone predominance of groundglass opacity nodules, most of which measure less than 1 cm in diameter. Overall appearance is similar to 02/06/2023. No new region of consolidation is seen. MEDIASTINUM: The visualized thyroid gland is unremarkable. There are subcentimeter mediastinal lymph nodes within the range of normal variation. Cardiac size is within normal limits; no pericardial effusion. The aorta is unremarkable. PLEURA: No pneumothorax or pleural effusion. AXILLA: No lymphadenopathy. UPPER ABDOMEN: Unremarkable OSSEOUS STRUCTURES: Multilevel endplate osteophytes in the spine. CT/CT chest w IV con IMPRESSION: Redemonstrated extensive mid to upper lung zone predominant groundglass opacity nodules, similar to 02/06/2023.. As previously noted, this could be due to respiratory bronchiolitis/respiratory bronchiolitis interstitial lung disease, hypersensitivity pneumonitis, follicular bronchiolitis, or endobronchial spread of infection. Follow-up CT in 3 months is advised. No new region of consolidation.
--- NOTE | ~2023-02-22 | XR_ITS ---
EXAMINATION: XR CHEST CLINICAL INFORMATION: Positive Covid, shortness of breath COMPARISON: 02/06/2023 TECHNIQUE: 2 views of the chest were obtained. FINDINGS: Once again there is abnormality in the lungs. Abnormality felt to be present in the mid to upper lung zone on the right appears similar to previous and may be some mild coalescence. Abnormal parenchymal opacities also felt to be present on the left which may be mildly worsening. Cannot exclude some developing densities in the lower lung zones on this study The cardiac silhouette is within normal limits. The hilar regions are felt to be comparable There is no effusion XR/XR chest 2V IMPRESSION: Once again opacities are seen in the lungs here right greater than left and I feel there may well be some mild worsening here.
[2023-02-22 16:11] VITALS: BP 111/52; PULSE 72; RESP 18; TEMP 36.8; O2SAT 93; BMI 43.9
--- NOTE | 2023-02-22 16:11 | ED.GENADULT ---
HPI - General Adult General Chief complaint: General Medical Stated complaint: referred by PCP COVID +, diff breathing Time Seen by Provider: 02/22/23 23:31 Source: patient Mode of arrival: ambulatory Limitations: no limitations History of Present Illness HPI narrative: 42-year-old female who recently was hospitalized from 09/2022 until 02/09/2023 for sepsis/bacteremia( Streptococcus agalactiae) secondary to left lower extremity cellulitis and community acquired pneumonia was discharged on a 2 week course of cephalexin for her cellulitis completed 2 days prior who presents emergency department for evaluation COVID positive for 5 days, nonproductive cough, shortness of breath requiring use of her inhalers, fever, chills, pleuritic chest pain and increased redness of her left lower extremity with increased pain in the area of the redness. Related Data Home Medications Medication Instructions Recorded Confirmed acyclovir 400 mg tablet 400 mg PO BID 09/26/22 02/06/23 amitriptyline 25 mg tablet 25 mg PO BEDTIME 09/26/22 02/06/23 baclofen 10 mg tablet 10 mg PO BID 09/26/22 02/06/23 buprenorphine 8 mg-naloxone 2 mg 3 tab sublingual DAILY 09/26/22 02/06/23 sublingual tablet duloxetine 60 mg capsule,delayed 60 mg PO BID 09/26/22 02/06/23 release fenofibrate nanocrystallized 145 145 mg PO DAILY 09/26/22 02/06/23 mg tablet hydroxyzine HCl 25 mg tablet 25 mg PO TID PRN ptsd 09/26/22 02/06/23 lisinopril 20 1 tab PO DAILY 09/26/22 02/06/23 mg-hydrochlorothiazide 25 mg tablet metformin 850 mg tablet 850 mg PO BID 09/26/22 02/06/23 omeprazole 40 mg capsule,delayed 40 mg PO BID 09/26/22 02/06/23 release pramipexole 0.5 mg tablet 0.5 mg PO BEDTIME 09/26/22 02/06/23 pravastatin 20 mg tablet 20 mg PO BEDTIME 09/26/22 02/06/23 prazosin 5 mg capsule 5 mg PO BID 09/26/22 02/06/23 pregabalin 300 mg capsule 300 mg PO BID 09/26/22 02/06/23 sumatriptan succinate 100 mg tablet 100 mg PO Q2H PRN Migraine Headache 09/26/22 02/06/23 albuterol sulfate 90 mcg/actuation 2 puff inhalation Q6H PRN 01/12/23 02/06/23 aerosol inhaler (Ventolin HFA) Shortness Of Breath Or Wheezing ziprasidone HCl 40 mg capsule 40 mg PO BIDWM 01/12/23 02/06/23 insulin glargine 100 unit/mL (3 26 unit subcut BEDTIME 01/14/23 02/06/23 mL) subcutaneous pen (Lantus Solostar U-100 Insulin) Previous Rx's Medication Instructions Recorded lidocaine 4 % topical patch 1 patch topical DAILY PRN pain #7 01/16/23 ea nicotine (polacrilex) 2 mg gum 2 mg buccal Q2H PRN smoker #20 ea 01/16/23 cefuroxime axetil 500 mg tablet 500 mg PO BID #28 tabs 02/09/23 nystatin 100,000 unit/gram topical 1 appl topical TID 7 days #30 grams 02/09/23 powder Allergies Allergy/AdvReac Type Severity Reaction Status Date / Time Sulfa (Sulfonamide Allergy Unknown HIVES Verified 02/15/23 13:13 Antibiotics) [SULFA (SULFONAMIDE ANTIBIOTICS)] glipizide Allergy Unknown Verified 02/15/23 13:13 Review of Systems Review of Systems: Yes all other systems are reviewed and are negative [facility] Past Medical History [facility] Narrative: social history: She does smoke cigarettes, she denies drugs, alcohol use Medical History Bacteremia History of migraine headaches Hyperlipidemia Depression with anxiety Diabetes Family History Family History Father Depression Bipolar disorder Social History Social History (Updated 02/15/23 @ 13:24 by Angela Posey CMA) Household Members: Family Household Members Other:: CHILDREN Housing: House Do you presently have visiting nurse or other home services: No Alcohol intake: never Patient Tobacco Use Status: Current everyday Tobacco user Tobacco use type: Cigarette Cigarettes Per Day: 2 e-Cigarette/Vaping Use: Former Use Second Hand Smoke Exposure: No Substance Use Type: Marijuana Advance Directives: No Advance Directives Information Provided: No service: No Physical Exam ED Vital Signs: Vital Signs - 24 hr 02/22/23 16:11 02/22/23 22:19 Temperature 98.3 F 100.7 F H Pulse Rate 72 68 Respiratory Rate 18 20 Blood Pressure 111/52 L 131/64 Pulse Oximetry 93 94 Oxygen Delivery Method Room Air Room Air BMI result Body Mass Index 43.9 vital signs were normal. Exam: General: Awake, alert in no distress Head: Normocephalic, atraumatic EENT: PERRL, Lids normal, sclera normal, conjunctiva normal, nose normal , ears normal, throat without erythema or exudates Neck: Supple, no adenopathy, trachea midline and nontender Lung: breath sounds symmetric, Diffuse rales , no rhonchi Chest: symmetric movement, nontender Heart: regular rate and rhythm, normal S1, S2 no murmurs or rubs Abdomen: soft, non-tender, nondistended, normal bowel sounds Back: no vertebral tenderness, no CVAT Extremities: no deformities, moves all extremities symmetrically, left lower extremity erythema with increased warmth to the pretibial area between the ankle and knee Skin: rash left lower extremity no lesion, normal color and warmth Neuro: Awake, alert, oriented, normal speech, cranial nerves intact, moves all extremities symmetrically Psych: Pleasant, cooperative Course Course Course Narrative: This is a rapid medical exam: Additional HPI, ROS, PE not included below will be deferred to primary provider. Patient is a 42-year-old female presenting to the emergency department from PCP, known Covid, this is 5th day since positive test, was recently inpatient for pneumonia, bacteremia, complaining of lower lung pain. Reports sweats and chills today, lightheaded. Stopped antibiotics 2 days ago. O2 sats 94% on room air. Complains of chest heaviness. Plan: EKG, CXR, blood cultures, lactic, labs Medications Administered Generic Name Dose Route Start Last Admin Trade Name Freq PRN Reason Stop Dose Admin Sodium Chloride 1,000 mls @ 999 mls/hr 02/23/23 00:07 02/23/23 00:22 Ns IV 02/23/23 01:07 999 mls/hr .Q1H1M STA Administration Discontinued Medications Generic Name Dose Route Start Last Admin Trade Name Freq PRN Reason Stop Dose Admin Ketorolac Tromethamine 15 mg 02/23/23 00:07 02/23/23 00:22 Ketorolac Tromethamine 15 Mg/Ml Vial IVPUSH 02/23/23 00:08 15 mg ONCE STA Administration Medical Decision Making Medical Decision Making [facility] Narrative: 42-year-old female who recently was hospitalized from 09/2022 until 02/09/2023 for sepsis/bacteremia( Streptococcus agalactiae) secondary to left lower extremity cellulitis and community acquired pneumonia was discharged on a 2 week course of cephalexin for her cellulitis completed 2 days prior who presents emergency department for evaluation COVID positive for 5 days, nonproductive cough, shortness of breath requiring use of her inhalers, fever, chills, pleuritic chest pain and increased redness of her left lower extremity with increased pain in the area of the redness. 0009: Patient's laboratory evaluation revealed a normal CBC, patient elevated BUN of 17 with normal creatinine, elevated glucose 134, elevated AST and ALT 41 and 45, lactic acid was normal . Chest x-ray concerning for bilateral interstitial infiltrates which have increased compared to her previous x-ray patient's left lower extremity is concerning for recurrence of her cellulitis. I will discuss antibiotic choice and admission with the covering hospitalist. 0029 : I did discuss antibiotic choice with the hospitalist, patient will be treated with vancomycin 2 g IV for possible MRSA and cefepime 2 g IV to give Pseudomonas coverage as well as atypical coverage. patient also get a CT scan of the chest with IV contrast to further evaluate her pneumonia. Patient will be admitted to the hospital service Differential Diagnosis differential diagnosis includes was not limited to bacterial pneumonia, atypical pneumonia, COVID-19 pneumonia, cellulitis, electrolyte abnormalities, anemia, Admission/Observation Consideration of admission/observation: Escalation of care including admission/observation considered Consult Healthcare Provider Management of the patient was discussed with: Hospitalist (Dr. Raphael) Lab Data [facility] Lab Attestation statement: I reviewed the patient's lab results. my interpretation patient's laboratory evaluation is as follows: CBC was normal. AST and ALT elevated 41 and 45. Troponin was below detectable limits. Lactic acid was normal 1.3. Influenza was negative. BNP was below detectable limits. Quantitative beta hCG was negative 02/22/23 16:35 02/22/23 16:35 Labs: Lab Results 02/22/23 Range/Units 16:35 WBC 7.1 (4.8-10.8) X10*3/uL RBC 4.66 D (4.20-5.50) X10*6/uL Hgb 12.4 (12.0-16.0) g/dl Hct 39.4 D (37.0-47.0) % MCV 84.5 (80.0-98.0) fL MCH 26.6 L (27.0-33.0) pg MCHC 31.5 (31.0-35.0) g/dl RDW 14.0 (11.0-16.0) % Plt Count 250 (160-400) X10*3/uL MPV 11.5 (9.4-12.3) fL Immature Gran % (Auto) 0.3 (0.0-0.4) % Neut % (Auto) 53.7 (45-73) % Lymph % (Auto) 34.8 (20-40) % [place] % (Auto) 8.1 (2-11) % Eos % (Auto) 2.8 (0-4) % Baso % (Auto) 0.3 (0-2) % Lymph # (Auto) 2.5 (1.2-4.9) X10*3/uL [place] # (Auto) 0.6 (0.1-1.2) X10*3/uL Eos # (Auto) 0.2 (0.0-0.4) X10*3/uL Baso # (Auto) 0.0 (0.0-0.2) X10*3/uL Abs Immat Gran (auto) 0.02 (0.00-0.03) X10*3/uL Absolute Neuts (auto) 3.8 (2.0-8.3) x10*3/uL Absolute Nucleated RBC 0.000 (0.0-0.012) X10*3/uL Nucleated RBC % (auto) 0.0 (0.0-0.2) /100WBC Sodium 136 (135-145) mmol/L Potassium 4.6 D (3.3-5.1) mmol/L Chloride 105 (96-108) mmol/L Carbon Dioxide 23 (22-29) mmol/L Anion Gap 13 (12-20) BUN 17 H (9-16) mg/dL Creatinine 0.78 (0.5-1.4) mg/dL Estim Creat Clear Calc 118.7 Estimated GFR > 60 Random Glucose 134 H (60-115) mg/dL Lactic Acid 1.3 (0.5-2.0) mmol/L Calcium 9.6 D (8.4-10.2) mg/dL Total Bilirubin 0.2 (0.0-1.0) mg/dL AST 41 H (5-31) U/L ALT 45 H (0-31) U/L Alkaline Phosphatase 30 L (39-117) U/L Troponin I High Sens < 2.7 (<3.5-17.0) ng/L B-Natriuretic Peptide < 10 (<100) pg/mL Total Protein 7.5 (6.5-8.0) g/dL Albumin 3.9 (3.5-5.0) g/dL Beta HCG, Quant < 2 mIU/mL Influenza Type A (STACIA) Negative (Negative) Influenza Type B (STACIA) Negative (Negative) Influenza A & B Note See Note Independent Interpretation I performed an independent interpretation of an: EKG and Plain X-Ray Interpretation: my interpretation patient's 12 EKG done at 16:23 hours is as follows: Sinus rhythm was 64, normal [place] interval, QRS duration QTC interval, no ST segment elevation, no ST segment depression, no significant T-wave abnormalities, no PACs, no PVCs my interpretation patient's two view chest x-ray is as follows: Increased interstitial markings consistent with an atypical /viral pneumonia Radiology Impression Discussion of test interpretation with radiology: I have reviewed the radiologist's reading. Radiologist Impression: XR chest 2V IMPRESSION: Once again opacities are seen in the lungs here right greater than left and I feel there may well be some mild worsening here. Dictated By: Chandra Be MD External Record Review External record reviewed: Inpatient record Critical Care Time Critical Care Time Critical Care Time: Yes Total Critical Care Time: 45 Attestation: Critical Care: The patient was critically ill with a high probability of imminent or life threatening deterioration. I spent greater than 30 minutes of discontinuous time evaluating the patient,delivering critical care at the bedside, discussing and evaluating pertinent data with consultants. Critical care time does not include time spent performing separately billable procedures or teaching. Total time spent performing critical care was 45 minutes. Discharge Plan Discharge Clinical Impression: COVID-19 virus infection Pneumonia Qualifiers: Laterality: bilateral Lung location: unspecified part of lung Cellulitis Qualifiers: Site of cellulitis of extremity: lower extremity Laterality: left Patient Disposition: Admitted As Inpatient
--- NOTE | 2023-02-22 16:15 | ECG_ITS ---
Test Reason : CHEST PAIN Blood Pressure : / mmHG Vent. Rate : 064 BPM Atrial Rate : 064 BPM P-R Int : 182 ms QRS Dur : 094 ms QT Int : 404 ms P-R-T Axes : 029 004 030 degrees QTc Int : 416 ms Normal sinus rhythm Normal ECG When compared with ECG of 13-JAN-2023 21:06, Vent. rate has decreased BY 31 BPM QT has shortened Referred By: Albertina Ibanez Electronically Signed By:ASHLEIGH WEATHERS
[2023-02-22 16:43] LABS: MANUAL DIFF FLAG NO
[2023-02-22 16:53] LABS: Basophils Percent Auto 0.3 % (0-2); Eosinophils Absolute Auto 0.2 X10*3/uL (0.0-0.4); Eosinophils Percent Auto 2.8 % (0-4); Hematocrit 39.4 % (37.0-47.0); Hemoglobin 12.4 g/dl (12.0-16.0); Imm Gran Abs Auto 0.02 X10*3/uL (0.00-0.03); Imm Gran Pct Auto 0.3 % (0.0-0.4); Lymphocytes Absolute Auto 2.5 X10*3/uL (1.2-4.9); Lymphocytes Percent Auto 34.8 % (20-40); Mean Corpuscular HGB Conc 31.5 g/dl (31.0-35.0); Mean Corpuscular Hemoglobin 26.6 pg (27.0-33.0); Mean Corpuscular Volume 84.5 fL (80.0-98.0); Mean Platelet Volume 11.5 fL (9.4-12.3); Monocytes Absolute Auto 0.6 X10*3/uL (0.1-1.2); Monocytes Percent Auto 8.1 % (2-11); Neutrophils Absolute Auto 3.8 x10*3/uL (2.0-8.3); Neutrophils Percent Auto 53.7 % (45-73); Platelet Count 250 X10*3/uL (160-400); Red Blood Count 4.66 X10*6/uL (4.20-5.50); White Blood Count 7.1 X10*3/uL (4.8-10.8)
[2023-02-22 17:08] LABS: Alanine Aminotransferase 45 U/L (0-31); Albumin Level 3.9 g/dL (3.5-5.0); Alkaline Phosphatase 30 U/L (39-117); Anion Gap 13 (12-20); Aspartate Amino Transferase 41 U/L (5-31); Bilirubin Total 0.2 mg/dL (0.0-1.0); Blood Urea Nitrogen 17 mg/dL (9-16); Calcium 9.6 mg/dL (8.4-10.2); Carbon Dioxide 23 mmol/L (22-29); Chloride 105 mmol/L (96-108); Creatinine Clr Calc Pharmacy 118.7; Estimated Glomerular Filt Rate > 60; Glucose Random 134 mg/dL (60-115); Potassium 4.6 mmol/L (3.3-5.1); Sodium 136 mmol/L (135-145); Total Protein 7.5 g/dL (6.5-8.0)
[2023-02-22 17:11] LABS: Lactic Acid 1.3 mmol/L (0.5-2.0)
[2023-02-22 17:12] LABS: B Type Natriuretic Peptide < 10 pg/mL (<100)
[2023-02-22 17:14] LABS: HCG Quantitative < 2 mIU/mL; Troponin-I High Sensitivity < 2.7 ng/L (<3.5-17.0)
[2023-02-22 17:18] LABS: IDNOW Serial# BCCEAD1C; Influenza A Negative (Negative); Influenza B2 Negative (Negative)
[2023-02-22 22:19] VITALS: BP 131/64; PULSE 68; RESP 20; TEMP 38.2; O2SAT 94
--- NOTE | 2023-02-22 22:22 | PC.NURSE ---
Patient states has cellulitis in left lower leg finished antibiotics 2 days ago feels like its coming back. has been hospitalized recently for the same thing.
[2023-02-23] MEDS: 0.9 % Sodium Chloride 1,000 ML 999 ML IV (00:22)
[2023-02-23] MEDS: Ketorolac Tromethamine 15 MG/ML VIAL IVPUSH ×2 (00:22→20:16)
[2023-02-23 00:44] LABS: COVID-19 Test Positive (Negative); IDNOW Serial# 08D9AD1C
[2023-02-23] MEDS: cefEPime HCl 2 GM in 0.9 % Sodium Chloride 50 ML IV (00:55)
[2023-02-23 01:24] VITALS: BP 164/84; PULSE 76; RESP 16; O2SAT 98
[2023-02-23] MEDS: iohexoL 350 MG/ML 100 ML INFUS..BTL 85 ML IV (01:37)
--- NOTE | 2023-02-23 01:39 | PM.IMHP ---
History of Present Illness Date of Service: 02/23/23 Chief Complaint: Fever This is a 42-year-old female with pertinent history of insulin-dependent diabetes mellitus, morbid obesity, fibromyalgia, genital herpes, mood disorder who presents to the emergency department for evaluation of fevers and redness of her left lower extremity. Of note, patient was recently admitted on 02/06 and discharged on 02/09 with sepsis due to left lower extremity cellulitis and community-acquired pneumonia complicated by Streptococcus bacteremia. Patient was discharged on 2 week course of Ceftin. Patient states that her left lower extremity erythema, warmth was improving on p.o. antibiotics which she completed 2 days prior to presentation. It recurred and is associated with erythema, warmth and pain. Patient also tested positive for COVID-19 about 4 days prior to presentation and has been having fever, chills and nonproductive cough. Also has associated fatigue and poor p.o. intake. Patient has been having pleuritic chest discomfort worsened with deep inspiration. No palpitations, abdominal pain, changes in urinary or bowel habits. Review of Systems Constitutional: Constitutional: Reports chills, Reports fatigue, Reports fever(s), Reports lethargy and Reports malaise Cardiovascular: Cardiovascular: Reports no additional cardiovascular complaints Respiratory: Respiratory: Reports pain on inspiration Gastrointestinal: Gastrointestinal: Reports no additional gastrointestinal complaints Genitourinary: Genitourinary: Reports no additional female genitourinary complaints Endocrine: Endocrine: Reports fatigue [facility] Medical History Bacteremia History of migraine headaches Hyperlipidemia Depression with anxiety Diabetes Family History Father Depression Bipolar disorder Social History Household Members: Family Household Members Other:: CHILDREN Housing: House Do you presently have visiting nurse or other home services: No Alcohol intake: never Patient Tobacco Use Status: Never used Tobacco Tobacco use type: Cigarette Cigarettes Per Day: 2 e-Cigarette/Vaping Use: Former Use Second Hand Smoke Exposure: No Use of substances other than those prescribed or required for medical reasons: No Substance Use Type: Marijuana Advance Directives: No Advance Directives Information Provided: No Nutrition Risks: No Nutritional Risk service: No Meds Allergies Allergy/AdvReac Type Severity Reaction Status Date / Time Sulfa (Sulfonamide Allergy Unknown HIVES Verified 02/15/23 13:13 Antibiotics) [SULFA (SULFONAMIDE ANTIBIOTICS)] glipizide Allergy Unknown Verified 02/15/23 13:13 Active Medications: Current Medications Vancomycin HCl (Vancomycin/Ns) 2,000 mg in 500 mls @ 250 mls/hr IV ONCE ONE Stop: 02/23/23 02:22 Pharmacy Consult (Consult Rx Vancomycin Dosing) 1 each MISCELLANE DAILY PRN PRN Reason: Consult order Home Medications Medication Instructions Recorded Confirmed Last Taken Type acyclovir 400 mg tablet 400 mg PO BID 09/26/22 02/06/23 01/13/23 History amitriptyline 25 mg tablet 25 mg PO BEDTIME 09/26/22 02/06/23 01/13/23 History baclofen 10 mg tablet 10 mg PO BID 09/26/22 02/06/23 01/13/23 History buprenorphine 8 mg-naloxone 2 mg 3 tab sublingual DAILY 09/26/22 02/06/23 01/13/23 History sublingual tablet duloxetine 60 mg capsule,delayed 60 mg PO BID 09/26/22 02/06/23 01/13/23 History release fenofibrate nanocrystallized 145 145 mg PO DAILY 09/26/22 02/06/23 01/13/23 History mg tablet hydroxyzine HCl 25 mg tablet 25 mg PO TID PRN ptsd 09/26/22 02/06/23 Unknown History lisinopril 20 1 tab PO DAILY 09/26/22 02/06/23 01/13/23 History mg-hydrochlorothiazide 25 mg tablet metformin 850 mg tablet 850 mg PO BID 09/26/22 02/06/23 01/13/23 History omeprazole 40 mg capsule,delayed 40 mg PO BID 09/26/22 02/06/23 01/13/23 History release pramipexole 0.5 mg tablet 0.5 mg PO BEDTIME 09/26/22 02/06/23 01/13/23 History pravastatin 20 mg tablet 20 mg PO BEDTIME 09/26/22 02/06/23 01/13/23 History prazosin 5 mg capsule 5 mg PO BID 09/26/22 02/06/23 01/13/23 History pregabalin 300 mg capsule 300 mg PO BID 09/26/22 02/06/23 01/13/23 History sumatriptan succinate 100 mg tablet 100 mg PO Q2H PRN Migraine Headache 09/26/22 02/06/23 Unknown History albuterol sulfate 90 mcg/actuation 2 puff inhalation Q6H PRN 01/12/23 02/06/23 Unknown History aerosol inhaler (Ventolin HFA) Shortness Of Breath Or Wheezing ziprasidone HCl 40 mg capsule 40 mg PO BIDWM 01/12/23 02/06/23 01/13/23 History insulin glargine 100 unit/mL (3 26 unit subcut BEDTIME 01/14/23 02/06/23 01/13/23 History mL) subcutaneous pen (Lantus Solostar U-100 Insulin) Physical Exam Vital Signs and Narrative: Vital Signs: Last Vital Signs Temp 100.7 F H 02/22/23 22:19 Pulse 76 02/23/23 01:24 Resp 16 02/23/23 01:24 BP 164/84 H 02/23/23 01:24 Pulse Ox 98 02/23/23 01:24 O2 Del Method Room Air 02/23/23 01:24 BMI result Body Mass Index 43.9 Middle-aged female lying in bed in no distress Neck supple, no JVD Regular rate and rhythm, S1-S2 heard Bilateral crackles without wheezing Abdomen soft nontender, no guarding, no rigidity Patient is awake, alert and oriented to self, place, time and person ; no focal motor deficit Extremity: Left lower extremity with erythema, warmth and tenderness Psych: Normal mood No pedal edema Results Labs 02/22/23 16:35 02/22/23 16:35 Labs: Laboratory Results - last 24 hr 02/22/23 02/23/23 16:35 00:10 MCV 84.5 MCH 26.6 L MCHC 31.5 RDW 14.0 Plt Count 250 MPV 11.5 Immature Gran % (Auto) 0.3 Neut % (Auto) 53.7 Lymph % (Auto) 34.8 Wheeler % (Auto) 8.1 Eos % (Auto) 2.8 Baso % (Auto) 0.3 Lymph # (Auto) 2.5 Wheeler # (Auto) 0.6 Eos # (Auto) 0.2 Baso # (Auto) 0.0 Abs Immat Gran (auto) 0.02 Absolute Neuts (auto) 3.8 Absolute Nucleated RBC 0.000 Nucleated RBC % (auto) 0.0 Anion Gap 13 Estim Creat Clear Calc 118.7 Estimated GFR > 60 Random Glucose 134 H Lactic Acid 1.3 Calcium 9.6 D Total Bilirubin 0.2 AST 41 H ALT 45 H Alkaline Phosphatase 30 L B-Natriuretic Peptide < 10 Total Protein 7.5 Albumin 3.9 Beta HCG, Quant < 2 COVID-19 ([facility]) Positive A COVID-19 Clin Com See Note Influenza Type A ([facility]) Negative Influenza Type B ([facility]ACIA) Negative Influenza A & B Note See Note Imaging Radiologist's Impressions: Impressions Chest X-Ray 02/22/23 16:40 IMPRESSION: Once again opacities are seen in the lungs here right greater than left and I feel there may well be some mild worsening here. Assessment and Plan (1) Cellulitis: Qualifiers: Laterality: left Site of cellulitis of extremity: lower extremity Status: Acute (2) COVID-19 virus infection: Status: Acute Plan This is a 42-year-old female with pertinent history of insulin-dependent diabetes mellitus, morbid obesity, fibromyalgia, genital herpes, mood disorder who presents to the emergency department for evaluation of fevers and redness of her left lower extremity. #. Left lower extremity cellulitis, recurrent: Recently finished course of p.o. antibiotics. Will admit with IV vancomycin. Consulting Infectious Disease, appreciate assistance. No sepsis. #. COVID-19 infection. Continue isolation precautions. Patient without hypoxemia, defer Decadron. No concerns for secondary bacterial superinfection, no new consolidation on CT scan. #. Bilateral ground-glass opacities on CT scan. Broad differential including hypersensitivity pneumonitis, atypical pneumonia. Noted previous negative respiratory viral panel. TB spot test negative. Will need outpatient follow-up CT scan and pulmonology. #. Morbid obesity. Counseled regarding diet and exercise #. Insulin-dependent diabetes mellitus. Reduce home basal insulin. Initiating Accu-Cheks with sliding scale insulin #. Mood disorder. Continue home mood stabilizers Med rec pending DVT prophylaxis: Lovenox Full code Time Spent With Patient Time: Total time managing care of this patient today ____ minutes. Quality Stroke Does the patient have a stroke diagnosis?: No VTE Prior VTE?: No VTE Risk Level:: Medical - moderate - high VTE Device Contraindication: Treatment Not Indicated VTE Drug Contraindication: N/A - Med Ordered
[2023-02-23] MEDS: vancomycin/NS 2,000 MG/500 ML PLAST..BAG 250 MG IV (01:47)
--- NOTE | 2023-02-23 03:17 | PC.NURSE ---
Took over care from ZO Joyner, Pt resting in bed with no sign of distress. Will continue tomonitor.
[2023-02-23 03:19] VITALS: BP 109/56; PULSE 65; RESP 17; TEMP 36.4; O2SAT 95
[2023-02-23 03:37] LABS: Appearance Urine Clear; Color Urine Yellow; Glucose Urine UA 100 mg/dL (Negative); Leukocyte Esterase Urine Negative (Negative); Nitrite Urine Negative (Negative); Urine Blood Negative (Negative); Urine Ketones Negative (Negative); Urine Protein Negative (Neg-Trace)
[2023-02-23 03:39] LABS: Bacteria Urine None Seen (None Seen); Hyaline Casts Urine 0-2 /LPF (0-2); RBC Urine 0-2 /HPF (0-2); WBC Urine 0-5 /HPF (0-5)
[2023-02-23] MEDS: Acetaminophen 325 MG TABLET 650 MG PO ×3 (03:40→16:06)
--- NOTE | 2023-02-23 03:42 | PC.NURSE ---
Pt medicated per Mar for pain management. Will continue to monitor.
--- NOTE | 2023-02-23 04:37 | PC.NURSE ---
pt given a sandwich and a drink. pt assisted to bedside commode, pt resting at this time.
[2023-02-23 06:21] LABS: Alanine Aminotransferase 38 U/L (0-31); Albumin Level 3.6 g/dL (3.5-5.0); Alkaline Phosphatase 27 U/L (39-117); Anion Gap 10 (12-20); Aspartate Amino Transferase 27 U/L (5-31); Bilirubin Total 0.2 mg/dL (0.0-1.0); Blood Urea Nitrogen 17 mg/dL (9-16); Calcium 8.6 mg/dL (8.4-10.2); Carbon Dioxide 26 mmol/L (22-29); Chloride 102 mmol/L (96-108); Estimated Glomerular Filt Rate > 60; Glucose Random 209 mg/dL (60-115); Potassium 4.1 mmol/L (3.3-5.1); Sodium 134 mmol/L (135-145); Total Protein 6.4 g/dL (6.5-8.0)
--- NOTE | 2023-02-23 07:00 | PHA.PROG ---
Admission Date/Time: February 23, 2023 01:40 Indication: SKIN/SKIN STRUCTURE Weight in k.12 kg Adjusted body weight in K.268 [place] body weight in Kg: Obesity Dosing Indication % IBW: Serum Creatinine - Last 168 Hours 02/22/23 02/23/23 16:35 05:44 Creatinine 0.78 0.85 Estimated CrCl and GFR - Last 168 Hours 02/22/23 02/23/23 16:35 05:44 Estim Creat Clear Calc 118.7 109.0 Estimated GFR > 60 > 60 Vancomycin Loading Dose: 2000 MG Current Vancomycin Dosing Regimen: 1000MG Q12H Vancomycin Monitoring using AUC goal of 400 - 600 range with trough as surrogate marker: AUC 498, TROUGH 14.6 Date and Time for next Vancomycin Level to be drawn: 02/24 @1200 Pharmacist Comments on Vancomycin Plan: Vancomycin dosing will take advantage of [employer] as a clinical decision support tool that uses Bayesian modeling to calculate individual patient's pharmacokinetic parameters and forecast the patient's drug concentration time course with the target goal AUC 24 range of 400 - 600 mg/L/hr.
[2023-02-23 07:05] LABS: Glucose, Whole Blood 202 mg/dL (60-115)
[2023-02-23] MEDS: Insulin Lispro 100 UNIT/ML 3 ML VIAL SUBCUT (07:09)
[2023-02-23 07:10] VITALS: BP 113/57; PULSE 56; RESP 12; TEMP 36.7; O2SAT 94
[2023-02-23] MEDS: 0.9 % Sodium Chloride Flush 3 ML SYRINGE IVFLUSH ×2 (07:13→20:14)
--- NOTE | 2023-02-23 08:23 | PHA.MEDREC ---
Pharmacy Consult ? Medication Reconciliation Pharmacy has completed the medication reconciliation.Verified medication list with patient and pharmacy
[2023-02-23] MEDS: DULoxetine HCl 60 MG CAPSULE.DR PO ×2 (10:25→20:14)
[2023-02-23] MEDS: Buprenorphine/Naloxone 8/2 mg FILM 3 FILM BUCCAL (10:25)
[2023-02-23] MEDS: Baclofen 10 MG TABLET PO ×2 (10:25→20:13)
[2023-02-23] MEDS: Pregabalin 150 MG CAPSULE 300 MG PO ×2 (10:35→20:14)
[2023-02-23] MEDS: Nicotine Polacrilex 2 MG GUM BUCCAL ×2 (10:36→16:18)
--- NOTE | 2023-02-23 10:52 | PC.NURSE ---
patient resting in bed, VSS, cellulitis on leg smaller then marker outline, patient tearful, states she is uncomfortable, medications and prns given per MAR.
[2023-02-23 11:39] LABS: Glucose, Whole Blood 127 mg/dL (60-115)
[2023-02-23] MEDS: Acyclovir 200 MG CAPSULE 400 MG PO ×2 (11:43→20:13)
[2023-02-23] MEDS: Prazosin HCL 5 MG CAPSULE PO ×2 (11:43→20:13)
[2023-02-23] MEDS: vancomycin HCL 1,000 MG in 0.9 % Sodium Chloride 250 ML 270 MG IV (14:55)
--- NOTE | 2023-02-23 15:47 | PM.EVENT ---
Event Note Date of Service: 02/23/23 Event Note: Patient admitted for cellulitis recurrent. Says had mild erythema of the leg surrounding area of cellulitis marked earlier seems to be improving. Denies any chest pain or shortness of breath but seems anxious Physical exam: unchnaged from h&p. assessment andplan-as per h&p. Cellulitis-continue IV antibiotics, Vanco trough monitoring as per pharmacy. Id evaluation. Time Spent With Patient Time: Total time managing care of this patient today ____ minutes.
[2023-02-23] MEDS: Omeprazole 40 MG CAPSULE.DR PO (16:06)
--- NOTE | 2023-02-23 16:09 | PC.NURSE ---
patient resting in bed, medicated with tylenol per MAR for pain and bodyaches.
[2023-02-23 16:51] VITALS: BP 139/72; PULSE 63; RESP 12; TEMP 36.7; O2SAT 95
--- NOTE | 2023-02-23 17:01 | PC.NURSE ---
patient resting in bed, utilized prn tylenol and nicotine gum per AUG. patient appears to be in no distress
[2023-02-23] MEDS: Ziprasidone 40 MG CAPSULE PO (17:23)
[2023-02-23 18:09] LABS: Glucose, Whole Blood 128 mg/dL (60-115)
[2023-02-23 18:34] VITALS: BMI 47.3
[2023-02-23 19:52] VITALS: BP 152/70; PULSE 52; RESP 18; TEMP 37; O2SAT 96
[2023-02-23] MEDS: Amitriptyline HCl 25 MG TABLET PO (20:13)
[2023-02-23] MEDS: Pramipexole Di-HCL 0.25 MG TABLET 0.5 MG PO (20:14)
[2023-02-23] MEDS: Pravastatin Sodium 20 MG TABLET PO (20:14)
[2023-02-23 20:38] LABS: Glucose, Whole Blood 153 mg/dL (60-115)
[2023-02-23] MEDS: Insulin Glargine,Hum.rec.anlog 100 UNIT/ML 10 ML VIAL 26 UNIT SUBCUT (21:31)
--- NOTE | 2023-02-23 23:17 | P.CNID_ITS ---
History of Present Illness Data of Consult Service Date: 02/23/23 Requesting physician: Charli Fernandez Primary Care Provider: AYO Duncan HPI Reason for consult: recurrent cellulitis concerns,COVID She presents with shortness of breath. She still complains redness leg,Left leg. Complaints are present for five days. I saw her 02/08 for cellulitis concern leg Review of Systems 2 Review of Systems: Yes all other systems are reviewed and are negative PMFSH Past Medical History Medical History Bacteremia History of migraine headaches Hyperlipidemia Depression with anxiety Diabetes Family History Family History Father Depression Bipolar disorder Family history: reviewed and not pertinent Social History Social History Household Members: Family Household Members Other:: CHILDREN Housing: House Do you presently have visiting nurse or other home services: No Alcohol intake: never Patient Tobacco Use Status: Former Tobacco user Tobacco use type: Cigarette Cigarette Packs Per Day: 0.5 Cigarettes Per Day: 10.0 e-Cigarette/Vaping Use: Former Use Second Hand Smoke Exposure: No Substance Use Type: Marijuana service: No Meds Allergies Allergy/AdvReac Type Severity Reaction Status Date / Time Sulfa (Sulfonamide Allergy Unknown HIVES Verified 02/15/23 13:13 Antibiotics) [SULFA (SULFONAMIDE ANTIBIOTICS)] glipizide Allergy Unknown Verified 02/15/23 13:13 Active Medications: Current Medications Acetaminophen (Acetaminophen 325 Mg Tablet) 650 mg PO Q6H PRN PRN Reason: Pain, Mild (Pain Scale 1-3) Last Admin: 02/23/23 16:06 Dose: 650 mg Acyclovir (Acyclovir 200 Mg Capsule) 400 mg PO BID ISHAN Last Admin: 02/23/23 20:13 Dose: 400 mg Albuterol Sulfate (Albuterol Sulfate (0.083%) 2.5 Mg/3 Ml Vial.Neb) 2.5 mg INHALE Q4H PRN PRN Reason: Shortness Of Breath Or Wheezing Albuterol Sulfate (Albuterol Sulfate 90 Mcg 8 Gm Inhaler) 2 puff INHALE Q6H PRN PRN Reason: Shortness Of Breath Or Wheezing Amitriptyline HCl (Amitriptyline Hcl 25 Mg Tablet) 25 mg PO BEDTIME [facility] Last Admin: 02/23/23 20:13 Dose: 25 mg Baclofen (Baclofen 10 Mg Tablet) 10 mg PO BID [facility] Last Admin: 02/23/23 20:13 Dose: 10 mg Buprenorphine/Naloxone (Buprenorphine/Naloxone 8/2 Mg Film) 3 film BUCCAL DAILY [facility] Last Admin: 02/23/23 10:25 Dose: 3 film Dextrose (Dextrose 50 % 25 Gm/50 Ml Syringe) 25 gm IVPUSH Q15M PRN; Protocol PRN Reason: per Hypoglycemia Standing Ord. Duloxetine HCl (Duloxetine Hcl 60 Mg Capsule.Dr) 60 mg PO BID [facility] Last Admin: 02/23/23 20:14 Dose: 60 mg Enoxaparin Sodium (Enoxaparin Sodium 40 Mg/0.4 Ml Syringe) 40 mg SUBCUT Q24H [facility] Last Admin: 02/23/23 01:46 Dose: Not Given Fenofibrate (Fenofibrate 160 Mg Tablet) 160 mg PO DAILY [facility] Fluticasone Propionate (Fluticasone Propionate 100 Mcg Blst.W.Dev) 2 puff INHALE RDAILY [facility] Glucose (Glucose Gel 15 Gm Gel..Gram.) 15 gm PO Q15M PRN; Protocol PRN Reason: per Hypoglycemia Standing Ord. Hydroxyzine HCl (Hydroxyzine Hcl 25 Mg Tablet) 25 mg PO TID PRN PRN Reason: ptsd Vancomycin HCl 1,000 mg/ (Sodium Chloride) 270 mls @ 270 mls/hr IV Q12H [facility] Last Infusion: 02/23/23 15:55 Dose: Infused Insulin Glargine (Insulin Glargine,Hum.Rec.Anlog 100 Unit/Ml 10 Ml Vial) 26 unit SUBCUT BEDTIME [facility] Last Admin: 02/23/23 21:31 Dose: 26 unit Insulin Human Lispro (Insulin Lispro 100 Unit/Ml 3 Ml Vial) 0.1 - 10 unit SUBCUT QIDACHS [facility]; Protocol Last Admin: 02/23/23 21:28 Dose: Not Given Ketorolac Tromethamine (Ketorolac Tromethamine 15 Mg/Ml Vial) 15 mg IVPUSH Q6H PRN PRN Reason: Pain, Moderate(Pain Scale 4-6) Last Admin: 02/23/23 20:16 Dose: 15 mg Melatonin (Melatonin 3 Mg Tablet) 6 mg PO BEDTIME PRN PRN Reason: Insomnia Nicotine Polacrilex (Nicotine Polacrilex 2 Mg Gum) 2 mg BUCCAL Q2H PRN PRN Reason: smoker Last Admin: 02/23/23 16:18 Dose: 2 mg Nystatin (Nystatin Powder 15 Gm Bottle) 1 appl TOPICAL TID [facility]; Protocol Last Admin: 02/23/23 21:19 Dose: Not Given Omeprazole (Omeprazole 40 Mg Capsule.Dr) 40 mg PO BID@0630,1630 [facility] Last Admin: 02/23/23 16:06 Dose: 40 mg Ondansetron HCl (Ondansetron Hcl 4 Mg/2 Ml Vial) 4 mg IVPUSH Q8H PRN PRN Reason: Nausea and Vomiting Pharmacy Consult (Consult Rx Vancomycin Dosing) 1 each MISCELLANE DAILY PRN PRN Reason: Consult order Pramipexole Dihydrochloride (Pramipexole Di-Hcl 0.25 Mg Tablet) 0.5 mg PO BEDTIME [facility] Last Admin: 02/23/23 20:14 Dose: 0.5 mg Pravastatin Sodium (Pravastatin Sodium 20 Mg Tablet) 20 mg PO BEDTIME [facility] Last Admin: 02/23/23 20:14 Dose: 20 mg Prazosin HCl (Prazosin Hcl 5 Mg Capsule) 5 mg PO BID [facility]; Protocol Last Admin: 02/23/23 20:13 Dose: 5 mg Pregabalin (Pregabalin 150 Mg Capsule) 300 mg PO BID [facility] Last Admin: 02/23/23 20:14 Dose: 300 mg Sodium Chloride (0.9 % Sodium Chloride Flush 3 Ml Syringe) 3 ml IVFLUSH QSHIFT [facility] Last Admin: 02/23/23 20:14 Dose: 3 ml Sumatriptan Succinate (Sumatriptan Succinate 100 Mg Tablet) 100 mg PO Q2H PRN PRN Reason: Migraine Headache Ziprasidone (Ziprasidone 40 Mg Capsule) 40 mg PO BIDWM [facility] Last Admin: 02/23/23 17:23 Dose: 40 mg Home Medications Medication Instructions Recorded Confirmed Last Taken Type acyclovir 400 mg tablet 400 mg PO BID 09/26/22 02/23/23 02/22/23 History amitriptyline 25 mg tablet 25 mg PO BEDTIME 09/26/22 02/23/23 02/21/23 History baclofen 10 mg tablet 10 mg PO BID 09/26/22 02/23/23 02/22/23 History duloxetine 60 mg capsule,delayed 60 mg PO BID 09/26/22 02/23/23 02/22/23 History release fenofibrate nanocrystallized 145 145 mg PO DAILY 09/26/22 02/23/23 02/22/23 History mg tablet hydroxyzine HCl 25 mg tablet 25 mg PO TID PRN ptsd 09/26/22 02/23/23 Unknown History lisinopril 20 1 tab PO DAILY 09/26/22 02/23/23 02/22/23 History mg-hydrochlorothiazide 25 mg tablet metformin 850 mg tablet 850 mg PO BID 09/26/22 02/23/23 02/22/23 History omeprazole 40 mg capsule,delayed 40 mg PO BID 09/26/22 02/23/23 02/22/23 History release pramipexole 0.5 mg tablet 0.5 mg PO BEDTIME 09/26/22 02/23/23 02/22/23 History pravastatin 20 mg tablet 20 mg PO BEDTIME 09/26/22 02/23/23 02/21/23 History prazosin 5 mg capsule 5 mg PO BID 09/26/22 02/23/23 02/22/23 History pregabalin 300 mg capsule 300 mg PO BID 09/26/22 02/23/23 02/22/23 History sumatriptan succinate 100 mg tablet 100 mg PO Q2H PRN Migraine Headache 09/26/22 02/23/23 Unknown History albuterol sulfate 90 mcg/actuation 2 puff inhalation Q6H PRN 01/12/23 02/23/23 Unknown History aerosol inhaler (Ventolin HFA) Shortness Of Breath Or Wheezing ziprasidone HCl 40 mg capsule 40 mg PO BIDWM 01/12/23 02/23/23 02/22/23 History insulin glargine 100 unit/mL (3 26 unit subcut BEDTIME 01/14/23 02/23/23 02/21/23 History mL) subcutaneous pen (Lantus Solostar U-100 Insulin) albuterol sulfate 2.5 mg/3 mL 2.5 mg inhalation Q4H PRN 02/23/23 02/23/23 Unknown History (0.083 %) solution for nebulization Shortness Of Breath Or Wheezing buprenorphine 8 mg-naloxone 2 mg 3 film buccal DAILY 02/23/23 02/23/23 02/22/23 History sublingual film (Suboxone) celecoxib 200 mg capsule 200 mg PO BID 02/23/23 02/23/23 02/22/23 History fluticasone propionate 110 2 puff inhalation DAILY 02/23/23 02/23/23 02/22/23 History mcg/actuation HFA aerosol inhaler Physical Exam 2 Vital Signs: Vital Signs: Last Vital Signs Temp 98.6 F 02/23/23 19:52 Pulse 52 02/23/23 19:52 Resp 18 02/23/23 19:52 BP 152/70 H 02/23/23 19:52 Pulse Ox 96 02/23/23 19:52 O2 Del Method Room Air 02/23/23 19:52 BMI result Body Mass Index 47.3 Const: General: cooperative HEENT: Head: Yes normal to inspection Face and sinus: Yes normal facial exam Mouth: Normal oral and palatal mucosa present Teeth and gingiva: d entition normal Eyes: General: appearance normal, both eyes and all related structures P upils: Equal, round and reactive pupils present Resp: Effort & Inspection: normal respiratory effort Cardio: Rate: regular rate Rhythm: regular rhythm GI: Palpation (GI): Soft to palpation and nontender : General: Yes no CVA tenderness Back/Spine/Pelvis: Back: no CVA tenderness Skin: General skin exam: no rashes or lesions noted Neuro: General: moves all extremities Cranial nerves: Yes Equal, round and reactive pupils present Extrem: General: Yes normal to inspection Psych: Appearance: grossly normal Results Labs 02/22/23 16:35 02/23/23 05:44 Labs: BMP 02/23/23 05:44 Sodium 134 L Potassium 4.1 Chloride 102 Carbon Dioxide 26 BUN 17 H Creatinine 0.85 Calcium 8.6 D Liver Function 02/23/23 Range/Units 05:44 Total Bilirubin 0.2 (0.0-1.0) mg/dL AST 27 (5-31) U/L ALT 38 H (0-31) U/L Alkaline Phosphatase 27 L (39-117) U/L Albumin 3.6 (3.5-5.0) g/dL Urine 02/23/23 Range/Units 03:31 Urine Color Yellow Urine Appearance Clear Urine pH 6.0 (5.0-9.0) Ur Specific [place] 1.020 (1.005-1.025) Urine Protein Negative (Neg-Trace) mg/dL Urine Glucose (UA) 100 H (Negative) mg/dL Microbiology Microbiology Results: Microbiology 02/22/23 16:35 Blood - Venous Blood Culture - Preliminary No growth after 24 hours. 02/22/23 16:35 Blood - Venous Blood Culture - Preliminary No growth after 24 hours. Assessment and Plan (1) COVID-19 virus infection: Status: Acute She is not hypoxic at this time so no steroids or Remdesivir. Left leg slt erythema, rx topical steroids and Doxycycline to decrease inflammation. (2) Cellulitis: Qualifiers: Laterality: left Site of cellulitis of extremity: lower extremity Status: Acute Time Spent With Patient Time: Total time managing care of this patient today ____ minutes.
[2023-02-24] VITALS: BP 138/65; PULSE 53; RESP 17; TEMP 36.6; O2SAT 94
[2023-02-24] MEDS: Nicotine 21 MG PATCH.TD24 TRANSDERMA (01:16)
[2023-02-24] MEDS: Enoxaparin Sodium 40 MG/0.4 ML SYRINGE SUBCUT (01:18)
[2023-02-24] MEDS: vancomycin HCL 1,000 MG in 0.9 % Sodium Chloride 250 ML 270 MG IV (01:19)
[2023-02-24] MEDS: 0.9 % Sodium Chloride Flush 3 ML SYRINGE IVFLUSH (01:20)
--- NOTE | 2023-02-24 03:46 | PC.NURSE ---
Patient somnelent at the beginning of this [id number] overnight shift. Pt. awakened to name called several times. Per pt, i haven't slept in 48 hrs . Pmore awake about midnight and requesting a Nicotine patch. Pt. states she uses a 21mg Nicotine patch at home and cannot use the gum as it sticks to her dentures. Reported to Dr. Raphael and Nicotine patch applied to pt.
[2023-02-24 04:00] VITALS: BP 139/69; PULSE 53; RESP 17; TEMP 36.7; O2SAT 96
[2023-02-24] MEDS: Omeprazole 40 MG CAPSULE.DR PO (06:03)
[2023-02-24 07:33] LABS: Glucose, Whole Blood 149 mg/dL (60-115)
[2023-02-24 07:45] LABS: Creatinine Clr Calc Pharmacy 111.3; Estimated Glomerular Filt Rate > 60
[2023-02-24 08:00] VITALS: BP 136/67; PULSE 50; RESP 20; TEMP 36.3; O2SAT 96
--- NOTE | 2023-02-24 08:41 | MHC.CM.PN ---
DARBY 02/24/23, EMR REVIEWED, PT STATES I JUST GOT SICK AGAIN CM MET W/PT WHO REPORTS SHE LIVES W/HER 2 DTRS, PT IS INDEP W/ALL CARE AND HAS DIABETIC SUPPLIES FOR DME. PT DENIES HOME SERVICES AND FAMILY WILL TRANSPORT. PT VERIFIES PCP ON FILE IS CORRECT, DENIES RECEIVING ANY VACCINES FOR COVID19 AND HAS BEEN EDUCATED ON AND DECLINES TO COMPLETE A HCP AT THIS TIME. THRIVE ASSESSMENT NEGATIVE LAST ADMISSION 02/05, PT REPORTS NO CHANGES, PT RECEIVES FOOD STAMPS AND A TRIPP BENEFIT HOWEVER PT DID RECEIVE [employer] GUIDE DURING LAST ADMIT PER REQUEST.
[2023-02-24] MEDS: Nystatin Powder 15 GM BOTTLE 1 APPL TOPICAL (08:59)
[2023-02-24] MEDS: Pregabalin 150 MG CAPSULE 300 MG PO (08:59)
[2023-02-24] MEDS: DULoxetine HCl 60 MG CAPSULE.DR PO (09:00)
[2023-02-24] MEDS: Fenofibrate 160 MG TABLET PO (09:00)
[2023-02-24] MEDS: Acyclovir 200 MG CAPSULE 400 MG PO (09:00)
[2023-02-24] MEDS: Ziprasidone 40 MG CAPSULE PO (09:00)
[2023-02-24] MEDS: Buprenorphine/Naloxone 8/2 mg FILM 3 FILM BUCCAL (09:00)
[2023-02-24] MEDS: Baclofen 10 MG TABLET PO (09:00)
[2023-02-24] MEDS: Prazosin HCL 5 MG CAPSULE PO (09:00)
[2023-02-24] MEDS: Acetaminophen 325 MG TABLET 650 MG PO (09:09)
[2023-02-24] MEDS: Doxycycline Monohydrate 100 MG CAPSULE PO (09:10)
--- NOTE | 2023-02-24 09:27 | PM.DS ---
DS: Providers Provider Date of Service: 02/24/23 Date of admission: 02/23/23 01:40 Date of discharge: 02/24/23 Primary care physician: AYO Duncan Consults: 02/23/23 04:17 Consult to Infectious Diseases Routine Consulting Provider: [facility] [place] [facility] Reason for consultation: Recurrent left lower extremity cellulitis Attending physician on discharge: Charli Fernandez Discharging clinician: Charli Fernandez DS: Diagnosis Discharge Diagnosis (1) COVID-19 virus infection: Status: Acute (2) Cellulitis: Status: Acute DS: Summary Hospital Course Hospital Course: 42-year-old female with pertinent history of insulin-dependent diabetes mellitus, morbid obesity, fibromyalgia, genital herpes, mood disorder who presents to the emergency department for evaluation of fevers and redness of her left lower extremity. Of note, patient was recently admitted on 02/06 and discharged on 02/09 with sepsis due to left lower extremity cellulitis and community-acquired pneumonia complicated by Streptococcus bacteremia. Patient was discharged on 2 week course of Ceftin. Patient states that her left lower extremity erythema, warmth was improving on p.o. antibiotics which she completed 2 days prior to presentation. It recurred and is associated with erythema, warmth and pain. Patient also tested positive for COVID-19 about 4 days prior to presentation and has been having fever, chills and nonproductive cough. Also has associated fatigue and poor p.o. intake. Patient has been having pleuritic chest discomfort worsened with deep inspiration. No palpitations, abdominal pain, changes in urinary or bowel habits. hospital course: 42-year-old female with pertinent history of insulin-dependent diabetes mellitus, morbid obesity, fibromyalgia, genital herpes, mood disorder who presents to the emergency department for evaluation of fevers and redness of her left lower extremity. Left lower extremity cellulitis, recurrent:Patient was admitted for leg cellulitis-started on IV antibiotics, blood culture sent : Patient seems to be improved with IV antibiotics, seen by infectious disease recommended to switch to p.o. antibiotics upon discharge. In addition infectious disease also recommended to and additional topical steroids. COVID-19 infection. Continue isolation precautions. Patient without hypoxemia, defer Decadron. No concerns for secondary bacterial superinfection, no new consolidation on CT scan. Bilateral ground-glass opacities on CT scan. Broad differential including hypersensitivity pneumonitis, atypical pneumonia. Noted previous negative respiratory viral panel. TB spot test negative. Will need outpatient follow-up CT scan and pulmonology. Above management discussed with the patient in detail length she understand and in agreement with the plan, time spent 50 minute. Time Spent with Patient Time attestation: Total time managing care of this patient today ____ minutes. Discharge coordination time: Greater than 30 minutes Quality: Safe Use of Opioids Does Pt have an Active Cancer Diagnosis on the Problem List?: No Quality: Stroke Does the patient have a stroke diagnosis?: No Physical Exam Vital Signs: Vital Signs: Last Vital Signs Temp 97.3 F 02/24/23 08:00 Pulse 50 02/24/23 08:00 Resp 20 02/24/23 08:00 BP 136/67 02/24/23 08:00 Pulse Ox 96 02/24/23 08:00 O2 Del Method Room Air 02/24/23 08:00 BMI result Body Mass Index 47.3 Appearance: Alert.? Oriented X3.? not in distress.? cvs: rrr, [id number] , no murmur res: clear to auscultation ,no rhonchii or wheezing abd: no rebound or guarding ,nt, bs present. ext pulses present , no cyanosis . Extremity: Left lower extremity with erythema seems significantly improving. neuro: axo3 , nonfocal. DS: Data Data Completed and Pending Labs on day of discharge: Laboratory Results - last 24 hr 02/23/23 02/23/23 02/23/23 11:35 18:04 20:34 Creatinine Estim Creat Clear Calc Estimated GFR POC Glucose 127 H 128 H 153 H 02/24/23 02/24/23 06:50 07:25 Creatinine 0.87 Estim Creat Clear Calc 111.3 Estimated GFR > 60 POC Glucose 149 H Preliminary micro results at discharge 02/22/23 16:35 Blood Culture - Preliminary Blood - Venous No growth after 24 hours. 02/22/23 16:35 Blood Culture - Preliminary Blood - Venous No growth after 24 hours. Imaging Chest x-ray: Radiologist's impression: ITS Impressions Chest X-Ray 02/22/23 16:40 IMPRESSION: Once again opacities are seen in the lungs here right greater than left and I feel there may well be some mild worsening here. Chest CT 02/23/23 01:35 IMPRESSION: Redemonstrated extensive mid to upper lung zone predominant groundglass opacity nodules, similar to 02/06/2023.. As previously noted, this could be due to respiratory bronchiolitis/respiratory bronchiolitis interstitial lung disease, hypersensitivity pneumonitis, follicular bronchiolitis, or endobronchial spread of infection. Follow-up CT in 3 months is advised. No new region of consolidation. Discharge Plan Discharge Anticipated Discharge Date/Time: 02/24/23 09:20 Patient Disposition: Home, Self-Care Discharge Diagnosis: leg cellulitis Referrals: [employer] kumar, CLINICAL PROFESSOR [Primary Care Provider] - 1 Week Discharge Medications: New triamcinolone acetonide 0.1 % Cream 1 appl topical DAILY Qty: 1 0RF Protocol: Apply to: Apply to: Affected area doxycycline monohydrate 100 mg Capsule 100 mg PO Q12H Qty: 14 0RF Continued insulin glargine [Lantus Solostar U-100 Insulin] 100 unit/mL (3 mL) insulin pen 26 unit subcut BEDTIME nicotine (polacrilex) 2 mg Gum 2 mg buccal Q2H PRN (Reason: smoker) Qty: 20 0RF buprenorphine-naloxone [Suboxone] 8-2 mg Film 3 film BUCCAL DAILY Rx Instructions: place 1 film on inside of (each) cheek celecoxib 200 mg Capsule 200 mg PO BID albuterol sulfate 2.5 mg /3 mL (0.083 %) Solution For Nebulization 2.5 mg INHALATION Q4H PRN (Reason: Shortness Of Breath Or Wheezing) fluticasone propionate 110 mcg/actuation Hfa Aerosol Inhaler 2 puff INHALATION DAILY sumatriptan succinate 100 mg tablet 100 mg PO Q2H PRN (Reason: Migraine Headache) Rx Instructions: NO MORE THAN 2 TABS IN 24 HOURS metformin 850 mg tablet 850 mg PO BID acyclovir 400 mg tablet 400 mg PO BID omeprazole 40 mg capsule,delayed release(DR/EC) 40 mg PO BID prazosin 5 mg capsule 5 mg PO BID amitriptyline 25 mg tablet 25 mg PO BEDTIME baclofen 10 mg tablet 10 mg PO BID lisinopril-hydrochlorothiazide 20-25 mg tablet 1 tab PO DAILY Hold Instructions: Resume on 01/23/23. pravastatin 20 mg tablet 20 mg PO BEDTIME duloxetine 60 mg capsule,delayed release(DR/EC) 60 mg PO BID pregabalin 300 mg capsule 300 mg PO BID fenofibrate nanocrystallized 145 mg tablet 145 mg PO DAILY pramipexole 0.5 mg tablet 0.5 mg PO BEDTIME hydroxyzine HCl 25 mg tablet 25 mg PO TID PRN (Reason: ptsd) nystatin 100,000 unit/gram Powder 1 appl topical TID 7 Days Qty: 30 0RF Protocol: Apply to: Apply to: fungal rash albuterol sulfate [Ventolin HFA] 90 mcg/actuation HFA aerosol inhaler 2 puff inhalation Q6H PRN (Reason: Shortness Of Breath Or Wheezing) ziprasidone HCl 40 mg capsule 40 mg PO BIDWM Discharge Orders: Discharge Order (Routine); Ordered 02/24/23 Ordered By: Charli Fernandez Diet: Advance to usual diet Activity on Discharge: As tolerated Stand Alone Forms: Patient Portal Discharge page Care Plan Goals: Patient was admitted for leg cellulitis-started on IV antibiotics, blood culture sent : Patient seems to be improved with IV antibiotics, seen by infectious disease recommended to switch to p.o. antibiotics upon discharge. In addition infectious disease also recommended to and additional topical steroids. COVID: Patient is COVID positive, not symptomatic. Health Concerns: As above. Plan of Treatment: As above. Assessment: As above.
[2023-02-24] MEDS: Triamcinolone Acet 0.1 % Cream 15 GM TUBE 1 APPL TOPICAL (10:19)
[2023-02-24 11:17] VITALS: BP 122/64; PULSE 56; RESP 18; TEMP 36.6; O2SAT 94
[2023-02-24 11:23] LABS: Glucose, Whole Blood 154 mg/dL (60-115)
== END 2023-02-24 12:45 | disposition home or self-care (01) ==
LOC: HO.ED 02-23 00:21 → HO.EDOVER 02-23 01:44 → HO.IMC 02-23 17:18
PROVIDERS: Registered Nurse Emergency; Admitting Provider Student in an Organized Health Care Education/Training Program; Emergency Provider Emergency Medicine Emergency Medical Services; PCP Registered Nurse; Visit Provider Internal Medicine
DX: U07.1 COVID-19 (principal); L03.116 Cellulitis of left lower limb; R06.00 Dyspnea, unspecified; R91.8 Other nonspecific abnormal finding of lung field; E11.9 Type 2 diabetes mellitus without complications; Z79.4 Long term (current) use of insulin; E66.01 Morbid (severe) obesity due to excess calories; R50.9 Fever, unspecified; Z68.41 Body mass index [BMI] 40.0-44.9, adult; Z87.01 Personal history of pneumonia (recurrent)
CPT/HCPCS: 36415; 71046; 71260; 80053; 81001; 82565; 82947; 83605; 83880; 84484; 84702; 85025; 87040; 87502; 87635; 93005; 96361; 96365; 96366; 96367; 96372; 96374; 96375; 99222; 99285; J0692; J1650; J1885; J3370; Q9967

== ENCOUNTER → 2023-02-23 01:40 | Outpatient (BNV) | payer OTHER, SELFPAY | PROVIDERS: Admitting Provider Student in an Organized Health Care Education/Training Program; Emergency Provider Emergency Medicine Emergency Medical Services; PCP Registered Nurse; Visit Provider Internal Medicine | DX: U07.1 COVID-19 (principal); L03.90 Cellulitis, unspecified | CPT/HCPCS: 99222 ==

== ENCOUNTER → 2023-02-23 01:40 | Outpatient (BNV) | payer OTHER, SELFPAY | PROVIDERS: Admitting Provider Student in an Organized Health Care Education/Training Program; Emergency Provider Emergency Medicine Emergency Medical Services; PCP Registered Nurse; Visit Provider Student in an Organized Health Care Education/Training Program | DX: U07.1 COVID-19 (principal); L03.116 Cellulitis of left lower limb | CPT/HCPCS: 99222; 99239; 99499 ==

== ENCOUNTER 2023-03-02 10:08 | Outpatient (REF) | payer OTHER, SELFPAY ==
[2023-03-02 11:28] LABS: MANUAL DIFF FLAG NO
[2023-03-02 12:35] LABS: Basophils Percent Auto 0.4 % (0-2); Eosinophils Absolute Auto 0.2 X10*3/uL (0.0-0.4); Eosinophils Percent Auto 2.7 % (0-4); Hematocrit 39.8 % (37.0-47.0); Hemoglobin 12.3 g/dl (12.0-16.0); Imm Gran Abs Auto 0.03 X10*3/uL (0.00-0.03); Imm Gran Pct Auto 0.4 % (0.0-0.4); Lymphocytes Absolute Auto 2.5 X10*3/uL (1.2-4.9); Lymphocytes Percent Auto 29.6 % (20-40); Mean Corpuscular HGB Conc 30.9 g/dl (31.0-35.0); Mean Corpuscular Hemoglobin 26.5 pg (27.0-33.0); Mean Corpuscular Volume 85.6 fL (80.0-98.0); Mean Platelet Volume 11.9 fL (9.4-12.3); Monocytes Absolute Auto 0.9 X10*3/uL (0.1-1.2); Monocytes Percent Auto 10.8 % (2-11); Neutrophils Absolute Auto 4.8 x10*3/uL (2.0-8.3); Neutrophils Percent Auto 56.1 % (45-73); Platelet Count 276 X10*3/uL (160-400); Red Blood Count 4.65 X10*6/uL (4.20-5.50); Red Cell Distribution Width 14.4 % (11.0-16.0); White Blood Count 8.5 X10*3/uL (4.8-10.8)
[2023-03-02 13:06] LABS: Anion Gap 16 (12-20); Blood Urea Nitrogen 17 mg/dL (9-16); Carbon Dioxide 24 mmol/L (22-29); Chloride 102 mmol/L (96-108); Estimated Glomerular Filt Rate > 60; Glucose Random 106 mg/dL (60-115); Potassium 4.6 mmol/L (3.3-5.1); Sodium 137 mmol/L (135-145)
[2023-03-02 13:25] LABS: Erythrocyte Sedimentation Rate 13 MM/HR (0-20)
[2023-03-06 15:48] LABS: Immunoglobulin G Subclass 1 745 mg/dL (382-929); Immunoglobulin G Subclass 2 303 mg/dL (241-700); Immunoglobulin G Subclass 3 62 mg/dL (22-178); Immunoglobulin G Subclass 4 40.4 mg/dL (4-86); Immunoglobulin G Total 1159 mg/dL (600-1640)
[2023-03-06 18:43] LABS: Immunoglobulin E 22 kU/L (<OR=114)
[2023-03-07 08:34] LABS: Anti Nuclear Antibody Screen NEGATIVE (NEGATIVE)
[2023-03-12 15:53] LABS: Asperg fumigatus Precip Abs NEGATIVE (NEGATIVE); Micropoly faeni Abs NEGATIVE (NEGATIVE); Pigeon serum Abs NEGATIVE (NEGATIVE); Saccharo pora viridis Abs NEGATIVE (NEGATIVE); Thermo candidus Abs NEGATIVE (NEGATIVE); Thermoa vulgaris #1 NEGATIVE (NEGATIVE)
== END 2023-03-02 10:09 | disposition home or self-care (01) ==
LOC: HO.LAB 10:08
PROVIDERS: PCP Registered Nurse; Visit Provider Hospitalist
DX: J18.9 Pneumonia, unspecified organism (principal); R91.8 Other nonspecific abnormal finding of lung field; F17.200 Nicotine dependence, unspecified, uncomplicated
CPT/HCPCS: 36415; 80048; 82784; 82785; 85025; 85652; 86003; 86038; 86331; 86606; 86609

== ENCOUNTER 2023-03-02 10:08 | Outpatient (AMB) | payer MEDICARE, MEDICAID, SELFPAY ==
--- NOTE | 2023-03-02 10:27 | A.OFFVIS_ITS ---
Intake Vital Signs 03/02/23 10:28 Height 5 ft 4 in Weight 262 lb 5.601 oz BMI 45.0 BP 124/70 Blood Pressure Location Lt brachial Position Sitting Pulse 71 Pulse Source Pulse Oximeter Pulse Oximetry (%) 95 Oxygen Delivery Method Room Air Intake Visit Reasons: Pneumonia Pump Stitcher Required: No Allergies Sulfa (Sulfonamide Antibiotics) [SULFA (SULFONAMIDE ANTIBIOTICS)] Allergy (Unknown, Verified 03/02/23 10:29) HIVES glipizide Allergy (Verified 03/02/23 10:29) Unknown HPI HPI Comments History of Present Illness Details The patient is here for pulmonary evaluation. The patient is a 42 year woman presenting with abnormal CT scan of the chest. Apparently she states that she has been having hard time after her last year. She has been smoking more. She has been smoking up to 2 packs a day. Ultimately she started cutting down and started vaping. She states that she tries to smoke outside and he can not vaping side. She feels like vaping probably better for her than smoking. In addition to that she does have a headache see in her home. Unfortunately she noticed that it was filled with black mold. Therefore she described it and she is waiting for a new 1. The patient had gone to the hospital with evidence of pneumonia back in the summer and then more recently she went back to the hospital with cellulitis of the lower extremity. She states that she sometimes falls asleep smoking in the cigarettes bring her skin in her lower extremities and then that has resulting infections in the past. We did review her CT scan of the chest that she just had back in 02/23/2023 demonstrating centrilobular ground-glass nodular densities suggesting of pneumonitis. Most likely any respiratory bronchiolitis pattern. Explained to her that this could be secondary to respiratory bronchiolitis interstitial lung disease (RB ILD) she wore this also could be what appears to be acute hyper since stating pneumonitis. No evidence of any scar. The patient will try to quit the smoking and the vaping. Will provide her with a nicotine patch and also the Nicotrol inhaler. Hopefully this will substitute dose to devices. In addition to that she got rid of the air condition. The patient has been using her respiratory therapy. She does have a nebulizer which she has available. Will plan to do blood work including allergy testing to assess her pneumonitis. But, hold off on any prednisone in view of her significant risk of infections and other comorbidities. Will follow-up in a few months after her PFTs and blood work is completed. [facility] Medical History (Updated 03/02/23 @ 20:19 by Carlos A Treadwell MD) Pulmonary nodules Tobacco dependence Pneumonitis Bacteremia History of migraine headaches Hyperlipidemia Depression with anxiety Diabetes Family History Father Depression Bipolar disorder Social History Household Members: Family Household Members Other:: CHILDREN Housing: House Do you presently have visiting nurse or other home services: No Alcohol intake: never Patient Tobacco Use Status: Former Tobacco user Tobacco use type: Cigarette Cigarette Packs Per Day: 0.5 Cigarettes Per Day: 10.0 e-Cigarette/Vaping Use: Former Use Second Hand Smoke Exposure: No Substance Use Type: Marijuana service: No Female Reproductive History Menstrual Age of Menarche: 14 Review of Systems Const Denies fever(s) Eyes Denies change in vision ENT Reports nasal congestion Card Denies chest pain and Reports dyspnea on exertion Resp Reports cough, Reports dyspnea on exertion and Reports wheezing GI Reports no additional complaints Musc Reports myalgias Skin/Breast Reports skin swelling Neuro Reports no additional complaints Saul/Lymph Denies easy bruising and Denies lymphadenopathy Aller/Immun Reports wheezing Physical Exam Vital Signs: Last Vital Signs Pulse 71 03/02/23 10:28 BP 124/70 03/02/23 10:28 Pulse Ox 95 03/02/23 10:28 Oxygen Delivery Method Room Air 03/02/23 10:28 BMI result Body Mass Index 45.0 Const General: comfortable Orientation/consciousness: patient oriented x3 HEENT Head: Yes normocephalic Neck Neck: Yes supple Chest Chest palpation & inspection: normal inspection of the chest Resp Effort & Inspection: normal respiratory effort Auscultation: diminished lung sounds Cardio Rate: regular rate Rhythm: regular rhythm Heart sounds: S1 normal heart sound present and S2 normal heart sound present GI Palpation (GI): Soft to palpation Skin General skin exam: erythema Neuro General: patient oriented x3 Extrem General: No clubbing, No cyanosis and Yes edema Results Reviewed Results Reviewed: [address] [address] [address] Scan Report Signed Patient: Mague Cruz#: [id number] : 1980 Acct:[id number] Age/Sex: 42 / F ADM Date: 02/23/23 Loc: [place] [address]: Jakob Raphael MD Ordering Physician: José Miguel Hardy MD Date of Service: 02/23/23 Procedure(s): CT chest w IV con Accession Number(s): [id number] cc: José Miguel Hardy MD; [facility]~ EXAMINATION: CT CHEST WITH CONTRAST CLINICAL INFORMATION: COVID-19 positive with increased chest pain SOB COMPARISON: 02/06/2023 TECHNIQUE: Multidetector volumetric CT imaging of the chest was obtained after the administration of 85 mL of Omnipaque 350 intravenous contrast without immediate adverse reactions. Axial MIP volume rendering provided. Sagittal and coronal reformatted images were obtained. This CT examination was performed using dose optimization techniques as appropriate, variously including the following: *Automated exposure control *Adjustment of mA and/or kV according to patient size (this includes techniques or standardized protocols for targeted exams where dose is matched to indication/reason for exam; i.e. extremities or head) *Use of iterative reconstruction technique DLP: 519 mGy-cm FINDINGS: LUNGS: There is redemonstration of extensive, mid to upper lung zone predominance of groundglass opacity nodules, most of which measure less than 1 cm in diameter. Overall appearance is similar to 02/06/2023. No new region of consolidation is seen. MEDIASTINUM: The visualized thyroid gland is unremarkable. There are subcentimeter mediastinal lymph nodes within the range of normal variation. Cardiac size is within normal limits; no pericardial effusion. The aorta is unremarkable. PLEURA: No pneumothorax or pleural effusion. AXILLA: No lymphadenopathy. UPPER ABDOMEN: Unremarkable OSSEOUS STRUCTURES: Multilevel endplate osteophytes in the spine. CT/CT chest w IV con IMPRESSION: Redemonstrated extensive mid to upper lung zone predominant groundglass opacity nodules, similar to 02/06/2023.. As previously noted, this could be due to respiratory bronchiolitis/respiratory bronchiolitis interstitial lung disease, hypersensitivity pneumonitis, follicular bronchiolitis, or endobronchial spread of infection. Follow-up CT in 3 months is advised. No new region of consolidation. Dictated By: Eagle Hickey MD Signed By: <Electronically signed by Eagle Hickey MD in OV> 02/23/23 0246 DD/ 0135 TD/TT: Neurology Specialist: MICKEY Assessment & Plan Assessment & Plan (1) Pneumonitis: Code(s): J18.9 - Pneumonia, unspecified organism (2) Tobacco dependence: Code(s): F17.200 - Nicotine dependence, unspecified, uncomplicated (3) Pulmonary nodules: Code(s): R91.8 - Other nonspecific abnormal finding of lung field Plan Continue Flovent GAIL as needed Bloodwork Tobacco cessation: nicotrol inhaler and nicoderm patch PFTs F/U 2 months Orders: Orders Complete Blood Count Auto Diff Today J18.9 - Pneumonia, unspecified organism Basic Metabolic Panel Today J18.9 - Pneumonia, unspecified organism Erythrocyte Sedimentation Rate Today J18.9 - Pneumonia, unspecified organism Hypersensitive Pneumonitis Prf Today J18.9 - Pneumonia, unspecified organism, R91.8 - Other nonspecific abnormal finding of lung field Rast Allergen Today J18.9 - Pneumonia, unspecified organism NADIA Reflex Titer and Pattern Today J18.9 - Pneumonia, unspecified organism Immunoglobulin G Subclasses Today J18.9 - Pneumonia, unspecified organism Immunoglobulin E Today J18.9 - Pneumonia, unspecified organism PFT pulmonary function test Today J18.9 - Pneumonia, unspecified organism Medications: New nicotine (Nicotrol) 1 inh inhalation Q2-4H 30 days PRN 168 ea 0RF nicotine cravings nicotine 1 patch transdermal DAILY 28 days 28 ea 3RF Coding Level of Care Code New Pt Level 4 (05010) Diagnoses Pneumonitis J18.9 Tobacco dependence F17.200 Pulmonary nodules R91.8 Time Spent (min) 40
[2023-03-02 10:28] VITALS: BP 124/70; PULSE 71; O2SAT 95; BMI 45.0
== END 2023-03-02 11:10 | disposition home or self-care (01) ==
PROVIDERS: PCP Registered Nurse; Visit Provider Hospitalist
DX: J18.9 Pneumonia, unspecified organism (principal); F17.200 Nicotine dependence, unspecified, uncomplicated; R91.8 Other nonspecific abnormal finding of lung field
CPT/HCPCS: 99204

== ENCOUNTER 2023-03-05 19:09 | Emergency (ER) | payer MEDICARE, MEDICAID, OTHER, SELFPAY ==
--- NOTE | ~2023-03-05 | US_ITS ---
EXAMINATION: US VENOUS ULTRASOUND WITH DOPPLER LOWER EXTREMITY, LEFT CLINICAL INFORMATION: Pain COMPARISON: None available. TECHNIQUE: Ultrasound of the deep veins is performed from the hip to the calf with compression sonography and color and pulse Doppler assessment. Spectral analysis with color-flow imaging is performed. FINDINGS: There is normal venous compression and respiratory variation and augmented flow. The visualized common femoral vein, superficial femoral vein, profunda femoral vein, popliteal vein, and the trifurcation region shows no evidence of deep venous thrombosis. There is no significant popliteal fossa cyst. If the patient's symptoms persist, followup ultrasound in 5 days 7 days might be of value to exclude proximal propagation from a non-visualized calf vein. US/US venous duplex LE LT IMPRESSION: No DVT demonstrated in the left lower extremity.
[2023-03-05 20:16] VITALS: BP 107/65; PULSE 72; RESP 16; TEMP 36.9; O2SAT 96; BMI 45.4
[2023-03-05 20:45] LABS: MANUAL DIFF FLAG NO
[2023-03-05 20:47] LABS: Basophils Percent Auto 0.3 % (0-2); Eosinophils Absolute Auto 0.3 X10*3/uL (0.0-0.4); Eosinophils Percent Auto 2.2 % (0-4); Hematocrit 39.1 % (37.0-47.0); Hemoglobin 12.5 g/dl (12.0-16.0); Imm Gran Abs Auto 0.04 X10*3/uL (0.00-0.03); Imm Gran Pct Auto 0.3 % (0.0-0.4); Lymphocytes Absolute Auto 2.8 X10*3/uL (1.2-4.9); Lymphocytes Percent Auto 19.6 % (20-40); Mean Corpuscular Hemoglobin 26.6 pg (27.0-33.0); Mean Corpuscular Volume 83.2 fL (80.0-98.0); Mean Platelet Volume 11.4 fL (9.4-12.3); Monocytes Absolute Auto 1.1 X10*3/uL (0.1-1.2); Monocytes Percent Auto 7.7 % (2-11); Neutrophils Absolute Auto 9.9 x10*3/uL (2.0-8.3); Neutrophils Percent Auto 69.9 % (45-73); Platelet Count 248 X10*3/uL (160-400); Red Cell Distribution Width 14.3 % (11.0-16.0); White Blood Count 14.2 X10*3/uL (4.8-10.8)
[2023-03-05 20:56] LABS: Lactic Acid 0.9 mmol/L (0.5-2.0)
[2023-03-05 21:00] LABS: Alanine Aminotransferase 31 U/L (0-31); Albumin Level 4.4 g/dL (3.5-5.0); Alkaline Phosphatase 33 U/L (39-117); Anion Gap 13 (12-20); Aspartate Amino Transferase 22 U/L (5-31); Bilirubin Direct < 0.2 mg/dL (0.0-0.5); Bilirubin Total 0.2 mg/dL (0.0-1.0); Blood Urea Nitrogen 19 mg/dL (9-16); Calcium 9.7 mg/dL (8.4-10.2); Carbon Dioxide 23 mmol/L (22-29); Chloride 102 mmol/L (96-108); Creatinine Clr Calc Pharmacy 115.2; Estimated Glomerular Filt Rate > 60; Glucose Random 134 mg/dL (60-115); Lipase 84 U/L (8-78); Potassium 3.9 mmol/L (3.3-5.1); Sodium 134 mmol/L (135-145); Total Protein 7.7 g/dL (6.5-8.0)
[2023-03-05 21:46] VITALS: BP 122/59; PULSE 76; RESP 18; TEMP 36.8; O2SAT 96
--- NOTE | 2023-03-05 22:43 | ED.SKABFB ---
HPI - Skin/Abscess/Foreign Bdy General Chief complaint: Skin/Abscess/Foreign Body Stated complaint: celulitis Time Seen by Provider: 03/05/23 21:52 Source: patient and old records reviewed Mode of arrival: ambulatory Limitations: no limitations History of Present Illness HPI narrative: 42 yo female with PMH of IDDM, morbid obesity, fibromyalgia, genital herpes, mood disorder, recurrent cellulitis, strep bacteremia who presents again this month with leg redness just seen and treated for R leg infection completed doxy/ ceftin this month just finished last doxy a week ago. She noted today left leg became more red and she had a bump but no trauma and she just feels sick. She states she gets worried given she was septic once. The leg is swollen. MD complaint: lesion Onset (ago): day(s) (1) Tetanus up to date: yes Location: LLE Severity: moderate Quality: aching Pain Consistency: constant Relieving factors: rest Exacerbating factors: palpation Context: recent illness and recent antibiotic Associated symptoms: malaise Treatments prior to arrival: none Related Data Home Medications Medication Instructions Recorded Confirmed acyclovir 400 mg tablet 400 mg PO BID 09/26/22 02/23/23 amitriptyline 25 mg tablet 25 mg PO BEDTIME 09/26/22 02/23/23 baclofen 10 mg tablet 10 mg PO BID 09/26/22 02/23/23 duloxetine 60 mg capsule,delayed 60 mg PO BID 09/26/22 02/23/23 release fenofibrate nanocrystallized 145 145 mg PO DAILY 09/26/22 02/23/23 mg tablet hydroxyzine HCl 25 mg tablet 25 mg PO TID PRN ptsd 09/26/22 02/23/23 lisinopril 20 1 tab PO DAILY 09/26/22 02/23/23 mg-hydrochlorothiazide 25 mg tablet metformin 850 mg tablet 850 mg PO BID 09/26/22 02/23/23 omeprazole 40 mg capsule,delayed 40 mg PO BID 09/26/22 02/23/23 release pramipexole 0.5 mg tablet 0.5 mg PO BEDTIME 09/26/22 02/23/23 pravastatin 20 mg tablet 20 mg PO BEDTIME 09/26/22 02/23/23 prazosin 5 mg capsule 5 mg PO BID 09/26/22 02/23/23 pregabalin 300 mg capsule 300 mg PO BID 09/26/22 02/23/23 sumatriptan succinate 100 mg tablet 100 mg PO Q2H PRN Migraine Headache 09/26/22 02/23/23 albuterol sulfate 90 mcg/actuation 2 puff inhalation Q6H PRN 01/12/23 02/23/23 aerosol inhaler (Ventolin HFA) Shortness Of Breath Or Wheezing ziprasidone HCl 40 mg capsule 40 mg PO BIDWM 01/12/23 02/23/23 insulin glargine 100 unit/mL (3 26 unit subcut BEDTIME 01/14/23 02/23/23 mL) subcutaneous pen (Lantus Solostar U-100 Insulin) albuterol sulfate 2.5 mg/3 mL 2.5 mg inhalation Q4H PRN 02/23/23 02/23/23 (0.083 %) solution for nebulization Shortness Of Breath Or Wheezing buprenorphine 8 mg-naloxone 2 mg 3 film buccal DAILY 02/23/23 02/23/23 sublingual film (Suboxone) celecoxib 200 mg capsule 200 mg PO BID 02/23/23 02/23/23 fluticasone propionate 110 2 puff inhalation DAILY 03/02/23 mcg/actuation HFA aerosol inhaler nebulizers 03/02/23 Previous Rx's Medication Instructions Recorded nicotine (polacrilex) 2 mg gum 2 mg buccal Q2H PRN smoker #20 ea 01/16/23 nystatin 100,000 unit/gram topical 1 appl topical TID 7 days #30 grams 02/09/23 powder doxycycline monohydrate 100 mg 100 mg PO Q12H #14 caps 02/24/23 capsule triamcinolone acetonide 0.1 % 1 appl topical DAILY #1 g 02/24/23 topical cream nicotine 10 mg inhalation 1 inh inhalation Q2-4H PRN 03/02/23 cartridge (Nicotrol) nicotine cravings 30 days #168 ea nicotine 14 mg/24 hr daily 1 patch transdermal DAILY 28 days 03/02/23 transdermal patch #28 ea cefuroxime axetil 500 mg tablet 500 mg PO BID 10 days #20 tabs 03/05/23 doxycycline hyclate 100 mg capsule 100 mg PO BID 7 days #10 caps 03/05/23 Allergies Allergy/AdvReac Type Severity Reaction Status Date / Time Sulfa (Sulfonamide Allergy Unknown HIVES Verified 03/02/23 10:29 Antibiotics) [SULFA (SULFONAMIDE ANTIBIOTICS)] glipizide Allergy Unknown Verified 03/02/23 10:29 Review of Systems Review of Systems: Constitutional : No Fever, No Chills ENT/Mouth : No sore throat, No Rhinorrhea Eyes: No Eye Pain, No Swelling, No Redness Cardiovascular : No Chest Pain, No SOB, pos edema of leg Respiratory : No Cough, No Sputum Gastrointestinal : No Nausea, No Vomiting, No Diarrhea, No abdominal Pain Genitourinary : No Dysuria, No Hematuria Musculoskeletal : No joint pain, No Myalgias, No Joint Swelling Skin : No Skin Lesions, positive skin rash Neuro : No Weakness, No Numbness, No Headache Psych : No Anxiety, No Depression Heme/Lymph: No Bruising, No Bleeding,No Lymphadenopathy Endocrine : No Polyuria, No Polydipsia All other systems reviewed and are negative [facility] Past Medical History Attestation statement: The following information was validated with the patient. Medical History Pulmonary nodules Tobacco dependence Pneumonitis Bacteremia History of migraine headaches Hyperlipidemia Depression with anxiety Diabetes Family History Family History Father Depression Bipolar disorder Social History Social History Household Members: Family Household Members Other:: CHILDREN Housing: House Do you presently have visiting nurse or other home services: No Alcohol intake: never Patient Tobacco Use Status: Former Tobacco user Tobacco use type: Cigarette Cigarette Packs Per Day: 0.5 Cigarettes Per Day: 10.0 Smoked in Last 30 Days: Yes e-Cigarette/Vaping Use: Former Use Second Hand Smoke Exposure: No Use of substances other than those prescribed or required for medical reasons: No Substance Use Type: Marijuana Advance Directives: No service: No Physical Exam Vital Signs: Vital Signs: Last Vital Signs Temp 98.2 F 03/05/23 21:46 Pulse 76 03/05/23 21:46 Resp 18 03/05/23 21:46 BP 122/59 L 03/05/23 21:46 Pulse Ox 96 03/05/23 21:46 O2 Del Method Room Air 03/05/23 21:46 BMI result Body Mass Index 45.4 Appearance: Alert. Oriented X3. No acute distress. Eyes: Pupils equal, round and reactive to light. ENT: Pharynx normal. Neck: Normal inspection. Neck supple. CVS: Normal heart rate and rhythm. Pulses normal. Respiratory: No respiratory distress. Breath sounds normal. Abdomen: Soft and nontender. Skin: Skin warm and dry. Normal skin color. Normal skin turgor. Extremities: L left anterior 8cm rectangle patch red slight warm and there is a small red bump but it is firm not fluctuant L leg mildly swollen not edematous Neuro: Oriented X 3. No motor deficit. No sensory deficit. Medications Administered Discontinued Medications Generic Name Dose Route Start Last Admin Trade Name Freq PRN Reason Stop Dose Admin Piperacillin Sod/Tazobactam 50 mls @ 100 mls/hr 03/05/23 22:13 03/05/23 22:49 Sod 3.375 gm/ Sodium Chloride IV 03/05/23 22:42 100 mls/hr ONCE ONE Administration Medical Decision Making Medical Decision Making [facility] Narrative: 42 yo female with PMH of IDDM, morbid obesity, fibromyalgia, genital herpes, mood disorder, recurrent cellulitis, strep bacteremia here again with new left leg swelling and redness no abscess or crepitus felt will need basic labs, cultures, lactic acid, empiric zosyn and DVT study - distal NV intact. she is not toxic - may be okay for outpatient antibiotics. Differential Diagnosis Differential Diagnoses: The differential diagnosis associated with the presentation includes cellulitis Admission/Observation Consideration of admission/observation: Escalation of care including admission/observation considered VS stable, mild WBC count can be managed as outpatient Lab Data [facility] Lab Attestation statement: I reviewed the patient's lab results. WBC 14 has been higher before, chronic elevated lipase, lactic acid negative 03/05/23 20:40 03/05/23 20:40 Labs: Lab Results 03/05/23 Range/Units 20:40 WBC 14.2 H (4.8-10.8) X10*3/uL RBC 4.70 (4.20-5.50) X10*6/uL Hgb 12.5 (12.0-16.0) g/dl Hct 39.1 (37.0-47.0) % MCV 83.2 (80.0-98.0) fL MCH 26.6 L (27.0-33.0) pg MCHC 32.0 (31.0-35.0) g/dl RDW 14.3 (11.0-16.0) % Plt Count 248 (160-400) X10*3/uL MPV 11.4 (9.4-12.3) fL Immature Gran % (Auto) 0.3 (0.0-0.4) % Neut % (Auto) 69.9 (45-73) % Lymph % (Auto) 19.6 L (20-40) % Cobb % (Auto) 7.7 (2-11) % Eos % (Auto) 2.2 (0-4) % Baso % (Auto) 0.3 (0-2) % Lymph # (Auto) 2.8 (1.2-4.9) X10*3/uL Cobb # (Auto) 1.1 (0.1-1.2) X10*3/uL Eos # (Auto) 0.3 (0.0-0.4) X10*3/uL Baso # (Auto) 0.0 (0.0-0.2) X10*3/uL Abs Immat Gran (auto) 0.04 H (0.00-0.03) X10*3/uL Absolute Neuts (auto) 9.9 H (2.0-8.3) x10*3/uL Absolute Nucleated RBC 0.000 (0.0-0.012) X10*3/uL Nucleated RBC % (auto) 0.0 (0.0-0.2) /100WBC Sodium 134 L (135-145) mmol/L Potassium 3.9 (3.3-5.1) mmol/L Chloride 102 (96-108) mmol/L Carbon Dioxide 23 (22-29) mmol/L Anion Gap 13 (12-20) BUN 19 H (9-16) mg/dL Creatinine 0.82 (0.5-1.4) mg/dL Estim Creat Clear Calc 115.2 Estimated GFR > 60 Random Glucose 134 H (60-115) mg/dL Lactic Acid 0.9 (0.5-2.0) mmol/L Calcium 9.7 (8.4-10.2) mg/dL Total Bilirubin 0.2 (0.0-1.0) mg/dL Direct Bilirubin < 0.2 (0.0-0.5) mg/dL AST 22 (5-31) U/L ALT 31 (0-31) U/L Alkaline Phosphatase 33 L (39-117) U/L Total Protein 7.7 (6.5-8.0) g/dL Albumin 4.4 (3.5-5.0) g/dL Lipase 84 H (8-78) U/L Independent Interpretation I performed an independent interpretation of an: Ultrasound (no DVT) Radiology Impression Discussion of test interpretation with radiology: I have reviewed the radiologist's reading. External Record Review External record reviewed: Inpatient record Prescription Management I considered prescription management with: Antibiotic Discharge Plan Discharge Clinical Impression: Cellulitis Qualifiers: Site of cellulitis: extremity Site of cellulitis of extremity: lower extremity Laterality: left Qualified Code(s): L03.116 - Cellulitis of left lower limb Patient Disposition: Home, Self-Care Instructions: Cellulitis (ED) Additional Instructions: return for worsening redness going up the leg, fevers, vomiting or any other concerns. DVT study negative. follow up with doctor tomorrow for wound check Take a probiotic while you are on antibiotics and for at least one week after the antibiotics are finished - this can help protect your GI system from diarrhea and other issues. You can get probiotics by drinking kefir, eating yogurt or culturelle or another pill form of probiotic. Do not take it at the same time as you take the antibiotic.?More than 6 to 8 loose stools a day is not normal seek care if this happens On doxycycline, do not take pills immediately before going to bed and swallow pills with plenty of water. Avoid direct sunlight, iron, antacids, and Pepto Bismol. Call your provider if you develop new ringing in your ears, new problems hearing, dizziness, difficulty swallowing, rash, abdominal discomfort, nausea, or diarrhea.? On a cephalosporin?antibiotic, softer bowel movements are to be expected. Call your provider if you move your bowels more than 4 times a day, your bowel movements are almost all liquid, or you get a rash.?? Prescriptions: New doxycycline hyclate 100 mg capsule 100 mg PO BID 7 Days Qty: 10 0RF cefuroxime axetil 500 mg tablet 500 mg PO BID 10 Days Qty: 20 0RF No Action insulin glargine [Lantus Solostar U-100 Insulin] 100 unit/mL (3 mL) insulin pen 26 unit subcut BEDTIME nicotine (polacrilex) 2 mg Gum 2 mg buccal Q2H PRN (Reason: smoker) Qty: 20 0RF buprenorphine-naloxone [Suboxone] 8-2 mg Film 3 film BUCCAL DAILY Rx Instructions: place 1 film on inside of (each) cheek celecoxib 200 mg Capsule 200 mg PO BID albuterol sulfate 2.5 mg /3 mL (0.083 %) Solution For Nebulization 2.5 mg INHALATION Q4H PRN (Reason: Shortness Of Breath Or Wheezing) triamcinolone acetonide 0.1 % Cream 1 appl topical DAILY Qty: 1 0RF Protocol: Apply to: Apply to: Affected area doxycycline monohydrate 100 mg Capsule 100 mg PO Q12H Qty: 14 0RF fluticasone propionate 110 mcg/actuation HFA aerosol inhaler 2 puff INHALATION DAILY sumatriptan succinate 100 mg tablet 100 mg PO Q2H PRN (Reason: Migraine Headache) Rx Instructions: NO MORE THAN 2 TABS IN 24 HOURS metformin 850 mg tablet 850 mg PO BID acyclovir 400 mg tablet 400 mg PO BID omeprazole 40 mg capsule,delayed release(DR/EC) 40 mg PO BID prazosin 5 mg capsule 5 mg PO BID amitriptyline 25 mg tablet 25 mg PO BEDTIME baclofen 10 mg tablet 10 mg PO BID lisinopril-hydrochlorothiazide 20-25 mg tablet 1 tab PO DAILY Hold Instructions: Resume on 01/23/23. pravastatin 20 mg tablet 20 mg PO BEDTIME duloxetine 60 mg capsule,delayed release(DR/EC) 60 mg PO BID pregabalin 300 mg capsule 300 mg PO BID fenofibrate nanocrystallized 145 mg tablet 145 mg PO DAILY pramipexole 0.5 mg tablet 0.5 mg PO BEDTIME hydroxyzine HCl 25 mg tablet 25 mg PO TID PRN (Reason: ptsd) nystatin 100,000 unit/gram Powder 1 appl topical TID 7 Days Qty: 30 0RF Protocol: Apply to: Apply to: fungal rash albuterol sulfate [Ventolin HFA] 90 mcg/actuation HFA aerosol inhaler 2 puff inhalation Q6H PRN (Reason: Shortness Of Breath Or Wheezing) ziprasidone HCl 40 mg capsule 40 mg PO BIDWM (DME) nebulizers Misc See Rx Instructions .ROUTE Rx Instructions: As directed Nicotrol 10 mg cartridge 1 inh inhalation Q2-4H PRN (Reason: nicotine cravings) 30 Days Qty: 168 0RF nicotine 14 mg/24 hr patch 24 hour 1 patch transdermal DAILY 28 Days Qty: 28 3RF
[2023-03-05] MEDS: Piperacillin Sodium/Tazobactam 3.375 GM in 0.9 % Sodium Chloride 50 ML IV (22:49)
== END 2023-03-06 01:07 | disposition home or self-care (01) ==
PROVIDERS: Emergency Provider Emergency Medicine; PCP Registered Nurse
DX: L03.116 Cellulitis of left lower limb (principal); R60.0 Localized edema; Z87.891 Personal history of nicotine dependence; Z79.899 Other long term (current) drug therapy
CPT/HCPCS: 36415; 80048; 80076; 83605; 83690; 85025; 87040; 93971; 96365; 99284; J2543

== ENCOUNTER 2023-03-28 19:10 | Outpatient (REF) | payer MEDICARE, MEDICAID, SELFPAY | END 2023-03-28 19:11 | disposition home or self-care (01) | LOC: HO.HHCLNP 19:10 | PROVIDERS: Visit Provider Internal Medicine | DX: B37.9 Candidiasis, unspecified (principal) | CPT/HCPCS: 36415; 81513 ==

== ENCOUNTER → 2023-04-14 20:30 | Outpatient (REF) | payer MEDICARE, MEDICAID, SELFPAY | LOC: HO.SL 20:30 | PROVIDERS: PCP Registered Nurse; Visit Provider Nurse Practitioner Family | DX: G47.52 REM sleep behavior disorder (principal); R40.0 Somnolence; E66.01 Morbid (severe) obesity due to excess calories; F17.200 Nicotine dependence, unspecified, uncomplicated | CPT/HCPCS: 95810 ==

== ENCOUNTER → 2023-04-14 22:37 | Outpatient (BNV) | payer MEDICARE, MEDICAID, SELFPAY | PROVIDERS: PCP Registered Nurse; Visit Provider Psychiatry & Neurology Neurology | DX: G47.52 REM sleep behavior disorder (principal) | CPT/HCPCS: 95810 ==

== ENCOUNTER 2023-04-15 13:02 | Emergency (ER) | payer MEDICARE, MEDICAID, SELFPAY ==
--- NOTE | ~2023-04-15 | XR_ITS ---
EXAMINATION: XR CHEST CLINICAL INFORMATION: Shortness of breath COMPARISON: 02/22/2023 TECHNIQUE: 2 views of the chest were obtained. FINDINGS: Exam is felt to be similar to previous. Ill-defined opacities in the lungs. No large area of change. No effusion. The cardiac silhouette is within normal limits. The hilar regions do not appear pathologically enlarged. XR/XR chest 2V IMPRESSION: Persistent diffuse mild lung opacities. No significant change from previous
[2023-04-15 13:05] VITALS: BP 123/68; PULSE 97; RESP 15; TEMP 36.5; O2SAT 94; BMI 46.7
--- NOTE | 2023-04-15 13:05 | ED.URI ---
HPI - URI/Sore Throat General Chief Complaint: General Medical Stated Complaint: diff breathing, dizziness Time Seen by Provider: 04/15/23 14:48 Source: patient Mode of arrival: ambulatory Limitations: no limitations History of Present Illness HPI Narrative: Patient is a 42 year old assigned female at with a history of tobacco use presenting to the emergency department today with increased shortness of breath and feeling as though she has PNA again. Patient states that over the last few days she has had worsening SOB and feels as though when she had pneumonia previously. Patient denies any dizziness, lightheadedness, abdominal pain, nausea, vomiting, fever, chills, blurry vision, double vision, loss of vision, chest pain, back pain, night sweats, pain with urination, increased urinary frequency, increased urinary urgency, blood in her urine or stool, syncope or a near syncopal episode, recent trauma or falls, bowel incontinence, bladder incontinence, bowel retention, bladder retention, or any other complaints at this time. Onset (ago): day(s) Consistency: constant Severity: mild Related Data Home Medications Medication Instructions Recorded Confirmed acyclovir 400 mg tablet 400 mg PO BID 09/26/22 02/23/23 amitriptyline 25 mg tablet 25 mg PO BEDTIME 09/26/22 02/23/23 baclofen 10 mg tablet 10 mg PO BID 09/26/22 02/23/23 duloxetine 60 mg capsule,delayed 60 mg PO BID 09/26/22 02/23/23 release fenofibrate nanocrystallized 145 145 mg PO DAILY 09/26/22 02/23/23 mg tablet hydroxyzine HCl 25 mg tablet 25 mg PO TID PRN ptsd 09/26/22 02/23/23 lisinopril 20 1 tab PO DAILY 09/26/22 02/23/23 mg-hydrochlorothiazide 25 mg tablet metformin 850 mg tablet 850 mg PO BID 09/26/22 02/23/23 omeprazole 40 mg capsule,delayed 40 mg PO BID 09/26/22 02/23/23 release pramipexole 0.5 mg tablet 0.5 mg PO BEDTIME 09/26/22 02/23/23 pravastatin 20 mg tablet 20 mg PO BEDTIME 09/26/22 02/23/23 prazosin 5 mg capsule 5 mg PO BID 09/26/22 02/23/23 pregabalin 300 mg capsule 300 mg PO BID 09/26/22 02/23/23 sumatriptan succinate 100 mg tablet 100 mg PO Q2H PRN Migraine Headache 09/26/22 02/23/23 albuterol sulfate 90 mcg/actuation 2 puff inhalation Q6H PRN 01/12/23 02/23/23 aerosol inhaler (Ventolin HFA) Shortness Of Breath Or Wheezing ziprasidone HCl 40 mg capsule 40 mg PO BIDWM 01/12/23 02/23/23 insulin glargine 100 unit/mL (3 26 unit subcut BEDTIME 01/14/23 02/23/23 mL) subcutaneous pen (Lantus Solostar U-100 Insulin) albuterol sulfate 2.5 mg/3 mL 2.5 mg inhalation Q4H PRN 02/23/23 02/23/23 (0.083 %) solution for nebulization Shortness Of Breath Or Wheezing buprenorphine 8 mg-naloxone 2 mg 3 film buccal DAILY 02/23/23 02/23/23 sublingual film (Suboxone) celecoxib 200 mg capsule 200 mg PO BID 02/23/23 02/23/23 fluticasone propionate 110 2 puff inhalation DAILY 03/02/23 mcg/actuation HFA aerosol inhaler nebulizers 03/02/23 Previous Rx's Medication Instructions Recorded nicotine (polacrilex) 2 mg gum 2 mg buccal Q2H PRN smoker #20 ea 01/16/23 nystatin 100,000 unit/gram topical 1 appl topical TID 7 days #30 grams 02/09/23 powder doxycycline monohydrate 100 mg 100 mg PO Q12H #14 caps 02/24/23 capsule triamcinolone acetonide 0.1 % 1 appl topical DAILY #1 g 02/24/23 topical cream nicotine 10 mg inhalation 1 inh inhalation Q2-4H PRN 03/02/23 cartridge (Nicotrol) nicotine cravings 30 days #168 ea nicotine 14 mg/24 hr daily 1 patch transdermal DAILY 28 days 03/02/23 transdermal patch #28 ea cefuroxime axetil 500 mg tablet 500 mg PO BID 10 days #20 tabs 03/05/23 doxycycline hyclate 100 mg capsule 100 mg PO BID 7 days #10 caps 03/05/23 doxycycline hyclate 100 mg capsule 100 mg PO BID 7 days #14 caps 03/07/23 doxycycline hyclate 100 mg tablet 100 mg PO BID 7 days #14 tabs 04/15/23 prednisone 20 mg tablet 20 mg PO DAILY 7 days #7 tabs 04/15/23 Allergies Allergy/AdvReac Type Severity Reaction Status Date / Time Sulfa (Sulfonamide Allergy Unknown HIVES Verified 03/02/23 10:29 Antibiotics) [SULFA (SULFONAMIDE ANTIBIOTICS)] glipizide Allergy Unknown Verified 03/02/23 10:29 Review of Systems Constitutional: Constitutional: Reports no additional constitutional complaints, Denies chills, Denies fever(s) and Denies night sweats Eyes: Eyes: Reports no additional eye complaints, Denies blurry vision, Denies change in vision, Denies diplopia, Denies eye discharge, Denies loss of vision and Denies eye pain ENT: Denies dizziness Cardiovascular: Cardiovascular: Reports no additional cardiovascular complaints, Denies chest pain, Denies lightheadedness, Denies Loss of Consciousness and Reports dyspnea Respiratory: Respiratory: Reports no additional respiratory complaints, Reports cough and Reports dyspnea Gastrointestinal: Gastrointestinal: Reports no additional gastrointestinal complaints, Denies abdominal pain, Denies melena, Denies hematochezia, Denies change in bowel habits and Denies change in stool character Genitourinary: Genitourinary: Denies hematuria, Denies urinary frequency, Denies dysuria, Denies urinary incontinence, Denies urinary hesitancy and Denies urinary urgency Musculoskeletal: Musculoskeletal: Reports no additional musculoskeletal complaints, Denies numbness and Denies tingling Neurologic: Denies dizziness, Denies loss of vision, Denies numbness and Denies tingling Psychiatric: Psychiatric: Reports no additional psychiatric complaints Endocrine: Endocrine: Reports no additional endocrine complaints Hematologic/Lymphatic: Hematologic/Lymphatic: Reports no additional hematologic/lymphatic complaints Allergic/Immunologic: Allergic/Immunologic: Reports no additional allergic/immunologic complaints PMFSH Past Medical History Attestation statement: The following information was validated with the patient. Source: old records reviewed and nursing notes reviewed Medical History Obesity, Class III, BMI 40-49.9 (morbid obesity) COVID-19 virus infection Cellulitis Pneumonia Acute respiratory failure with hypoxia Leukocytosis TESSY (acute kidney injury) Acidosis, lactic Pneumonia Pulmonary nodules Tobacco dependence Pneumonitis Bacteremia History of migraine headaches Hyperlipidemia Depression with anxiety Diabetes Family History Family History Father Depression Bipolar disorder Social History Social History Household Members: Family Household Members Other:: CHILDREN Housing: House Do you presently have visiting nurse or other home services: No Alcohol intake: never Patient Tobacco Use Status: Former Tobacco user Tobacco use type: Cigarette Cigarette Packs Per Day: 0.5 Cigarettes Per Day: 10.0 Smoked in Last 30 Days: Yes e-Cigarette/Vaping Use: Former Use Second Hand Smoke Exposure: No Use of substances other than those prescribed or required for medical reasons: No Substance Use Type: Marijuana Advance Directives: No Advance Directives Information Provided: No Patient : No service: No Physical Exam Vital Signs: Vital Signs: Last Vital Signs Temp 98.5 F 04/15/23 14:08 Pulse 92 04/15/23 14:08 Resp 16 04/15/23 14:08 BP 108/69 04/15/23 14:08 Pulse Ox 96 04/15/23 14:08 O2 Del Method Room Air 04/15/23 14:08 BMI result Body Mass Index 46.7 Const: General: cooperative, no acute distress, alert and awake Nutritional Appearance: well nourished Orientation/consciousness: patient oriented x3 Limitations: no limitations HEENT: Head: Yes normal to inspection and Yes atraumatic Ears: hearing grossly normal bilaterally and external ears normal General nose exam: Normal external nose present, no nasal discharge noted and no epistaxis Face and sinus: Yes normal facial exam, No abrasion and No laceration Mouth: Normal oral and palatal mucosa present, no drooling and no muffled voice Eyes: General: appearance normal, both eyes and all related structures Periorbital: periorbital findings normal Eyelids: Yes eyelids normal Conjunctivae: conjunctivae normal Pupils: Equal, round and reactive pupils present EOM: EOMs intact bilaterally Neck: Neck: Yes normal visual inspection, Yes full ROM and Yes no lymphadenopathy Chest: Chest palpation & inspection: normal inspection of the chest Resp: Effort & Inspection: normal respiratory effort and able to speak in complete sentences Auscultation: clear to auscultation bilaterally Cardio: Rate: regular rate Rhythm: regular rhythm GI: Inspection: Yes normal to inspection Neuro: General: patient oriented x3 and moves all extremities Cranial nerves: Yes Equal, round and reactive pupils present Cognition (Neuro): normal cognition Motor exam (neuro): 5/5 motor strength present throughout Sensory Exam: Normal double simultaneous stimulation for sensation Coordination: [id number] test normal Extrem: General: Yes normal to inspection, Yes full ROM and Yes capillary refill normal Psych: Appearance: grossly normal Mental Status: mental status grossly normal Affect: normal affect Attitude: cooperative Thought process: Normal thought process present Thought content: Normal thought content present Insight: Good insight present (Psych) Course Course Course Narrative: This is rapid medical exam. Deferred additional HPI, ROS, PE to primary provider. 42 yo female with PMH of IDDM, morbid obesity, fibromyalgia, genital herpes, mood disorder, recurrent cellulitis, strep bacteremia here with complaints of URI symptoms, dizziness, shortness of breath, upper back pain x 1 week. Will obtain labs, CXR, viral testing VSS Medical Decision Making Medical Decision Making MDM Narrative: Patient is a 42 year old assigned female at with a history of tobacco use presenting to the emergency department today with increased shortness of breath. Patient's physical exam was unremarkable. Patient's blood work showed an elevated WBC count of 14.5 but was otherwise unremarkable. Patient's chest x-ray showed persistent diffuse mild lung opacities. I explained my physical exam findings as well as all test results to the patient. I answered all questions asked by the patient. I stressed the importance of the patient taking her medication as prescribed. I stressed the importance of the patient following up with her primary care provider. I stressed the importance of the patient returning to the emergency department immediately if her symptoms were to worsen or if she were to develop any dizziness, shortness of breath, difficulty breathing, chest pain, blurry vision, loss of vision, nausea, vomiting, abdominal pain, fever, chills, back pain, or any other complaints. Patient verbalized agreement and understanding with this treatment plan and discharge. Differential Diagnosis Differential Diagnoses: The differential diagnosis associated with the presentation includes Cough PNA Bronchitis Admission/Observation Consideration of admission/observation: Escalation of care including admission/observation considered Patient would have been admitted to the hospital had her work up had any findings where hospital admission was appropriate and her clinical presentation warranted hospital admission. Lab Data [facility] Lab Attestation statement: I reviewed the patient's lab results. My interpretation of these results are in the [facility] Rationale portion of this note. 04/15/23 13:20 04/15/23 13:20 Labs: Lab Results 04/15/23 Range/Units 13:20 WBC 14.5 H (4.8-10.8) X10*3/uL RBC 5.20 (4.20-5.50) X10*6/uL Hgb 13.4 (12.0-16.0) g/dl Hct 41.5 (37.0-47.0) % MCV 79.8 L (80.0-98.0) fL MCH 25.8 L (27.0-33.0) pg MCHC 32.3 (31.0-35.0) g/dl RDW 14.8 (11.0-16.0) % Plt Count 278 (160-400) X10*3/uL MPV 11.5 (9.4-12.3) fL Immature Gran % (Auto) 0.4 (0.0-0.4) % Neut % (Auto) 67.5 (45-73) % Lymph % (Auto) 21.5 (20-40) % Talbot % (Auto) 6.8 (2-11) % Eos % (Auto) 3.5 (0-4) % Baso % (Auto) 0.3 (0-2) % Lymph # (Auto) 3.1 (1.2-4.9) X10*3/uL Talbot # (Auto) 1.0 (0.1-1.2) X10*3/uL Eos # (Auto) 0.5 H (0.0-0.4) X10*3/uL Baso # (Auto) 0.0 (0.0-0.2) X10*3/uL Abs Immat Gran (auto) 0.06 H (0.00-0.03) X10*3/uL Absolute Neuts (auto) 9.8 H (2.0-8.3) x10*3/uL Absolute Nucleated RBC 0.000 (0.0-0.012) X10*3/uL Nucleated RBC % (auto) 0.0 (0.0-0.2) /100WBC PT 10.6 L (11.1-13.3) SEC INR 0.9 (0.9-1.1) Sodium 132 L (135-145) mmol/L Potassium 3.8 (3.3-5.1) mmol/L Chloride 92 L (96-108) mmol/L Carbon Dioxide 27 (22-29) mmol/L Anion Gap 17 (12-20) BUN 19 H (9-16) mg/dL Creatinine 0.96 (0.5-1.4) mg/dL Estim Creat Clear Calc 100.0 Estimated GFR > 60 Random Glucose 271 H (60-115) mg/dL Calcium 10.0 (8.4-10.2) mg/dL Total Bilirubin 0.1 (0.0-1.0) mg/dL Direct Bilirubin < 0.2 (0.0-0.5) mg/dL AST 33 H (5-31) U/L ALT 40 H (0-31) U/L Alkaline Phosphatase 44 (39-117) U/L Total Protein 7.7 (6.5-8.0) g/dL Albumin 4.2 (3.5-5.0) g/dL Influenza Type A (PCR) NEGATIVE (Negative) Influenza Type B (PCR) NEGATIVE (Negative) RSV RNA Qual (PCR) NEGATIVE (Negative) SARS-CoV-2 RNA (RT-PCR) NEGATIVE (Negative) Independent Interpretation I performed an independent interpretation of an: Plain X-Ray Interpretation: My interpretation is in agreement with the radiologist's impression of this imaging study. EXAMINATION: XR CHEST CLINICAL INFORMATION: Shortness of breath COMPARISON: 02/22/2023 TECHNIQUE: 2 views of the chest were obtained. FINDINGS: Exam is felt to be similar to previous. Ill-defined opacities in the lungs. No large area of change. No effusion. The cardiac silhouette is within normal limits. The hilar regions do not appear pathologically enlarged. XR/XR chest 2V IMPRESSION: Persistent diffuse mild lung opacities. No significant change from previous Dictated By: Chandra Be MD Signed By: Electronically signed by Chandra Be MD 04/15/23 1549 Radiology Impression Discussion of test interpretation with radiology: I have reviewed the radiologist's reading. Discharge Plan Discharge Clinical Impression: Community acquired bacterial pneumonia Patient Disposition: Home, Self-Care Instructions: Community Acquired Pneumonia (DC) Additional Instructions: Follow up with your primary care provider. Return to the emergency department immediately if your symptoms worsen or if you develop any dizziness, shortness of breath, difficulty breathing, chest pain, blurry vision, loss of vision, nausea, vomiting, abdominal pain, fever, chills, back pain, or any other complaints. Prescriptions: New prednisone 20 mg tablet 20 mg PO DAILY 7 Days Qty: 7 0RF doxycycline hyclate 100 mg tablet 100 mg PO BID 7 Days Qty: 14 0RF No Action insulin glargine [Lantus Solostar U-100 Insulin] 100 unit/mL (3 mL) insulin pen 26 unit subcut BEDTIME nicotine (polacrilex) 2 mg Gum 2 mg buccal Q2H PRN (Reason: smoker) Qty: 20 0RF buprenorphine-naloxone [Suboxone] 8-2 mg Film 3 film BUCCAL DAILY Rx Instructions: place 1 film on inside of (each) cheek celecoxib 200 mg Capsule 200 mg PO BID albuterol sulfate 2.5 mg /3 mL (0.083 %) Solution For Nebulization 2.5 mg INHALATION Q4H PRN (Reason: Shortness Of Breath Or Wheezing) triamcinolone acetonide 0.1 % Cream 1 appl topical DAILY Qty: 1 0RF Protocol: Apply to: Apply to: Affected area doxycycline monohydrate 100 mg Capsule 100 mg PO Q12H Qty: 14 0RF fluticasone propionate 110 mcg/actuation HFA aerosol inhaler 2 puff INHALATION DAILY doxycycline hyclate 100 mg capsule 100 mg PO BID 7 Days Qty: 10 0RF cefuroxime axetil 500 mg tablet 500 mg PO BID 10 Days Qty: 20 0RF doxycycline hyclate 100 mg capsule 100 mg PO BID 7 Days Qty: 14 0RF sumatriptan succinate 100 mg tablet 100 mg PO Q2H PRN (Reason: Migraine Headache) Rx Instructions: NO MORE THAN 2 TABS IN 24 HOURS metformin 850 mg tablet 850 mg PO BID acyclovir 400 mg tablet 400 mg PO BID omeprazole 40 mg capsule,delayed release(DR/EC) 40 mg PO BID prazosin 5 mg capsule 5 mg PO BID amitriptyline 25 mg tablet 25 mg PO BEDTIME baclofen 10 mg tablet 10 mg PO BID lisinopril-hydrochlorothiazide 20-25 mg tablet 1 tab PO DAILY Hold Instructions: Resume on 01/23/23. pravastatin 20 mg tablet 20 mg PO BEDTIME duloxetine 60 mg capsule,delayed release(DR/EC) 60 mg PO BID pregabalin 300 mg capsule 300 mg PO BID fenofibrate nanocrystallized 145 mg tablet 145 mg PO DAILY pramipexole 0.5 mg tablet 0.5 mg PO BEDTIME hydroxyzine HCl 25 mg tablet 25 mg PO TID PRN (Reason: ptsd) nystatin 100,000 unit/gram Powder 1 appl topical TID 7 Days Qty: 30 0RF Protocol: Apply to: Apply to: fungal rash albuterol sulfate [Ventolin HFA] 90 mcg/actuation HFA aerosol inhaler 2 puff inhalation Q6H PRN (Reason: Shortness Of Breath Or Wheezing) ziprasidone HCl 40 mg capsule 40 mg PO BIDWM (DME) nebulizers Misc See Rx Instructions .ROUTE Rx Instructions: As directed Nicotrol 10 mg cartridge 1 inh inhalation Q2-4H PRN (Reason: nicotine cravings) 30 Days Qty: 168 0RF nicotine 14 mg/24 hr patch 24 hour 1 patch transdermal DAILY 28 Days Qty: 28 3RF Referrals: Margarita Doty, [facility]OVER [Primary Care Provider] - Discharge Date/Time: 04/15/23 15:03 Print Language: Latvian
[2023-04-15 13:45] LABS: MANUAL DIFF FLAG NO
[2023-04-15 13:46] LABS: Basophils Percent Auto 0.3 % (0-2); Eosinophils Absolute Auto 0.5 X10*3/uL (0.0-0.4); Eosinophils Percent Auto 3.5 % (0-4); Hematocrit 41.5 % (37.0-47.0); Hemoglobin 13.4 g/dl (12.0-16.0); Imm Gran Abs Auto 0.06 X10*3/uL (0.00-0.03); Imm Gran Pct Auto 0.4 % (0.0-0.4); Lymphocytes Absolute Auto 3.1 X10*3/uL (1.2-4.9); Lymphocytes Percent Auto 21.5 % (20-40); Mean Corpuscular HGB Conc 32.3 g/dl (31.0-35.0); Mean Corpuscular Hemoglobin 25.8 pg (27.0-33.0); Mean Corpuscular Volume 79.8 fL (80.0-98.0); Mean Platelet Volume 11.5 fL (9.4-12.3); Monocytes Percent Auto 6.8 % (2-11); Neutrophils Absolute Auto 9.8 x10*3/uL (2.0-8.3); Neutrophils Percent Auto 67.5 % (45-73); Platelet Count 278 X10*3/uL (160-400); Red Cell Distribution Width 14.8 % (11.0-16.0); White Blood Count 14.5 X10*3/uL (4.8-10.8)
[2023-04-15 13:54] LABS: INTERNATIONAL NORM RATIO 0.9 (0.9-1.1); Prothrombin Time 10.6 SEC (11.1-13.3)
[2023-04-15 14:03] LABS: Alanine Aminotransferase 40 U/L (0-31); Albumin Level 4.2 g/dL (3.5-5.0); Alkaline Phosphatase 44 U/L (39-117); Anion Gap 17 (12-20); Aspartate Amino Transferase 33 U/L (5-31); Bilirubin Direct < 0.2 mg/dL (0.0-0.5); Bilirubin Total 0.1 mg/dL (0.0-1.0); Blood Urea Nitrogen 19 mg/dL (9-16); Carbon Dioxide 27 mmol/L (22-29); Chloride 92 mmol/L (96-108); Estimated Glomerular Filt Rate > 60; Glucose Random 271 mg/dL (60-115); Potassium 3.8 mmol/L (3.3-5.1); Sodium 132 mmol/L (135-145); Total Protein 7.7 g/dL (6.5-8.0)
[2023-04-15 14:08] VITALS: BP 108/69; PULSE 92; RESP 16; TEMP 36.9; O2SAT 96
[2023-04-15 14:51] LABS: Influenza A PCR NEGATIVE (Negative); Influenza B PCR NEGATIVE (Negative); Resp Syncy Virus RNA Qual PCR NEGATIVE (Negative); SARS COV2 PCR INHOUSE NEGATIVE (Negative)
== END 2023-04-15 15:03 | disposition home or self-care (01) ==
PROVIDERS: Nurse Practitioner Family; Emergency Provider Emergency Medicine Emergency Medical Services; PCP Registered Nurse
DX: J15.8 Pneumonia due to other specified bacteria (principal); Z20.822 Contact with and (suspected) exposure to COVID-19; Z20.828 Contact with and (suspected) exposure to other viral communicable diseases; E11.9 Type 2 diabetes mellitus without complications; E78.5 Hyperlipidemia, unspecified; E66.01 Morbid (severe) obesity due to excess calories; Z68.42 Body mass index [BMI] 45.0-49.9, adult; Z87.891 Personal history of nicotine dependence
CPT/HCPCS: 0241U; 71046; 80048; 80076; 85025; 85610; 99283; 99284

== ENCOUNTER 2023-04-21 14:45 | Outpatient (REF) | payer MEDICARE, MEDICAID, SELFPAY ==
--- NOTE | ~2023-04-21 | XR_ITS ---
EXAMINATION: XR LUMBOSACRAL SPINE CLINICAL INFORMATION: Reason for Exam PAIN COMPARISON: None TECHNIQUE: 3 views of the lumbar spine FINDINGS: 5 nonrib-bearing lumbar-type vertebral bodies. Vertebral body heights are maintained. Alignment is maintained. Minimal degenerative disc disease with small disc osteophyte complex at L3-L4. This space heights are maintained. Paravertebral soft tissues are unremarkable. XR/XR lumbar spine 2-3V IMPRESSION: Minimal degenerative disc disease with small disc osteophyte complex at L3-L4.
== END 2023-04-21 14:46 | disposition home or self-care (01) ==
LOC: HO.HHCX 14:45
PROVIDERS: Visit Provider Internal Medicine Geriatric Medicine
DX: M54.50 Low back pain, unspecified (principal); G89.29 Other chronic pain
CPT/HCPCS: 72100

== ENCOUNTER 2023-04-28 14:14 | Emergency (ER) | payer MEDICARE, MEDICAID, SELFPAY ==
--- NOTE | ~2023-04-28 | XR_ITS ---
EXAMINATION: XR CHEST CLINICAL INFORMATION: Reductive cough COMPARISON: #2022. TECHNIQUE: 2 views of the chest were obtained. FINDINGS: Slight blunting in a posterior sulcus on the lateral view likely related to a minimal effusion. Thoracic spondylitic change and degenerative disc space narrowing noted. No new dominant consolidations radiographically since the previous evaluation. Pulmonary vascularity is grossly stable. There is no evidence for pneumothorax. Subtle patchy opacities noted previously appear stable to slightly less evident. XR/XR chest 2V IMPRESSION: Minimal effusion in the posterior sulcus on the lateral view. No new dominant consolidations or vascular congestion. Previously noted subtle patchy opacities seen previously appear stable to slightly less evident radiographically.
--- NOTE | 2023-04-28 14:21 | ED_ITS ---
HPI - General Adult General Chief complaint: Dyspnea Stated complaint: pneumonia, weakness Time Seen by Provider: 04/28/23 15:24 Source: patient and RN notes reviewed Mode of arrival: ambulatory Limitations: no limitations History of Present Illness HPI narrative: This is a 42-year-old female with pertinent history of insulin-dependent diabetes mellitus, morbid obesity, fibromyalgia, genital herpes, mood disorder who presents to the emergency department for evaluation of pleuritic left midback pain, fatigue, productive cough with green-colored sputum, fatigue, sweats, and chills x 3 days. Patient was recently seen here on April 15 where she was diagnosed with community-acquired pneumonia. She was discharged on doxycycline and prednisone. She took these medications and started to feel better however now she feels worse. She states that she is concerned as this is typical of when she had pneumonia in the past. She is not feeling short of breath at this time. No swelling to her lower extremities. No other complaints or concerns at this time. MD complaint: cough, fatigue Onset (ago): day(s) Radiation: non-radiation Severity: moderate Relieving factors: none Exacerbating factors: none Associated symptoms: denies other symptoms Treatments prior to arrival: none Related Data Home Medications Medication Instructions Recorded Confirmed acyclovir 400 mg tablet 400 mg PO BID 09/26/22 02/23/23 amitriptyline 25 mg tablet 25 mg PO BEDTIME 09/26/22 02/23/23 baclofen 10 mg tablet 10 mg PO BID 09/26/22 02/23/23 duloxetine 60 mg capsule,delayed 60 mg PO BID 09/26/22 02/23/23 release fenofibrate nanocrystallized 145 145 mg PO DAILY 09/26/22 02/23/23 mg tablet hydroxyzine HCl 25 mg tablet 25 mg PO TID PRN ptsd 09/26/22 02/23/23 lisinopril 20 1 tab PO DAILY 09/26/22 02/23/23 mg-hydrochlorothiazide 25 mg tablet metformin 850 mg tablet 850 mg PO BID 09/26/22 02/23/23 omeprazole 40 mg capsule,delayed 40 mg PO BID 09/26/22 02/23/23 release pramipexole 0.5 mg tablet 0.5 mg PO BEDTIME 09/26/22 02/23/23 pravastatin 20 mg tablet 20 mg PO BEDTIME 09/26/22 02/23/23 prazosin 5 mg capsule 5 mg PO BID 09/26/22 02/23/23 pregabalin 300 mg capsule 300 mg PO BID 09/26/22 02/23/23 sumatriptan succinate 100 mg tablet 100 mg PO Q2H PRN Migraine Headache 09/26/22 02/23/23 albuterol sulfate 90 mcg/actuation 2 puff inhalation Q6H PRN 01/12/23 02/23/23 aerosol inhaler (Ventolin HFA) Shortness Of Breath Or Wheezing ziprasidone HCl 40 mg capsule 40 mg PO BIDWM 01/12/23 02/23/23 insulin glargine 100 unit/mL (3 26 unit subcut BEDTIME 01/14/23 02/23/23 mL) subcutaneous pen (Lantus Solostar U-100 Insulin) albuterol sulfate 2.5 mg/3 mL 2.5 mg inhalation Q4H PRN 02/23/23 02/23/23 (0.083 %) solution for nebulization Shortness Of Breath Or Wheezing buprenorphine 8 mg-naloxone 2 mg 3 film buccal DAILY 02/23/23 02/23/23 sublingual film (Suboxone) celecoxib 200 mg capsule 200 mg PO BID 02/23/23 02/23/23 fluticasone propionate 110 2 puff inhalation DAILY 03/02/23 mcg/actuation HFA aerosol inhaler nebulizers 03/02/23 Previous Rx's Medication Instructions Recorded nicotine (polacrilex) 2 mg gum 2 mg buccal Q2H PRN smoker #20 ea 01/16/23 nystatin 100,000 unit/gram topical 1 appl topical TID 7 days #30 grams 02/09/23 powder doxycycline monohydrate 100 mg 100 mg PO Q12H #14 caps 02/24/23 capsule triamcinolone acetonide 0.1 % 1 appl topical DAILY #1 g 02/24/23 topical cream nicotine 10 mg inhalation 1 inh inhalation Q2-4H PRN 03/02/23 cartridge (Nicotrol) nicotine cravings 30 days #168 ea nicotine 14 mg/24 hr daily 1 patch transdermal DAILY 28 days 03/02/23 transdermal patch #28 ea cefuroxime axetil 500 mg tablet 500 mg PO BID 10 days #20 tabs 03/05/23 doxycycline hyclate 100 mg capsule 100 mg PO BID 7 days #10 caps 03/05/23 doxycycline hyclate 100 mg capsule 100 mg PO BID 7 days #14 caps 03/07/23 doxycycline hyclate 100 mg tablet 100 mg PO BID 7 days #14 tabs 04/15/23 prednisone 20 mg tablet 20 mg PO DAILY 7 days #7 tabs 04/15/23 amoxicillin 500 mg capsule 1,000 mg (2 x 500 mg) PO TID 7 04/28/23 days #40 caps azithromycin 250 mg tablet 250 mg PO DAILY 4 days #4 tabs 04/28/23 (Zithromax) Allergies Allergy/AdvReac Type Severity Reaction Status Date / Time Sulfa (Sulfonamide Allergy Unknown HIVES Verified 03/02/23 10:29 Antibiotics) [SULFA (SULFONAMIDE ANTIBIOTICS)] glipizide Allergy Unknown Verified 03/02/23 10:29 meloxicam Allergy Hives Verified 04/28/23 14:21 Review of Systems 2 Review of Systems: Yes all other systems are reviewed and are negative Constitutional: Constitutional: Reports as per [facility] Past Medical History Attestation statement: The following information was validated with the patient. Medical History Obesity, Class III, BMI 40-49.9 (morbid obesity) COVID-19 virus infection Cellulitis Pneumonia Acute respiratory failure with hypoxia Leukocytosis TESSY (acute kidney injury) Acidosis, lactic Pneumonia Pulmonary nodules Tobacco dependence Pneumonitis Bacteremia History of migraine headaches Hyperlipidemia Depression with anxiety Diabetes Family History Family History Father Depression Bipolar disorder Social History Household Members: Family Household Members Other:: CHILDREN Housing: House Do you presently have visiting nurse or other home services: No Alcohol intake: never Patient Tobacco Use Status: Former Tobacco user Tobacco use type: Cigarette Cigarette Packs Per Day: 0.5 Cigarettes Per Day: 10.0 e-Cigarette/Vaping Use: Former Use Second Hand Smoke Exposure: No Substance Use Type: Marijuana Advance Directives: No Advance Directives Information Provided: No service: No Physical Exam ED Vital Signs: Vital Signs - 24 hr 04/28/23 14:22 04/28/23 16:07 Temperature 97.9 F 98 F Pulse Rate 80 81 Respiratory Rate 18 20 Blood Pressure 132/55 L 134/60 Pulse Oximetry 94 97 Oxygen Delivery Method Room Air Room Air BMI result Body Mass Index 42.9 Const General: cooperative, comfortable and no acute distress Orientation/consciousness: patient oriented x3 Limitations: no limitations HENMT Head: Yes normal to inspection, Yes normocephalic and Yes atraumatic Ears: hearing grossly normal bilaterally General nose exam: Normal external nose present Face and sinus: Yes normal facial exam Mouth: Normal oral and palatal mucosa present, oropharynx normal and moist mucous membranes Throat: Yes posterior oropharynx normal Eyes General: appearance normal, both eyes and all related structures Eyelids: Yes eyelids normal Conjunctivae: conjunctivae normal Sclerae: sclerae normal Pupils: Equal, round and reactive pupils present EOM: EOMs intact bilaterally Neck Neck: Yes normal visual inspection, Yes full ROM and Yes no lymphadenopathy Lymphatic: no lymphadenopathy noted Chest Chest palpation & inspection: normal inspection of the chest Resp Effort & Inspection: normal respiratory effort and able to speak in complete sentences Auscultation: clear to auscultation bilaterally, no crackles, no rales, no rhonchi and no wheezes Cardio Rate: regular rate Rhythm: regular rhythm Heart sounds: S1 normal heart sound present and S2 normal heart sound present GI Inspection: Yes normal to inspection Skin General skin exam: no rashes or lesions noted Trauma: no lacerations or abrasions Wounds: no wounds Neuro General: patient oriented x3 and moves all extremities Cranial nerves: Yes Equal, round and reactive pupils present Extrem General: Yes normal to inspection Right upper extremity: normal to inspection Left upper extremity: normal to inspection Right lower extremity: normal to inspection Left lower extremity: normal to inspection Course Course Course Narrative: This is a rapid medical exam: Additional HPI, ROS, PE not included below will be deferred to primary provider. Patient is a 42-year-old female with history of DM, HLD, depression and anxiety, pulmonary nodules presenting to the emergency department stating that she has been struggling with pneumonia for the past several months, was seen here weeks ago and prescribed prednisone and doxy. Started feeling better but is not having back pain and pain with inspiration, coughing up green sputum. Also complains of fatigue. Plan: xray, swab for flu, covid, rsv, basic labs Reevaluation(s) Reevaluation #1: Spoke to my attending physician, Dr. Hardy giving complexity of this case. Given patient has been prescribed doxycycline for pneumonia without any other Gram-positive bacteria coverage, we decided to start patient on amoxicillin a 1000 mg 3 times a day for the next 7 days as well as Zithromax. Patient has an appointment with pulmonology on Monday. Also obtained a D-dimer which was negative. Discussed findings and treatment with patient who understand and agree. Given return precautions. Patient understands and agrees with plan. Stable for discharge. Time: 19:13 Medical Decision Making Medical Decision Making [facility] Narrative: This is a 42-year-old female presenting to the emergency department for evaluation of productive cough with green-colored sputum, fatigue, sweats, subjective fevers and chills. She was seen here on April 15 and was diagnosed with community-acquired pneumonia, she was discharged on doxycycline and prednisone which she took. She is starting to feel better up until several days ago, and now she is feeling weak. On arrival, vital signs within normal limits. Patient is nontoxic appearing. Lungs are clear to auscultation bilaterally. Labs were performed, mild leukocytosis at 12k, chest x-ray revealing minimal effusion in the posterior sulcus of the lateral view with no new dominant consolidations or vascular congestion. Previously noted subtle patchy opacity seen previously is stable to slightly less evident radiographically. Differential Diagnosis Differential Diagnoses: The differential diagnosis associated with the presentation includes Admission/Observation Consideration of admission/observation: Escalation of care including admission/observation considered Lab Data [facility] Lab Attestation statement: I reviewed the patient's lab results. 04/28/23 14:30 04/28/23 14:30 Labs: Lab Results 04/28/23 04/28/23 04/28/23 Range/Units 14:29 14:30 18:23 WBC 12.0 H (4.8-10.8) X10*3/uL RBC 5.28 (4.20-5.50) X10*6/uL Hgb 13.3 (12.0-16.0) g/dl Hct 42.5 (37.0-47.0) % MCV 80.5 (80.0-98.0) fL MCH 25.2 L (27.0-33.0) pg MCHC 31.3 (31.0-35.0) g/dl RDW 15.7 (11.0-16.0) % Plt Count 256 (160-400) X10*3/uL MPV 11.5 (9.4-12.3) fL Immature Gran % (Auto) 0.3 (0.0-0.4) % Neut % (Auto) 66.6 (45-73) % Lymph % (Auto) 22.3 (20-40) % [place] % (Auto) 8.3 (2-11) % Eos % (Auto) 2.2 (0-4) % Baso % (Auto) 0.3 (0-2) % Lymph # (Auto) 2.7 (1.2-4.9) X10*3/uL [place] # (Auto) 1.0 (0.1-1.2) X10*3/uL Eos # (Auto) 0.3 (0.0-0.4) X10*3/uL Baso # (Auto) 0.0 (0.0-0.2) X10*3/uL Abs Immat Gran (auto) 0.04 H (0.00-0.03) X10*3/uL Absolute Neuts (auto) 8.0 (2.0-8.3) x10*3/uL Absolute Nucleated RBC 0.000 (0.0-0.012) X10*3/uL Nucleated RBC % (auto) 0.0 (0.0-0.2) /100WBC PT (11.1-13.3) SEC INR (0.9-1.1) APTT (26.0-36.4) SEC D-Dimer High Sensitivty NG/ML Sodium 135 (135-145) mmol/L Potassium 4.1 (3.3-5.1) mmol/L Chloride 99 (96-108) mmol/L Carbon Dioxide 27 (22-29) mmol/L Anion Gap 13 (12-20) BUN 13 (9-16) mg/dL Creatinine 0.97 (0.5-1.4) mg/dL Estim Creat Clear Calc 94.2 Estimated GFR > 60 Random Glucose 339 H (60-115) mg/dL Lactic Acid 1.2 (0.5-2.0) mmol/L Calcium 9.7 (8.4-10.2) mg/dL Influenza Type A (PCR) NEGATIVE (Negative) Influenza Type B (PCR) NEGATIVE (Negative) RSV RNA Qual (PCR) NEGATIVE (Negative) SARS-CoV-2 RNA (RT-PCR) NEGATIVE (Negative) 04/28/23 Range/Units 18:44 WBC (4.8-10.8) X10*3/uL RBC (4.20-5.50) X10*6/uL Hgb (12.0-16.0) g/dl Hct (37.0-47.0) % MCV (80.0-98.0) fL MCH (27.0-33.0) pg MCHC (31.0-35.0) g/dl RDW (11.0-16.0) % Plt Count (160-400) X10*3/uL MPV (9.4-12.3) fL Immature Gran % (Auto) (0.0-0.4) % Neut % (Auto) (45-73) % Lymph % (Auto) (20-40) % [place] % (Auto) (2-11) % Eos % (Auto) (0-4) % Baso % (Auto) (0-2) % Lymph # (Auto) (1.2-4.9) X10*3/uL [place] # (Auto) (0.1-1.2) X10*3/uL Eos # (Auto) (0.0-0.4) X10*3/uL Baso # (Auto) (0.0-0.2) X10*3/uL Abs Immat Gran (auto) (0.00-0.03) X10*3/uL Absolute Neuts (auto) (2.0-8.3) x10*3/uL Absolute Nucleated RBC (0.0-0.012) X10*3/uL Nucleated RBC % (auto) (0.0-0.2) /100WBC PT 10.9 L (11.1-13.3) SEC INR 0.9 (0.9-1.1) APTT 26.0 (26.0-36.4) SEC D-Dimer High Sensitivty < 150 NG/ML Sodium (135-145) mmol/L Potassium (3.3-5.1) mmol/L Chloride (96-108) mmol/L Carbon Dioxide (22-29) mmol/L Anion Gap (12-20) BUN (9-16) mg/dL Creatinine (0.5-1.4) mg/dL Estim Creat Clear Calc Estimated GFR Random Glucose (60-115) mg/dL Lactic Acid (0.5-2.0) mmol/L Calcium (8.4-10.2) mg/dL Influenza Type A (PCR) (Negative) Influenza Type B (PCR) (Negative) RSV RNA Qual (PCR) (Negative) SARS-CoV-2 RNA (RT-PCR) (Negative) Radiology Impression Discussion of test interpretation with radiology: I have reviewed the radiologist's reading. External Record Review External record reviewed: Inpatient record, Office record, Outpatient record, Prior outpatient labs, Prior outpatient radiology, Primary care record and Outside ED record Discharge Plan Discharge Clinical Impression: Community acquired bacterial pneumonia Patient Disposition: Home, Self-Care Instructions: Bacterial Pneumonia (ED) Additional Instructions: Your chest xray showed a minimal effusion (which is improved since last chest xray) Your blood work was reassuring. You tested negative for COVID, RSV, and the flu. We are treating you with 2 different antibiotics today to cover for blossoming pneumonia, given your history. Please complete full course even if you are feeling better. 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 If any new or worsening symptoms occur including but not limited to chest pain, shortness of breath, please return for re-evaluation. Prescriptions: New amoxicillin 500 mg capsule 1,000 mg PO TID 7 Days Qty: 40 0RF Rx Instructions: Patient took 1st dose of amoxicillin on 04/28 azithromycin [Zithromax] 250 mg tablet 250 mg PO DAILY 4 Days Qty: 4 0RF Rx Instructions: start on day 2 of therapy; took first dose in department No Action insulin glargine [Lantus Solostar U-100 Insulin] 100 unit/mL (3 mL) insulin pen 26 unit subcut BEDTIME nicotine (polacrilex) 2 mg Gum 2 mg buccal Q2H PRN (Reason: smoker) Qty: 20 0RF buprenorphine-naloxone [Suboxone] 8-2 mg Film 3 film BUCCAL DAILY Rx Instructions: place 1 film on inside of (each) cheek celecoxib 200 mg Capsule 200 mg PO BID albuterol sulfate 2.5 mg /3 mL (0.083 %) Solution For Nebulization 2.5 mg INHALATION Q4H PRN (Reason: Shortness Of Breath Or Wheezing) triamcinolone acetonide 0.1 % Cream 1 appl topical DAILY Qty: 1 0RF Protocol: Apply to: Apply to: Affected area doxycycline monohydrate 100 mg Capsule 100 mg PO Q12H Qty: 14 0RF fluticasone propionate 110 mcg/actuation HFA aerosol inhaler 2 puff INHALATION DAILY doxycycline hyclate 100 mg capsule 100 mg PO BID 7 Days Qty: 10 0RF cefuroxime axetil 500 mg tablet 500 mg PO BID 10 Days Qty: 20 0RF doxycycline hyclate 100 mg capsule 100 mg PO BID 7 Days Qty: 14 0RF prednisone 20 mg tablet 20 mg PO DAILY 7 Days Qty: 7 0RF doxycycline hyclate 100 mg tablet 100 mg PO BID 7 Days Qty: 14 0RF sumatriptan succinate 100 mg tablet 100 mg PO Q2H PRN (Reason: Migraine Headache) Rx Instructions: NO MORE THAN 2 TABS IN 24 HOURS metformin 850 mg tablet 850 mg PO BID acyclovir 400 mg tablet 400 mg PO BID omeprazole 40 mg capsule,delayed release(DR/EC) 40 mg PO BID prazosin 5 mg capsule 5 mg PO BID amitriptyline 25 mg tablet 25 mg PO BEDTIME baclofen 10 mg tablet 10 mg PO BID lisinopril-hydrochlorothiazide 20-25 mg tablet 1 tab PO DAILY Hold Instructions: Resume on 01/23/23. pravastatin 20 mg tablet 20 mg PO BEDTIME duloxetine 60 mg capsule,delayed release(DR/EC) 60 mg PO BID pregabalin 300 mg capsule 300 mg PO BID fenofibrate nanocrystallized 145 mg tablet 145 mg PO DAILY pramipexole 0.5 mg tablet 0.5 mg PO BEDTIME hydroxyzine HCl 25 mg tablet 25 mg PO TID PRN (Reason: ptsd) nystatin 100,000 unit/gram Powder 1 appl topical TID 7 Days Qty: 30 0RF Protocol: Apply to: Apply to: fungal rash albuterol sulfate [Ventolin HFA] 90 mcg/actuation HFA aerosol inhaler 2 puff inhalation Q6H PRN (Reason: Shortness Of Breath Or Wheezing) ziprasidone HCl 40 mg capsule 40 mg PO BIDWM (DME) nebulizers Misc See Rx Instructions .ROUTE Rx Instructions: As directed Nicotrol 10 mg cartridge 1 inh inhalation Q2-4H PRN (Reason: nicotine cravings) 30 Days Qty: 168 0RF nicotine 14 mg/24 hr patch 24 hour 1 patch transdermal DAILY 28 Days Qty: 28 3RF
[2023-04-28 14:22] VITALS: BP 132/55; PULSE 80; RESP 18; TEMP 36.6; O2SAT 94; BMI 42.9
[2023-04-28 14:38] LABS: MANUAL DIFF FLAG NO
[2023-04-28 14:51] LABS: Anion Gap 13 (12-20); Blood Urea Nitrogen 13 mg/dL (9-16); Calcium 9.7 mg/dL (8.4-10.2); Carbon Dioxide 27 mmol/L (22-29); Chloride 99 mmol/L (96-108); Creatinine Clr Calc Pharmacy 94.2; Estimated Glomerular Filt Rate > 60; Glucose Random 339 mg/dL (60-115); Potassium 4.1 mmol/L (3.3-5.1); Sodium 135 mmol/L (135-145)
[2023-04-28 15:04] LABS: Basophils Percent Auto 0.3 % (0-2); Eosinophils Absolute Auto 0.3 X10*3/uL (0.0-0.4); Eosinophils Percent Auto 2.2 % (0-4); Hematocrit 42.5 % (37.0-47.0); Hemoglobin 13.3 g/dl (12.0-16.0); Imm Gran Abs Auto 0.04 X10*3/uL (0.00-0.03); Imm Gran Pct Auto 0.3 % (0.0-0.4); Lymphocytes Absolute Auto 2.7 X10*3/uL (1.2-4.9); Lymphocytes Percent Auto 22.3 % (20-40); Mean Corpuscular HGB Conc 31.3 g/dl (31.0-35.0); Mean Corpuscular Hemoglobin 25.2 pg (27.0-33.0); Mean Corpuscular Volume 80.5 fL (80.0-98.0); Mean Platelet Volume 11.5 fL (9.4-12.3); Monocytes Percent Auto 8.3 % (2-11); Neutrophils Percent Auto 66.6 % (45-73); Platelet Count 256 X10*3/uL (160-400); Red Blood Count 5.28 X10*6/uL (4.20-5.50); Red Cell Distribution Width 15.7 % (11.0-16.0)
[2023-04-28 15:32] LABS: Influenza A PCR NEGATIVE (Negative); Influenza B PCR NEGATIVE (Negative); Resp Syncy Virus RNA Qual PCR NEGATIVE (Negative); SARS COV2 PCR INHOUSE NEGATIVE (Negative)
[2023-04-28 16:07] VITALS: BP 134/60; PULSE 81; RESP 20; TEMP 36.6; O2SAT 97
--- NOTE | 2023-04-28 18:28 | PC.NURSE ---
labs obtained, 20g IV placed in right forearm- pending lactic/ cultures
[2023-04-28 18:35] LABS: Lactic Acid 1.2 mmol/L (0.5-2.0)
--- NOTE | 2023-04-28 18:47 | PC.NURSE ---
coags drawn- lactic 1.9
[2023-04-28 19:00] LABS: INTERNATIONAL NORM RATIO 0.9 (0.9-1.1); Prothrombin Time 10.9 SEC (11.1-13.3)
[2023-04-28 19:05] LABS: D Dimer High Sensitivity < 150 NG/ML
[2023-04-28] MEDS: Azithromycin 500 MG TABLET PO (19:29)
[2023-04-28] MEDS: Amoxicillin 500 MG CAPSULE 1000 MG PO (19:29)
== END 2023-04-28 19:40 | disposition home or self-care (01) ==
PROVIDERS: Physician Assistant Medical; Registered Nurse Emergency; Emergency Provider Emergency Medicine Emergency Medical Services; PCP Registered Nurse
DX: J15.9 Unspecified bacterial pneumonia (principal); R05.9 Cough, unspecified; R06.02 Shortness of breath; Z20.822 Contact with and (suspected) exposure to COVID-19; Z20.828 Contact with and (suspected) exposure to other viral communicable diseases; Z79.899 Other long term (current) drug therapy
CPT/HCPCS: 0241U; 36415; 71046; 80048; 83605; 85025; 85379; 85610; 85730; 87040; 99282; 99283

== ENCOUNTER 2023-05-02 11:04 | Outpatient (AMB) | payer MEDICARE, MEDICAID, SELFPAY ==
[2023-05-02 11:07] VITALS: BP 140/56; RESP 12; O2SAT 91; BMI 46.0
--- NOTE | 2023-05-02 11:07 | MHC.OFFVIS ---
Intake Vital Signs 05/02/23 11:07 Height 5 ft 4 in Weight 268 lb BMI 46.0 BP 140/56 H Blood Pressure Location Lt brachial Position Sitting Respiration 12 Pulse Source Pulse Oximeter Pulse Oximetry (%) 91 L Oxygen Delivery Method Room Air Intake Visit Reasons: Pneumonia Allergies Sulfa (Sulfonamide Antibiotics) [SULFA (SULFONAMIDE ANTIBIOTICS)] Allergy (Unknown, Verified 05/02/23 11:09) HIVES glipizide Allergy (Verified 05/02/23 11:09) Unknown meloxicam Allergy (Verified 05/02/23 11:09) Hives Medication List - Last Reconciled 05/02/23 by Malini Riddle LPN acyclovir 400 mg PO BID albuterol sulfate 2.5 mg inhalation Q4H PRN albuterol sulfate 90 mcg/actuation (Ventolin HFA) 2 puffs inhalation Q6H PRN amitriptyline 25 mg PO BEDTIME amoxicillin 1,000 mg (2 x 500 mg) PO TID 7 days baclofen 10 mg PO BID buprenorphine-naloxone 8-2 mg (Suboxone) 3 film buccal DAILY celecoxib 200 mg PO BID duloxetine 60 mg PO BID fenofibrate nanocrystallized 145 mg PO DAILY fluticasone propionate 110 mcg/actuation 2 puffs inhalation DAILY insulin glargine (Lantus Solostar U-100 Insulin) 26 units subcut BEDTIME lisinopril-hydrochlorothiazide 20-25 mg 1 tab PO DAILY metformin 850 mg PO BID nebulizers As directed nicotine (Nicotrol) 1 inh inhalation Q2-4H PRN 30 days nicotine 1 patch transdermal DAILY 28 days nicotine (polacrilex) 2 mg buccal Q2H PRN nystatin 1 appl See Protocol topical TID 7 days omeprazole 40 mg PO BID pramipexole 0.5 mg PO BEDTIME pravastatin 20 mg PO BEDTIME prazosin 5 mg PO BID pregabalin 300 mg PO BID sumatriptan succinate 100 mg PO Q2H PRN triamcinolone acetonide 0.1% 1 appl See Protocol topical DAILY ziprasidone HCl 40 mg PO BIDWM HPI HPI Comments History of Present Illness Details The patient is a 42 year woman presenting with abnormal CT scan of the chest. Apparently she states that she has been having hard time after her last year. She has been smoking more. She has been smoking up to 2 packs a day. Ultimately she started cutting down and started vaping. She states that she tries to smoke outside and he can not vaping side. She feels like vaping probably better for her than smoking. In addition to that she does have a headache see in her home. Unfortunately she noticed that it was filled with black mold. Therefore she described it and she is waiting for a new 1. The patient had gone to the hospital with evidence of pneumonia back in the summer and then more recently she went back to the hospital with cellulitis of the lower extremity. She states that she sometimes falls asleep smoking in the cigarettes bring her skin in her lower extremities and then that has resulting infections in the past. We did review her CT scan of the chest that she just had back in 02/23/2023 demonstrating centrilobular ground-glass nodular densities suggesting of pneumonitis. Most likely any respiratory bronchiolitis pattern. Explained to her that this could be secondary to respiratory bronchiolitis interstitial lung disease (RB ILD) she wore this also could be what appears to be acute hyper since stating pneumonitis. No evidence of any scar. The patient will try to quit the smoking and the vaping. Will provide her with a nicotine patch and also the Nicotrol inhaler. Hopefully this will substitute dose to devices. In addition to that she got rid of the air condition. The patient has been using her respiratory therapy. She does have a nebulizer which she has available. Will plan to do blood work including allergy testing to assess her pneumonitis. But, hold off on any prednisone in view of her significant risk of infections and other comorbidities. Will follow-up in a few months after her PFTs and blood work is completed. 05/02/2023 the patient is here for a pulmonary follow-up visit. She still struggles with her breathing. She is having increasing shortness of breath. She did have to go back to the ER where she had an x-ray still demonstrating basilar opacities. The patient was treated again with prednisone and also antibiotics. She partially improves and then she worsens again. She has been struggling with smoking and also the vaping. She has been able to cut down the smoking but she still has vaping a lot. The patient again understands that her CT scan appears to be consistent with smoking-related interstitial lung disease such as RB ILD or DI P she. Could also be a component of hyper sensitivity pneumonitis. That reason will go ahead and start small dose of prednisone although she does have issues with diabetes. Will start on 10 mg daily. If she knows her blood sugars are going up she can always cut down or if she notices her symptoms are improving she can also cut down. But she needs to stop the smoking. We did try the Nicotrol inhaler and that was not helpful. She is willing to try the nicotine patch. Will go ahead and give her a higher dose patch of 21 mg. In addition to that her blood pressure has been running a little high so therefore using tolerating 0.1 mg patch may be helpful for substance withdrawal and also get help with her smoking cessation. She will plan to follow-up in 2 [address] with a repeat [address] scan. She is going to continue on the prednisone if she can tolerated till then and she will continue with current respiratory therapy. She is using her nebulizer twice a day and I did encourage her to continue to do so until her breathing improves. If she continues to have interstitial changes of unclear etiology specially she quit smoking and vaping them we will discuss further the possibility of a biopsy. [facility] Medical History Obesity, Class III, BMI 40-49.9 (morbid obesity) COVID-19 virus infection Cellulitis Pneumonia Acute respiratory failure with hypoxia Leukocytosis TESSY (acute kidney injury) Acidosis, lactic Pneumonia Pulmonary nodules Tobacco dependence Pneumonitis Bacteremia History of migraine headaches Hyperlipidemia Depression with anxiety Diabetes Family History Father Depression Bipolar disorder Social History Household Members: Family Household Members Other:: CHILDREN Housing: House Do you presently have visiting nurse or other home services: No Alcohol intake: never Patient Tobacco Use Status: Former Tobacco user Tobacco use type: Cigarette Cigarette Packs Per Day: 0.5 Cigarettes Per Day: 10.0 e-Cigarette/Vaping Use: Former Use Second Hand Smoke Exposure: No Substance Use Type: Marijuana service: No Female Reproductive History Menstrual Age of Menarche: 14 Review of Systems Const Denies fever(s) Eyes Denies change in vision ENT Reports nasal congestion Card Denies chest pain and Reports dyspnea on exertion Resp Reports cough, Reports dyspnea on exertion and Reports wheezing GI Reports no additional complaints Musc Reports myalgias Skin/Breast Reports skin swelling Neuro Reports no additional complaints Saul/Lymph Denies easy bruising and Denies lymphadenopathy Aller/Immun Reports wheezing Physical Exam Vital Signs: Last Vital Signs Resp 12 05/02/23 11:07 BP 140/56 H 05/02/23 11:07 Pulse Ox 91 L 05/02/23 11:07 Oxygen Delivery Method Room Air 05/02/23 11:07 BMI result Body Mass Index 46.0 Const General: comfortable Orientation/consciousness: patient oriented x3 HEENT Head: Yes normocephalic Neck Neck: Yes supple Chest Chest palpation & inspection: normal inspection of the chest Resp Effort & Inspection: normal respiratory effort Auscultation: diminished lung sounds Cardio Rate: regular rate Rhythm: regular rhythm Heart sounds: S1 normal heart sound present and S2 normal heart sound present GI Palpation (GI): Soft to palpation Skin General skin exam: erythema Neuro General: patient oriented x3 Extrem General: No clubbing, No cyanosis and Yes edema Assessment & Plan Assessment & Plan (1) Pneumonitis: Code(s): J18.9 - Pneumonia, unspecified organism (2) Tobacco dependence: Code(s): F17.200 - Nicotine dependence, unspecified, uncomplicated (3) Pulmonary nodules: Code(s): R91.8 - Other nonspecific abnormal finding of lung field Plan start Prednisone 10mg daily, monitor BS GAIL as needed Tobacco cessation: clonidine patch and nicoderm patch PFTs CT chest 2 months F/U 3 months Orders: Orders CT chest wo IV con 2 Months J18.9 - Pneumonia, unspecified organism Medications: New clonidine 1 patch transdermal QWEEK 28 days 4 ea 4RF nicotine (Nicoderm CQ) 1 patch transdermal DAILY 28 days 28 ea 3RF prednisone 10 mg PO DAILY 30 days 30 tabs 3RF Coding Level of Care Code Est Pt Level 4 (75125) Diagnoses Pneumonitis J18.9 Tobacco dependence F17.200 Pulmonary nodules R91.8 Time Spent (min) 17
== END 2023-05-02 11:33 | disposition home or self-care (01) ==
PROVIDERS: PCP Registered Nurse; Visit Provider Hospitalist
DX: J18.9 Pneumonia, unspecified organism (principal); F17.200 Nicotine dependence, unspecified, uncomplicated; R91.8 Other nonspecific abnormal finding of lung field
CPT/HCPCS: 99214

== ENCOUNTER → 2023-05-02 11:04 | Outpatient (BNVA) | payer MEDICARE, MEDICAID, SELFPAY | PROVIDERS: PCP Registered Nurse; Visit Provider Hospitalist | DX: J18.9 Pneumonia, unspecified organism (principal); R91.8 Other nonspecific abnormal finding of lung field; F17.210 Nicotine dependence, cigarettes, uncomplicated | CPT/HCPCS: 99212 ==

== ENCOUNTER 2023-05-11 13:58 | Outpatient (AMB) | payer MEDICAID, SELFPAY ==
--- NOTE | 2023-05-11 14:03 | A.OFFVIS_ITS ---
Intake Vital Signs 05/11/23 14:05 Height 5 ft 4 in Weight 270 lb 2 oz BMI 46.4 BP 140/80 H Blood Pressure Location Rt brachial Position Sitting Pulse 92 Pulse Source Pulse Oximeter Pulse Oximetry (%) 94 Oxygen Delivery Method Room Air Intake Visit Reasons: 4m f/u Sleep Walking disorder/ Confirmed Allergies Sulfa (Sulfonamide Antibiotics) [SULFA (SULFONAMIDE ANTIBIOTICS)] Allergy (Unknown, Verified 05/11/23 14:07) HIVES glipizide Allergy (Verified 05/11/23 14:07) Unknown meloxicam Allergy (Verified 05/11/23 14:07) Hives HPI HPI Comments History of Present Illness Details 42 y/o female patient presents with her daughter for follow up of sleep study and parasomnia. The PSG sleep study result no evidence of sleep apnea or sleep related movement disorder. The AHI was 3/hr and oxygen juanito was 84%. Sleep efficiency was 86%. Pt reports that she just got over from pneumonia, and her vault attendant started supplement oxygen on 1L at night. She is also on prednisone now. Pt and her daughter reports that she hasn't any sleep issue lately. Her daughter did not see the patient having sleep walking or sleep eating. She is on prazosin 5mg BID to manage nightmares. Usually nightmares triggers her sleep behaviors. She still can be agitated during the day because of lack of sleep. She does have routine sleep schedule. She sleeps with her dog, and it sometimes disrupts her sleep. [facility] Medical History Obesity, Class III, BMI 40-49.9 (morbid obesity) COVID-19 virus infection Cellulitis Pneumonia Acute respiratory failure with hypoxia Leukocytosis TESSY (acute kidney injury) Acidosis, lactic Pneumonia Pulmonary nodules Tobacco dependence Pneumonitis Bacteremia History of migraine headaches Hyperlipidemia Depression with anxiety Diabetes Family History Father Depression Bipolar disorder Social History (Updated 05/11/23 @ 14:08 by Dalila Carbone) Household Members: Family Household Members Other:: CHILDREN Housing: House Do you presently have visiting nurse or other home services: No Alcohol intake: never Patient Tobacco Use Status: Former Tobacco user Tobacco use type: Cigarette Cigarette Packs Per Day: 0.5 Cigarettes Per Day: 10.0 e-Cigarette/Vaping Use: Former Use Second Hand Smoke Exposure: No Use of substances other than those prescribed or required for medical reasons: No Substance Use Type: Marijuana service: No Female Reproductive History Menstrual Age of Menarche: 14 Review of Systems Const All systems reviewed & are unremarkable except as noted in HPI and below ENT Reports Normal hearing present Neuro Reports Normal hearing present Physical Exam Vital Signs: Last Vital Signs Pulse 92 05/11/23 14:05 BP 140/80 H 05/11/23 14:05 Pulse Ox 94 05/11/23 14:05 Oxygen Delivery Method Room Air 05/11/23 14:05 BMI result Body Mass Index 46.4 Const General: cooperative and tired appearing Nutritional Appearance: obese Orientation/consciousness: patient oriented x3 Neck Neck: Yes full ROM and Yes supple Resp Effort & Inspection: normal respiratory effort and able to speak in complete sentences Neuro General: patient oriented x3, gait normal and moves all extremities Cranial nerves: Yes Bilaterally intact EOM present, Yes Midline tongue present, Yes Symmetric palate elevation present, Yes Normal hearing present, Yes Ability to bilaterally rotate head present and Yes Ability to bilaterally elevate shoulders present Cognition (Neuro): normal cognition Gait exam (Neuro): Normal gait present Psych Appearance: grossly normal Mental Status: mental status grossly normal Speech and movement: Normal speech and movement present Affect: Sad affect present Attitude: cooperative Assessment & Plan Assessment & Plan (1) Daytime sleepiness: Code(s): R40.0 - Somnolence (2) Sleep disturbance: Code(s): G47.9 - Sleep disorder, unspecified (3) Parasomnia: Code(s): G47.50 - Parasomnia, unspecified Plan Advised patient to reduce vaping and smoking. Increase physical activities during daytime and wt reduction advised. Sleep hygiene education provided, trying to have routine sleep schedule and do not sleep with her dog. Continue to take prazosin. Pt to call with any worsening concerns or questions. Coding Level of Care Code Est Pt Level 3 (14755) Diagnoses Daytime sleepiness R40.0 Sleep disturbance G47.9 Parasomnia G47.50
[2023-05-11 14:05] VITALS: BP 140/80; PULSE 92; O2SAT 94; BMI 46.4
== END 2023-05-11 14:25 | disposition home or self-care (01) ==
PROVIDERS: PCP Registered Nurse; Visit Provider Nurse Practitioner Family
DX: R40.0 Somnolence (principal); G47.9 Sleep disorder, unspecified; G47.50 Parasomnia, unspecified
CPT/HCPCS: 99213

== ENCOUNTER → 2023-05-11 13:58 | Outpatient (BNVA) | payer MEDICARE, MEDICAID, SELFPAY | PROVIDERS: PCP Registered Nurse; Visit Provider Nurse Practitioner Family | DX: G47.50 Parasomnia, unspecified (principal); G47.9 Sleep disorder, unspecified; R40.0 Somnolence | CPT/HCPCS: 99212 ==

== ENCOUNTER 2023-11-17 14:43 | Outpatient (REF) | payer MEDICARE, MEDICAID, SELFPAY ==
[2023-11-17 16:52] LABS: Creatinine Urine 159.77 mg/dL; Microalbum/Creatinine Ratio Ur 9.3 ug/mg cr (<30)
== END 2023-11-17 14:44 | disposition home or self-care (01) ==
LOC: HO.HHCL 14:43
PROVIDERS: Visit Provider Registered Nurse
DX: Z13.89 Encounter for screening for other disorder (principal)
CPT/HCPCS: 36415; 82043; 82570

== ENCOUNTER 2023-11-29 16:03 | Outpatient (REF) | payer MEDICARE, MEDICAID, SELFPAY ==
--- NOTE | ~2023-11-29 | XR_ITS ---
EXAMINATION: XR CHEST CLINICAL INFORMATION: Malaise and sinus pressure and cough COMPARISON: 04/28/2023 TECHNIQUE: 2 views of the chest were obtained. FINDINGS: Lungs grossly are clear. The mediastinal and hilar contours are normal. No pleural effusions. Heart and pulmonary vessels normal. XR/XR chest 2V IMPRESSION: No active disease.
== END 2023-11-29 16:04 | disposition home or self-care (01) ==
LOC: HO.HHCX 16:03
PROVIDERS: Visit Provider Internal Medicine Geriatric Medicine
DX: R05.2 Subacute cough (principal); R53.81 Other malaise; R53.83 Other fatigue; J34.89 Other specified disorders of nose and nasal sinuses
CPT/HCPCS: 71046

== ENCOUNTER 2024-04-24 12:43 | Outpatient (REF) | payer MEDICARE, MEDICAID, SELFPAY ==
--- NOTE | ~2024-04-24 | XR_ITS ---
EXAMINATION: XR HIP, RIGHT CLINICAL INFORMATION: Worsening right hip pain. Remote trauma. COMPARISON: CT abdomen/pelvis dated 03/22/2022. TECHNIQUE: Two views of the right hip. FINDINGS: No acute fracture or dislocation. No joint space narrowing or marginal osteophytes. No osseous erosion. No evidence of femoral head avascular necrosis. No abnormal soft tissue calcification. XR/XR hip RT min 2V IMPRESSION: Unremarkable examination. Electronically signed by: Alejandro Beckford MD 04/24/2024 01:49 PM JAZMIN
== END 2024-04-24 12:44 | disposition home or self-care (01) ==
LOC: HO.HHCX 12:43
PROVIDERS: Visit Provider Family Medicine
DX: M25.551 Pain in right hip (principal); G89.29 Other chronic pain
CPT/HCPCS: 73502

== ENCOUNTER 2024-05-31 15:37 | Outpatient (AMB) | payer MEDICARE, MEDICAID, SELFPAY ==
[2024-05-31 16:11] VITALS: BP 110/68; PULSE 72; TEMP 36.6; O2SAT 98; BMI 43.9
--- NOTE | 2024-05-31 16:11 | AM.OFFWIN_ITS ---
Intake Vital Signs 05/31/24 16:11 Height 5 ft 4 in Weight 116.12 kg BMI 43.9 BP 110/68 Blood Pressure Location Lt brachial Position Sitting Pulse 72 Pulse Source Pulse Oximeter Temp 97.9 F Temp Source Oral Pulse Oximetry (%) 98 Oxygen Delivery Method Room Air Intake Visit Reasons: EP-?sinus inf, body ache, headaches,rt ear pain Intake Note: Patient here for right ear pain, sinus congestion, mucus, cough, head aches and body aches that has been present for about 1 week. Patient Tobacco Use Status: Former Tobacco user Allergies Sulfa (Sulfonamide Antibiotics) [SULFA (SULFONAMIDE ANTIBIOTICS)] Allergy (Unknown, Verified 05/31/24 16:12) HIVES glipizide Allergy (Verified 05/31/24 16:12) Unknown meloxicam Allergy (Verified 05/31/24 16:12) Hives Do you need a note to return to daycare/school/sports/work: Yes HPI HPI Comments History of Present Illness Details 1629 44 year old female presents w/ URI sx (r ight ear pain, sinus congestion, mucus, productive cough, headaches and bodyaches) x 1 week worsening. Multiple sick contacts at home w/ similar sx. PE benign Hx and pe sinusitis vs viral illness. Unlikely meningitis, encephalitis, pna, pe, acs, ards, dissection, AAA. SX > 5 days concerns for bacerial etiology. Plan- augmentin, prednsion, inhaler. Return w/ new or worsening sx. PFSH Medical History Upper respiratory infection Obesity, Class III, BMI 40-49.9 (morbid obesity) COVID-19 virus infection Cellulitis Pneumonia Acute respiratory failure with hypoxia Leukocytosis TESSY (acute kidney injury) Acidosis, lactic Pneumonia Pulmonary nodules Tobacco dependence Pneumonitis Bacteremia History of migraine headaches Hyperlipidemia Depression with anxiety Diabetes Family History Father Depression Bipolar disorder Social History Household Members: Family Household Members Other:: CHILDREN Housing: House Do you presently have visiting nurse or other home services: No Alcohol intake: never Patient Tobacco Use Status: Former Tobacco user Tobacco use type: Cigarette Cigarette Packs Per Day: 0.5 Cigarettes Per Day: 10.0 e-Cigarette/Vaping Use: Former Use Second Hand Smoke Exposure: No Substance Use Type: Marijuana service: No Female Reproductive History Menstrual Age of Menarche: 14 Review of Systems Const All systems reviewed & are unremarkable except as noted in HPI and below Physical Exam Vital Signs: Last Vital Signs Temp 97.9 F 05/31/24 16:11 Pulse 72 05/31/24 16:11 BP 110/68 05/31/24 16:11 Pulse Ox 98 05/31/24 16:11 Oxygen Delivery Method Room Air 05/31/24 16:11 BMI result Body Mass Index 43.9 vss Appearance: Alert.? Oriented X3.? No acute distress.? Head: Normocephalic, atraumatic, no step-offs or deformities Eyes: Pupils equal, round and reactive to light.? ENT: Pharynx normal.??External ears normal, TMs normal bilaterally and EAC's normal. No pain with manipulation of external ears bilaterally. No mastoid tenderness. Neck: Normal inspection.? Neck supple.? CVS: Normal heart rate and rhythm.? Pulses normal.? Respiratory: No respiratory distress.? Breath sounds normal.? Abdomen: Soft and nontender.? Skin: Skin warm and dry.? Normal skin color.? Normal skin turgor.? Extremities: No lower extremity edema.? No calf ttp. 5/5 strength to bilateral upper and lower extremities Neuro: Oriented X 3.? No motor deficit.? No sensory deficit. CN 2-12 intact Assessment & Plan Assessment & Plan (1) Upper respiratory infection: Code(s): J06.9 - Acute upper respiratory infection, unspecified Plan Take your medications as prescribed. If you were prescribed antibiotics today, it is important that you take your medication to their entirety, do not skip any doses, do not finish them early. Follow-up with your primary care provider this week. Return to the emergency department with new or worsening symptoms. In case of emergency call 911 Orders: Orders SARS-CoV2/FLU/RSV Today J06.9 - Acute upper respiratory infection, unspecified Medications: New prednisone 40 mg (2 x 20 mg) PO DAILY 10 tabs 0RF 5 days amoxicillin-pot clavulanate 875-125 mg 1 tab PO BID 20 tabs 0RF 10 days Coding Level of Care Code Est Pt Level 3 (48750) Diagnoses Upper respiratory infection J06.9
[2024-06-01 12:27] LABS: Influenza A PCR NEGATIVE (Negative); Influenza B PCR NEGATIVE (Negative); Resp Syncy Virus RNA Qual PCR POSITIVE (Negative); SARS COV2 PCR INHOUSE NEGATIVE (Negative)
== END 2024-05-31 16:57 | disposition home or self-care (01) ==
PROVIDERS: PCP Registered Nurse; Visit Provider Physician Assistant
DX: J06.9 Acute upper respiratory infection, unspecified (principal)

== ENCOUNTER → 2024-05-31 15:37 | Outpatient (BNVA) | payer MEDICARE, MEDICAID, SELFPAY | PROVIDERS: PCP Registered Nurse; Visit Provider Physician Assistant | DX: J06.9 Acute upper respiratory infection, unspecified (principal) | CPT/HCPCS: 99212 ==

== ENCOUNTER 2024-06-04 10:06 | Outpatient (REF) | payer MEDICARE, MEDICAID, SELFPAY | END 2024-06-04 10:07 | disposition home or self-care (01) | LOC: HO.HOSX 10:06 | PROVIDERS: Visit Provider Physician Assistant | DX: Z13.89 Encounter for screening for other disorder (principal) ==

== ENCOUNTER 2024-08-08 12:32 | Outpatient (REF) | payer MEDICARE, SELFPAY ==
[2024-08-08 13:32] LABS: MANUAL DIFF FLAG NO
[2024-08-08 13:37] LABS: Basophils Percent Auto 0.3 % (0-2); Eosinophils Absolute Auto 0.1 X10*3/uL (0.0-0.4); Eosinophils Percent Auto 1.6 % (0-4); Hematocrit 43.2 % (37.0-47.0); Hemoglobin 14.2 g/dl (12.0-16.0); Imm Gran Abs Auto 0.05 X10*3/uL (0.00-0.03); Imm Gran Pct Auto 0.6 % (0.0-0.4); Lymphocytes Absolute Auto 1.9 X10*3/uL (1.2-4.9); Mean Corpuscular HGB Conc 32.9 g/dl (31.0-35.0); Mean Corpuscular Hemoglobin 28.7 pg (27.0-33.0); Mean Corpuscular Volume 87.3 fL (80.0-98.0); Monocytes Absolute Auto 0.8 X10*3/uL (0.1-1.2); Monocytes Percent Auto 8.8 % (2-11); Neutrophils Absolute Auto 6.1 x10*3/uL (2.0-8.3); Neutrophils Percent Auto 67.7 % (45-73); Platelet Count 223 X10*3/uL (160-400); Red Blood Count 4.95 X10*6/uL (4.20-5.50); Red Cell Distribution Width 13.9 % (11.0-16.0)
[2024-08-08 14:48] LABS: Alanine Aminotransferase 49 U/L (0-31); Alkaline Phosphatase 32 U/L (39-117); Anion Gap 11 (12-20); Aspartate Amino Transferase 27 U/L (5-31); Bilirubin Total 0.4 mg/dL (0.0-1.0); Blood Urea Nitrogen 14 mg/dL (9-16); Calcium 9.1 mg/dL (8.4-10.2); Carbon Dioxide 29 mmol/L (22-29); Chloride 102 mmol/L (96-108); Cholesterol 131 mg/dL (<200); Estimated Glomerular Filt Rate > 60; Glucose Random 121 mg/dL (60-115); HDL Cholesterol 41 mg/dL (>40); LDL Cholesterol Calculated 73 mg/dL (<100); Sodium 138 mmol/L (135-145); Triglycerides 85 mg/dL (<150)
--- OUTSIDE RECORDS SUMMARY | 2024-08-08 15:03 | XMS_ITS | Encounter Summary ---
Author Organization [email or web address] Address [address] [place] [address] [address] [place] [address] Care Team Providers Care Dry Press Operator Helper Name Role Phone [place] [facility] Primary Care Provider [phone] Juan Francisco Steen [employer] MILL OPERATOR Unavailable Unavailable Reason for Visit * Reason Onset Date Comments CGM 08/08/2024 Encounter Details Date Type Department Care Team ([facility] st Contact Info) Description 08/08/2024 Telephone [facility] MEDIC[facility] [address] [place] [address] [facility] [address] [place] [address] [facility] Social History Tobacco Use Types Packs/Day Years Used Date Smoking Tobacco: Every Day Cigarettes Passive Smoke Exposure: Current Smokeless Tobacco: Never Alcohol Use Standard Drinks/Week Comments Never 0 (1 standard drink = 0.6 oz pur e alcohol) Depression Answer Date Recorded Patient Health Questionnaire-9 Score 21 11/17/2023 Patient Health Questionnaire-9 Score 21 11/17/2023 Last PHQ-9: Questionnaire Data Not on file 0 11/17/2023 Housing Stability Answer Date Recorded What is your housing situation today? I have kiran nj 03/20/[address] you li ve. Do you have problems with any of the following? None of the above 03/20/2023 Food Insecurity Answer Date Recorded Within the past 12 months, y ou worried that your food would run out before you got money to buy more: Never True 03/20/2023 Within the past 12 months,th e food you bought just didn't last and you didn't have enough money to get more: Never True Transportation Answer Date Recorded In the past 12 months, has l ack of transportation kept you from medical appts, meetings, work or from getting things needed for daily living? No 03/20/2023 Utilities Answer Date Recorded In the past 12 months, has t he electric, gas, oil or water company threatened to shut off services in your home? No 03/20/2023 Depression Answer Date Recorded Patient Health Questionnaire-2 Score 6 11/17/2023 Comments Unknown Sex and Gender Information Value Date Recorded Sex Assigned at Female 04/04/2022 10:23 AM EDT Legal Sex Female 10:23 AM EDT Gender Identity Female 04/04/2022 10:23 AM EDT Sexual Orientation Straight 04/04/2022 10 :23 AM EDT documented as of this encounter Miscellaneous Notes * Telephone Encounter - Abby Galvez RN - 08/08/2024 12:40 PM EST TC placed to [facility] pharmacy to inquire if CGM Constance 3 requires a PA. RN was informed it does NOT and it is processing thru her insurance with a $0 copay. RN was informed it will be ready for p/u this PM. TC placed to patient [phone] to inform CGM Constance 3 will be ready for p/u this PM. Patient doesnot need teaching, as she has used CGM in the past. Patient did not answer, RN left requesting CB to red team nurses. Patient to f/u PRN. ----- Message from [facility] sent at 08/08/2024 11:31 AM EST ----- New order for freestyle 3 placed. Please schedule for RN teaching visit when available. Thank you! documented in this encounter Plan of Treatment Not on file documented as of this encounter Visit Diagnoses Not on filedocumented in this encounter Additional Health Concerns Assessment Noted Time PHQ-9 Depression Total Score: 21 024 1:30 PM EDT documented as of this encounter Care Teams Dry Press Operator Helper Relationship Specialty Start Date End Date CarrolltonMargarita kumar FNP [address] [place] [address] PCP - General Family Medicine 01/25/22 Juan Francisco Steen FNP [address] [place] [address] Nurse Practitioner Family Medicine 05/04/23 documented as of this encounter
--- OUTSIDE RECORDS SUMMARY | 2024-08-08 15:03 | XMS_ITS | Encounter Summary ---
Author Organization [employer] Address [address] [facility] [facility] [address] [place] [address] Care Team Providers Care Insurance Verification Rep Name Role Phone Margarita Doty [employer] F[employer] GAUGER Primary Care Provider [phone] Juan Francisco Steen [employer] F[employer] GAUGER Unavailable Unavailable Encounter Details Date Type Department Care Team (Latest Contact Info) Description 07/10/2024 Travel Social History Tobacco Use Types Packs/Day Years [...] AM EDT documented as of this encounter Plan of Treatment Not on file documented as of this encounter Visit Diagnoses Not on filedocumented in this encounter Additional Health Concerns Assessment Noted Time PHQ-9 Depression Total Score: 21 024 1:30 PM EDT documented as of this encounter Care Teams Insurance Verification Rep Relationship Specialty Start Date End Date Margarita Doty FNP [address] [place] [id number] PCP - General Family Medicine 01/25/22 Juan Francisco Steen FNP [address] [place] [id number] Nurse Practitioner Family Medicine 05/04/23 documented as of this encounter
--- OUTSIDE RECORDS SUMMARY | 2024-08-08 15:03 | XMS_ITS | Encounter Summary ---
Author Organization [employer] Address [address] [place] [address] [place] [address] Care Team Providers Care Bung Driver Name Role Phone [facility] Primary Care Provider [phone] Juan Francisco Steen Unavailable Unavailable Reason for Visit * Reason Comments Med Refill Encounter Details Date Type Department Care Team (Late st Contact Info) Description 02/18/2023 Refill [facility] MEDICINE [address] [place] [address] Estela Saab FNP [address] [place] [address] Dept [place] [address] Fibromyalgia Social History Tobacco Use Types Packs/Day Years Used Date Smoking Tobacco: Every Day Cigarettes Passive Smoke Exposure: Current Smokeless Tobacco: Never Alcohol Use Standard Drinks/Week Comments Never 0 (1 standard drink = 0.6 oz pur e alcohol) Depression Answer Date Recorded Patient Health Questionnaire-9 Score 10 11/14/2022 Depression Answer Date Recorded Patient Health Questionnaire-2 Score 4 11/14/2022 Comments Unknown Sex and Gender Information Value Date Recorded Sex Assigned at Female 04/04/2022 10:23 AM EDT Legal Sex Female 10:23 AM EDT Gender Identity Female 04/04/2022 10:23 AM EDT Sexual Orientation Straight 04/04/2022 10 :23 AM EDT documented as of this encounter Plan of Treatment Not on file documented as of this encounter Visit Diagnoses Diagnosis Fibromyalgia Unspecified myalgia and myositis documented in this encounter Additional Health Concerns Assessment Noted Time PHQ-9 Depression Total Score: 10 023 9:51 AM EDT documented as of this encounter Care Teams Bung Driver Relationship Specialty Start Date End Date SedgwickMargarita FNP [address] [place] [address] PCP - General Family Medicine 01/25/22 Juan Francisco Steen FNP [address] [place] [address] Nurse Practitioner Family Medicine 05/04/23 documented as of this encounter
--- OUTSIDE RECORDS SUMMARY | 2024-08-08 15:03 | XMS_ITS | Encounter Summary ---
Author Organization [employer] Address [address] [place] [address] 7t [place] [address] Care Team Providers Care Car Shunter Name Role Phone Margarita Doty PROPERTY CLAIMS MANAGER Primary Care Provider [phone] Juan Francisco Steen Unavailable Unavailable Reason for Visit * Reason Comments Med Change Request Encounter Details Date Type Department Care Team ([facility] st Contact Info) Description 04/19/2023 Refill [facility] MEDICINE [address] [place] [address] Inocencia Wilkinson MD [address] [place] [address] Acute bilateral low back pain without sciatica Social History Tobacco Use Types Packs/Day Years Used Date Smoking Tobacco: Every Day Cigarettes Passive Smoke Exposure: Current Smokeless Tobacco: Never Alcohol Use Standard Drinks/Week Comments Never 0 (1 standard drink = 0.6 oz pur e alcohol) Depression Answer Date Recorded Patient Health Questionnaire-9 Score 10 11/14/2022 Housing Stability Answer Date Recorded What is your housing situation today? I have [place] 03/20/[address] you [...] as of this encounter Visit Diagnoses Diagnosis Acute bilateral low back pain without sciatica documented in this encounter Additional Health Concerns Assessment Noted Time PHQ-9 Depression Total Score: 10 023 9:51 AM EDT documented as of this encounter Care Teams Car Shunter Relationship Specialty Start Date End Date Margarita Doty FNP [address] [place] [address] PCP - General Family Medicine 01/25/22 Juan Francisco Steen FNP [address] [place] [address] Nurse Practitioner Family Medicine 05/04/23 documented as of this encounter
--- OUTSIDE RECORDS SUMMARY | 2024-08-08 15:03 | XMS_ITS | Encounter Summary ---
Author Organization [employer] Address [address] [place] [address] 7 [place] [address] Care Team Providers Care Journeyman Operator Assistant Name Role Phone [facility] Primary Care Provider [phone] Juan Francisco Steen [facility] Unavailable Unavailable Reason for Visit * Reason Comments Med Change Request Encounter Details Date Type Department Care Team ([facility] st Contact Info) Description 07/12/2024 Refill [facility] MEDICINE [address] [place], [place] [phone] [facility] [address] [place] [address] Diabetes mellitus due to underlying condition with hyperglycemia, without long-term current use of insulin ([facility]) Social History Tobacco Use Types Packs/Day Years [...] as of this encounter Visit Diagnoses Diagnosis Diabetes mellitus due to underlying condition with hyperglycemia, without long- term current use of insulin ([facility]) documented in this encounter Additional Health Concerns Assessment Noted Time PHQ-9 Depression Total Score: 21 024 1:30 PM EDT documented as of this encounter Care Teams Journeyman Operator Assistant Relationship Specialty Start Date End Date Margarita Doty FNP [address] [place] [address] PCP - General Family Medicine 01/25/22 Juan Francisco Steen FNP [address] [place] [address] Nurse Practitioner Family Medicine 05/04/23 documented as of this encounter
--- OUTSIDE RECORDS SUMMARY | 2024-08-08 15:03 | XMS_ITS | Encounter Summary ---
Author Organization [employer] Address [address] [place] [address] 7 [place] [address] Care Team Providers Care Product Safety Coordinator Name Role Phone [place] [facility] Primary Care Provider [phone] Juan Francisco Steen [employer] Unavailable Unavailable Reason for Visit * Reason Onset Date Comments Med Refill 01/15/2024 Encounter Details Date Type Department Care Team ([facility] st Contact Info) Description 01/15/2024 Telephone [facility] MEDICINE [address] [place] [address] [facility] [address] [place] [address] Med Refill Social History Tobacco Use Types Packs/Day Years [...] encounter Miscellaneous Notes * Telephone Encounter - Coreen Sheppard LPN - 01/15/2024 11:58 AM EDT Medication pended to PCP. * Telephone Encounter - Ramiro Hidalgo - 01/15/2024 11:47 AM EDT TC from pt requesting medication refill. Medications needing refill : pregabalin (Lyrica) 300 MG capsule To be sent to: [facility] Pharmacy documented in this encounter Plan of Treatment Not on file documented as of this encounter Visit Diagnoses Not on filedocumented in this encounter Additional Health Concerns Assessment Noted Time PHQ-9 Depression Total Score: 21 024 1:30 PM EDT documented as of this encounter Care Teams Product Safety Coordinator Relationship Specialty Start Date End Date Margarita Doty FNP [address] [place] [address] PCP - General Family Medicine 01/25/22 Juan Francisco Steen FNP [address] [place] [address] Nurse Practitioner Family Medicine 05/04/23 documented as of this encounter
--- OUTSIDE RECORDS SUMMARY | 2024-08-08 15:03 | XMS_ITS | Encounter Summary ---
Author Organization [email or web address] Address [address] [facility] 7t [place] [address] Care Team Providers Care Speeder Frame Tender Name Role Phone Margarita Doty MEDICAL ONCOLOGY PHYSICIAN Primary Care Provider [phone] Juan Francisco Steen Unavailable Unavailable Reason for Visit * Reason Comments Med Refill Encounter Details Date Type Department Care Team (Late st Contact Info) Description 10/20/2023 Refill [facility] MEDICINE [address] [place] [address] Juan Francisco Steen FNP PTSD (post-traumatic stress disorder) Social History Tobacco Use Types Packs/Day Years Used Date Smoking Tobacco: Every Day Cigarettes Passive Smoke Exposure: Current Smokeless Tobacco: Never Alcohol Use Standard Drinks/Week Comments Never 0 (1 standard drink = 0.6 oz pur e alcohol) Depression Answer Date Recorded Patient Health Questionnaire-9 Score 15 09/14/2023 Patient Health Questionnaire-9 Score 15 09/14/2023 Last PHQ-9: Questionnaire Data Not on file 0 09/14/2023 Housing Stability Answer Date Recorded What is [...] Answer Date Recorded Patient Health Questionnaire-2 Score 5 09/14/2023 Comments Unknown Sex and Gender Information Value Date Recorded Sex Assigned at Female 04/04/2022 10:23 AM EDT Legal Sex Female 10:23 AM EDT Gender Identity Female 04/04/2022 10:23 AM EDT Sexual Orientation Straight 04/04/2022 10 :23 AM EDT documented as of this encounter Plan of Treatment Not on file documented as of this encounter Visit Diagnoses Diagnosis PTSD (post-traumatic stress disorder) Posttraumatic stress disorder documented in this encounter Additional Health Concerns Assessment Noted Time PHQ-9 Depression Total Score: 15 024 3:36 PM EDT documented as of this encounter Care Teams Speeder Frame Tender Relationship Specialty Start Date End Date Margarita Doty FNP [address] [place] [address] PCP - General Family Medicine 01/25/22 Juan Francisco Steen FNP [address] [place] [address] Nurse Practitioner Family Medicine 05/04/23 documented as of this encounter
--- OUTSIDE RECORDS SUMMARY | 2024-08-08 15:03 | XMS_ITS | Encounter Summary ---
Author Organization [employer] Address [address] [place] [address] Care Team Providers Care Associate Programmer Analyst Name Role Phone [place] [facility] Primary Care Provider [phone] Juan Francisco Steen STAIR BUILDER Unavailable Unavailable Reason for Visit * Reason Onset Date Comments Appointment Request 12/22/2022 Encounter Details Date Type Department Care Team ([facility] st Contact Info) Description 12/22/2022 Telephone [facility] MEDICINE [address] [place] [address] [facility] [address] [place] [address] Appointment Request Social History Tobacco Use Types Packs/Day Years Used Date Smoking Tobacco: Every Day Cigarettes Smokeless Tobacco: Never Alcohol Use Standard Drinks/Week [...] encounter Miscellaneous Notes * Telephone Encounter - Sapna Forbes - 01/06/2023 1:20 PM EDT Tc from pt calling in regards to message above. * Telephone Encounter - Shandra Hernandez - 12/22/2022 1:56 PM EDT Tc from patient requesting to r/s tele appt from 12/13/22. Details: [facility]-RV documented in this encounter Plan of Treatment Not on file documented as of this encounter Visit Diagnoses Not on filedocumented in this encounter Additional Health Concerns Assessment Noted Time PHQ-9 Depression Total Score: 10 023 9:51 AM EDT documented as of this encounter Care Teams Associate Programmer Analyst Relationship Specialty Start Date End Date Margarita Doty FNP [address] [place] [address] PCP - General Family Medicine 01/25/22 Juan Francisco Steen FNP [address] [place] [address] Nurse Practitioner Family Medicine 05/04/23 documented as of this encounter
--- OUTSIDE RECORDS SUMMARY | 2024-08-08 15:03 | XMS_ITS | Encounter Summary ---
Author Organization [employer] Address [address] [place] [address] 7 [place] [address] Care Team Providers Care Beater Room Supervisor Name Role Phone [facility] Primary Care Provider [phone] Juan Francisco Steen CARTOGRAPHIC DRAFTER Unavailable Unavailable Reason for Visit * Reason Comments Med Refill Encounter Details Date Type Department Care Team ([facility] st Contact Info) Description 07/13/2024 Refill [facility] MEDICINE [address] [place], [place] [phone] [facility] [address] [place] [address] Neuropathy Social History Tobacco Use Types Packs/Day Years [...] as of this encounter Visit Diagnoses Diagnosis Neuropathy Mononeuritis of unspecified site documented in this encounter Additional Health Concerns Assessment Noted Time PHQ-9 Depression Total Score: 21 024 1:30 PM EDT documented as of this encounter Care Teams Beater Room Supervisor Relationship Specialty Start Date End Date Margarita Doty FNP [address] [place] [address] PCP - General Family Medicine 01/25/22 Juan Francisco Steen FNP [address] [place] [address] Nurse Practitioner Family Medicine 05/04/23 documented as of this encounter
--- OUTSIDE RECORDS SUMMARY | 2024-08-08 15:03 | XMS_ITS | Encounter Summary ---
Author Organization [employer] Address [address] [facility] 7t [place] [address] Care Team Providers Care Office Machines Wirer Name Role Phone Margarita Doty PATTERN ROOM ATTENDANT Primary Care Provider [phone] Juan Francisco Steen Unavailable Unavailable Reason for Visit * Reason Comments Med Change Request Encounter Details Date Type Department Care Team ([facility] st Contact Info) Description 04/18/2023 Refill [facility] MEDICINE [address] [place] [address] Juan Francisco Steen FNP PTSD (post-traumatic stress [...] documented as of this encounter Care Teams Office Machines Wirer Relationship Specialty Start Date End Date Margarita Doty FNP [address] [place] [address] PCP - General Family Medicine 01/25/22 Juan Francisco Steen FNP [address] [place] [address] Nurse Practitioner Family Medicine 05/04/23 documented as of this encounter
--- OUTSIDE RECORDS SUMMARY | 2024-08-08 15:03 | XMS_ITS | Encounter Summary ---
Author Organization [employer] Address [address] [facility] 7t [place] [address] Care Team Providers Care Loader Name Role Phone Margarita Doty IRON INSTALLER Primary Care Provider Juan Francisco Steen IRON INSTALLER Unavailable Unavailable Encounter Details Date Type Department Care Team (Latest Contact Info) Description 08/07/2024 Travel Social History Tobacco Use Types Packs/Day [...] documented as of this encounter Care Teams Loader Relationship Specialty Start Date End Date Margarita Doty FNP [address] [place] [address] PCP - General Family Medicine 01/25/22 Juan Francisco Steen FNP [address] [place] [address] Nurse Practitioner Family Medicine 05/04/23 documented as of this encounter
--- OUTSIDE RECORDS SUMMARY | 2024-08-08 15:03 | XMS_ITS | Clinical Summary ---
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 Mindfulness program and plans to attend this afternoon. Also given info about smartphone apps. She will continue with her therapist as well, and we will revisit anxiety med options at next appt in 1 month. She will also continue Duloxetine 60 mg BID and Prazosin 5 mg BID. She agrees with the plan. Assessment & Plan (10/17/2022 11:51 AM EDT): Note from 07/21/2022 Patient with history of multiple traumas, with flashbacks, anxiety, poor sleep with parasomnias (sleepwalking, sleep-eating). Recently suffered the sudden of her who was her great support and partner. Has previously been on multiple psychiatric medications including atypical antipsychotic (Geodon) and mariaelena (Xanax). No psychotic symptoms or red flags for BPD, despite family hx positive for BPD. PMH: DM, hyperlipidemia, morbid obesity, fibromyalgia, tobacco abuse. Patient has good insight and counseling will be trujillo, Markedly worsened depression, recent health problems including hospitalization for non-healing foot wound. Will resume Geodon she took previously, at 20 mg BID with food. Continue Duloxetine 60 mg BID. Continue Hydroxyzine 25 mg 1-2 q 6 h prn, Prazosin 5 mg BID. F/U 3 weeks. She agrees with the plan. Assessment & Plan (08/11/2022 10:46 AM EST): Note from 07/21/2022 Patient with history of multiple traumas, with flashbacks, anxiety, poor sleep with parasomnias (sleepwalking, sleep-eating). Recently suffered the sudden of her who was her great support and partner. Has previously been on multiple psychiatric medications including atypical antipsychotic (Geodon) and mariaelena (Xanax). No psychotic symptoms or red flags for BPD, despite family hx positive for BPD. PMH: DM, hyperlipidemia, morbid obesity, fibromyalgia, tobacco abuse. Patient has good insight and counseling will be trujillo, She will F/U with her therapist. At this time will increase to Duloxetine 60 mg BID. Continue Hydroxyzine 25 mg 1-2 q 6 h prn, recommend taking 1 tab BID on a scheduled basis, then additional as needed for anxiety. Continue Prazosin 5 mg BID. Consider resuming Geodon as adjunctive treatment for depression but pt prefers to defer at this time. Explained that the objective was for her to feel more in control as expeditiously as possible. Anticipate frequent visits at first, then less often. If needed to miss an appt or encountered problems with medication or other aspects of treatment contact marketing programs manager. Next appt in 2-3 weeks. She agrees with the plan. Today she is ill, so no change in plan. F/U 1 month. Assessment & Plan (07/22/2022 10:11 AM EST): Patient with history of multiple traumas, with flashbacks, anxiety, poor sleep with parasomnias (sleepwalking, sleep-eating). Recently suffered the sudden of her who was her great support and partner. Has previously been on multiple psychiatric medications including atypical antipsychotic (Geodon) and mariaelena (Xanax). No psychotic symptoms or red flags for BPD, despite family hx positive for BPD. PMH: DM, hyperlipidemia, morbid obesity, fibromyalgia, tobacco abuse. Patient has good insight and counseling will be trujillo, She will F/U with her therapist. At this time will increase to Duloxetine 60 mg BID. Continue Hydroxyzine 25 mg 1-2 q 6 h prn, recommend taking 1 tab BID on a scheduled basis, then additional as needed for anxiety. Continue Prazosin 5 mg BID. Consider resuming Geodon as adjunctive treatment for depression but pt prefers to defer at this time. Explained that the objective was for her to feel more in control as expeditiously as possible. Anticipate frequent visits at first, then less often. If needed to miss an appt or encountered problems with medication or other aspects of treatment contact marketing programs manager. Next appt in 2-3 weeks. She agrees with the plan. Restless legs 12/30/2016 Resolved Problems Problem Noted Date Diagnosed Date Resolved Date Aseptic meningitis 07/05/2022 3 Asthma 07/05/2022 07/08/2022 Cellulitis of breast 07/05/2022 023 Depression 07/05/2022 07/08/2022 Feeling grief 07/05/2022 07/08/2022 Idiopathic acute pancreatitis 07/05/2022 07/08/2022 Type 2 diabetes mellitus 07/05/202208/2022 Ulcer of toe due to type 2 diabetes mellitus 3 07/08/2022 Sleep terror disorder 12/30/20162022 Encounters Date Type Department Care Team Description 08/08/2024 Telephone [facility] [address] [place] [address] Margarita Doty FNP CGM 08/07/2024 3:15 PM EST Telemedicine [facility] [address] [place] [address] Margarita Doty FNP Malaise and fatigue (Primary Dx); Type 2 diabetes mellitus with hyperglycemia, with long-term current use of insulin ([facility]); ADHD (attention deficit hyperactivity disorder), inattentive type 08/07/2024 Travel 07/13/2024 Refill [facility] [address] [place] [address] Margarita Doty FNP Neuropathy 07/12/2024 Refill [facility] [address] [place] [address] Margarita Doty FNP Diabetes mellitus due to underlying condition with hyperglycemia, without long-term current use of insulin ([facility]) 07/10/2024 11:30 AM EST Office Visit [facility] [address] [place] [address] [facility] Type 2 diabetes mellitus with hyperglycemia, with long-term current use of insulin ([facility]) (Primary Dx); Primary hypertension; Pulmonary nodules; Malaise and fatigue; Dietary counseling; Exercise counseling; Class 3 severe obesity due to excess calories with serious comorbidity and body mass index (BMI) of 40.0 to 44.9 in adult ([facility]) 07/10/2024 Telephone [facility] [address] [place] [address] [facility] insurance 07/10/2024 Travel 07/05/2024 Refill [facility] [address] [place] [address] [facility] Diabetes mellitus due to underlying condition with hyperglycemia, without long-term current use of insulin ([facility]) 07/02/2024 Refill [facility] [address] [place] [address] [facility] 06/25/2024 Refill [facility] [address] [place] [address] [facility] Anogenital herpes simplex virus (HSV) infection 06/03/2024 Telephone [facility] [address] [place] [address] [facility] ER Follow-up 05/31/2024 Orders Only GENERIC EXTERNAL DATA DEPARTMENT Provider, Generic External Data 05/29/2024 Refill [facility] [address] [place] [address] Inocencia Wilkinson MD Primary hypertension 05/13/2024 Telephone [facility] [address] [place] [address] [facility] Mon[facility] Immunizations Name Administration Dates Next Due Influenza injectable quadriv alent IIV4 with preservative 03/01/2018 Influenza injectable quadriv alent preservative free 03/15/2023 Influenza, IIV3, injectable 05/16/2024, 5,02/27/2013 Pneumococcal Conjugate PCV 20 03/15/2023 Pneumococcal Polysaccharide PPSV23 01/12/2016 Tdap 04/22/2022,02/27/2013 Family History Medical History Relation Name Comments Aortic aneurysm Father Relation Name Status Comments Father Social History Tobacco Use Types Packs/Day Years Used Date Smoking Tobacco: Every Day Cigarettes Passive Smoke Exposure: Current Smokeless Tobacco: Never Tobacco Cessation:Ready to Q uit: Not Asked; Counseling Given: Not Answered Alcohol Use Standard Drinks/Week Comments Never 0 [...] Orientation Straight 04/04/2022 10 :23 AM EDT Last Filed Vital Signs Vital Sign Reading Time Taken Comments Blood Pressure 131/75 07/10/2024 11:37 AM EST Pulse 81 07/10/2024 11:37 AM EST Temperature 36.6 ??C (97.8 ??F) 07/10/2024 11:[address] Respiratory Rate 20 07/10/2024 11:37 AM EST Oxygen Saturation 98% 07/10/2024 11:37 AM EST Inhaled Oxygen Concentration - - Weight 115 kg (254 lb 3.2 oz) 07/10/2024 11:37 A M EST Height 162.6 cm (5' 4 ) 07/10/2024 11:37 AM EST Body Mass Index 43.63 07/10/2024 11:37 AM EST Plan of Treatment Health Maintenance Due Date Last Done Comments Dental Oral Exam 1980 HIV Screening 1980 Alcohol/Substance Use Screening 1993 Family Planning (PISQ) 1996 Hepatitis C Screening 1999 Hepatitis B Vaccines (1 of 3 - 19+ 3-dose series) 2000 Dental Prophylaxis 09/21/2019 03/21/2019 Dental X-Ray: Bitewings 02/15/2020 02/13/2019 Dental X-Ray: Full Mouth 02/14/2022 02/13/2019 Lipid Panel 07/12/2023 08/08/2024, 02/0 12/2022, 03/22/2022, Additional history exists COVID-19 Vaccine ( season) 2024 SDOH Screening 03/15/2024 03/15/2023 Depression Monitoring (PHQ-9) 2024 11/17/2023, 11/17/2023 Diabetes: Hemoglobin A1C 10/07/2024 025, 11/17/2023, 03/15/2023, Additional history exists Depression Screening 11/16/2024 11/17/2023, 10/05/19 Diabetes: Foot Exam 11/16/2024 11/17/2023, 11/17/2023, 11/17/2023, Additional history exists Diabetes: Urine Protein Screening 11/16/2024 11/17/2023 Mammogram 02/10/2025 02/10/2023 Tobacco Screening 08/08/2025 08/08/2024 Eye Exam 11/15/2025 11/16/2023 Pap Smear 01/12/2026 01/12/2023 Cervical Cancer Screening 01/13/2028 HPV/Cotest 01/13/2028 01/12/2023 Zoster Vaccines (1 of 2) 2031 DTaP/Tdap/Td Vaccines (3 - Td or Tdap) 04/22/2032 04/22/2022, 02/27/2013 RSV Patients and Patients Aged 60 years or older (1 - 1-dose 75+ series) 2056 Pneumococcal Vaccine: Pediatrics (0 to 5 Years) and At-Risk Patients (6 to 49) Years) Completed 03/15/2023, 01/12/2016 Influenza Vaccine Completed 05/16/2024, , 03/01/2018, Additional history exists HIB Vaccines Aged Out No longer eligi ble based on patient's age to complete this topic HPV Vaccines Aged Out No longer eligi ble based on patient's age to complete this topic Hepatitis A Vaccines Aged Out No long er eligible based on patient's age to complete this topic IPV Vaccines Aged Out No longer eligi ble based on patient's age to complete this topic Meningococcal Vaccine Aged Out No jerry adelina eligible based on patient's age to complete this topic RSV under 20 months Aged Out No longe r eligible based on patient's age to complete this topic Rotavirus Vaccines Aged Out No longer eligible based on patient's age to complete this topic Procedures Procedure Name Priority Date/Time Associated Diagnosis Comments LIPID PANEL, STANDARD Routine 08/08/2024 12:35 PM EST Type 2 diabetes mellitus with hyperglycemia, with long-term current use of insulin ([facility]) CBC WITH AUTO DIFFERENTIAL Routine 08/08/2024 12:35 PM EST Malaise and fatigue COMPREHENSIVE METABOLIC PANEL Routine 08/08/2024 12:35 PM EST Type 2 diabetes mellitus with hyperglycemia, with long-term current use of insulin ([facility]) POCT GLUCOSE Routine 07/10/2024 12:01 PM EST Type 2 diabetes mellitus with hyperglycemia, with long-term current use of insulin ([facility]) POCT GLYCATED HEMOGLOBIN, TOTAL Routine 07/10/2024 12:01 PM EST Type 2 diabetes mellitus with hyperglycemia, with long-term current use of insulin ([facility]) SARS COV2/INFLUENZA A/B AND RSV RNA QL NAAT Routine 05/31/2024 3:37 PM EST ALBUMIN, RANDOM URINE W/CREATININE Routine 11/17/2023 2:25 PM EDT Diabetes mellitus due to underlying condition with hyperglycemia, without long-term current use of insulin ([facility]) BI MAMMOGRAM SCREENING TOMOSYNTHESIS BILATERAL Routine 02/10/2023 3:24 PM EDT HPV MRNA E6/E7 REFLEX TO HPV 16, 18/45 Routine 01/12/2023 3:24 PM EDT PAP SMEAR Routine 01/12/2023 3:24 PM EDT PROPHYLAXIS - ADULT Routine 03/21/2019 1 2:00 AM EDT INTRAORAL - COMPLETE SERIES OF RADIOGRAPHIC IMAGES Routine 02/13/2019 12:00 AM EDT from Last 3 Months or Most Recently Relevant to Health Maintenance Results * (ABNORMAL) CBC auto differential (08/08/2024 12:35 PM EST) White Blood Count 9.0 4.8 - 10.8 X10*3/uL [facility] Red Blood Count 4.95 4.20 - 5.50 X10*6/uL [facility] Hemoglobin 14.2 12.0 - 16.0 g/dl [facility] Hematocrit 43.2 37.0 - 47.0 % [facility] Mean Corpuscular Volume 87.3 80.0 - 98.0 fL [facility] Mean Corpuscular Hemoglobin 28.7 27.0 - 33.0 pg [facility] Mean Corpuscular HGB Conc 32.9 31.0 - 35.0 g/dl [facility] Red Cell Distribution Width 13.9 11.0 - 16.0 % [facility] Platelet Count 223 160 - 400 X10*3/uL [facility] Mean Platelet Volume 12.0 9.4 - 12.3 fL [facility] Neutrophils Percent Auto 67.7 45 - 73 % [facility] Imm Gran Pct Auto 0.6(H) 0.0 - 0.4 % [facility] Lymphocytes Percent Auto 21.0 20 - 40 % [facility] Monocytes Percent Auto 8.8 2 - 11 % [facility] Eosinophils Percent Auto 1.6 0 - 4 % [facility] Basophils Percent Auto 0.3 0 - 2 % [facility] NRBC Pct Auto 0.0 0.0 - 0.2 /100WBC [facility] Neutrophils Absolute Auto 6.1 2.0 - 8.3 x10*3/uL [facility] Imm Gran Abs Auto 0.05(H) 0.00 - 0.03 X10*3/uL [facility] Lymphocytes Absolute Auto 1.9 1.2 - 4.9 X10*3/uL [facility] Monocytes Absolute Auto 0.8 0.1 - 1.2 X10*3/uL [facility] Eosinophils Absolute Auto 0.1 0.0 - 0.4 X10*3/uL [facility] Basophils Absolute Auto 0.0 0.0 - 0.2 X10*3/uL [facility] NRBC Abs Auto 0.000 0.0 - 0.012 X10*3/uL [facility] Blood Venous blood specimen / Unknown 08/08/2024 12:35 PM EST 08/08/2024 1:16 PM EST [facility] LAB BLOOD ORDERABLES Final Re sult [facility] [address] [place] [address] [phone] * (ABNORMAL) POCT HGB A1C (07/10/2024 12:01 PM EST) Hemoglobin A1C 7.6(A) 4.0 - 6.0 % Blood 07/10/2024 12:0 1 PM EST us Margarita Whipple RESIDENTIAL PROGRAM DIRECTOR POINT OF CARE TEST ENTER/EDIT ORDERABLES Final Result * (ABNORMAL) POCT Glucose (07/10/2024 12:01 PM EST) Glucose Blood, POC 211(A) 60 - 200 mg/dL Blood Capillary blood specimen / Unknown 07/10/2024 12:01 PM EST [facility] RESIDENTIAL PROGRAM DIRECTOR POINT OF CARE TEST ENTER/EDIT ORDERABLES Final Result * (ABNORMAL) SARS-CoV-2 RNA, Influenza A/B, and RSV RNA, Ql NAAT (05/31/2024 3:37 PM EST) Pathologist [facility] Influenza A PCR NEGATIVE Negative [facility] Influenza B PCR NEGATIVE Negative [facility] Resp Syncy Virus RNA Qual PCR POSITIVE(A) Negative [facility] SARS COV2 PCR NEGATIVE Negative [facility] Comment:All test results mus t be correlated with clinical findings.Negative results do not preclude SARS-CoV2, influenza Avirus, influenza B virus and/or RSV infectionand should not be used as the sole basis for treatment orother patient management decisions. Negative results must becombined with clinical observations, patient history, andepidemiological information.This test has not been evaluated for monitoring treatment ofinfection.This test has been authorized by the FDA under an EmergencyUse Authorization (EUA) for use by authorized laboratories.Testing performed on the [employer] GeneXpert utilizingreal-time RT-PCR.All SARS CoV2 and positive influenza A/B results arereported to [facility]. 05/31/2024 3:37 PM EST 06/01/2024 11:43 AM EST Generic External Data Provider LAB MICROBIOLOGY - GENERAL ORDERABLES Final Result [facility] [address] [place] [phone] * Albumin, Random Urine W/Creatinine (11/17/2023 2:25 PM EDT) Creatinine, Urine 159.77 mg/dL [facility] Microalbumin Urine 15.0 mg/L [facility] Microalbum Creatinine Ratio Ur 9.3 <30 ug/mg cr [facility] Comment:Albumin/Creatinine R atio Reference Ranges: Normal: < 30 ug/mg creatinine Microalbuminuria: 30 - 300 ug/mg creatinineClinical Albuminuria: > 300 ug/mg creatinine Urine 11/17/2023 2:25 PM EDT 11/17/2023 4:09 PM EDT [facility] RESIDENTIAL PROGRAM DIRECTOR LAB URINE ORDERABLES Final Re sult [facility] [address] [place] [phone] * BI Mammogram Screening Tomosynthesis Bilateral (02/10/2023 3:24 PM EDT) Anatomical Region Laterality Modality Breast Bilateral Mammography 02/10/2023 3:24 PM EDT Narrative 02/28/2023 6:37 PM EDT ? [facility] [place] ? [address] ?[place] [address] ? Mammography Report ? Signed ? Patient: Mague Cruz L ?MR#: [id number] ?? [id number] ? : 1980 ?Acct:[id number] ? Age/Sex: 42 / F ?ADM Date: 02/10/ ? Loc: HO.MAMMO ? Attending Dr: Srinivasa Prasad MD ? Ordering Physician: Srinivasa Prasad MD ?Results: 1Negativ ?? e ? Date of Service: 02/10/23 ?Follow Up: 1 Year From Orig ?? inal Mammogram ? Procedure(s): MM tomosynthesis screening BI ?? Accession Number(s): [id number] ? cc: Margarita Doty RESIDENTIAL PROGRAM DIRECTOR; Srinivasa Prasad MD ? EXAMINATION: ?? MM SCREENING DIGITAL BREAST TOMOSYNTHESIS, BILATERAL ? CLINICAL INFORMATION: ? Screening. Asymptomatic. ? COMPARISON: ?? Mammography: This is a baseline mammogram. ? TECHNIQUE: ?? Digital breast tomosynthesis is performed in both the craniocaudal and ?? mediolateral oblique views along with computer-aided detection (CAD). ?? Synthesized 2D images are generated from the tomosynthesis. ? FINDINGS: ?? The breasts are almost entirely fatty (ACR BI-RADS breast composition ?? Category a). ? There are no significant masses, abnormal calcifications, or other ?? abnormalities. ? MM/MM tomosynthesis screening BI ?? IMPRESSION: ?? No mammographic evidence of malignancy. ? ASSESSMENT: ? BI-RADS BI-RADS 1 - Negative ? RECOMMENDATION: ?? Routine annual mammography screening. ? 1 year F/U ? This examination should not preclude the clinical evaluation of a ?? suspicious palpable abnormality. ? This patient's information was entered into a reminder system with a ?? target due date for their next mammogram. ? Dictated By: ?Brenda Brown MD ? Signed By: ?<Electronically signed by Brenda Brown MD in OV> ? 02/28/23 1833 ? DD/ 1524 ? TD/TT: ? Skilled Nursing Facilities Professional: ? Procedure Note Samina Massey - 02/28/2023 [place] [facility] [address] [place], [place] [address] Mammography Report Signed Patient: Mague Cruz LMR#: [id number] : 1980Acct:[id number] Age/Sex: 42 / FADM Date: 02/10/23 Loc: [facility] Attending Dr: Srinivasa Prasad MD Ordering Physician: Srinivasa Prasad MDResults: 1Negativ e Date of Service: 02/10/23Follow Up: 1 Year From Orig inal Mammogram Procedure(s): MM tomosynthesis screening BI Accession Number(s): [id number] cc: Margarita Doty RESIDENTIAL PROGRAM DIRECTOR; Srinivasa Prasad MD EXAMINATION: MM SCREENING DIGITAL BREAST TOMOSYNTHESIS, BILATERAL CLINICAL INFORMATION: Screening. Asymptomatic. COMPARISON: Mammography: This is a baseline mammogram. TECHNIQUE: Digital breast tomosynthesis is performed in both the craniocaudal and mediolateral oblique views along with computer-aided detection (CAD). Synthesized 2D images are generated from the tomosynthesis. FINDINGS: The breasts are almost entirely fatty (ACR BI-RADS breast composition Category a). There are no significant masses, abnormal calcifications, or other abnormalities. MM/MM tomosynthesis screening BI IMPRESSION: No mammographic evidence of malignancy. ASSESSMENT: BI-RADS BI-RADS 1 - Negative RECOMMENDATION: Routine annual mammography screening. 1 year F/U This examination should not preclude the clinical evaluation of a suspicious palpable abnormality. This patient's information was entered into a reminder system with a target due date for their next mammogram. Dictated By: Brenda Brown MD Signed By: <Electronically signed by Brenda Brown MD in OV> 02/28/23 1833 DD/ 1524 TD/TT: Skilled Nursing Facilities Professional: [facility] External Provider IMG BI PROCEDURES Final Result * Pap Smear (01/12/2023 3:24 PM EDT) 01/12/2023 3:24 PM EDT 01/13/2023 9:30 AM EDT [facility] - 01/31/2023 9:31 AM EDT ----- ------- Name: Mague Cruz ?Age/Sex: 42/F ? : 1980 Unit#: [id number] ?? Attend Dr: Srinivasa Prasad MD ?Re01/12/23 ?Status: DEP REF ? Location: HO.LNP ?Disch: ? ----- ------- SPEC : [id number] ?RECD: 01/13/23 ? STATUS: ??SOUT ? REQ NUM: [id number] ? EDEN: 01/12/23-152 ? SUBM DR: Srinivasa Prasad MD ? ENTERED: ??01/13/23 ?SP TYPE: Pap Smr ?OTHR DR: [facility] ? ORDERED: ??Pap Smear, PAP path review ? Interpretation ?? General Category: ? Negative for intraepithelial lesion/malignancy. ?? Adequacy: ? Endocervical component present. ?? Interpretation: ? Inflammation with associated cellular changes. ? HPV mRNA E6/E7: ?Not detected ? This assay detects E6/E7 viral messenger RNA (mRNA) from 14 high-risk HPV types (16, 18, ?? 31, 33, 35, 39, 45, 51, 52, 56, 58, 59, 66, 68) ?? HPV testing performed by [facility], [place], [place]. ??See reference laboratory ?? portion of the EMR for entire report. ?Clinical Information LMP:12/12/22 Previous PAP test:Unknown date/findings Other history:Abnormal uterine and vaginal bleeding ? Material Received ?? ThinPrep-Cervical Copies To: ?? [facility] ?? [address] ?? [place] [address] ? Srinivasa Prasad MD ?? [address] [place] [address] [address] ?? [place] [address] ?? [phone] ----- ------- Signed (signature on file) Gill Simpson MD 01/31/23 0931 ? ----- ------- ? END OF REPORT ? us [facility] External Provider LAB CYT OLOGY ORDERABLES Final Result [facility] [address] [place] [phone] [phone] from Last 3 Months or Most Recently Relevant to Health Maintenance Insurance [address] [place] [address] [facility] MEDICARE AD[facility] ST[facility] ADULT Care Teams Instrument Lens Inspector Relationship Specialty Start Date End Date Margarita Doty FNP [address] [place] [phone] PCP - General Family Medicine 01/25/22 Juan Francisco Steen FNP [address] [place] [id number] Nurse Practitioner Family Medicine 05/04/23
--- OUTSIDE RECORDS SUMMARY | 2024-08-08 15:03 | XMS_ITS | Encounter Summary ---
Author Organization [employer] Address [address] [place] [address] [address] [place] [address] Care Team Providers Care Lease Broker Name Role Phone [facility] Primary Care Provider [phone] Juan Francisco Steen MUSHROOM LABORER Unavailable Unavailable Reason for Visit * Reason Onset Date Comments Medication Question 07/12/2022 Encounter Details Date Type Department Care Team ([facility] st Contact Info) Description 07/12/2022 Telephone [facility] [address] [place] [address] [facility] [address] [place] [address] Medication Question Social History Tobacco Use Types Packs/Day Years Used Date Smoking Tobacco: Every Day Cigarettes Smokeless Tobacco: Never Alcohol Use Standard Drinks/Week Comments Never 0 (1 standard drink = 0.6 oz pur e alcohol) Comments Unknown Sex and Gender Information Value Date Recorded Sex Assigned at Female 04/04/2022 10:23 AM EDT Legal Sex Female 10:23 AM EDT Gender Identity Female 04/04/2022 10:23 AM EDT Sexual Orientation Straight 04/04/2022 10 :23 AM EDT COVID-19 Exposure Response Date Recorded In the last 10 days, have yo u been in contact with someone who was confirmed or suspected to have Coronavirus/COVID-19? No / Unsure 07/12/2022 10:02 AM EST documented as of this encounter Miscellaneous Notes * Telephone Encounter - Aarti Carlisle RN - 07/12/2022 5:47 PM EST TC placed to pt at [phone] regarding traige below. Pt inquiring when she should take Lantus, as this is new medication for her and she was instructed to take in evening. RN verbally spoke withWalk In Provider Madan Martinez, whom agreed to have pt take at bedtime. RN verbally informed pt to take at bedtime, monitor BS prior, have snack if necessary. Pt verbalized understanding and in agreement. RN will forward to PCP Margarita ROLLINS as FYI. Symptom: Medication Question Outcome: Schedule an urgent appointment (within 4 hours) or talk to a nurse or provider soon Reason: New prescription question The caller accepted this outcome * Telephone Encounter - Sean Ledezma - 07/12/2022 4:37 PM EST Symptom: Medication Question Outcome: Schedule an urgent appointment (within 4 hours) or talk to a nurse or provider soon Reason: New prescription question The caller accepted this outcome documented in this encounter Plan of Treatment Not on file documented as of this encounter Visit Diagnoses Not on filedocumented in this encounter Care Teams Lease Broker Relationship Specialty Start Date End Date Margarita Doty FNP [address] [place] [id number] PCP - General Family Medicine 01/25/22 Juan Francisco Steen FNP [address] [place] [address] Nurse Practitioner Family Medicine 05/04/23 documented as of this encounter
--- OUTSIDE RECORDS SUMMARY | 2024-08-08 15:03 | XMS_ITS | Encounter Summary ---
Author Organization [employer] Address [address] [place] [address] [address] [place] [address] Care Team Providers Care Psych Therapist Name Role Phone Margarita Doty Primary Care Provider Juan Francisco Steen Unavailable Unavailable Encounter Details Date Type Department Care Team (Latest Contact Info) Description 03/21/2019 Abstract [facility] CONVERSIONS Dental, Provider, DDS Social History Tobacco Use Types Packs/Day Years Used Date Smoking Tobacco: Never Assessed Comments Unknown Sex and Gender Information Value [...] on filedocumented in this encounter Care Teams Psych Therapist Relationship Specialty Start Date End Date Margarita Doty FNP [address] [place] [id number] PCP - General Family Medicine 01/25/22 Juan Francisco Steen FNP [address] [place] [address] Nurse Practitioner Family Medicine 05/04/23 documented as of this encounter
--- OUTSIDE RECORDS SUMMARY | 2024-08-08 15:03 | XMS_ITS | Encounter Summary ---
Author Organization [employer] Address [address] [place] [address] [address] [place] [address] Care Team Providers Care Accordion Repairer Name Role Phone [facility] Primary Care Provider [phone] Juan Francisco Steen COMPOUND COATING MACHINE OFFBEARER Unavailable Unavailable Reason for Visit * Reason Onset Date Comments Nurse Triage 04/23/2024 Encounter Details Date Type Department Care Team ([facility] st Contact Info) Description 04/23/2024 Telephone [facility]INE [address] [place] [address] [facility] [address] [place] [address] Nurse Triage Social History Tobacco Use Types Packs/Day Years [...] encounter Miscellaneous Notes * Telephone Encounter - Diamond Guzman RN - 04/23/2024 4:00 PM EST Triage call Pt reports right hip pain has increased markedly. Pt was thrown from a horse at 14yo and has had problems with this right hip ever since. Pt works at a job where walking all day is required and is exacerbating the hip pain. Pt has pain walking up the stairs, when getting up from sittingposition and when laying down at night can't lay on that right side. Neg for numbness, swelling, rash, redness or fever. Pt also has hx of fibromyalgia which seems worse lately as well. Pt is requesting to speak to a provider . Pt does take tylenol/motrin and uses heat for some relief. ASK apt withDr. Rojas 04/24/24 @ 1130am. Insurance is verified as active prior to booking. Protocol Used: Hip Pain (Adult) Care Advice Discussed: * Reassurance and Education - Hip Pain * Pain Medicines * Pain Medicines - Extra Notes and Warnings * Rest Your Hip for the Next Couple Days * Reasons To Call Back - Moderate pain (such as limping) lasts more than 3 days - Mild pain lasts more than 7 days - Signs of infection occur (such as spreading redness, warmth, fever) - You become worse * Use Heat After 48 Hours for Pain * Rest * Telephone Encounter - Jerry Simpson - 04/23/2024 3:40 PM EST Symptom: Hip Pain - Not From Injury Outcome: Schedule an urgent appointment (within 1 hour) or talk to a nurse or provider soon Reason: Trouble walking The caller accepted this outcome. [phone] documented in this encounter Plan of Treatment Not on file documented as of this encounter Visit Diagnoses Not on filedocumented in this encounter Additional Health Concerns Assessment Noted Time PHQ-9 Depression Total Score: 21 024 1:30 PM EDT documented as of this encounter Care Teams Accordion Repairer Relationship Specialty Start Date End Date Margarita Doty FNP [address] [place] [address] PCP - General Family Medicine 01/25/22 Juan Francisco Steen FNP [address] [place] [address] Nurse Practitioner Family Medicine 05/04/23 documented as of this encounter
--- OUTSIDE RECORDS SUMMARY | 2024-08-08 15:03 | XMS_ITS | Encounter Summary ---
Author Organization [facility] Address [address] [place] [address] Care Team Providers Care Plier Worker Name Role Phone Margarita Doty Primary Care Provider [phone] Juan Francisco Steen Unavailable Unavailable Reason for Referral * Imaging (Routine) - Pending Review Specialty Diagnoses / Procedures Referred By Eri landa Referred To Contact Radiology Diagnoses Pulmonary nodules Procedures CT Chest w/o Contrast Margarita Doty FNP [address] [place] [address] Phone: tel: fax: [address] Phone: tel: fax: Referral ID Status Reason Start Date Expiration Date V isits Requested Visits Authorized [id number] Pending Review 07/13/2024 07/13/2025 1 1 Reason for Visit * Reason Comments Follow-up Encounter Details Date Type Department Care Team (Late st Contact Info) Description 07/10/2024 11:30 AM EST Office Visit [facility] [address] [place], [place] [phone] Margarita Doty FNP [address] [place] [address] Type 2 diabetes mellitus with hyperglycemia, with long-term current use of insulin ([facility]/HCC) (Primary Dx); Primary hypertension; Pulmonary nodules; Malaise and fatigue; Dietary counseling; Exercise counseling; Class 3 severe obesity due to excess calories with serious comorbidity and body mass index (BMI) of 40.0 to 44.9 in adult ([facility]) Social History Tobacco Use Types Packs/Day Years [...] AM EDT documented as of this encounter Last Filed Vital Signs Vital Sign Reading [...] Mass Index 43.63 07/10/2024 11:37 AM EST documented in this encounter Progress Notes * [facility], SURGICAL PROCESSOR - 07/10/2024 11:30 AM EST SUBJECTIVE: Mague Cruz is a 44 y.o. year old female with T2DM, diabetic neuropathy, hx of CHRISTY (stable onsuboxone), TUD, HTN, sleep disorder, HLD, and depression/anxiety who presents for diabetes follow up . Denies recent illness, injury, or hospitalization. Acute Concerns: Extreme fatigue despite sleeping >10 hours/day. Still feels exhausted during the day. She has a hx of parasomnia-sleep walking, eating, smoking. Completed a sleep study in ?2022 that was negative for CINTHYA. Saw [facility] sleep medicine 05/2023 with recommendation to focus on lifestyle strategies-increased daytime physical activity, reduce vaping/smoking. Follow up PRN. Pt reports her sleep walking has greatly improved. Hx of depression/anxiety currently stable. She is wondering about a possible diagnosis of chronic fatigue syndrome. Her sister was recently diagnosed. Interim Updates: Working at [employer] now [id number] improving overall. 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 Recently laid off d/t COVID Tobacco Use: 1PPD Alcohol Use: None Marijuana Use: None Other drug use: None, former. Patient Active Problem List Diagnosis Fibromyalgia Anogenital herpes simplex virus (HSV) infection Migraine Mild persistent asthma Opioid dependence (CMS/HCC) PTSD (post-traumatic stress disorder) Recurrent major depressive episodes, moderate (CMS/HCC) Restless legs Severe obesity (CMS/HCC) Sleep walking disorder Primary hypertension Diabetes mellitus due to underlying condition with hyperglycemia, without long- term current use of insulin (CMS/HCC) Tobacco use Hypertriglyceridemia Health care maintenance Attention deficit disorder Financial insecurity Neuropathy Ground glass opacity present on imaging of lung Acute bilateral low back pain without sciatica Yeast infection Retained dental root No past surgical history on file. Family History Problem Relation Name Age of Onset Aortic aneurysm Father Review of Systems Constitutional: Positive for fatigue. Negative for fever and unexpected weight change. Eyes: Negative for visual disturbance. Respiratory: Negative for apnea, chest tightness and shortness of breath. Cardiovascular: Negative for chest pain, palpitations and leg swelling. Neurological: Negative for dizziness, light-headedness and headaches. OBJECTIVE: Vitals: 07/10/24 1137 BP: 131/75 Pulse: 81 Resp: 20 Temp: 97.8 ??F (36.6 ??C) SpO2: 98% Physical Exam Constitutional: General: She is not in acute distress. Appearance: Normal appearance. HENT: Head: Normocephalic and atraumatic. Right Ear: External ear normal. Left Ear: External ear normal. Nose: Nose normal. Eyes: Conjunctiva/sclera: Conjunctivae normal. Cardiovascular: Rate and Rhythm: Normal rate and regular rhythm. Heart sounds: Normal heart sounds. Pulmonary: Effort: Pulmonary effort is normal. Breath sounds: Normal breath sounds. Skin: General: Skin is warm and dry. Neurological: General: No focal deficit present. Mental Status: She is alert and oriented to person, place, and time. Psychiatric: Mood and Affect: Mood normal. Behavior: Behavior normal. ASSESSMENT/PLAN 1. Type 2 diabetes mellitus with hyperglycemia, with long-term current use of insulin ([facility]) (Primary) Lab Results Component Value Date HGBA1C 7.6 (A) 07/10/2024 HGBA1C 8.5 (A) 11/17/2023 HGBA1C 7.8 (A) 03/15/2023 Lab Results Component Value Date MICROALBUR 15.0 11/17/2023 CREATININE 0.97 04/28/2023 - A1c improving overall. Blood sugar elevated in office. - Increase Toujeo to 30 units - Continue metformin - Previously unable to tolerate SGLT 2 inhibitor due to recurrent yeast infection, now that sugars are better controlled could consider Jardiance again at follow-up. -Did not tolerate GLP 1 trial (GI upset) Did not tolerate glipizide (itching) - Foot Exam: 11/2023. High risk. Almost total loss of protective sensation - Eye exam: UTD - Statin: Yes--> on pravastatin due to difficulty tolerating high intensity. Could consider new trial of atorvastatin pending updated labs - ASA: No - POCT HGB A1C - POCT Glucose - insulin glargine (Toujeo Max SoloStar) 300 UNIT/ML injection; Inject 30 Units under the skin at bedtime. Dispense: 4.5 mL; Refill: 12 2. Primary hypertension Well controlled Continue current regimen 3. Pulmonary nodules Overdue for follow-up imaging. Was lost to follow-up with pulmonology Will update CT scan; results consider referral back to pulmonology. Her respiratory symptoms have significantly improved overall admitted [facility] 02/06/23--02/09/23 for LLE celullitis c/b streptococcuss bacterimia and CAP. Tx with IV vancomycin swtiched to cerftriaxone. Echocardiogram negative for vegetations. Discharged with 2 weeks cephalopsporin tx outpatient. Chest CT with extensive, mid to upper lung zone predominantly groundglass opacity nodules, mostly measuring less than 1 cm in size. Many of these are favored to be centrilobular in location with broad differential--respiratory bronchiolitis/respiratory bronchiolitisinterstitial lung disease, hypersensitivity pneumonitis, infection with endobronchial spread (including tuberculous or nontuberculous mycobacterial infection), or follicular bronchiolitis. Malignancyless likely. ID consulted. Negative t-spot. Negative respiratory panel. Recommendation repeat chestCT scan [address] months[address] - CT Chest w/o Contrast; Future - CT Chest w/o Contrast 4. Malaise and fatigue -Patient with history suggests chronic fatigue syndrome-will plan to discuss treatment options follow-up visit -Encouraged regular aerobic exercise, quitting smoking and good sleep hygiene. - Patient does have a history of ADHD, she may be a candidate for concerta 5. Dietary counseling 6. Exercise counseling 7. Class 3 severe obesity due to excess calories with serious comorbidity and body mass index (BMI)of 40.0 to 44.9 in adult ([facility]) - Encouraged regular aerobic exercise within initial goal of 30 minute walk 3x/week - Encouraged balanced diet with a variety of fruits, vegetables, and lean meats. Follow Up: 6 weeks, CFS Current Outpatient Medications on File Prior to Visit Medication Sig Dispense Refill acyclovir (Zovirax) 400 MG tablet TAKE 1 TABLET BY MOUTH EVERY TWELVE HOURS 60 tablet 2 albuterol (2.5 MG/3ML) 0.083% nebulizer solution Take 3 mL (2.5 mg) by nebulization every 4 (four) hours if needed for wheezing. 75 mL 3 albuterol 108 (90 Base) MCG/ACT inhaler INHALE 2 PUFFS INTO THE LUNGS EVERY 4 TO 6 HOURS NEEDED.18 g 1 Alcohol Swabs (Alcohol Prep) 70 % pads USE DAILY DIRECTED 100 each 11 Alcohol Swabs (Alcohol Prep) pads Use one pad each to prep skin prior to injection as directed 100 each 11 amitriptyline (Elavil) 25 MG tablet TAKE 1 TABLET BY MOUTH EVERYDAY AT BEDTIME 90 tablet 2 baclofen (Lioresal) 10 MG tablet Take 1 tablet (10 mg) by mouth 2 times daily. 60 tablet 3 Blood Glucose Monitoring Suppl (GNP Easy Touch Glucose Meter) device Use as directed to check bloodsugar four times daily 1 each 0 buprenorphine-naloxone (Suboxone) 8-2 MG SL tablet TAKE 1 TABLET BY MOUTH SUBLINGUALLY 3 TIMES A DAY buPROPion XL (Wellbutrin XL) 150 MG 24 hr tablet Take 1 tablet (150 mg) by mouth Once per day. Do not crush, chew, or split. 90 tablet 3 celecoxib (CeleBREX) 200 MG capsule TAKE 1 CAPSULE BY MOUTH TWICE A DAY 60 capsule 0 Continuous Blood Gluc Rock Loader (FreeStyle Constance 2 [place]) device Use as directed 1 each 0 Continuous Blood Gluc Sensor (FreeStyle Constance 2 Sensor) misc Use as directed 2 each 3 Diclofenac Sodium 1 % gel Apply 2 g topically if needed in the morning, at noon, in the evening, and at bedtime (pain). 150 g 3 DULoxetine (Cymbalta) [address] capsule Take 1 capsule (60 mg) by mouth 2 times daily. 180 capsule 3 fenofibrate (Tricor) 145 MG tablet TAKE 1 TABLET BY MOUTH EVERY DAY 90 tablet 1 fluconazole (Diflucan) 150 MG tablet Take one tablet then after 72hrs take another tablet 2 tablet 0 fluticasone furoate (Arnuity Ellipta) 100 MCG/ACT inhaler Inhale 1 puff Once per day. Rinse mouth with water after use to reduce aftertaste and incidence of candidiasis. Do not swallow. 1 each 11 glipiZIDE XL (Glucotrol XL) 2.5 MG 24 hr tablet Take 1 tablet (2.5 mg) by mouth in the morning. Do not crush, chew, or split. 30 tablet 11 glucose blood (FREESTYLE LITE) test strip TEST BLOOD SUGAR THREE TIMES DAILY 100 each 11 hydrOXYzine HCl (Atarax) 25 MG tablet TAKE 1-2 TABLETS (25-50 MG) BY MOUTH EVERY 6 (SIX) HOURS IF NEEDED FOR ANXIETY. 150 tablet 0 insulin glargine (Toujeo Max SoloStar) 300 UNIT/ML injection Inject 28 Units under the skin at bedtime. 4.5 mL 12 Isopropyl Alcohol (Alcohol Wipes) 70 % misc Use as directed 90 each 2 Lancets 33G misc Use as directed to check blood sugar four times daily 100 each 3 lidocaine (Lidoderm) 5 % patch Apply 2 patches topically if needed each day for mild pain. Remove & discard patch within 12 hours or as directed by MD. 60 patch 3 lisinopril-hydroCHLOROthiazide 20-25 MG tablet TAKE 1 TABLET BY MOUTH EVERY DAY IN THE MORNING 90 tablet 0 meloxicam (Mobic) 15 MG tablet TAKE 1 TABLET BY MOUTH EVERY DAY IN THE MORNING 30 tablet 2 metFORMIN (Glucophage) 850 MG tablet TAKE 1 TABLET BY MOUTH WITH THE MORNING AND EVENING MEALS DIRECTED 180 tablet 1 metFORMIN (Glucophage) 850 MG tablet TAKE 1 TABLET BY MOUTH WITH THE MORNING AND EVENING MEALS DIRECTED 180 tablet 1 nicotine (Nicoderm, Step 2) 14 MG/24HR patch APPLY 1 PATCH TRANSDERMALLY DAILY FOR 28 DAYS nicotine (Nicotrol) 10 MG inhaler Inhale 1 puff if needed for smoking cessation. 42 each 2 nicotine polacrilex (Nicorette) 2 MG gum 2 MG BUCCALLY EVERY 2 HOURS NEEDED FOR SMOKER omega-3 acid ethyl esters (Lovaza) 1 g capsule Take 2 capsules (2 g) by mouth 2 times daily. 120 capsule 11 omeprazole (PriLOSEC) [address] capsule TAKE 1 CAPSULE BY MOUTH TWICE A DAY 180 capsule 1 pramipexole (Mirapex) 0.5 MG tablet TAKE 1 TABLET BY MOUTH EVERY NIGHT AT BEDTIME 90 tablet 1 pravastatin (Pravachol) 20 MG tablet TAKE 1 TABLET BY MOUTH EVERY DAY AT BEDTIME 90 tablet 1 prazosin (Minipress) 5 MG capsule Take 1 capsule (5 mg) by mouth 2 times daily. 180 capsule 3 pregabalin (Lyrica) 300 MG capsule TAKE 1 CAPSULE BY MOUTH TWICE DAILY 60 capsule 1 QUEtiapine (SEROquel) 25 MG tablet Take 2 tablets (50 mg) by mouth at bedtime. 180 tablet 3 triamcinolone (Kenalog) 0.1 % cream APPLY TO AFFECTED AREA DAILY ziprasidone (Geodon) 40 MG capsule Take 1 capsule (40 mg) by mouth with breakfast and with evening meal. 180 capsule 3 [DISCONTINUED] metFORMIN (Glucophage) 850 MG tablet TAKE 1 TABLET BY MOUTH WITH THE MORNING AND EVENING MEALS DIRECTED 180 tablet 1 No current facility-administered medications on file prior to visit. documented in this encounter Plan of Treatment Scheduled Orders Name Type Priority Associated Diagnoses Orde r Schedule CT Chest w/o Contrast Imaging Routine Pulmonary nodules Expected: 07/13/2024, Expires: 07/13/2025 Lipid Panel, Standard Lab Routine Type 2 diabetes mellitus with hyperglycemia, with long-term current use of insulin ([facility]) Expected: 07/13/2024 (Approximate), Expires: 07/13/2025 Comprehensive Metabolic Panel Lab Routine Type 2 diabetes mellitus with hyperglycemia, with long-term current use of insulin (CMS/HCC) Expected: 07/13/2024 (Approximate), Expires: 07/13/2025 Albumin, Random Urine W/Creatinine Lab Routine Type 2 diabetes mellitus with hyperglycemia, with long-term current use of insulin (CMS/HCC) Expected: 07/13/2024 (Approximate), Expires: 07/13/2025 documented as of this encounter Procedures Procedure Name Priority Date/Time Associated Diagnosis Comments POCT GLYCATED HEMOGLOBIN, TOTAL Routine 07/10/2024 12:01 PM EST Type 2 diabetes mellitus with hyperglycemia, with long-term current use of insulin ([facility]) POCT GLUCOSE Routine 07/10/2024 12:01 PM EST Type 2 diabetes mellitus with hyperglycemia, with long-term current use of insulin (CMS/[facility]) documented in this encounter Results * (ABNORMAL) POCT Glucose (07/10/2024 12:01 PM EST) Glucose Blood, POC 211(A) 60 - 200 mg/dL Blood Capillary blood specimen / Unknown 07/10/2024 12:01 PM EST Result [facility] POINT OF CARE TEST ENTER/EDIT ORDERABLES Final Result * (ABNORMAL) POCT HGB A1C (07/10/2024 12:01 PM EST) Hemoglobin A1C 7.6(A) 4.0 - 6.0 % Blood 07/10/2024 12:0 1 PM EST Result [facility] POINT OF CARE TEST ENTER/EDIT ORDERABLES Final Result documented in this encounter Visit Diagnoses Diagnosis Type 2 diabetes mellitus with hyperglycemia, with long-term current use of insulin ([facility])- Primary Primary hypertension Unspecified essential hypertension Pulmonary nodules Other diseases of lung, not elsewhere classified Malaise and fatigue Dietary counseling Dietary surveillance and counseling Exercise counseling Class 3 severe obesity due to excess calories with serious comorbidity and body mass index (BMI) of 40.0 to 44.9 in adult ([facility]) documented in this encounter Additional Health Concerns Assessment Noted Time PHQ-9 Depression Total Score: 21 11/16/ 024 1:30 PM EDT documented as of this encounter Care Teams Plier Worker Relationship Specialty Start Date End Date [facility] [address] [place] [address] PCP - General Family Medicine 01/25/22 Juan Francisco Steen FNP [address] [place] [address] Nurse Practitioner Family Medicine 05/04/23 documented as of this encounter
--- OUTSIDE RECORDS SUMMARY | 2024-08-08 15:03 | XMS_ITS | Encounter Summary ---
Author Organization [employer] Address [address] [place] [address] [address] [place] [address] Care Team Providers Care Congressional Assistant Name Role Phone [facility] Primary Care Provider [phone] Juan Francisco Steen [facility] Unavailable Unavailable Reason for Visit * Reason Comments Med Refill Encounter Details Date Type Department Care Team ([facility] st Contact Info) Description 02/04/2024 Refill [facility] [address] [place], [place] [phone] [facility] [address] [place] [address] Hypertriglyceridemia Social History Tobacco Use Types Packs/Day Years [...] as of this encounter Visit Diagnoses Diagnosis Hypertriglyceridemia Pure hyperglyceridemia documented in this encounter Additional Health Concerns Assessment Noted Time PHQ-9 Depression Total Score: 21 024 1:30 PM EDT documented as of this encounter Care Teams Congressional Assistant Relationship Specialty Start Date End Date Margarita Doty FNP [address] [place] [address] PCP - General Family Medicine 01/25/22 Juan Francisco Steen FNP [address] [place] [address] Nurse Practitioner Family Medicine 05/04/23 documented as of this encounter
--- OUTSIDE RECORDS SUMMARY | 2024-08-08 15:03 | XMS_ITS | Encounter Summary ---
Author Organization [employer] Address [address] [place] [address] 7 [place] [address] Care Team Providers Care Systems Planner Name Role Phone Margarita Doty SUPPLY ASSISTANT Primary Care Provider [phone] Juan Francisco Steen Unavailable Unavailable Reason for Visit * Reason Comments Med Change Request Encounter Details Date Type Department Care Team ([facility] st Contact Info) Description 09/06/2023 Refill [facility] MEDICINE [address] [place] [address] Juan Francisco Steen FNP Social History Tobacco Use Types Packs/Day Years Used Date Smoking Tobacco: Every Day Cigarettes Passive Smoke Exposure: Current Smokeless Tobacco: Never Alcohol Use Standard Drinks/Week Comments Never 0 (1 standard drink = 0.6 oz pur e alcohol) Depression Answer Date Recorded Patient Health Questionnaire-9 Score 14 05/11/2023 Patient Health Questionnaire-9 Score 14 05/11/2023 Last PHQ-9: Questionnaire Data Not on file 1 07/12/2022 Housing Stability Answer Date Recorded What is [...] Date Recorded Patient Health Questionnaire-2 Score 6 05/11/2023 Comments Unknown Sex and Gender Information Value [...] Assessment Noted Time PHQ-9 Depression Total Score: 14 023 10:08 AM EST documented as of this encounter Care Teams Systems Planner Relationship Specialty Start Date End Date Margarita Doty FNP [address] [place] [address] PCP - General Family Medicine 01/25/22 Juan Francisco Steen FNP [address] [place] [address] Nurse Practitioner Family Medicine 05/04/23 documented as of this encounter
--- OUTSIDE RECORDS SUMMARY | 2024-08-08 15:03 | XMS_ITS | Encounter Summary ---
Author Organization [employer] Address [address] [place] [address] 7 [place] [address] Care Team Providers Care Patient Financial Services Specialist Name Role Phone Lalitha [facility] Primary Care Provider [phone] Juan Francisco Steen [facility] Unavailable Unavailable Reason for Visit * Reason Comments televisit Encounter Details Date Type Department Care Team (Latest Contact Info) Description 08/07/2024 3:15 PM EST Telemedicine [facility] MEDICINE [address] [place] [address] [facility] [address] [place] [address] Malaise and fatigue (Primary Dx); Type 2 diabetes mellitus with hyperglycemia, with long-term current use of insulin ([facility]); ADHD (attention deficit hyperactivity disorder), inattentive type Social History Tobacco Use Types Packs/Day Years [...] the past 12 months, has t he [employer] gas, oil or water company threatened to [...] AM EDT documented as of this encounter Progress Notes * [facility], [facility] - 08/07/2024 3:15 PM EST SUBJECTIVE: Mague Cruz is a 44 y.o. year old female with T2DM, diabetic neuropathy, hx of CHRISTY (stable onsuboxone), TUD, HTN, sleep disorder, HLD, and depression/anxiety who presents for follow-up for ADHD and chronic fatigue . HPI CFS-at last visit patient reported Extreme fatigue despite sleeping >10 hours/day. Still feels exhausted during the day. She has a hx of parasomnia- sleep walking, eating, smoking. Completed a sleep study in ?2022 that was negative for CINTHYA. Saw [facility] sleep [facility] 05/2023 with recommendation to focus on lifestyle strategies-increased daytime physical activity, reduce vaping/smoking. Follow up PRN. Pt reports her sleep walking has greatly improved. Hx of depression/anxiety currently stable. ADHD-patient with history of ADHD diagnosed in childhood previously treated with Adderall twice daily daily. She is having trouble concentrating now that she is back at work. 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 Recently laid off [...] without long- term current use of insulin ([facility]) Tobacco use Hypertriglyceridemia Health care maintenance Attention deficit disorder Financial insecurity Neuropathy Ground glass opacity present on imaging of lung Acute bilateral low back pain without sciatica Yeast infection Retained dental root No past surgical history on file. Family History Problem Relation Name Age of Onset Aortic aneurysm Father Review of Systems OBJECTIVE: There were no vitals filed for this visit. Physical Exam ASSESSMENT/PLAN Chronic Fatigue -Patient does meet diagnostic criteria for chronic fatigue syndrome based on national Academy of medicine guidelines from 2015 -Discussed lifestyle recommendations including beginning structured exercise program with initial goal of 30-minute walk 3 times per week - Continue to work with therapist - Update baseline labs to rule out alternative diagnoses ADHD -Shared decision making regarding treatment options. Patient would like to restart pharmacologic treatment. Given possible benefit with chronic fatigue syndrome as well as ADHD will trial extended release Concerta 18 mg once daily. Reviewed administration, risks, side effects - Continue to follow-up with therapist - Follow-up 2 weeks T2DM Lab Results Component Value Date HGBA1C 7.6 (A) 07/10/2024 Blood sugars are increasing. Patient currently on Toujeo 30 units and metformin. - Unable to tolerate SGLT2 inhibitor due to recurrent yeast infection, did not tolerate prior GLP 1trial due to GI upset. Failed glipizide (itching) -Discussed with patient trial of Zepbound given improved side effect profile and weight loss benefit. Patient agrees - Patient also agrees to retry a CGM Follow Up: 2 weeks, telehealth 3 months routine Current Outpatient Medications on File Prior to [...] DAY 60 capsule 0 Continuous Blood Gluc Statistical Technician (FreeStyle Constance 2 Cherry Plain) device Use as directed 1 each 0 [...] candidiasis. Do not swallow. 1 each 11 glucose blood (FREESTYLE LITE) test strip TEST BLOOD SUGAR THREE TIMES DAILY 100 each 11 hydrOXYzine HCl (Atarax) 25 MG tablet TAKE 1-2 TABLETS (25-50 MG) BY MOUTH EVERY 6 (SIX) HOURS IF NEEDED FOR ANXIETY. 150 tablet 0 insulin glargine (Toujeo Max SoloStar) 300 UNIT/ML injection Inject 30 Units under the skin at bedtime. 4.5 mL 12 insulin pen needle (Easy Touch Pen White Heath) 31G x 6 mm misc USE DIRECTED 100 each 11 Isopropyl Alcohol (Alcohol Wipes) 70 % misc [...] and with evening meal. 180 capsule 3 No current facility-administered medications on file prior to visit. documented in this encounter Plan of Treatment Pending Results Name Type Priority Associated Diagnoses Date /Time Comprehensive Metabolic Panel Lab Routine Type 2 diabetes mellitus with hyperglycemia, with long-term current use of insulin ([facility]) 08/08/2024 12:35 PM EST Lipid Panel, Standard Lab Routine Type 2 diabetes mellitus with hyperglycemia, with long-term current use of insulin ([facility]) 08/08/2024 12:35 PM EST Scheduled Orders Name Type Priority Associated Diagnoses Orde r Schedule Albumin, Random Urine W/Creatinine Lab Routine Type 2 diabetes mellitus with hyperglycemia, with long-term current use of insulin ([facility]) Expected: 08/07/2024 (Approximate), Expires: 08/07/2025 TSH Lab Routine Malaise and fatigue Expected: 08/07/2024 (Approximate), Expires: 08/07/2025 Vitamin B12/Folate, Serum Panel Lab Routine Malaise and fatigue Expected: 08/07/2024, Expires: 08/07/2025 documented as of this encounter Procedures Procedure Name Priority Date/Time Associated Diagnosis Comments CBC WITH AUTO DIFFERENTIAL Routine 08/08/2024 12:35 PM EST Malaise and fatigue LIPID PANEL, STANDARD Routine 08/08/2024 12:35 PM EST Type 2 diabetes mellitus with hyperglycemia, with long-term current use of insulin ([facility]) COMPREHENSIVE METABOLIC PANEL Routine 08/08/2024 12:35 PM EST Type 2 diabetes mellitus with hyperglycemia, with long-term current use of insulin ([facility]) documented in this encounter Results * (ABNORMAL) CBC auto differential (08/08/2024 12:35 PM EST) White Blood Count 9.0 4.8 - 10.8 X10*3/uL [facility] Red Blood Count 4.95 4.20 - 5.50 X10*6/uL [facility] Hemoglobin 14.2 12.0 - 16.0 g/dl [facility] Hematocrit 43.2 37.0 - 47.0 % [facility] Mean Corpuscular Volume 87.3 80.0 - 98.0 fL [facility] Mean Corpuscular Hemoglobin 28.7 27.0 - 33.0 pg [facility] Mean Corpuscular HGB Conc 32.9 31.0 - 35.0 g/dl [facility] Red Cell Distribution Width 13.9 11.0 - 16.0 % [facility] Platelet Count 223 160 - 400 X10*3/uL [facility] Mean Platelet Volume 12.0 9.4 - 12.3 fL [facility] Neutrophils Percent Auto 67.7 45 - 73 % [facility] Imm Gran Pct Auto 0.6(H) 0.0 - 0.4 % [facility] Lymphocytes Percent Auto 21.0 20 - 40 % [facility] Monocytes Percent Auto 8.8 2 - 11 % [facility] Eosinophils Percent Auto 1.6 0 - 4 % [facility] Basophils Percent Auto 0.3 0 - 2 % [facility] NRBC Pct Auto 0.0 0.0 - 0.2 /100WBC [facility] Neutrophils Absolute Auto 6.1 2.0 - 8.3 x10*3/uL [facility] Imm Gran Abs Auto 0.05(H) 0.00 - 0.03 X10*3/uL [facility] Lymphocytes Absolute Auto 1.9 1.2 - 4.9 X10*3/uL [facility] Monocytes Absolute Auto 0.8 0.1 - 1.2 X10*3/uL [facility] Eosinophils Absolute Auto 0.1 0.0 - 0.4 X10*3/uL [facility] Basophils Absolute Auto 0.0 0.0 - 0.2 X10*3/uL [facility] NRBC Abs Auto 0.000 0.0 - 0.012 X10*3/uL [facility] Blood Venous blood specimen / Unknown 08/08/2024 12:35 PM EST 08/08/2024 1:16 PM EST [facility] LAB BLOOD ORDERABLES Final Re sult [facility] [address] [place] [address] [phone] documented in this encounter Visit Diagnoses Diagnosis Malaise and fatigue- Primary Type 2 diabetes mellitus with hyperglycemia, with long-term current use of insulin ([facility]) ADHD (attention deficit hyperactivity disorder), inattentive type documented in this encounter Additional Health Concerns Assessment Noted Time PHQ-9 Depression Total Score: 21 024 1:30 PM EDT documented as of this encounter Care Teams Patient Financial Services Specialist Relationship Specialty Start Date End Date Margarita Doty FNP [address] [place] [address] PCP - General Family Medicine 01/25/22 Juan Francisco Steen FNP [address] [place] [address] Nurse Practitioner Family Medicine 05/04/23 documented as of this encounter
--- OUTSIDE RECORDS SUMMARY | 2024-08-08 15:03 | XMS_ITS | Encounter Summary ---
Author Organization [employer] Address [address] [place] [address] [address] [place] [address] Care Team Providers Care In File Operator Name Role Phone [place] [facility] Primary Care Provider [phone] Juan Francisco Steen MANAGER EQUIPMENT Unavailable Unavailable Reason for Visit * Reason Onset Date Comments insurance 07/10/2024 Encounter Details Date Type Department Care Team ([facility] st Contact Info) Description 07/10/2024 Telephone [facility] MEDICINE [address] [place] [address] [facility] [address] [place] [address] insurance Social History Tobacco Use Types Packs/Day Years [...] encounter Miscellaneous Notes * Telephone Encounter - Ignacia Lopez - 07/10/2024 11:33 AM EST Pt walked in for appt on 07/10/24 pt pcp on her insurance is from somewhere else , I informed pt she needs to call the insurance and switch it over to [facility] pcp Margarita Lalitha if not she will get a bill.pt said she called and she's confused on why didn't they switch it , pt said she still wants her appt today so we did a self pay form , pt is on the phone right now with her insurance. documented in this encounter Plan of Treatment Not on file documented as of this encounter Visit Diagnoses Not on filedocumented in this encounter Additional Health Concerns Assessment Noted Time PHQ-9 Depression Total Score: 21 024 1:30 PM EDT documented as of this encounter Care Teams In File Operator Relationship Specialty Start Date End Date Margarita Doty FNP [address] [place] [address] PCP - General Family Medicine 01/25/22 Juan Francisco Steen FNP [address] [place] [address] Nurse Practitioner Family Medicine 05/04/23 documented as of this encounter
--- OUTSIDE RECORDS SUMMARY | 2024-08-08 15:03 | XMS_ITS | Encounter Summary ---
Author Organization [employer] Address [address] [facility] 7t [place] [address] Care Team Providers Care Insurance Claims Processor Name Role Phone Margarita Doty JIGMAKER Primary Care Provider [phone] Juan Francisco Steen Unavailable Unavailable Reason for Visit * Reason Comments Med Change Request Encounter Details Date Type Department Care Team ([facility] st Contact Info) Description 12/02/2023 Refill [facility] MEDICINE [address] [place] [address] Juan Francisco Steen FNP PTSD (post-traumatic stress [...] as of this encounter Care Teams Insurance Claims Processor Relationship Specialty Start Date End Date Margarita Doty FNP [address] [place] [address] PCP - General Family Medicine 01/25/22 Juan Francisco Steen FNP [address] [place] [address] Nurse Practitioner Family Medicine 05/04/23 documented as of this encounter
[2024-08-08 15:05] LABS: Thyroid Stimulating Hormone 2.38 uIU/mL (0.32-4.0)
[2024-08-08 15:24] LABS: Folate 8.2 ng/mL (> or = 4.0); Vitamin B12 267 pg/mL (200-900)
== END 2024-08-08 12:33 | disposition home or self-care (01) ==
LOC: HO.HHCL 12:32
PROVIDERS: Visit Provider Registered Nurse
DX: R53.81 Other malaise (principal); R53.83 Other fatigue; E11.65 Type 2 diabetes mellitus with hyperglycemia; Z79.4 Long term (current) use of insulin
CPT/HCPCS: 36415; 80053; 80061; 82607; 82746; 84443; 85025

== ENCOUNTER 2025-02-20 11:28 | Outpatient (REF) | payer MEDICARE, SELFPAY ==
[2025-02-20 13:29] LABS: Hemoglobin A1C 177.9475 umol/L; Total Hemoglobin (HGBA1C) 3649.0995 umol/L
[2025-02-20 13:41] LABS: Alanine Aminotransferase 43 U/L (0-31); Albumin Level 4.5 g/dL (3.5-5.0); Alkaline Phosphatase 37 U/L (39-117); Anion Gap 13 (12-20); Aspartate Amino Transferase 27 U/L (5-31); Blood Urea Nitrogen 22 mg/dL (9-16); Calcium 9.5 mg/dL (8.4-10.2); Carbon Dioxide 30 mmol/L (22-29); Chloride 101 mmol/L (96-108); Cholesterol 146 mg/dL (<200); Estimated Glomerular Filt Rate 51; HDL Cholesterol 40 mg/dL (>40); Potassium 4.1 mmol/L (3.3-5.1); Sodium 140 mmol/L (135-145); Total Protein 7.4 g/dL (6.5-8.0); Triglycerides 130 mg/dL (<150)
--- OUTSIDE RECORDS SUMMARY | 2025-02-20 13:50 | XMS_ITS | Encounter Summary ---
Author Organization [employer] Address [address] [facility] 7t [place] [address] Care Team Providers Care Heat Engineering Teacher Name Role Phone [place] [facility] Primary Care Provider [phone] Juan Francisco Steen FIELD GAUGER Unavailable Unavailable Reason for Visit * Reason Comments Med Refill Encounter Details Date Type Department Care Team ([facility] st Contact Info) Description 09/04/2024 Refill [facility] MEDICINE [address] [place], [place] [phone] [place] [facility] [address] [place] [address] Neuropathy Social History Tobacco Use Types Packs/Day [...] as of this encounter Plan of Treatment Upcoming Encounters Date Type Department Care Team (Late st Contact Info) Description 02/21/2025 11:30 AM EDT Office Visit [facility] MEDICINE [address] [place] [address] Margarita Doty FNP [address] [place] [address] documented as of this encounter Visit Diagnoses Diagnosis Neuropathy Mononeuritis of unspecified site documented in this encounter Additional Health Concerns Assessment Noted Time PHQ-9 Depression Total Score: 21 024 1:30 PM EDT documented as of this encounter Care Teams Heat Engineering Teacher Relationship Specialty Start Date End Date Margarita Doty FNP [address] [place] [address] PCP - General Family Medicine 01/25/22 Juan Francisco Steen FNP [address] [place] [address] Nurse Practitioner Family Medicine 05/04/23 documented as of this encounter
--- OUTSIDE RECORDS SUMMARY | 2025-02-20 13:50 | XMS_ITS | Encounter Summary ---
Author Organization [employer] Address [address] [place] [address] 7 [place] [address] Care Team Providers Care Flow Machine Operator Name Role Phone [place] [facility] Primary Care Provider [phone] Juan Francisco Steen AUDIO VISUAL DIRECTOR Unavailable Unavailable Reason for Visit * Reason Onset Date Comments Appointment Request 12/22/2022 Encounter Details Date Type Department Care Team ([facility] Contact Info) Description 12/22/2022 Telephone [facility] MEDICINE [address] [place], [place] [phone] [facility] [address] [place] [address] Appointment Request Social History Tobacco Use Types [...] documented in this encounter Plan of Treatment Upcoming Encounters Date Type Department Care Team (Late st Contact Info) Description 02/21/2025 11:30 AM EDT Office Visit [facility] MEDICINE [address] [place] [address] Margarita Doty FNP [address] [place] [address] documented as of this encounter Visit Diagnoses Not on filedocumented in this encounter Additional Health Concerns Assessment Noted Time PHQ-9 Depression Total Score: 10 023 9:51 AM EDT documented as of this encounter Care Teams Flow Machine Operator Relationship Specialty Start Date End Date Margarita Doty FNP [address] [place] [address] PCP - General Family Medicine 01/25/22 Juan Francisco Steen FNP [address] [place] [phone] Nurse Practitioner Family Medicine 05/04/23 documented as of this encounter
--- OUTSIDE RECORDS SUMMARY | 2025-02-20 13:50 | XMS_ITS ---
Author Name [facility] Organization Unknown Care Team Organization Name Specialty Phone Email Start Date End Da te [facility] Aarti Harden Primary Care 03/08/2023 4
--- OUTSIDE RECORDS SUMMARY | 2025-02-20 13:50 | XMS_ITS | Encounter Summary ---
Author Organization [employer] Address [address] [facility] 7t [place] [address] Care Team Providers Care Teacher'S Assistant Name Role Phone Lalitha Margarita [employer] Primary Care Provider [phone] Juan Francisco Steen Unavailable Unavailable Reason for Visit * Reason Comments Med Change Request Encounter Details Date Type Department Care Team ([facility] Contact Info) Description 04/18/2023 Refill [facility] MEDICINE [address] [place] [address] Juan Francisco Steen FNP PTSD (post-traumatic stress [...] Description 02/21/2025 11:30 AM EDT Office Visit [facility] MEDICINE [address] [place] [address] Margarita Doty FNP [address] [place] [address] documented as of this encounter Visit Diagnoses Diagnosis PTSD (post-traumatic stress disorder) Posttraumatic stress disorder documented in this encounter Additional Health Concerns Assessment Noted Time PHQ-9 Depression Total Score: 10 023 9:51 AM EDT documented as of this encounter Care Teams Teacher'S Assistant Relationship Specialty Start Date End Date Margarita Doty FNP [address] [place] [address] PCP - General Family Medicine 01/25/22 Juan Francisco Steen FNP [address] [place] [address] Nurse Practitioner Family Medicine 05/04/23 documented as of this encounter
--- OUTSIDE RECORDS SUMMARY | 2025-02-20 13:50 | XMS_ITS | Encounter Summary ---
Author Organization [employer] Address [address] [facility] 7t [place] [address] Care Team Providers Care Equipment Application Specialist Name Role Phone [place] [facility] Primary Care Provider [phone] Juan Francisco Steen COSMETICS DEMONSTRATOR Unavailable Unavailable Reason for Visit * Reason Onset Date Comments Nurse Triage 04/23/2024 Encounter Details Date Type Department Care Team ([facility] Contact Info) Description 04/23/2024 Telephone [facility] MEDICINE [address] [place], [place] [phone] [facility] [address] [place] [address] Nurse Triage Social History Tobacco Use Types [...] Trouble walking The caller accepted this outcome. [phone] documented in this encounter Plan of Treatment Upcoming Encounters Date Type Department Care Team (Late st Contact Info) Description 02/21/2025 11:30 AM EDT Office Visit [facility] MEDICINE [address] [place] [address] Margarita Doty FNP [address] [place] [address] documented as of this encounter Visit Diagnoses Not on filedocumented in this encounter Additional Health Concerns Assessment Noted Time PHQ-9 Depression Total Score: 21 024 1:30 PM EDT documented as of this encounter Care Teams Equipment Application Specialist Relationship Specialty Start Date End Date Margarita Doty FNP [address] [place] [phone] PCP - General Family Medicine 01/25/22 Juan Francisco Steen FNP [address] [place] [address] Nurse Practitioner Family Medicine 05/04/23 documented as of this encounter
--- OUTSIDE RECORDS SUMMARY | 2025-02-20 13:50 | XMS_ITS | Encounter Summary ---
Author Organization [employer] [facility] Address [address] [place] [address] [address] [place] [address] Care Team Providers Care Dimethylaniline Sulfator Operator Name Role Phone Margarita Doty PUBLIC SAFETY DIRECTOR Primary Care Provider [phone] Juan Francisco Steen Unavailable Unavailable Reason for Visit * Reason Comments Med Refill Encounter Details Date Type Department Care Team ([facility] Contact Info) Description 02/18/2023 Refill [facility] [address] [place] [phone] Estela Saab FNP Fibromyalgia Social History Tobacco Use Types Packs/Day [...] Encounters Date Type Department Care Team (Late Contact Info) Description 02/21/2025 11:30 AM EDT Office Visit [facility] MED[facility]INE [address] [place], [place] [phone] Margarita Doty FNP [address] [place] [address] documented as of this encounter Visit Diagnoses Diagnosis Fibromyalgia Unspecified myalgia and myositis documented in this encounter Additional Health Concerns Assessment Noted Time PHQ-9 Depression Total Score: 10 023 9:51 AM EDT documented as of this encounter Care Teams Dimethylaniline Sulfator Operator Relationship Specialty Start Date End Date Margarita Doty FNP [address] [place] [address] PCP - General Family Medicine 01/25/22 Juan Francisco Steen FNP [address] [place] [address] Nurse Practitioner Family Medicine 05/04/23 documented as of this encounter
--- OUTSIDE RECORDS SUMMARY | 2025-02-20 13:50 | XMS_ITS | Clinical Summary ---
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 Comment:Desirable LDL: less than 100 mg/dLNear Optimal/Above Optimal LDL: 110- 129 mg/dLBorderline High LDL: 130-159 mg/dLHigh LDL: 160-189 mg/dLVery High LDL: greater than or equal to 190 mg/dL HDL Cholesterol 41 >40 mg/dL [facility] Comment:Desirable HDL: great er than 40 mg/dL Note: This HDL assay may give artificially low results in patients with liver disease. Blood Venous blood specimen / Unknown 08/08/2024 12:35 PM EST 08/08/2024 1:16 PM EST [facility] RETAIL ASSISTANT LAB BLOOD ORDERABLES Final Re sult Performing Organization Address [facility] Co de Phone Number [facility] [address] [place] [address] [phone] * Albumin, Random Urine W/Creatinine (11/17/2023 2:25 PM EDT) Creatinine, Urine 159.77 mg/dL [facility] Microalbumin Urine 15.0 mg/L [facility] Microalbum Creatinine Ratio Ur 9.3 <30 ug/mg cr [facility] Comment:Albumin/Creatinine R atio Reference Ranges: Normal: < 30 ug/mg creatinine Microalbuminuria: 30 - 300 ug/mg creatinineClinical Albuminuria: > 300 ug/mg creatinine Urine 11/17/2023 2:25 PM EDT 11/17/2023 4:09 PM EDT [facility] URINE ORDERABLES Final Re sult Performing Organization Address [facility] Co de Phone Number [facility] [address] [place] [address] [phone] * BI Mammogram Screening Tomosynthesis Bilateral (02/10/2023 3:24 PM EDT) Anatomical Region Laterality Modality Breast Bilateral Mammography 02/10/2023 3:24 PM EDT Narrative 02/28/2023 6:37 PM EDT [facility] [address] [place] [address] Mammography Report Signed Patient: Mague Cruz MR#: [id number] : 1980 Acct:[id number] Age/Sex: 42 / F ADM Date: 02/10/23 Loc: [facility] Attending Dr: Srinivasa Prasad MD Ordering Physician: Srinivasa Prasad MD Results: 1Negativ e Date of Service: 02/10/23 Follow Up: 1 Year From Orig inal Mammogram Procedure(s): MM tomosynthesis screening BI Accession Number(s): [id number] cc: [facility] RETAIL ASSISTANT; Srinivasa Prasad MD EXAMINATION: MM SCREENING DIGITAL [...] in OV> 02/28/23 1833 DD/ 1524 TD/TT: Communications Lead: Procedure Note Donotuseinterpreter, Image - 02/28/2023 [facility] [address] [place] [address] Mammography Report Signed Patient: Mague rCuz LMR#: [id number] : 1980Acct:[id number] Age/Sex: 42 / FADM Date: 02/10/23 Loc: [facility] Attending Dr: Srinivasa Prasad MD Ordering Physician: Srinivasa Prasad MDResults: 1Negativ e Date of Service: 02/10/23Follow Up: 1 Year From Orig ina Mammogram Procedure(s): MM tomosynthesis screening BI Accession Number(s): [id number] cc: Margarita Doty; Srinivasa Prasad MD EXAMINATION: MM SCREENING DIGITAL [...] in OV> 02/28/23 1833 DD/ 1524 TD/TT: Communications Lead: [facility] External Provider IMG BI PROCEDURES Final Result * Pap Smear (01/12/2023 3:24 PM EDT) 01/12/2023 3:24 PM EDT 01/13/2023 9:30 AM EDT [facility] - 01/31/2023 9:31 AM EDT ----- ------- Name: Mague Cruz Age/Sex: 42/F : 1980 Unit#: [id number] Attend Dr: Srinivasa Prasad MD Re01/12/23 Status: [facility] REF Location: [facility] Disch: ----- ------- SPEC : [id number] RECD: 01/13/23 STATUS: TAMERA VINCENT NUM: [id number] EDEN: 01/12/23-[address] [facility] DR: Srinivasa Prasad MD ENTERED: 01/13/23 SP TYPE: Pap Smr OTHR DR: [facility] ORDERED: Pap Smear, PAP path review Interpretation General Category: Negative for intraepithelial lesion/malignancy. Adequacy: Endocervical component present. Interpretation: Inflammation with associated cellular changes. HPV mRNA E6/E7: Not detected This assay detects E6/E7 viral messenger RNA (mRNA) from 14 high-risk HPV types (16, 18, 31, 33, 35, 39, 45, 51, 52, 56, 58, 59, 66, 68) HPV testing performed by [facility], [place], [place]. See reference laboratory portion of the EMR for entire report. Clinical Information LMP:12/12/22 Previous PAP test:Unknown date/findings Other history:Abnormal uterine and vaginal bleeding Material Received ThinPrep-Cervical Copies To: [address] [address] Srinivasa Prasad MD [address] [place] [address] [address] ----- ------- Signed (signature on file) Gill Simpson MD 01/31/23 0931 ----- ------- END OF REPORT [facility] External Provider LAB [place] ORDERABLES Final Result [facility] [address] [place], [place] [phone] from Last 3 Months or Most Recently Relevant to Health Maintenance Insurance [address] [place] [address] [facility] MEDICARE ADVANTAGE [place] ST[place] ADULT Care Teams Organ Recovery Coordinator Relationship Specialty Start Date End Date Margarita Doty FNP [address] [place] [phone] PCP - General Family Medicine 01/25/22 Juan Francisco Steen FNP [address] [place] [phone] Nurse Practitioner Family Medicine 05/04/23
--- OUTSIDE RECORDS SUMMARY | 2025-02-20 13:50 | XMS_ITS | Encounter Summary ---
Author Organization [employer] Address [address] [facility] 7t [place] [address] Care Team Providers Care Mechanical Maintenance Name Role Phone Lalitha Margarita TECHNOLOGY LAB TEACHER Primary Care Provider [phone] Juan Francisco Steen Unavailable Unavailable Reason for Visit * Reason Comments Med Change Request Encounter Details Date Type Department Care Team ([facility] st Contact Info) Description 12/02/2023 Refill [facility] [address] [place] [address] Juan Francisco Steen FNP PTSD (post-traumatic stress [...] Description 02/21/2025 11:30 AM EDT Office Visit [facility] [address] [place] [address] Margarita Doty FNP [address] [place] [address] documented as of this encounter Visit Diagnoses Diagnosis PTSD (post-traumatic stress disorder) Posttraumatic stress disorder documented in this encounter Additional Health Concerns Assessment Noted Time PHQ-9 Depression Total Score: 21 024 1:30 PM EDT documented as of this encounter Care Teams Mechanical Maintenance Relationship Specialty Start Date End Date Margarita Doty FNP [address] [place] [address] PCP - General Family Medicine 01/25/22 Juan Francisco Steen FNP [address] [place] [address] Nurse Practitioner Family Medicine 05/04/23 documented as of this encounter
--- OUTSIDE RECORDS SUMMARY | 2025-02-20 13:50 | XMS_ITS | Encounter Summary ---
Author Organization [employer] Address [address] [facility] 7t [place] [address] Care Team Providers Care Repertoire Manager Name Role Phone [place] [facility] Primary Care Provider [phone] Juan Francisco Steen NEW CAR MAKE READY WORKER Unavailable Unavailable Reason for Visit * Reason Onset Date Comments Med Refill 01/15/2024 Encounter Details Date Type Department Care Team ([facility] st Contact Info) Description 01/15/2024 Telephone [facility] [address] [place] [address] [facility] [address] [place] [address] Med Refill Social History Tobacco Use Types [...] 300 MG capsule To be sent to: [facility] documented in this encounter Plan of Treatment Upcoming Encounters Date Type Department Care Team (Late st Contact Info) Description 02/21/2025 11:30 AM EDT Office Visit [facility] [address] [place] [address] Margarita Doty FNP [address] [place] [address] documented as of this encounter Visit Diagnoses Not on filedocumented in this encounter Additional Health Concerns Assessment Noted Time PHQ-9 Depression Total Score: 21 024 1:30 PM EDT documented as of this encounter Care Teams Repertoire Manager Relationship Specialty Start Date End Date TulsaMargarita kumar FNP [address] [place] [address] PCP - General Family Medicine 01/25/22 Juan Francisco Steen FNP [address] [place] [address] Nurse Practitioner Family Medicine 05/04/23 documented as of this encounter
--- OUTSIDE RECORDS SUMMARY | 2025-02-20 13:50 | XMS_ITS | Encounter Summary ---
Author Organization [employer] Address [address] [facility] 7t [place] [address] Care Team Providers Care Suction Operator Name Role Phone Lalitha Margarita CARE ANALYST Primary Care Provider [phone] Juan Francisco Steen CARE ANALYST Unavailable Unavailable Reason for Visit * Reason Comments Med Change Request Encounter Details Date Type Department Care Team ([facility] st Contact Info) Description 04/19/2023 Refill [facility] [address] [place] [address] Inocencia Wilkinson MD [address] [place] [address] Acute bilateral low back pain without sciatica [...] Description 02/21/2025 11:30 AM EDT Office Visit [facility] [address] [place] [address] Margarita Doty FNP [address] [place] [address] documented as of this encounter Visit Diagnoses Diagnosis Acute bilateral low back pain without sciatica documented in this encounter Additional Health Concerns Assessment Noted Time PHQ-9 Depression Total Score: 10 023 9:51 AM EDT documented as of this encounter Care Teams Suction Operator Relationship Specialty Start Date End Date Margarita Doty FNP [address] [place] [phone] PCP - General Family Medicine 01/25/22 Juan Francisco Steen FNP [address] [place] [address] Nurse Practitioner Family Medicine 05/04/23 documented as of this encounter
--- OUTSIDE RECORDS SUMMARY | 2025-02-20 13:51 | XMS_ITS | Encounter Summary ---
Author Organization [employer] Address [address] [facility] 7t [place] [address] Care Team Providers Care Smt Operator Name Role Phone [facility] Primary Care Provider Juan Francisco Steen COMMERCIAL FINANCE ANALYST Unavailable Unavailable Reason for Visit * Reason Onset Date Comments Med Refill 02/11/2025 Encounter Details Date Type Department Care Team ([facility] st Contact Info) Description 02/11/2025 Telephone [facility] [address] [place] [address] [facility] [address] [place] [address] Med Refill Social History Tobacco Use Types [...] Telephone Encounter - Coreen Sheppard LPN - 02/11/2025 9:19 AM EDT Medication was sent to [facility] on 02/05/25. * Telephone Encounter - Sheng Treadwell - 02/11/2025 9:15 AM EDT TC from pt requesting medication refill. Medications needing refill: amphetamine-dextroamphetamine XR (Adderall XR) 25 MG 24 hr capsule To be sent to: [facility] - [place], [place] - [address] [place] [address] documented in this encounter Plan of Treatment Upcoming Encounters Date Type Department Care Team (Late st Contact Info) Description 02/21/2025 11:30 AM EDT Office Visit [facility] [address] [place] [address] [place], Margarita, COMMERCIAL FINANCE ANALYST [address] [place] [address] documented as of this encounter Visit Diagnoses Not on filedocumented in this encounter Additional Health Concerns Assessment Noted Time PHQ-9 Depression Total Score: 0 01/09/20 25 10:56 AM EDT documented as of this encounter Care Teams Smt Operator Relationship Specialty Start Date End Date Margarita Doty FNP [address] [place] [address] PCP - General Family Medicine 01/25/22 Juan Francisco Steen FNP [address] [place] [address] Nurse Practitioner Family Medicine 05/04/23 documented as of this encounter
--- OUTSIDE RECORDS SUMMARY | 2025-02-20 13:51 | XMS_ITS | Encounter Summary ---
Author Organization [email or web address] [facility] Address [address] [place] [address] 7 [place] [address] Care Team Providers Care Rn Psychiatric Name Role Phone Margarita Doty Primary Care Provider [phone] Juan Francisco Steen Unavailable Unavailable Encounter Details Date Type Department Care Team (Latest Contact Info) Description 03/21/2019 Abstract [facility] CONVERSIONS Dental, Provider, DDS Social History Tobacco [...] Upcoming Encounters Date Type Department Care Team ( st Contact Info) Description 02/21/2025 11:30 AM EDT Office Visit [facility] MED[facility] [address] [place] [address] Margarita Doty FNP [address] [place] [address] documented as of this encounter Visit Diagnoses Not on filedocumented in this encounter Care Teams Rn Psychiatric Relationship Specialty Start Date End Date Margartia Doty FNP [address] [place] [address] PCP - General Family Medicine 01/25/22 Juan Francisco Steen FNP [address] [place] [address] Nurse Practitioner Family Medicine 05/04/23 documented as of this encounter
--- OUTSIDE RECORDS SUMMARY | 2025-02-20 13:51 | XMS_ITS | Encounter Summary ---
Author Organization [employer] Address [address] [facility] 7t [place] [address] Care Team Providers Care Solar Sales Assessor Name Role Phone Lalitha [facility] Primary Care Provider [phone] Juan Francisco Steen Unavailable Unavailable Encounter Details Date Type Department Care Team ([facility] Contact Info) Description 10/04/2024 Telephone [facility] [address] [place], [place] [phone] [place] [facility] [address] [place] [address] Social History Tobacco Use Types Packs/Day Years Used Date Smoking Tobacco: Every Day Cigarettes Passive Smoke Exposure: Current Smokeless Tobacco: Never Alcohol Use Standard Drinks/Week Comments Never 0 (1 standard drink = 0.6 oz pur e alcohol) Depression Answer Date Recorded Patient Health Questionnaire-9 Score 20 10/07/2024 Patient Health Questionnaire-9 Score 20 10/07/2024 Last PHQ-9: Questionnaire Data Not on file 0 10/07/2024 Housing Stability Answer Date Recorded What is [...] Date Recorded Patient Health Questionnaire-2 Score 6 10/07/2024 Internet Access Answer Date Recorded Internet Access Q1 Yes 09/30/2024 Internet Access Q2 Not on file 09/30/2024 Comments Unknown Sex and Gender Information Value Date Recorded Sex Assigned at Female 04/04/2022 10:23 AM EDT Legal Sex Female 10:23 AM EDT Gender Identity Female 04/04/2022 10:23 AM EDT Sexual Orientation Straight 04/04/2022 10 :23 AM EDT documented as of this encounter Functional Status * Over the past 2 weeks, how often have you been bothered by any of the following problems? Question Answer Date of Assessment Author Patient Health Questionnaire-2 Score 6 10/07/2024 1:57 PM EDT Padmini Mcbride MA * Little interest or pleasure in doing things Answer Date of Assessment Author Nearly every day 10/07/2024 1:57 PM EDT Padmini Chase MA * Feeling down, depressed, or hopeless Answer Date of Assessment Author Nearly every day 10/07/2024 1:57 PM EDT Padmini Chase MA * Trouble falling or staying asleep, or sleeping too much Answer Date of Assessment Author Nearly every day 10/07/2024 1:57 PM EDT Padmini Chase MA * Feeling tired or having little energy Answer Date of Assessment Author Nearly every day 10/07/2024 1:57 PM EDT Padmini Chase MA * Poor appetite or overeating Answer Date of Assessment Author More than half the days 10/07/2024 1:57 PM EDT Padmini De Anda MA * Feeling bad about yourself - or that you are a failure or have let yourself or your family down Answer Date of Assessment Author Nearly every day 10/07/2024 1:57 PM EDT Padmini Chase MA * Trouble concentrating on things, such as reading the newspaper or watching television Answer Date of Assessment Author Nearly every day 10/07/2024 1:57 PM EDT Padmini Chase MA * Moving or speaking so slowly that other people could have noticed? Or the opposite - being so fidgety or restless that you have been moving around a lot more than usual. Answer Date of Assessment Author Not at all 10/07/2024 1:57 PM EDT Padmini Mcclain MA * Thoughts that you would be better off or hurting yourself in some way Answer Date of Assessment Author Not at all 10/07/2024 1:57 PM EDT Padmini Mcclain MA * Patient Health Questionnaire-9 Score Answer Date of Assessment Author 20 10/07/2024 1:57 PM EDT Padmini Mcclain MA * How difficult have these problems made it for you to do your work, take care of things at home, or get along with other people? Answer Date of Assessment Author Extremely difficult 10/07/2024 1:57 PM EDT Padmini Capps MA * Over the last 2 weeks, how often have you been bothered by any of the following problems? Question Answer Date of Assessment Author Feeling nervous, anxious, or on edge 3 10/07/2024 1:57 PM EDT Padmini Mcbride MA Not being able to stop or control worrying 3 10/07/2024 1:57 PM EDT Padmini Mcbride MA Worrying too much about different things 3 10/07/2024 1:57 PM EDT Padmini Mcbride MA Trouble relaxing 1 10/07/2024 1:57 PM EDT Padmini De Anda MA Being so restless that it is hard to sit still 1 10/07/2024 1:57 PM LONGT Padmini Mcbride MA Becoming easily annoyed or irritable 2 10/07/2024 1:57 PM EDT Padmini Mcbride MA Feeling afraid as if something awful might happen 3 10/07/2024 1:57 PM EDT Padmini Chase MA YANETH-7 Total Score 16 10/07/2024 1:57 PM EDT Padmini Mcbride MA documented as of this encounter Plan of Treatment Upcoming Encounters Date Type Department Care Team (Late st Contact Info) Description 02/21/2025 11:30 AM EDT Office Visit [facility] [address] [place] [address] Margarita Doty FNP [address] [place] [address] documented as of this encounter Visit Diagnoses Not on filedocumented in this encounter Additional Health Concerns Assessment Noted Time PHQ-9 Depression Total Score: 21 06/2 024 1:30 PM EDT documented as of this encounter Care Teams Solar Sales Assessor Relationship Specialty Start Date End Date Margarita Doty FNP [address] [place] [address] PCP - General Family Medicine 01/25/22 Juan Francisco Steen FNP [address] [place] [address] Nurse Practitioner Family Medicine 05/04/23 documented as of this encounter
--- OUTSIDE RECORDS SUMMARY | 2025-02-20 13:51 | XMS_ITS | Encounter Summary ---
Author Organization [employer] Address [address] [facility] 7t [place] [address] Care Team Providers Care Apron Operator Name Role Phone Lalitha [facility] Primary Care Provider [phone] Juan Francisco Steen Unavailable Unavailable Reason for Visit * Reason Comments Med Change Request Encounter Details Date Type Department Care Team ([facility] st Contact Info) Description 09/06/2023 Refill [facility] [address] [place] [address] Juan Francisco Steen FNP Social History Tobacco [...] Description 02/21/2025 11:30 AM EDT Office Visit [facility] [address] [place] [address] Margarita Doty FNP [address] [place] [address] documented as of this encounter Visit Diagnoses Not on filedocumented in this encounter Additional Health Concerns Assessment Noted Time PHQ-9 Depression Total Score: 14 023 10:08 AM EST documented as of this encounter Care Teams Apron Operator Relationship Specialty Start Date End Date Margarita Doty FNP [address] [place] [address] PCP - General Family Medicine 01/25/22 Juan Francisco Steen FNP [address] [place] [address] Nurse Practitioner Family Medicine 05/04/23 documented as of this encounter
--- OUTSIDE RECORDS SUMMARY | 2025-02-20 13:51 | XMS_ITS | Encounter Summary ---
Author Organization [email or web address] Address [address] [facility] 7t [place] [address] Care Team Providers Care Print Journalist Name Role Phone [place] [facility] Primary Care Provider [phone] Juan Francisco Steen [facility] Unavailable Unavailable Reason for Visit * Reason Comments Med Refill Encounter Details Date Type Department Care Team ([facility] st Contact Info) Description 02/04/2024 Refill [facility] [address] [place], [place] [phone] [place] [facility] [address] [place] [address] Hypertriglyceridemia Social History Tobacco Use Types Packs/Day [...] Description 02/21/2025 11:30 AM EDT Office Visit [facility] [address] [place] [address] Margarita Doty FNP [address] [place] [address] documented as of this encounter Visit Diagnoses Diagnosis Hypertriglyceridemia Pure hyperglyceridemia documented in this encounter Additional Health Concerns Assessment Noted Time PHQ-9 Depression Total Score: 21 024 1:30 PM EDT documented as of this encounter Care Teams Print Journalist Relationship Specialty Start Date End Date Margarita Doty FNP [address] [place] [address] PCP - General Family Medicine 01/25/22 Juan Francisco Steen FNP [address] [place] [address] Nurse Practitioner Family Medicine 05/04/23 documented as of this encounter
--- OUTSIDE RECORDS SUMMARY | 2025-02-20 13:51 | XMS_ITS | Encounter Summary ---
Author Organization [employer] Address [address] [facility] 7t [place] [address] Care Team Providers Care Business Taxes Specialist Name Role Phone [facility] Primary Care Provider [phone] Juan Francisco Steen PROSTHODONTIST Unavailable Unavailable Reason for Visit * Reason Onset Date Comments chart prep 02/20/2025 Encounter Details Date Type Department Care Team ([facility] Contact Info) Description 02/20/2025 Telephone [facility] [address] [place], [place] [phone] [facility] [address] [place] [address] chart prep Social History Tobacco Use Types Packs/Day Years [...] encounter Miscellaneous Notes * Telephone Encounter - Padmini Mcbride [place] - 02/20/2025 10:32 AM EDT Chart Prep Labs: not done ( from 01/08/25) Images: not done Referrals: complete Vaccines due: Covid, Hep B, and HPV Screenings: not applicable Overdue care gaps: A1c, Glucose, PHQ-9, and YANETH-7 documented in this encounter Plan of Treatment Upcoming Encounters Date Type Department Care Team (Late st Contact Info) Description 02/21/2025 11:30 AM EDT Office Visit [facility] [address] [place] [address] Margarita Doty FNP [address] [place] [address] documented as of this encounter Visit Diagnoses Not on filedocumented in this encounter Additional Health Concerns Assessment Noted Time PHQ-9 Depression Total Score: 0 01/09/20 10:56 AM EDT documented as of this encounter Care Teams Business Taxes Specialist Relationship Specialty Start Date End Date Margarita Doty FNP [address] [place] [address] PCP - General Family Medicine 01/25/22 Juan Francisco Steen FNP [address] [place] [address] Nurse Practitioner Family Medicine 05/04/23 documented as of this encounter
--- OUTSIDE RECORDS SUMMARY | 2025-02-20 13:51 | XMS_ITS | Encounter Summary ---
Author Organization [employer] Address 75 [facility] 7t [place] [address] Care Team Providers Care Property Utilization Manager Name Role Phone Lalitha Margarita FORESTRY ENGINEER Primary Care Provider [phone] Juan Francisco Steen Unavailable Unavailable Reason for Visit * Reason Comments Med Refill Encounter Details Date Type Department Care Team (Late st Contact Info) Description 10/20/2023 Refill [facility] [address] [place] [address] Juan Francisco Steen FNP PTSD (post-traumatic stress [...] Description 02/21/2025 11:30 AM EDT Office Visit [facility] [address] [place] [address] Margarita Doty FNP 230 [place] [address] documented as of this encounter Visit Diagnoses Diagnosis PTSD (post-traumatic stress disorder) Posttraumatic stress disorder documented in this encounter Additional Health Concerns Assessment Noted Time PHQ-9 Depression Total Score: 15 024 3:36 PM EDT documented as of this encounter Care Teams Property Utilization Manager Relationship Specialty Start Date End Date Margarita Doty FNP [address] [place] [address] PCP - General Family Medicine 01/25/22 Juan Francisco Steen FNP [address] [place] [address] Nurse Practitioner Family Medicine 05/04/23 documented as of this encounter
--- OUTSIDE RECORDS SUMMARY | 2025-02-20 13:51 | XMS_ITS | Encounter Summary ---
Author Organization [employer] Address [address] [place] [address] 7t [place] [address] Care Team Providers Care Can Machine Operator Name Role Phone [facility] Primary Care Provider Juan Francisco Steen CIGARETTE VENDOR Unavailable Unavailable Reason for Visit * Reason Onset Date Comments Medication Question 07/12/2022 Encounter Details Date Type Department Care Team ([facility] st Contact Info) Description 07/12/2022 Telephone [facility] MED[facility]INE 230 [place], [place] [phone] [facility] 230 [place] [address] Medication Question Social History Tobacco Use Types [...] PM EST TC placed to pt at [phone] regarding traige below. Pt inquiring when she [...] agreement. RN will forward to PCP Margarita [place] FNP as FYI. Symptom: Medication Question Outcome: Schedule [...] Description 02/21/2025 11:30 AM EDT Office Visit [facility] MED[facility]INE 230 [place] [address] [place]Margarita [facility] 230 [place] [address] documented as of this encounter Visit Diagnoses Not on filedocumented in this encounter Care Teams Can Machine Operator Relationship Specialty Start Date End Date OmahaMargarita FNP [address] [place] [address] PCP - General Family Medicine 01/25/22 Juan Francisco Steen FNP [address] [place] [address] Nurse Practitioner Family Medicine 05/04/23 documented as of this encounter
[2025-02-20 14:29] LABS: Microalbum/Creatinine Ratio Ur 6.2 ug/mg cr (<30)
== END 2025-02-20 11:29 | disposition home or self-care (01) ==
LOC: HO.HHCL 11:28
PROVIDERS: PCP Registered Nurse; Visit Provider Registered Nurse
DX: E11.65 Type 2 diabetes mellitus with hyperglycemia (principal); Z79.4 Long term (current) use of insulin
CPT/HCPCS: 36415; 80053; 80061; 82043; 82570; 83036

== ENCOUNTER 2025-04-17 16:07 | Outpatient (REF) | payer MEDICARE, SELFPAY ==
--- NOTE | ~2025-04-17 | CT_ITS ---
EXAMINATION: CT CHEST WITHOUT CONTRAST CLINICAL INFORMATION: F/U pulmonary nodules Significant smoking history and pulmonary nodules lost to follow-up for surveillance. COMPARISON: Chest CT on February 23, 2023 TECHNIQUE: Multidetector volumetric CT imaging of the chest was done. Axial MIP volume rendering provided. Sagittal and coronal reformatted images were obtained. This CT examination was performed using dose optimization techniques as appropriate, variously including the following: *Automated exposure control *Adjustment of mA and/or kV according to patient size (this includes techniques or standardized protocols for targeted exams where dose is matched to indication/reason for exam; i.e. extremities or head) *Use of iterative reconstruction technique FINDINGS: DRY ICE MACHINE OPERATOR: No tubes or lines. LUNGS: Central airways are patent. Mild diffuse bronchial wall thickening. No focal lung consolidation. Near complete resolution of previously seen numerous upper/middle lung zone predominant groundglass nodules. One of the nodules persists, which measures 0.5 cm and is located in the posterior medial right upper lobe (4:44/159). PLEURA: No pneumothorax or pleural effusion. MEDIASTINUM: No thyroid nodules. Heart is normal in size. No pericardial effusion. No coronary artery calcifications. Thoracic aorta centimeters caliber. LYMPH NODES: No lymphadenopathy. UPPER ABDOMEN: Unremarkable. OSSEOUS STRUCTURES: No acute or suspicious findings. CT/CT chest wo IV con IMPRESSION: 1. Near complete resolution of the previously seen numerous groundglass nodules. 2. Mild bronchial wall thickening, likely reflecting bronchitis. Electronically signed by: Matthew Atwood MD 04/17/2025 06:11 PM [facility]
--- OUTSIDE RECORDS SUMMARY | 2025-04-17 18:48 | XMS_ITS | Encounter Summary ---
Author Organization [employer] Address [address] [place] [address] 7[address] [place] [address] Care Team Providers Care Machine Iii Coremaker Name Role Phone Margarita Doty [facility] Primary Care Provider [phone] Juan Francisco Steen Unavailable Unavailable Reason for Visit * Reason Onset Date Comments Medication Question 07/12/2022 Encounter Details Date Type Department Care Team ([facility] st Contact Info) Description 07/12/2022 Telephone [facility] MEDICINE 230 [place], [place] [phone] [place] [facility] 230 [place] [address] Medication Question Social History Tobacco Use Types [...] PM EST TC placed to pt at [phone] regarding traige below. Pt inquiring when she [...] agreement. RN will forward to PCP Margarita [place] FNP as FYI. Symptom: Medication Question Outcome: [...] Care Team (Late st Contact Info) Description 04/23/2025 11:00 AM EST Office Visit [facility] MED[facility]INE 230 [place] [address] [place] [facility] 230 [place] [address] documented as of this encounter Visit Diagnoses Not on filedocumented in this encounter Care Teams Machine Iii Coremaker Relationship Specialty Start Date End Date [place] FNP [address] [place] [address] PCP - General Family Medicine 01/25/22 Juan Francisco Steen FNP [address] [place] [address] Nurse Practitioner Family Medicine 05/04/23 documented as of this encounter
--- OUTSIDE RECORDS SUMMARY | 2025-04-17 18:48 | XMS_ITS | Encounter Summary ---
Author Organization [employer] Address [address] [facility] [address] 7t [place] [address] Care Team Providers Care Director Medical Economics Name Role Phone Margarita Doty DETENTION ATTENDANT Primary Care Provider [phone] Juan Francisco Steen Unavailable Unavailable Reason for Visit * Reason Comments Med Change Request Encounter Details Date Type Department Care Team ([facility] st Contact Info) Description 12/02/2023 Refill [facility] 230 [place] [address] Juan Francisco Steen FNP PTSD (post-traumatic stress [...] Description 04/23/2025 11:00 AM EST Office Visit [facility] [address] [place] [address] Margarita Doty FNP [address] [place] [address] documented as of this encounter Visit Diagnoses Diagnosis PTSD (post-traumatic stress disorder) Posttraumatic stress disorder documented in this encounter Additional Health Concerns Assessment Noted Time PHQ-9 Depression Total Score: 21 024 1:30 PM EDT documented as of this encounter Care Teams Director Medical Economics Relationship Specialty Start Date End Date Margarita Doty FNP [address] [place] [address] PCP - General Family Medicine 01/25/22 Juan Francisco Steen FNP [address] [place] [address] Nurse Practitioner Family Medicine 05/04/23 documented as of this encounter
--- OUTSIDE RECORDS SUMMARY | 2025-04-17 18:48 | XMS_ITS | Encounter Summary ---
Author Organization [employer] Address [address] [facility] [address] 7t [place] [address] Care Team Providers Care Health Records Technology Teacher Name Role Phone Margarita Doty WOOD HEEL FLAP RUBBER Primary Care Provider [phone] Juan Francisco Steen WOOD HEEL FLAP RUBBER Unavailable Unavailable Reason for Visit * Reason Comments Med Refill Encounter Details Date Type Department Care Team ([facility] st Contact Info) Description 03/24/2025 Refill [facility]INE 230 [place], [place] [phone] Paola Ma MD 230 [place] [address] Toe infection Social History Tobacco Use Types Packs/Day Years [...] Description 04/23/2025 11:00 AM EST Office Visit [facility] MED[facility]INE 230 [place] [address] ClevelandMargarita kumar [facility] [address] [place] [address] documented as of this encounter Visit Diagnoses Diagnosis Toe infection documented in this encounter Additional Health Concerns Assessment Noted Time PHQ-9 Depression Total Score: 0 01/09/20 25 10:56 AM EDT documented as of this encounter Care Teams Health Records Technology Teacher Relationship Specialty Start Date End Date Margarita Doty FNP [address] [place] [address] PCP - General Family Medicine 01/25/22 Juan Francisco Steen FNP [address] [place] [address] Nurse Practitioner Family Medicine 05/04/23 documented as of this encounter
--- OUTSIDE RECORDS SUMMARY | 2025-04-17 18:48 | XMS_ITS | Encounter Summary ---
Author Organization [employer] Address 75 [facility] 7t [place] [address] Care Team Providers Care Cone Former Name Role Phone Margarita Doty [facility] Primary Care Provider [phone] Juan Francisco Steen Unavailable Unavailable Reason for Visit * Reason Comments Med Refill Encounter Details Date Type Department Care Team ([facility] st Contact Info) Description 09/04/2024 Refill [facility] 230 [place], [place] [phone] [facility] 230 [place] [address] Neuropathy Social History Tobacco Use Types Packs/Day [...] Description 04/23/2025 11:00 AM EST Office Visit [facility] 230 [place] [address] Margarita Doty FNP 230 [place] [address] documented as of this encounter Visit Diagnoses Diagnosis Neuropathy Mononeuritis of unspecified site documented in this encounter Additional Health Concerns Assessment Noted Time PHQ-9 Depression Total Score: 21 024 1:30 PM EDT documented as of this encounter Care Teams Cone Former Relationship Specialty Start Date End Date Margarita Doty FNP [address] [place] [address] PCP - General Family Medicine 01/25/22 Juan Francisco Steen FNP [address] [place] [address] Nurse Practitioner Family Medicine 05/04/23 documented as of this encounter
--- OUTSIDE RECORDS SUMMARY | 2025-04-17 18:48 | XMS_ITS | Encounter Summary ---
Author Organization [employer] Address [address] [facility] [address] 7t [place] [address] Care Team Providers Care Vascular Nurse Name Role Phone Margarita Doty NAIL TECHNICIAN Primary Care Provider [phone] Juan Francisco Steen Unavailable Unavailable Reason for Visit * Reason Comments Med Refill Encounter Details Date Type Department Care Team ([facility] st Contact Info) Description 10/20/2023 Refill [facility] 230 [place] [address] Juan Francisco Steen FNP PTSD (post-traumatic stress [...] 04/23/2025 11:00 AM EST Office Visit [facility] [address] [place] [address] Margarita Doty FNP [address] [place] [address] documented as of this encounter Visit Diagnoses Diagnosis PTSD (post-traumatic stress disorder) Posttraumatic stress disorder documented in this encounter Additional Health Concerns Assessment Noted Time PHQ-9 Depression Total Score: 15 024 3:36 PM EDT documented as of this encounter Care Teams Vascular Nurse Relationship Specialty Start Date End Date Margarita Doty FNP [address] [place] [address] PCP - General Family Medicine 01/25/22 Juan Francisco Steen FNP [address] [place] [address] Nurse Practitioner Family Medicine 05/04/23 documented as of this encounter
--- OUTSIDE RECORDS SUMMARY | 2025-04-17 18:48 | XMS_ITS | Encounter Summary ---
Author Organization [employer] Address [address] [place] [address] 7t [place] [address] Care Team Providers Care Insights Manager Name Role Phone Margarita Doty [facility] Primary Care Provider [phone] Juan Francisco Steen Unavailable Unavailable Reason for Visit * Reason Onset Date Comments Appointment Request 12/22/2022 Encounter Details Date Type Department Care Team ([facility] st Contact Info) Description 12/22/2022 Telephone [facility] 230 [place], [place] [phone] [place] [facility] 230 [place] [address] Appointment Request Social History Tobacco Use Types [...] Description 04/23/2025 11:00 AM EST Office Visit [facility] [address] [place] [address] Margarita Doty FNP [address] [place] [address] documented as of this encounter Visit Diagnoses Not on filedocumented in this encounter Additional Health Concerns Assessment Noted Time PHQ-9 Depression Total Score: 10 023 9:51 AM EDT documented as of this encounter Care Teams Insights Manager Relationship Specialty Start Date End Date Margarita Doty FNP [address] [place] [address] PCP - General Family Medicine 01/25/22 Juan Francisco Steen FNP [address] [place] [address] Nurse Practitioner Family Medicine 05/04/23 documented as of this encounter
--- OUTSIDE RECORDS SUMMARY | 2025-04-17 18:48 | XMS_ITS | Encounter Summary ---
Author Organization [employer] Address 75 [facility] 7t [place] [address] Care Team Providers Care Retail Solar Advisor Name Role Phone Margarita Doty [facility] Primary Care Provider [phone] Juan Francisco Steen MACHINIST LINOTYPE Unavailable Unavailable Reason for Visit * Reason Comments Med Refill Encounter Details Date Type Department Care Team ([facility] st Contact Info) Description 02/21/2025 Refill [facility] 230 [place], [place] [phone] [facility] 230 [place] [address] Type 2 diabetes mellitus with other specified complication, unspecified whether usp insulin use ([facility]) Social History Tobacco Use Types Packs/Day [...] Description 04/23/2025 11:00 AM EST Office Visit [facility] 230 [place] [address] LalithaMargarita FNP 230 [place] [address] documented as of this encounter Visit Diagnoses Diagnosis Type 2 diabetes mellitus with other specified complication, unspecified whether usp insulin use (HCC) documented in this encounter Additional Health Concerns Assessment Noted Time PHQ-9 Depression Total Score: 0 01/09/20 25 10:56 AM EDT documented as of this encounter Care Teams Retail Solar Advisor Relationship Specialty Start Date End Date Margarita Doty FNP [address] [place] [address] PCP - General Family Medicine 01/25/22 Juan Francisco Steen FNP [address] [place] [address] Nurse Practitioner Family Medicine 05/04/23 documented as of this encounter
--- OUTSIDE RECORDS SUMMARY | 2025-04-17 18:48 | XMS_ITS | Encounter Summary ---
Author Organization [employer] [facility] Address [address] [place] [address] 7t [place] [address] Care Team Providers Care Bible Reader Name Role Phone Margarita Doty [facility] Primary Care Provider [phone] Juan Francisco Steen Unavailable Unavailable Encounter Details Date Type Department Care Team (Latest Contact Info) Description 03/21/2019 Abstract [facility] CONVERSIONS Dental, Provider, DDS Social History [...] Care Team ( st Contact Info) Description 04/23/2025 11:00 AM EST Office Visit [facility] MEDICINE 230 [place] [address] Lalitha Margarita [facility] 230 [place] [address] documented as of this encounter Visit Diagnoses Not on filedocumented in this encounter Care Teams Bible Reader Relationship Specialty Start Date End Date LalithaMargarita FNP 230 [place] [address] PCP - General Family Medicine 01/25/22 Juan Francisco Steen FNP 230 [place] [address] Nurse Practitioner Family Medicine 05/04/23 documented as of this encounter
--- OUTSIDE RECORDS SUMMARY | 2025-04-17 18:48 | XMS_ITS | Encounter Summary ---
Author Organization [employer] Address 75 [facility] 7t [place] [address] Care Team Providers Care Spray Booth Operator Name Role Phone Margarita Doty [facility] Primary Care Provider [phone] Juan Francisco Steen Unavailable Unavailable Reason for Visit * Reason Onset Date Comments Nurse Triage 04/23/2024 Encounter Details Date Type Department Care Team ([facility] Contact Info) Description 04/23/2024 Telephone [facility] 230 [place], [place] [phone] LalithaMargarita kumar [facility] 230 [place] [address] Nurse Triage Social History Tobacco Use Types [...] uses heat for some relief. ASK apt with Dr. Rojas 04/24/24 @ 1130am. Insurance is verified [...] Trouble walking The caller accepted this outcome. [phone] documented in this encounter Plan of Treatment Upcoming Encounters Date Type Department Care Team (Late st Contact Info) Description 04/23/2025 11:00 AM EST Office Visit [facility]INE 230 [place] [address] Margarita Doty FNP [address] [place] [address] documented as of this encounter Visit Diagnoses Not on filedocumented in this encounter Additional Health Concerns Assessment Noted Time PHQ-9 Depression Total Score: 21 06/2 024 1:30 PM EDT documented as of this encounter Care Teams Spray Booth Operator Relationship Specialty Start Date End Date Margarita Doty FNP [address] [place] [address] PCP - General Family Medicine 01/25/22 Juan Francisco Steen FNP [address] [place] [address] Nurse Practitioner Family Medicine 05/04/23 documented as of this encounter
--- OUTSIDE RECORDS SUMMARY | 2025-04-17 18:48 | XMS_ITS | Encounter Summary ---
Author Organization [employer] Address [address] [facility] [address] 7t [place] [address] Care Team Providers Care Bed Spring Maker Name Role Phone Margarita Doty WEB CONTENT & SOCIAL MEDIA MANAGER Primary Care Provider [phone] Juan Francisco Steen WEB CONTENT & SOCIAL MEDIA MANAGER Unavailable Unavailable Reason for Visit * Reason Comments Med Change Request Encounter Details Date Type Department Care Team ([facility] st Contact Info) Description 04/19/2023 Refill [facility]INE 230 [place] [address] Inocencia Wilkinson MD 230 [place] [address] Acute bilateral low back pain without sciatica [...] Description 04/23/2025 11:00 AM EST Office Visit [facility] [address] [place] [address] Margarita Doty FNP [address] [place] [address] documented as of this encounter Visit Diagnoses Diagnosis Acute bilateral low back pain without sciatica documented in this encounter Additional Health Concerns Assessment Noted Time PHQ-9 Depression Total Score: 10 023 9:51 AM EDT documented as of this encounter Care Teams Bed Spring Maker Relationship Specialty Start Date End Date Margarita Doty FNP [address] [place] [address] PCP - General Family Medicine 01/25/22 Juan Francisco Steen FNP [address] [place] [address] Nurse Practitioner Family Medicine 05/04/23 documented as of this encounter
--- OUTSIDE RECORDS SUMMARY | 2025-04-17 18:48 | XMS_ITS | Encounter Summary ---
Author Organization [employer] Address 75 [facility] 7t [place] [address] Care Team Providers Care Radius Corner Machine Operator Name Role Phone Margarita Doty [facility] Primary Care Provider [phone] Juan Francisco Steen Unavailable Unavailable Reason for Visit * Reason Onset Date Comments Med Refill 01/15/2024 Encounter Details Date Type Department Care Team ([facility] Contact Info) Description 01/15/2024 Telephone [facility] MEDICINE 230 [place], [place] [phone] LalithaMargarita kumar [facility] 230 [place], [place] [phone] Med Refill Social History Tobacco Use Types [...] 300 MG capsule To be sent to: [facility] Pharmacy documented in this encounter Plan of Treatment Upcoming Encounters Date Type Department Care Team (Late st Contact Info) Description 04/23/2025 11:00 AM EST Office Visit [facility] MEDICINE 230 [place] [address] Margarita Doty FNP 230 [place] [address] documented as of this encounter Visit Diagnoses Not on filedocumented in this encounter Additional Health Concerns Assessment Noted Time PHQ-9 Depression Total Score: 21 024 1:30 PM EDT documented as of this encounter Care Teams Radius Corner Machine Operator Relationship Specialty Start Date End Date Margarita Doty FNP 230 [place] [address] PCP - General Family Medicine 01/25/22 Juan Francisco Steen FNP 230 [place] [address] Nurse Practitioner Family Medicine 05/04/23 documented as of this encounter
--- OUTSIDE RECORDS SUMMARY | 2025-04-17 18:48 | XMS_ITS | Encounter Summary ---
Author Organization [employer] [facility] Address [address] [place] [address] 7t [place] [address] Care Team Providers Care Balance Truing Inspector Name Role Phone Margarita Doty [facility] Primary Care Provider [phone] Juan Francisco Steen Unavailable Unavailable Reason for Visit * Reason Comments Med Refill Encounter Details Date Type Department Care Team (Late Contact Info) Description 02/18/2023 Refill [facility] MEDICINE [address] [place] [phone] Estela Saab FNP Fibromyalgia Social History Tobacco [...] Description 04/23/2025 11:00 AM EST Office Visit [facility] MEDICINE [address] [place] [phone] Lalitha MargaritaAYO 230 [place] [address] documented as of this encounter Visit Diagnoses Diagnosis Fibromyalgia Unspecified myalgia and myositis documented in this encounter Additional Health Concerns Assessment Noted Time PHQ-9 Depression Total Score: 10 023 9:51 AM EDT documented as of this encounter Care Teams Balance Truing Inspector Relationship Specialty Start Date End Date Margarita Doty FNP 230 [place] [address] PCP - General Family Medicine 01/25/22 Juan Francisco Steen FNP 230 [place] [address] Nurse Practitioner Family Medicine 05/04/23 documented as of this encounter
--- OUTSIDE RECORDS SUMMARY | 2025-04-17 18:48 | XMS_ITS | Clinical Summary ---
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 7.4 6.5 - 8.0 g/dL [facility] Albumin Level 4.5 3.5 - 5.0 g/dL [facility] Alkaline Phosphatase 37(L) 39 - 117 U/L [facility] Blood Venous blood specimen / Unknown 02/20/2025 11:40 AM EDT 02/20/2025 1:11 PM EDT [facility] EMERGENCY MANAGEMENT SYSTEM DIRECTOR LAB BLOOD ORDERABLES Final Re sult [facility] [address] [place] [phone] [phone] * BI Mammogram Screening Tomosynthesis Bilateral (02/10/2023 3:24 PM EDT) Anatomical Region Laterality Modality Breast Bilateral Mammography 02/10/2023 3:24 PM EDT Narrative 02/28/2023 6:37 PM EDT [facility] [address] [place] [address] Mammography Report Signed Patient: Mague Cruz MR#: [id number] : 1980 Acct:[id number] Age/Sex: 42 / F ADM Date: 02/10/23 Loc: [facility] Attending Dr: Srinivasa Prasad MD Ordering Physician: Srinivasa Prasad MD Results: 1Negativ e Date of Service: 02/10/23 Follow Up: 1 Year From Orig inal Mammogram Procedure(s): MM tomosynthesis screening BI Accession Number(s): [id number] cc: Margarita Doty; Srinivasa Prasad MD EXAMINATION: [...] in OV> 02/28/23 1833 DD/ 1524 TD/TT: Framing Specialist: Procedure Note Donotuseinterpreter, Image - 02/28/2023 [facility] [address] [place] [address] Mammography Report Signed Patient: Mague Cruz R#: [id number] : 1980Acct:[id number] Age/Sex: 42 / FADM Date: 02/10/23 Loc: [facility] Attending Dr: Srinivasa Prasad MD Ordering Physician: Srinivasa Prasad MDResults: 1Nega e Date of Service: 02/10/23Follow Up: 1 Year From Orig inal Mammogram Procedure(s): MM tomosynthesis screening BI Accession Number(s): [id number] cc: Margarita Doty; Srinivasa Prasad MD EXAMINATION: [...] in OV> 02/28/23 1833 DD/ 1524 TD/TT: Framing Specialist: [facility] External Provider IMG BI PROCEDURES Final Result * Pap Smear (01/12/2023 3:24 PM EDT) 01/12/2023 3:24 PM EDT 01/13/2023 9:30 AM EDT [facility] - 01/31/2023 9:31 AM EDT ----- ------- Name: NancyMague Sanju Age/Sex: 42/F : 1980 Unit#: [id number] Attend Dr: Srinivasa Prasad MD Re01/12/23 Status: DEP REF Location: [facility] Disch: ----- ------- SPEC : [id number] RECD: 01/13/23 STATUS: TAMERA VINCENT NUM: [id number] EDEN: 01/12/23-[address] [facility] [address]: Srinivasa Prasad MD ENTERED: 01/13/23 SP TYPE: Pap Smr OTHR DR: [facility] ORDERED: Pap Smear, PAP path review Interpretation General Category: Negative for intraepithelial lesion/malignancy. Adequacy: Endocervical component present. Interpretation: Inflammation with associated cellular changes. HPV mRNA E6/E7: Not detected This assay detects E6/E7 viral messenger RNA (mRNA) from 14 high-risk HPV types (16, 18, 31, 33, 35, 39, 45, 51, 52, 56, 58, 59, 66, 68) HPV testing performed by [facility], [place], [place]. See reference laboratory portion of the EMR for entire report. Clinical Information LMP:12/12/22 Previous PAP test:Unknown date/findings Other history:Abnormal uterine and vaginal bleeding Material Received ThinPrep-Cervical Copies To: [address] [address] Srinivasa Prasad MD [address] [place] [address] [address] ----- ------- Signed (signature on file) Gill Simpson MD 01/31/23 0931 ----- ------- END OF REPORT [facility] External Provider LAB CYT AMINTA ORDERABLES Final Result [facility] [address] [place] [address] [phone] from Last 3 Months or Most Recently Relevant to Health Maintenance Insurance [address] [place] [address] [facility] [place] [address] [employer] [employer] [place] AD[place] Care Teams Porcelain Buildup Assistant Relationship Specialty Start Date End Date Margarita Doty FNP [address] [place] [phone] PCP - General Family Medicine 01/25/22 Juan Francisco Steen FNP [address] [place] [phone] Nurse Practitioner Family Medicine 05/04/23
--- OUTSIDE RECORDS SUMMARY | 2025-04-17 18:48 | XMS_ITS | Encounter Summary ---
Author Organization [employer] Address [address] [facility] [address] [address] [place] [address] Care Team Providers Care Flat Examiner Name Role Phone Margarita Doty WILDLIFE OFFICER Primary Care Provider [phone] Juan Francisco Steen Unavailable Unavailable Reason for Visit * Reason Comments Med Change Request Encounter Details Date Type Department Care Team ([facility] st Contact Info) Description 04/18/2023 Refill [facility] [address] [place] [address] Juan Francisco Steen FNP PTSD (post-traumatic stress [...] 11:00 AM EST Office Visit [facility] [address] [place] [address] Margarita Doty FNP [address] [place] [address] documented as of this encounter Visit Diagnoses Diagnosis PTSD (post-traumatic stress disorder) Posttraumatic stress disorder documented in this encounter Additional Health Concerns Assessment Noted Time PHQ-9 Depression Total Score: 10 023 9:51 AM EDT documented as of this encounter Care Teams Flat Examiner Relationship Specialty Start Date End Date Margarita Doty FNP [address] [place] [address] PCP - General Family Medicine 01/25/22 Juan Francisco Steen FNP [address] [place] [address] Nurse Practitioner Family Medicine 05/04/23 documented as of this encounter
--- OUTSIDE RECORDS SUMMARY | 2025-04-17 18:48 | XMS_ITS | Encounter Summary ---
Author Organization [employer] Address [address] [place] [address] Care Team Providers Care Front Line Supervisor Name Role Phone Margarita Doty [facility] Primary Care Provider [phone] Juan Francisco Steen FLAVORER Unavailable Unavailable Encounter Details Date Type Department Care Team ([facility] st Contact Info) Description 10/04/2024 Telephone [facility] [address] [place], [place] [phone] [place] [facility] [address] [place] [address] Social History Tobacco Use Types Packs/Day Years [...] to sit still 1 10/07/2024 1:57 PM EDT Padmini Mcbride [place] Becoming easily annoyed or [...] Description 04/23/2025 11:00 AM EST Office Visit [facility] [address] [place] [address] Margarita Doty FNP [address] [place] [address] documented as of this encounter Visit Diagnoses Not on filedocumented in this encounter Additional Health Concerns Assessment Noted Time PHQ-9 Depression Total Score: 21 11/16/ 024 1:30 PM EDT documented as of this encounter Care Teams Front Line Supervisor Relationship Specialty Start Date End Date Margarita Doty FNP [address] [place] [address] PCP - General Family Medicine 01/25/22 Juan Francisco Steen FNP [address] [place] [phone] Nurse Practitioner Family Medicine 05/04/23 documented as of this encounter
--- OUTSIDE RECORDS SUMMARY | 2025-04-17 18:48 | XMS_ITS | Encounter Summary ---
Author Organization [employer] Address [address] [place] [address] Care Team Providers Care Home Health Cna Name Role Phone Margarita Doty [facility] Primary Care Provider [phone] Juan Francisco Steen BREAD MOLDER Unavailable Unavailable Reason for Visit * Reason Comments Med Refill Encounter Details Date Type Department Care Team ([facility] st Contact Info) Description 02/04/2024 Refill [facility] [address] [place], [place] [phone] [place] [facility] [address] [place] [address] Hypertriglyceridemia Social History Tobacco Use Types Packs/Day [...] Description 04/23/2025 11:00 AM EST Office Visit [facility] [address] [place] [address] Margarita Doty FNP [address] [place] [address] documented as of this encounter Visit Diagnoses Diagnosis Hypertriglyceridemia Pure hyperglyceridemia documented in this encounter Additional Health Concerns Assessment Noted Time PHQ-9 Depression Total Score: 21 024 1:30 PM EDT documented as of this encounter Care Teams Home Health Cna Relationship Specialty Start Date End Date Margarita Doty FNP [address] [place] [phone] PCP - General Family Medicine 01/25/22 Juan Francisco Steen FNP [address] [place] [phone] Nurse Practitioner Family Medicine 05/04/23 documented as of this encounter
--- OUTSIDE RECORDS SUMMARY | 2025-04-17 18:48 | XMS_ITS | Encounter Summary ---
Author Organization [employer] Address [address] [facility] 7[address] [place] [address] Care Team Providers Care Knifer Up Name Role Phone Margarita Doty MANAGER OF CASE MANAGEMENT Primary Care Provider [phone] Juan Francisco Steen Unavailable Unavailable Reason for Visit * Reason Comments Med Change Request Encounter Details Date Type Department Care Team ([facility] st Contact Info) Description 09/06/2023 Refill [facility] [address] [place] [address] Juan Francisco Steen FNP Social History Tobacco [...] Description 04/23/2025 11:00 AM EST Office Visit [facility] [address] [place] [address] Margarita Doty FNP [address] [place] [address] documented as of this encounter Visit Diagnoses Not on filedocumented in this encounter Additional Health Concerns Assessment Noted Time PHQ-9 Depression Total Score: 14 023 10:08 AM EST documented as of this encounter Care Teams Knifer Up Relationship Specialty Start Date End Date Margarita Doty FNP [address] [place] [address] PCP - General Family Medicine 01/25/22 Juan Francisco Steen FNP [address] [place] [address] Nurse Practitioner Family Medicine 05/04/23 documented as of this encounter
--- OUTSIDE RECORDS SUMMARY | 2025-04-17 18:48 | XMS_ITS | Encounter Summary ---
Author Organization [employer] Address [address] [facility] [address] [place] [address] Care Team Providers Care Tube Pusher Name Role Phone Margarita Doty [facility] Primary Care Provider [phone] Juan Francisco Steen Unavailable Unavailable Reason for Visit * Reason Onset Date Comments Med Refill 02/11/2025 Encounter Details Date Type Department Care Team ([facility] st Contact Info) Description 02/11/2025 Telephone [facility] [address] [place], [place] [phone] LalithaMargarita kumar [facility] [address] [place], [place] [phone] Med Refill Social History Tobacco Use Types [...] 9:19 AM EDT Medication was sent to [facility] on 02/05/25. * Telephone Encounter - Sheng Treadwell - 02/11/2025 9:15 AM EDT TC from pt requesting medication refill. Medications needing refill: amphetamine-dextroamphetamine XR (Adderall XR) 25 MG 24 hr capsule To be sent to: [facility] - [place], [place] - [address] [place] [address] documented in this encounter Plan of Treatment Upcoming Encounters Date Type Department Care Team (Late st Contact Info) Description 04/23/2025 11:00 AM EST Office Visit [facility] [address] [place] [address] [place] FNP [address] [place] [address] documented as of this encounter Visit Diagnoses Not on filedocumented in this encounter Additional Health Concerns Assessment Noted Time PHQ-9 Depression Total Score: 0 08/06/20 25 10:56 AM EDT documented as of this encounter Care Teams Tube Pusher Relationship Specialty Start Date End Date Margarita Doty FNP [address] [place] [address] PCP - General Family Medicine 01/25/22 Juan Francisco Steen FNP [address] [place] [address] Nurse Practitioner Family Medicine 05/04/23 documented as of this encounter
== END 2025-04-17 16:08 | disposition home or self-care (01) ==
LOC: HO.CT 16:07
PROVIDERS: PCP Registered Nurse; Visit Provider Registered Nurse
DX: R91.8 Other nonspecific abnormal finding of lung field (principal)
CPT/HCPCS: 71250

== ENCOUNTER → 2025-04-17 16:09 | Outpatient (BNV) | payer MEDICARE, SELFPAY | PROVIDERS: PCP Registered Nurse; Visit Provider Radiology Body Imaging | DX: R91.8 Other nonspecific abnormal finding of lung field (principal) | CPT/HCPCS: 71250 ==